=== PATIENT | male | born 1940 | race Caucasian/White ===

== ENCOUNTER 2017-01-30 14:29 | Emergency (ER) | payer BC ==
[~2017-01-30] VITALS: Ht 175.3 cm; Wt 96.0 kg
[~2017-01-30 14:29] MED LIST: ASPI81TA28 PO; BACL10TA PO; CARV6.25 PO; GABA-113 PO; LEVO50TA6 PO; MULT-190 PO; MULT-506 PO; NITR0.4S UT; OMEG10002; PRLSR20 PO; TAMS0.4C38 PO
[2017-01-30 14:46] VITALS: TEMP 37; Ht 175.3 cm; Wt 96.0 kg
[2017-01-30] MEDS ORDERED: SODIUM CHLORIDE 0.9% 500ML 500 ML IV STA (14:56)
[2017-01-30 15:03] VITALS: O2SAT 95
[2017-01-30] MEDS ORDERED: CARV12.52 PO (15:03)
--- NOTE | 2017-01-30 15:07 | EMERGENCY ROOM VISIT NOTE ---
History Report prepared by Mitzi: Teodoro Solano Under the Supervision of: Dr. Remberto Berman M.D. First contact with patient: 14:41 Chief Complaint: SHORTNESS OF BREATH Stated Complaint: SHORTNESS OF BREATH History of Present Illness The patient is a 76 year old male who presents to the Emergency Room with complaints of resolved shortness of breath that occurred prior to arrival. The patient is accompanied by his who states that he had a cup of peaches for lunch and sat on the recliner watching TV. She states that she checked on him and noticed his eyes were rolling to the back of his head. His states that he would not respond until she grabbed him in screamed. She states that he was short of breath. The patient admits to a quadruple bypass done by Dr. Lux at [facility] 9 days ago. He states that there was no work done on his valves. The patient admits to taking Aspirin, but denies any Coumadin. He reports that his heart beat was irregular until they increased his Carvedilol to 12.5 recently. The patient denies any abdominal pain. 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 A total of 10 systems reviewed and were otherwise negative. Past Medical & Surgical Medical Problems: (1) BPH (benign prostatic hyperplasia) (2) CAD (coronary artery disease) (3) Dyslipidemia (4) GERD (gastroesophageal reflux disease) (5) HTN (hypertension) (6) Hypothyroidism (7) Myocardial infarction (8) Osteoarthritis Surgical Problems: (1) H/O cardiac catheterization (2) H/O wisdom tooth extraction (3) History of tonsillectomy and adenoidectomy Family History Patient reports no known family medical history. Social History Smoking Status: Never Smoker Marital Status: Housing Status: lives with significant other Occupation Status: retired Current/Historical Medications Scheduled Aspirin (Aspirin Ec), 81 MG PO DAILY Carvedilol (Coreg), 12.5 MG PO BID Gabapentin (Neurontin), 300 MG PO BID Levothyroxine Sodium (Levothyroxine Sodium), 1 TAB PO DAILY Multivitamin (Multivitamin), 1 TAB PO DAILY Nitroglycerin (Nitrostat), 0.4 MG UT PRN Ocuvite Preservision (Ocuvite Preservision), 1 TAB PO DAILY [place]-3 Fatty Acids (Fish Oil), BID Omeprazole (Prilosec), 20 MG PO BID Tamsulosin Hcl (Flomax), 1 CAP PO DAILY Allergies Coded Allergies: No Known Allergies (Unverified , 01/30/17) Physical Exam Vital Signs Date Time Temp Pulse Resp B/P (MAP) Pulse Ox O2 Delivery O2 Flow Rate FiO2 01/30/17 17:57 64 18 169/100 97 01/30/17 17:50 62 18 169/100 97 Nasal Cannula 2.0 01/30/17 17:17 64 20 165/74 95 Nasal Cannula 2.0 01/30/17 16:20 64 18 168/78 100 Nasal Cannula 2.0 01/30/17 15:03 94 Room Air 01/30/17 15:03 95 Room Air 01/30/17 15:02 114/55 116/62 106/57 01/30/17 14:46 37.0 72 18 140/67 96 Room Air 01/30/17 14:36 Room Air 01/30/17 14:36 70 Physical Exam GENERAL: Patient is a healthy-appearing well-nourished 76 year old male HEAD: Normocephalic atraumatic EYES: Ocular movements intact pupils equal and react to light OROPHARYNX mucous membranes are moist no exudates present no erythema or edema present NECK: Supple no nuchal rigidity CHEST: Good equal expansion LUNGS: Clear and equal to auscultation CARDIAC: Normal S1 and S2, Heart murmur noted. ABDOMEN: Soft nontender no guarding BACK: No CVA tenderness EXTREMITIES: No pain upon palpation normal muscle strength in all groups no clubbing cyanosis. Surgical incision that is healing well. Right leg is grossly swollen than left. NEURO: Patient is following commands and answering questions appropriately. Alert and oriented x3 Cranial Nerves 2-12 grossly intact Medical Decision & Procedures ER Provider Diagnostic Interpretation: Radiology results as stated below per my review and radiologist interpretation: (CHEST FOR PE) ANGIO WITH CT DOSE: 574.15 mGy.cm HISTORY: Chest pain dyspnea TECHNIQUE: Multiaxial CT images of the chest were performed following the intravenous administration of contrast to evaluate the pulmonary arteries. Maximal intensity projection images were also obtained. A dose lowering technique was utilized adhering to the principles of ALARA. COMPARISON STUDY: None. FINDINGS: Mild atherosclerotic change thoracic aorta. No evidence for aneurysm or dissection. Several first and second order filling defects of the right upper lobe pulmonary vasculature. Several second and/or third or filling defects of the left lower lobe pulmonary vasculature. No main or central pulmonary embolus. Moderate cardiomegaly. Recent median sternotomy. No significant pericardial effusion. Mild bibasilar dependent atelectatic change. Small left pleural effusion. Contracted gallbladder containing several gallstones in the region of the gallbladder neck. IMPRESSION: 1. Study is positive for several second or third order pulmonary arterial filling defects/pulmonary emboli bilaterally. 2. No evidence for main or central pulmonary embolus. 3. Small left pleural effusion. 4. Mild bibasilar atelectatic change. 5. Contracted gallbladder containing several gallstones. The above report was generated using voice recognition software. It may contain grammatical, syntax or spelling errors. Electronically signed by: Ruddy Villalpando M.D. 01/30/2017 4:19 PM Dictated Date/Time: 01/30/2017 4:13 PM L VENOUS DOPP LOWER EXT UNILAT CLINICAL HISTORY: Pt c/o LLE swelling pain. Edema. TECHNIQUE: Venous Doppler COMPARISON STUDY: None FINDINGS: Normal study IMPRESSION: Normal study The above report was generated using voice recognition software. It may contain grammatical, syntax or spelling errors. Electronically signed by: Ruddy Villalpando M.D. 01/30/2017 5:16 PM Dictated Date/Time: 01/30/2017 5:16 PM Laboratory Results 01/30/17 15:18 Red Blood Count 3.83, Mean Corpuscular Volume 90.6, Mean Corpuscular Hemoglobin 28.7, Mean Corpuscular Hemoglobin Concent 31.7, Mean Platelet Volume 9.3, Neutrophils (%) (Auto) 54.7, Lymphocytes (%) (Auto) 22.5, Monocytes (%) (Auto) 18.3, Eosinophils (%) (Auto) 4.1, Basophils (%) (Auto) 0.3, Neutrophils # (Auto ) 3.71, Lymphocytes # (Auto) 1.53, Monocytes # (Auto) 1.24, Eosinophils # (Auto ) 0.28, Basophils # (Auto) 0.02 01/30/17 15:18 Test 01/30/17 15:18 01/30/17 15:20 01/30/17 15:24 01/30/17 16:33 White Blood Count 6.79 K/uL (4.8-10.8) Red Blood Count 3.83 M/uL (4.7-6.1) Hemoglobin 11.0 g/dL (14.0-18.0) Hematocrit 34.7 % (42-52) Mean Corpuscular Volume 90.6 fL (80-100) Mean Corpuscular Hemoglobin 28.7 pg (25-34) Mean Corpuscular Hemoglobin Concent 31.7 g/dl (32-36) Platelet Count 338 K/uL (130-400) Mean Platelet Volume 9.3 fL (7.4-10.4) Neutrophils (%) (Auto) 54.7 % Lymphocytes (%) (Auto) 22.5 % Monocytes (%) (Auto) 18.3 % Eosinophils (%) (Auto) 4.1 % Basophils (%) (Auto) 0.3 % Neutrophils # (Auto) 3.71 K/uL (1.4-6.5) Lymphocytes # (Auto) 1.53 K/uL (1.2-3.4) Monocytes # (Auto) 1.24 K/uL (0.11-0.59) Eosinophils # (Auto) 0.28 K/uL (0-0.5) Basophils # (Auto) 0.02 K/uL (0-0.2) RDW Standard Deviation 42.6 fL (36.4-46.3) RDW Coefficient of Variation 12.9 % (11.5-14.5) Immature Granulocyte % (Auto) 0.1 % Immature Granulocyte # (Auto) 0.01 K/uL (0.00-0.02) Prothrombin Time 11.1 SECONDS (9.0-12.0) Prothromb Time International Ratio 1.0 (0.9-1.1) Activated Partial Thromboplast Time 28.2 SECONDS (21.0-31.0) Partial Thromboplastin Ratio 1.1 Est Creatinine Clear Calc Drug Dose 45.6 ml/min Estimated GFR () 48.1 Estimated GFR (Non- 41.5 BUN/Creatinine Ratio 13.5 (10-20) Calcium Level 8.6 mg/dl (8.5-10.1) Total Bilirubin 0.3 mg/dl (0.2-1) Direct Bilirubin 0.1 mg/dl (0-0.2) Aspartate Amino Transf (AST/SGOT) 12 U/L (15-37) Alanine Aminotransferase (ALT/SGPT) 17 U/L (12-78) Alkaline Phosphatase 66 U/L (45-117) Total Creatine Kinase 24 U/L (39-308) Creatine Kinase MB 2.1 ng/ml (0.5-3.6) Creatine Kinase MB Ratio 8.8 (0-3.0) Troponin I 0.068 ng/ml (0-0.045) Total Protein 6.7 gm/dl (6.4-8.2) Albumin 3.1 gm/dl (3.4-5.0) Thyroid Stimulating Hormone (TSH) 5.130 uIu/ml (0.300-4.500) Bedside Hemoglobin 10.9 g/dl (14.0-18.0) Bedside Hematocrit 32 % (42-52) Bedside Sodium 142 mEq/L (135-144) Bedside Potassium 4.4 mEq/L (3.3-5.0) Bedside Chloride 105 mEq/L (101-112) Bedside Total CO2 25 mEq/l (24-31) Anion Gap 17.0 mmol/L (16-25) Bedside Blood Urea Nitrogen 23 mg/dl (7-18) Bedside Creatinine 1.7 mg/dl (0.6-1.3) Bedside Glucose (other) 104 mg/dl (70-99) Bedside Ionized Calcium ([place]) 1.24 mmol/l (1.12-1.32) Bedside Glucose 103 mg/dl (70-99) Urine Color DK YELLOW Urine Appearance CLEAR (CLEAR) Urine pH 5.5 (4.5-7.5) Urine Specific [place] 1.044 (1.000-1.030) Urine Protein TRACE (NEG) Urine Glucose (UA) NEG (NEG) Urine Ketones TRACE (NEG) Urine Occult Blood 1+ (NEG) Urine Nitrite NEG (NEG) Urine Bilirubin NEG (NEG) Urine Urobilinogen NEG (NEG) Urine Leukocyte Esterase NEG (NEG) Urine WBC (Auto) 1-5 /hpf (0-5) Urine RBC (Auto) 10-30 /hpf (0-4) Urine Hyaline Casts (Auto) 5-10 /lpf (0-5) Urine Epithelial Cells (Auto) >30 /lpf (0-5) Urine Bacteria (Auto) NEG (NEG) Urine Renal Epithelial Cells 0-5 /lpf (0-5) Labs reviewed by ED physician. Medications Administered Medications (Trade) Dose Ordered Sig/Radha Route Start Time Stop Time Status Last Admin Dose Admin Sodium Chloride 500 ml @ 999 mls/hr Q31M STAT IV 01/30/17 14:56 01/30/17 15:26 DC 01/30/17 15:30 999 MLS/HR Heparin Sodium/ Dextrose (Heparin 25,000 Unit/500ml D5W) 25,000 unit STK-MED ONCE .ROUTE 01/30/17 17:09 01/30/17 17:10 DC 01/30/17 17:13 25,000 UNIT Heparin Sodium (Porcine) (Heparin Sq 5000 Unit/0.5ml) 10,000 unit STK-MED ONCE .ROUTE 01/30/17 17:10 01/30/17 17:11 DC 01/30/17 17:14 6,000 UNIT ECG Indication: SOB/dyspnea Rate (beats per minute): 70 Rhythm: sinus rhythm Findings: 1st degree AV block, RBBB (incomplete), other (old inferior infarct) ED Course 1445: Past medical records reviewed. The patient was evaluated in room A12B. A complete history and physical examination was performed. 1451: I performed an Ultrasound on the patient. See Diagnostic Interpretation for further details. 1456: Ordered Sodium Chloride 500 ml @ 999 mls/hr IV. 1641: I discussed the patient's case with Dr. Sams, [facility] , and Dr. Ho, [facility]. They understand the patient's condition and suggest to transfer the patient via [facility] to [facility]. 1709: Ordered Heparin Sodium/Dextrose 25935 unit.. 1710: Ordered Heparin sodium 97035 unit. Medical Decision The differential diagnosis includes etiologies such as vasovagal event, infection, hypoglycemia, electrolyte abnormalities, cardiac sources, intracerebral event, toxicologic, neurologic, as well as others were entertained. This is a 76-year-old male who presents emergency department complaining of syncopal episode. The patient recently had a CABG performed. He has an elevation in his troponin. In addition the patient was sent for a CAT scan which was concerning for multiple PEs. I did discuss the case with the cardiovascular surgeon on-call at [facility] who asked that the patient be emergently transferred down. Based on the findings as well as the fact that the patient is requiring oxygen and that he has PEs which could place strain on his right heart. I do believe that the patient needs to be emergently transferred to [facility] for a stat echo as well as evaluation by his team's. They felt it was okay to place the patient on heparin. I did discuss my findings with family were in agreement with the treatment plan. Medication Reconcilliation Current Medication List: was personally reviewed by me Blood Pressure Screening Patient's blood pressure: Elevated blood pressure Blood pressure disposition: Referred to PCP Consults Time Called: 1640 Consulting Physician: Dr. Sams, [facility] and Dr. Ho, [facility] Returned Call: [phone] I discussed the patient's case with Dr. Sams, [facility], and Dr. Ho, [facility]. They understand the patient's condition and suggest to transfer the patient via [facility] to [facility]. Impression Primary Impression: Syncope Additional Impression: PE (pulmonary thromboembolism) Critical Care I have personally spent greater than 30 minutes of critical care time in the direct management of this patient. This includes bedside care, interpretation of diagnostic studies, and testing, discussion with consultants, patient, and family members, and other required patient management activities. This 30 minutes is in excess of all separately billable procedures. Scribe Attestation The scribe's documentation has been prepared under my direction and personally reviewed by me in its entirety. I confirm that the note above accurately reflects all work, treatment, procedures, and medical decision making performed by me. Departure Information Dispostion Transfer Acute Care Facility Referrals Pedro Lara M.D. (PCP) Patient Instructions My [facility] Problem Qualifiers Primary Impression: Syncope Syncope type: unspecified Qualified Codes: R55 - Syncope and collapse
[2017-01-30] MEDS ORDERED: OPTIRAY 320 IV PRN (15:15)
[2017-01-30 15:26] LABS: BASO % 0.3 %; BASO ABS # 0.02 K/uL (0-0.2); COMPLETE YES; EOS % 4.1 %; HEMATOCRIT 34.7 % (42-52); IG% 0.1 %; LYMPH % 22.5 %; LYMPH ABS # 1.53 K/uL (1.2-3.4); MEAN CELL VOLUME 90.6 fL (80-100); MEAN CORPUSCULAR HEMOGLOBIN 28.7 pg (25-34); MEAN CORPUSCULAR HGB CONC 31.7 g/dl (32-36); MEAN PLATELET VOLUME 9.3 fL (7.4-10.4); MONO % 18.3 %; NEUT % 54.7 %; PLATELET COUNT 338 K/uL (130-400); RED BLOOD COUNT 3.83 M/uL (4.7-6.1); WHITE BLOOD COUNT 6.79 K/uL (4.8-10.8)
[2017-01-30 15:37] LABS: ISTAT CREATININE 1.7 mg/dl (0.6-1.3); ISTAT HEMOGLOBIN 10.9 g/dl (14.0-18.0); ISTAT IONIZED CALCIUM 1.24 mmol/l (1.12-1.32)
[2017-01-30 15:50] LABS: BUN/CREATININE RATIO 13.5 (10-20); CALCIUM 8.6 mg/dl (8.5-10.1); CREATININE 1.6 mg/dl (0.60-1.40); POTASSIUM 4.2 mmol/L (3.5-5.1)
[2017-01-30 16:11] LABS: CKMB/CK RATIO 8.8 (0-3.0); THYROID STIMULATING HORMONE 5.13 uIu/ml (0.300-4.500)
--- NOTE | 2017-01-30 16:21 | DIAGNOSTIC IMAGING REPORT ---
(CHEST FOR PE) ANGIO WITH CT DOSE: 574.15 mGy.cm HISTORY: Chest pain dyspnea TECHNIQUE: Multiaxial CT images of the chest were performed following the intravenous administration of contrast to evaluate the pulmonary arteries. Maximal intensity projection images were also obtained. A dose lowering technique was utilized adhering to the principles of ALARA. COMPARISON STUDY: None. FINDINGS: Mild atherosclerotic change thoracic aorta. No evidence for aneurysm or dissection. Several first and second order filling defects of the right upper lobe pulmonary vasculature. Several second and/or third or filling defects of the left lower lobe pulmonary vasculature. No main or central pulmonary embolus. Moderate cardiomegaly. Recent median sternotomy. No significant pericardial effusion. Mild bibasilar dependent atelectatic change. Small left pleural effusion. Contracted gallbladder containing several gallstones in the region of the gallbladder neck. IMPRESSION: 1. Study is positive for several second or third order pulmonary arterial filling defects/pulmonary emboli bilaterally. 2. No evidence for main or central pulmonary embolus. 3. Small left pleural effusion. 4. Mild bibasilar atelectatic change. 5. Contracted gallbladder containing several gallstones. The above report was generated using voice recognition software. It may contain grammatical, syntax or spelling errors. Electronically signed by: Ruddy Villalpando M.D. 01/30/2017 4:19 PM Dictated Date/Time: 01/30/2017 4:13 PM
[2017-01-30 16:46] LABS: URINE APPEARANCE CLEAR (CLEAR); URINE BILIRUBIN NEG (NEG); URINE COLOR DK YELLOW; URINE EPITHELIAL CELL AUTO >30 /lpf (0-5); URINE NITRITE NEG (NEG); URINE PH 5.5 (4.5-7.5); URINE SPECIFIC GRAVITY 1.044 (1.000-1.030); UROBILINOGEN NEG (NEG)
[2017-01-30 16:47] LABS: MANUAL MICROSCOPIC REQUIRED? NO; REVIEW REQ? YES
[2017-01-30] MEDS ORDERED: HEPARIN 25000 UNIT/500 ML D5W ONE (17:09)
[2017-01-30] MEDS ORDERED: HEPARIN SOD 5000 UNIT/0.5 ML CARP ONE (17:10)
[2017-01-30 17:15] LABS: PARTIAL THROMBOPLASTIN RATIO 1.1; PROTHROMBIN TIME (PATIENT) 11.1 SECONDS (9.0-12.0)
--- NOTE | 2017-01-30 17:17 | DIAGNOSTIC IMAGING REPORT ---
L VENOUS DOPP LOWER EXT UNILAT CLINICAL HISTORY: Pt c/o LLE swelling pain. Edema. TECHNIQUE: Venous Doppler COMPARISON STUDY: None FINDINGS: Normal study IMPRESSION: Normal study The above report was generated using voice recognition software. It may contain grammatical, syntax or spelling errors. Electronically signed by: Ruddy Villalpando M.D. 01/30/2017 5:16 PM Dictated Date/Time: 01/30/2017 5:16 PM
[2017-01-30 17:57] VITALS: BP 169/100; PULSE 64; O2SAT 97
[2017-02-16] MEDS ORDERED: PRS5 PO (14:05)
== END 2017-01-30 17:57 | disposition short-term general hospital (02) ==
LOC: EDBD 14:29 → C.EDA 14:30
DX: R55 Syncope and collapse (principal); I26.99 Other pulmonary embolism without acute cor pulmonale; I25.10 Atherosclerotic heart disease of native coronary artery without angina pectoris; I10 Essential (primary) hypertension; M19.90 Unspecified osteoarthritis, unspecified site; E03.9 Hypothyroidism, unspecified; K21.9 Gastro-esophageal reflux disease without esophagitis; N40.0 Benign prostatic hyperplasia without lower urinary tract symptoms; I25.2 Old myocardial infarction; Z95.1 Presence of aortocoronary bypass graft; Z98.818 Other dental procedure status; Z98.890 Other specified postprocedural states; Z90.89 Acquired absence of other organs; Z79.82 Long term (current) use of aspirin; Z79.899 Other long term (current) drug therapy

== ENCOUNTER 2017-02-09 16:44 | Inpatient (IN) | payer BC, OTHER ==
[~2017-02-09] VITALS: Ht 175.3 cm; Wt 95.0 kg
[~2017-02-09 16:44] MED LIST changes: -BACL10TA PO; +CARV12.52 PO; -CARV6.25 PO
[2017-02-09 18:22] VITALS: BP 171/86; PULSE 64; TEMP 37; O2SAT 96; Ht 175.3 cm; Wt 95.0 kg
[2017-02-09] MEDS ORDERED: ONDANSETRON INJ 2 MG/ML 2 ML VIAL IV PRN (19:30)
[2017-02-09] MEDS ORDERED: INFLUENZA ADMINISTRATION CHARGE ONE (19:45)
[2017-02-09] MEDS ORDERED: INFLUENZA VACCINE HIGH DOSE 65+ 0.5 ML SYR IM. ONE (19:45)
[2017-02-09 20:30] LABS: HEMATOCRIT 36.9 % (42-52); MEAN CELL VOLUME 89.3 fL (80-100); MEAN CORPUSCULAR HEMOGLOBIN 28.6 pg (25-34); PLATELET COUNT 269 K/uL (130-400); RED BLOOD COUNT 4.13 M/uL (4.7-6.1); WHITE BLOOD COUNT 5.41 K/uL (4.8-10.8)
[2017-02-09] MEDS ORDERED: NITROGLYCERIN 0.4 MG SL PER TAB CHARGE UT SCH (20:30)
[2017-02-09] MEDS ORDERED: OMEP20CA9 PO (20:31)
[2017-02-09] MEDS ORDERED: NRN300 PO (20:31)
[2017-02-09 20:57] LABS: BUN/CREATININE RATIO 18.8 (10-20); CALCIUM 9.5 mg/dl (8.5-10.1); CREATININE 1.5 mg/dl (0.60-1.40); POTASSIUM 4.6 mmol/L (3.5-5.1); PROTHROMBIN TIME (PATIENT) 51.3 SECONDS (9.0-12.0)
[2017-02-09 21:00] LABS: INR 4.5 (0.9-1.1)
[2017-02-09] MEDS ORDERED: PHYTONADIONE 5 MG TAB PO ONE (21:00)
--- NOTE | 2017-02-09 21:00 | Urology Consultation ---
History General Date of Service: Feb 09, 2017. Chief Complaint: gross hematuria Primary Care Physician: Pedro Lara M.D. Pt seen a urologist before?: No History of Present Illness I am asked by Dr Hendrix to evaluate and treat patient for gross hematuria. It began 4 days ago. It seemed temporally related to coumadin use. He has passed clots. He had a CABG at [facility] then had a PE. He was discharged from [facility] Tuesday and the bleeding started soon after. He was eval at [facility] and then transferred here. He has h/o kidney stones. he has been told he has a large prostate. He is not having dyuria or fevers Imaging Imaging: CT Laboratory Labs were reviewed and are within normal limits unless listed below. Labs are available in the chart and at [facility] Problem List Medical Problems: (1) PE (pulmonary thromboembolism) Status: Acute (2) Syncope Status: Acute Past History arthritis, BPH, congestive heart failure, coronary artery disease, deep vein thrombosis, heart disease, high cholesterol, hypertension, hypothyroidism, kidney stones Past Surgical History: other (CABG) Family History Patient reports no known family medical history. not relevant at his age Social History Hx Tobacco Use In Past Year?: No Smoking: non-smoker Alcohol: daily (1 drink per day) Drug use: none Marital status: Housing status: lives with family Occupation status: retired Allergies Coded Allergies: No Known Allergies (Unverified , 01/30/17) Medications Home Medications: Home Meds and Scripts Medications Dose Route/Sig Max Daily Dose Days Date Category Prilosec (Omeprazole) 20 Mg Cap 40 Mg PO DAILY 02/09/17 Reported Gabapentin 300 Mg Cap 1 Cap PO TID 02/09/17 Reported Coreg (Carvedilol) 12.5 Mg Tab 12.5 Mg PO BID 01/30/17 Reported Flomax (Tamsulosin Hcl) 0.4 Mg Cap 1 Cap PO DAILY 30 02/23/16 Reported Ocuvite Preservision (Multivitamins/Minerals) 1 Tab Tab 1 Tab PO DAILY 12/04/15 Reported Nitrostat (Nitroglycerin) 0.4 Mg Sub 0.4 Mg UT PRN 12/04/15 Reported Multivitamin (Multivitamins) Tab 1 Tab PO DAILY 11/05/15 Reported Fish Oil ([place]-3 Fatty Acids) 1,000 Mg Cap BID 11/05/15 Reported Aspirin Ec (Aspirin) 81 Mg Tab 81 Mg PO DAILY 11/05/15 Reported Levothyroxine Sodium 50 Mcg Tab 1 Tab PO DAILY 30 11/05/15 Reported Inpatient Medications: Current Inpatient Medications Medications (Trade) Dose Ordered Sig/Radha Route Start Time Stop Time Status Last Admin Dose Admin Acetaminophen (Tylenol Tab) 650 mg Q6H PRN PO 02/09/17 19:30 03/11/17 19:29 Ondansetron HCl (Zofran Inj) 4 mg Q6H PRN IV 02/09/17 19:30 03/11/17 19:29 Polyethylene (Miralax Powder Packet) 17 gm DAILY PRN PO 02/09/17 19:30 03/11/17 19:29 Phytonadione (Mephyton Tab) 2.5 mg 2100 ONCE PO 02/09/17 21:00 02/09/17 21:01 Carvedilol (Coreg Tab) 12.5 mg BID PO 02/09/17 21:00 03/11/17 20:59 Gabapentin (Neurontin Cap) 300 mg TID PO 02/09/17 21:00 03/11/17 20:59 Levothyroxine Sodium (Synthroid Tab) 50 mcg DAILYBB PO 02/10/17 06:00 03/12/17 05:59 Nitroglycerin (Nitrostat Tab) 0.4 mg PRN UT 02/09/17 20:30 03/11/17 20:29 Multivitamins/ Minerals (Multivitamin W/ Minerals Tab) 1 tab DAILY PO 02/10/17 09:00 03/12/17 08:59 Tamsulosin HCl (Flomax Cap) 0.4 mg DAILY PO 02/10/17 09:00 03/12/17 08:59 Pantoprazole Sodium (Protonix Tab) 40 mg DAILY PO 02/10/17 09:00 03/12/17 08:59 Review of Systems Review of Systems Constitutional: + weight loss, No fever, No chills, No frequent headaches Neurological: No passing out, No seizures Endocrine: No excessive thirst, No too hot, No too cold, No tired/sluggish Gastrointestinal: + constipation, No abdominal pain, No indigestion, No nausea , No vomiting, No diarrhea Cardiovascular: No chest pain, No palpitations, No swelling ankles/feet Respiratory: + shortness of breath, No chronic cough Male : + frequent urination, + blood in urine, + kidney stones, + nocturia more than once/night, No urinary retention Physical Exam Vital Signs: Vital Signs Past 12 Hours Date Time Temp Pulse Resp B/P (MAP) Pulse Ox O2 Delivery O2 Flow Rate FiO2 02/09/17 20:00 Room Air 02/09/17 18:22 37.0 64 96 171/86 96 Room Air Physical Exam: General Appearance: WD/WN, no apparent distress, + obese Eyes: bilateral eyes normal inspection ENT: hearing grossly normal Neck: no adenopathy, no JVD, trachea midline Respiratory/Chest: no accessory muscle use Cardiovascular: no edema Gastrointestinal: Abdomen: normal abdomen Bladder: normal bladder Renal: normal renal Genitourinary - Male: Prostate: pertinent finding (he declines to have a KRYS, says he had one last month and it was noraml.) Extremities: non-tender, normal inspection, no pedal edema, no calf tenderness Neurologic/Psychiatric: alert, normal mood/affect, oriented x 3 Skin: normal color, warm/dry, no rash Lymphatic: no adenopathy Assessment & Plan Assessment & Plan gross hematuria clots in bladder by CT scan He is passing the clots fairly easily. the urine is less bloody than earlier today I suggest he be observed for now. His INR will be gently lowered but not fully corrected. Aiming for INR in the 2 's If he goes into katherin retention and cant void then we may have to intervene with a trip to OR for clot evacuation. He understands the plan. He will need a cysto in future as outpatient to rule out any dangerous pathology. statistically this is most likely prostate bleeding. I suggest we start finasteride for this.
[2017-02-09] MEDS ORDERED: GEMF600T3 PO (21:11)
[2017-02-09] MEDS: CARVEDILOL 12.5 MG TAB PO SCH (21:19)
[2017-02-09] MEDS: GABAPENTIN 300 MG CAP PO SCH (21:19)
--- NOTE | 2017-02-09 21:37 | History and Physical ---
History & Physical Date & Time of Service: Feb 09, 2017 at 21:16 Chief Complaint: Hematuria Primary Care Physician: Pedro Lara M.D. History of Present Illness Source: patient, spouse, clinic records, hospital records This is a 76yo M with a PMH of CAD (s/p 2 stents, CABG x 4), recent PE (on coumadin), HLD, hypothyroidism and other medical problems listed below who presents with hematuria that started 4 days ago. Patient had a quadruple bypass performed in [place] by Dr. Francisco on Jan 21 complicated by a post- operative PE on Jan 30. Patient initially presented to [facility] ER but was transferred to [place] for further management. Was discharged home on the on 5mg coumadin daily. By Feb 06, patient started to notice blood in his urine intermittently. Over the past few days, patient has had increasing amounts of bright red blood in urine with occasional clots. [facility] and patient's INR was found to be supratherapeutic at 4.7. CT abd pelvis showed presence of an intermediate density material in the bladder described as a soft tissue mass vs. hemorrhage surrounding a bladder stone. Patient was directly admitted to [facility] for further work-up and urology services. Vitals are stable. In addition to hematuria, patient endorses nocturia. Patient denies fever, chills. headache, visual changes, epistaxis, CP, SOB, abdominal pain, nausea, vomiting, dysuria, melena or hematochezia. Past Medical/Surgical History Medical Problems: (1) CAD (coronary artery disease) Permanent Comment: S/p stents 2004, 2006. CABG x 4 Jan 2017 Status: Chronic (2) Dyslipidemia Status: Chronic (3) GERD (gastroesophageal reflux disease) Status: Chronic (4) HTN (hypertension) Status: Chronic (5) Hypothyroidism Status: Chronic (6) Myocardial infarction Status: Chronic (7) Osteoarthritis Status: Chronic (8) Pulmonary embolism Permanent Comment: Jan 2017 Status: Chronic (9) Seizure Status: Chronic Surgical Problems: (1) H/O cardiac catheterization Status: Chronic (2) H/O wisdom tooth extraction Status: Chronic (3) History of tonsillectomy and adenoidectomy Status: Chronic Family History Patient reports no known family medical history. Social History Smoking Status: Never Smoker Alcohol Use: socially (Endorses 1 mixed drink daily with dinner.) Drug Use: none Marital Status: Housing status: lives with family Occupational Status: retired Allergies Coded Allergies: No Known Allergies (Unverified , 01/30/17) Home Medications Scheduled Aspirin (Aspirin Ec), 81 MG PO DAILY Carvedilol (Coreg), 12.5 MG PO BID Gabapentin (Gabapentin), 1 CAP PO TID Gemfibrozil (Lopid), 600 MG PO BID Levothyroxine Sodium (Levothyroxine Sodium), 1 TAB PO DAILY Multivitamin (Multivitamin), 1 TAB PO DAILY Nitroglycerin (Nitrostat), 0.4 MG UT PRN Ocuvite Preservision (Ocuvite Preservision), 1 TAB PO DAILY [place]-3 Fatty Acids (Fish Oil), BID Omeprazole (Prilosec), 40 MG PO DAILY Tamsulosin Hcl (Flomax), 1 CAP PO DAILY Review of Systems Constitutional- no fever; no weight loss Eyes- no acute visual changes ENT- no sinus drainage; no pharyngitis Pulmonary- no cough, no wheezing, see HPI Cardiac- see HPI GI- see HPI - see HPI Musculoskeletal- no arthralgias, no myalgias Derm- no rashes, no new skin lesions, no changing skin lesions Hematologic- no unusual bruising, no unusual bleeding Lymphatics- no adenopathy Endocrine- no polyuria or polydipsia; no heat or cold intolerance Neuro- no headaches, no focal neurologic symptoms Psych- no anxiety, no depression Physical Exam Vital Signs Date Time Temp Pulse Resp B/P (MAP) Pulse Ox O2 Delivery O2 Flow Rate FiO2 02/09/17 20:00 Room Air 02/09/17 18:22 37.0 64 96 171/86 96 Room Air General Appearance: WD/WN, no apparent distress Head: normocephalic, atraumatic Eyes: normal inspection, PERRL, EOMI ENT: hearing grossly normal Neck: supple, no adenopathy, no JVD, trachea midline Respiratory/Chest: chest non-tender (Presence of a vertical scar on precordium) , lungs clear, normal breath sounds, no respiratory distress, no accessory muscle use Cardiovascular: regular rate, rhythm, + systolic murmur Abdomen/GI: normal bowel sounds, non tender, soft, no organomegaly Back: normal inspection, no CVA tenderness Extremities/Musculoskelatal: normal inspection, no calf tenderness, normal capillary refill, no pedal edema Neurologic/Psych: no motor/sensory deficits, alert, normal mood/affect, oriented x 3 Skin: normal color, warm/dry, no rash Diagnostics Laboratory Results Results Past 24 Hours Test 02/09/17 20:17 Range/Units White Blood Count 5.41 4.8-10.8 K/uL Red Blood Count 4.13 4.7-6.1 M/uL Hemoglobin 11.8 14.0-18.0 g/dL Hematocrit 36.9 42-52 % Mean Corpuscular Volume 89.3 80-100 fL Mean Corpuscular Hemoglobin 28.6 25-34 pg Mean Corpuscular Hemoglobin Concent 32.0 32-36 g/dl RDW Standard Deviation 42.4 36.4-46.3 fL RDW Coefficient of Variation 13.0 11.5-14.5 % Platelet Count 269 130-400 K/uL Mean Platelet Volume 9.0 7.4-10.4 fL Prothrombin Time 51.3 9.0-12.0 SECONDS Prothromb Time International Ratio 4.5 0.9-1.1 Activated Partial Thromboplast Time 52.8 21.0-31.0 SECONDS Partial Thromboplastin Ratio 2.0 Sodium Level 141 136-145 mmol/L Potassium Level 4.6 3.5-5.1 mmol/L Chloride Level 108 98-107 mmol/L Carbon Dioxide Level 26 21-32 mmol/L Anion Gap 7.0 3-11 mmol/L Blood Urea Nitrogen 28 7-18 mg/dl Creatinine 1.50 0.60-1.40 mg/dl Est Creatinine Clear Calc Drug Dose 47.3 ml/min Estimated GFR () 52.0 Estimated GFR (Non- 44.9 BUN/Creatinine Ratio 18.8 10-20 Random Glucose 96 70-99 mg/dl Calcium Level 9.5 8.5-10.1 mg/dl Diagnostic Radiology CT abd pelvis (from [facility] records on chart): There is intermediate density material surrounding a calcification in the bladder. It is unclear if this represents an abnormal soft tissue mass surrounding a bladder stone verses potentially hemorrhage surrounding the bladder stone. The abnormality appears to be separate from the enlarged prostate gland. Recommend correlation with cystoscopy. Impression Assessment and Plan This is a 76yo M with a PMH of CAD (s/p 2 stents, CABG x 4), recent PE (on coumadin), HLD, hypothyroidism and other medical problems listed below who presents with hematuria that started 4 days ago. Patient had a quadruple bypass performed in [place] by Dr. Francisco on Jan 21 complicated by a post- operative PE on Jan 30. Hematuria: -Presents with bright red blood in urine (with some clots) x 4 days -Passing clots easily, no urinary obstruction per patient -On coumadin with a supratherapeutic INR of 4.7 at OSH -Reluctant to fully reverse Vit K in the setting of a recent PE -Discussed with Dr. Crocker, who recommended 2.5mg PO Vit K to gently lower INR -Repeat INR tonight of 4.5. Plan to trend in AM. -If INR <2 at any point, plan to initiate IV heparin -Hemoglobin stable at 11.8. Trend H/H -Dr. Madrid on board for mass/clot visualized on CT abd/pelvis -Recommends observation overnight, with gentle INR correction -Aiming for INR in the 2s for clot evacuation -Will need a cysto in the future as an out-patient to r/o any additional pathology -Statistically, this is most likely prostate bleeding. Start finasteride CAD s/p stents, CABG: -Stable, denies any CP, SOB -Aspirin, fish oil held 2/2 hematuria -Continue carvedilol, gemfibrozil -Patient unable to tolerate statin in the past H/o sub-acute PE: -Coumadin held 2/2 hematuria, supratherapeutic INR -Clinically stable, HR and O2 saturation are within normal range -Plan to initiate IV heparin if INR <2 during admission HLD: -Continue gemfibrozil Hypothyroidism: -Continue levothyroxine Acid Reflux: -Continue omeprazole Chronic back pain: -Continue gabapentin DVT Ppx: SCDs. Code status: FULL PCP: Long Dispo: Plan to return home once medically stable ATTENDING ADDENDUM Record reviewed. Patient interviewed and examined. Care coordinated with Catherine Curtis PA-C. Please refer to her documentation for patient's history. I agree with the assessment and plan stated above. The care plan has been coordinated with Dr. Madrid who will just monitor him for now, with the possibility of performing a cystoscopy as inpatient if bleeding does not slow down as INR decreases. Vit K 2.5mg given today and patient will need to receive IV heparin if INR<2. Will watch for am level closely. for now, no Mann is needed. Additionally, it was noted that although patient has had a statin intolerance in the past, he was recently placed back on Lipitor 40mg ( wide needs to confirm dose tomorrow) post-CABG. Will continue that this admission. Med Reconciliation has been updated. BP was slightly elevated but he received his Coreg and Gabapentin to help this. Will monitor BP overnight. Otherwise he is hemodynamically stable with only mild, expected anemia and doing well. DO Simeon Level of Care Telemetry Advanced Directives Existing Living Will: No Existing Power of Implementation Services Analyst: No Resuscitation Status FULL RESUSCITATION VTE Prophylaxis VTE Risk Assessment Done? Y/N: Yes Risk Level: Moderate Given or contraindicated: SCD's, Contraindicated
[2017-02-09 23:25] VITALS: BP 143/77; PULSE 77; TEMP 37; O2SAT 95
[2017-02-09] MEDS ORDERED: LPT/40 PO (23:50)
[2017-02-10 03:19] VITALS: BP 111/67; PULSE 66; TEMP 36.9; O2SAT 96
[2017-02-10 05:30] LABS: HEMATOCRIT 33.2 % (42-52); MEAN CELL VOLUME 88.3 fL (80-100); MEAN CORPUSCULAR HGB CONC 32.8 g/dl (32-36); MEAN PLATELET VOLUME 9.3 fL (7.4-10.4); PLATELET COUNT 245 K/uL (130-400); RED BLOOD COUNT 3.76 M/uL (4.7-6.1); WHITE BLOOD COUNT 5.28 K/uL (4.8-10.8)
[2017-02-10 05:39] LABS: INR 3.3 (0.9-1.1); PROTHROMBIN TIME (PATIENT) 37.2 SECONDS (9.0-12.0)
[2017-02-10 05:57] LABS: BUN/CREATININE RATIO 20.9 (10-20); CALCIUM 8.7 mg/dl (8.5-10.1); CREATININE 1.4 mg/dl (0.60-1.40); POTASSIUM 4.2 mmol/L (3.5-5.1)
[2017-02-10] MEDS: LEVOTHYROXINE 50 MCG TAB PO SCH (06:31)
[2017-02-10] MEDS: PANTOprazole SOD 40 MG TAB PO SCH (07:29)
[2017-02-10] MEDS: CARVEDILOL 12.5 MG TAB PO SCH ×2 (07:29→20:54)
[2017-02-10] MEDS: CEROVITE ADV FORMULA TAB PO SCH (07:29)
[2017-02-10] MEDS: GABAPENTIN 300 MG CAP PO SCH ×3 (07:29→20:54)
[2017-02-10] MEDS: FINASTERIDE 5 MG TAB PO SCH (07:29)
[2017-02-10] MEDS: TAMSULOSIN HCL 0.4 MG CAP PO SCH (07:29)
[2017-02-10] MEDS: GEMFIBROZIL 600 MG TAB PO SCH ×2 (07:29→20:55)
[2017-02-10 07:35] VITALS: BP 125/67; PULSE 73; TEMP 37.2; O2SAT 96
--- NOTE | 2017-02-10 10:50 | Progress Note ---
Medicine Progress Note Date & Time of Visit: Feb 10, 2017 at 10:48. Subjective patient was actually in the bathroom, washing /brushing his teeth examined at the bedside states he feels fine overall still has katherin hematuria, but no dysuria, abdominal pain, nausea, chills denies headache, dizziness, chest pain, dyspnea, palpitations no other symptoms Objective Last 8 Hrs Date Time Temp Pulse Resp B/P (MAP) Pulse Ox O2 Delivery O2 Flow Rate FiO2 02/10/17 08:00 Room Air 02/10/17 07:35 37.2 73 20 125/67 (86) 96 Room Air 02/10/17 04:00 Room Air 02/10/17 03:19 36.9 66 22 111/67 (82) 96 Room Air Physical Exam: General- oriented x 3, not in distress, speaks in sentences with no effort Head- atraumatic Eyes- EOMI, anicteric ENT- oropharynx clear Neck- supple, no JVD, no adenopathy, no thyromegaly Lungs- clear to auscultation b/l Heart- midsternotomy surgical site: healing well, no signs of infection regular rhythm; no murmur, no gallops Abdomen- normal bowel sounds, soft, nontender Extremities- no pretibial edema, no calf tenderness Neuro- alert, oriented x 3; no gross focal deficits Skin- warm & dry Laboratory Results: Last 24 Hours Test 02/09/17 20:17 02/10/17 05:06 White Blood Count 5.41 K/uL 5.28 K/uL Red Blood Count 4.13 M/uL 3.76 M/uL Hemoglobin 11.8 g/dL 10.9 g/dL Hematocrit 36.9 % 33.2 % Mean Corpuscular Volume 89.3 fL 88.3 fL Mean Corpuscular Hemoglobin 28.6 pg 29.0 pg Mean Corpuscular Hemoglobin Concent 32.0 g/dl 32.8 g/dl RDW Standard Deviation 42.4 fL 41.1 fL RDW Coefficient of Variation 13.0 % 12.7 % Platelet Count 269 K/uL 245 K/uL Mean Platelet Volume 9.0 fL 9.3 fL Prothrombin Time 51.3 SECONDS 37.2 SECONDS Prothromb Time International Ratio 4.5 3.3 Activated Partial Thromboplast Time 52.8 SECONDS Partial Thromboplastin Ratio 2.0 Sodium Level 141 mmol/L 141 mmol/L Potassium Level 4.6 mmol/L 4.2 mmol/L Chloride Level 108 mmol/L 108 mmol/L Carbon Dioxide Level 26 mmol/L 25 mmol/L Anion Gap 7.0 mmol/L 8.0 mmol/L Blood Urea Nitrogen 28 mg/dl 29 mg/dl Creatinine 1.50 mg/dl 1.40 mg/dl Est Creatinine Clear Calc Drug Dose 47.3 ml/min 50.6 ml/min Estimated GFR () 52.0 56.6 Estimated GFR (Non- 44.9 48.8 BUN/Creatinine Ratio 18.8 20.9 Random Glucose 96 mg/dl 95 mg/dl Calcium Level 9.5 mg/dl 8.7 mg/dl Thyroid Stimulating Hormone (TSH) 5.690 uIu/ml Assessment & Plan 76yo M with a PMH of CAD (s/p 2 stents, CABG x 4), recent PE (on coumadin), HLD , hypothyroidism and other medical problems listed below who presents with hematuria that started 4 days ago. Patient had a quadruple bypass performed in [place] by Dr. Francisco on Jan 21 complicated by a post-operative PE on Jan 30. Hematuria: -Presents with bright red blood in urine (with some clots) x 4 days -Passing clots easily, no urinary obstruction per patient -On coumadin with a supratherapeutic INR of 4.7 at OSH -Discussed with Dr. Crocker, who recommended 2.5mg PO Vit K to gently lower INR -If INR <2 at any point, plan to initiate IV heparin -- INR today 3.3 Hg decreased from 11.8 to 10.9 still having hematuria, will discuss next step with Dr. Madrid -Dr. Madrid on board for mass/clot visualized on CT abd/pelvis -Aiming for INR in the 2s for clot evacuation -Will need a cysto in the future as an out-patient to r/o any additional pathology -Statistically, this is most likely prostate bleeding. Start finasteride CAD s/p stents, CABG: -Aspirin, fish oil held 2/2 hematuria -Continue carvedilol, gemfibrozil -Patient unable to tolerate statin in the past -- denies cardiac symptoms ASA still on hold H/o sub-acute PE: -Coumadin held 2/2 hematuria, supratherapeutic INR -Plan to initiate IV heparin if INR <2 during admission -- INR 3.3 HLD: -Continue gemfibrozil Hypothyroidism: -Continue levothyroxine Acid Reflux: -Continue omeprazole Chronic back pain: -Continue gabapentin DVT Ppx: SCDs. Code status: FULL PCP: Long Dispo: Plan to return home once medically stable Current Inpatient Medications: Current Inpatient Medications Medications (Trade) Dose Ordered Sig/Radha Route Start Time Stop Time Status Last Admin Dose Admin Acetaminophen (Tylenol Tab) 650 mg Q6H PRN PO 02/09/17 19:30 03/11/17 19:29 Ondansetron HCl (Zofran Inj) 4 mg Q6H PRN IV 02/09/17 19:30 03/11/17 19:29 Polyethylene (Miralax Powder Packet) 17 gm DAILY PRN PO 02/09/17 19:30 03/11/17 19:29 Carvedilol (Coreg Tab) 12.5 mg BID PO 02/09/17 21:00 03/11/17 20:59 02/10/17 07:29 12.5 MG Gabapentin (Neurontin Cap) 300 mg TID PO 02/09/17 21:00 03/11/17 20:59 02/10/17 07:29 300 MG Levothyroxine Sodium (Synthroid Tab) 50 mcg DAILYBB PO 02/10/17 06:00 03/12/17 05:59 02/10/17 06:31 50 MCG Nitroglycerin (Nitrostat Tab) 0.4 mg PRN UT 02/09/17 20:30 03/11/17 20:29 Multivitamins/ Minerals (Multivitamin W/ Minerals Tab) 1 tab DAILY PO 02/10/17 09:00 03/12/17 08:59 02/10/17 07:29 1 TAB Tamsulosin HCl (Flomax Cap) 0.4 mg DAILY PO 02/10/17 09:00 03/12/17 08:59 02/10/17 07:29 0.4 MG Pantoprazole Sodium (Protonix Tab) 40 mg DAILY PO 02/10/17 09:00 03/12/17 08:59 02/10/17 07:29 40 MG Finasteride (Proscar Tab) 5 mg QAM PO 02/10/17 09:00 03/12/17 08:59 02/10/17 07:29 5 MG Atorvastatin Calcium (Lipitor Tab) 40 mg HS PO 02/10/17 21:00 03/12/17 20:59 Gemfibrozil (Lopid Tab) 600 mg BID PO 02/10/17 09:00 03/12/17 08:59 02/10/17 07:29 600 MG
[2017-02-10 12:12] VITALS: BP 115/66; PULSE 62; TEMP 36.9; O2SAT 95
[2017-02-10 12:17] LABS: HEMATOCRIT 33.7 % (42-52)
[2017-02-10 15:33] VITALS: BP 107/68; PULSE 70; TEMP 36.5; O2SAT 98
[2017-02-10] MEDS: POLYETHYLENE (MIRALAX) 17 GM PACK PO PRN (16:38)
--- NOTE | 2017-02-10 16:47 | Progress Note ---
Subjective Date of Service: Feb 10, 2017. 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 No dysuria. No chest pain. FLow is good, far fewer clots. Problem List Medical Problems: (1) PE (pulmonary thromboembolism) Status: Acute (2) Syncope Status: Acute Review of Systems Constitutional: No fever, No fatigue Cardiac: No chest pain, No palpitations Abdomen: No nausea, No vomiting, No diarrhea, No constipation Male : + hematuria, No dysuria, No urinary frequency Objective Vital Signs Date Time Temp Pulse Resp B/P (MAP) Pulse Ox O2 Delivery O2 Flow Rate FiO2 02/10/17 15:33 36.5 70 18 107/68 (81) 98 Room Air 02/10/17 12:12 36.9 62 20 115/66 (82) 95 02/10/17 08:00 Room Air 02/10/17 07:35 37.2 73 20 125/67 (86) 96 Room Air 02/10/17 04:00 Room Air 02/10/17 03:19 36.9 66 22 111/67 (82) 96 Room Air 02/09/17 23:59 Room Air 02/09/17 23:25 37.0 77 20 143/77 (99) 95 Room Air 02/09/17 20:00 Room Air 02/09/17 18:22 37.0 64 96 171/86 96 Room Air Physical Exam General Appearance: WD/WN, no apparent distress, + obese Eyes: normal inspection ENT: hearing grossly normal Respiratory/Chest: no respiratory distress, no accessory muscle use Extremities: non-tender, normal inspection, no pedal edema, no calf tenderness Neurologic/Psychiatric: alert, normal mood/affect, oriented x 3 Laboratory Results Last 24 Hours Test 02/09/17 20:17 02/10/17 05:06 02/10/17 11:59 White Blood Count 5.41 K/uL 5.28 K/uL Red Blood Count 4.13 M/uL 3.76 M/uL Hemoglobin 11.8 g/dL 10.9 g/dL 10.7 g/dL Hematocrit 36.9 % 33.2 % 33.7 % Mean Corpuscular Volume 89.3 fL 88.3 fL Mean Corpuscular Hemoglobin 28.6 pg 29.0 pg Mean Corpuscular Hemoglobin Concent 32.0 g/dl 32.8 g/dl RDW Standard Deviation 42.4 fL 41.1 fL RDW Coefficient of Variation 13.0 % 12.7 % Platelet Count 269 K/uL 245 K/uL Mean Platelet Volume 9.0 fL 9.3 fL Prothrombin Time 51.3 SECONDS 37.2 SECONDS Prothromb Time International Ratio 4.5 3.3 Activated Partial Thromboplast Time 52.8 SECONDS Partial Thromboplastin Ratio 2.0 Sodium Level 141 mmol/L 141 mmol/L Potassium Level 4.6 mmol/L 4.2 mmol/L Chloride Level 108 mmol/L 108 mmol/L Carbon Dioxide Level 26 mmol/L 25 mmol/L Anion Gap 7.0 mmol/L 8.0 mmol/L Blood Urea Nitrogen 28 mg/dl 29 mg/dl Creatinine 1.50 mg/dl 1.40 mg/dl Est Creatinine Clear Calc Drug Dose 47.3 ml/min 50.6 ml/min Estimated GFR () 52.0 56.6 Estimated GFR (Non- 44.9 48.8 BUN/Creatinine Ratio 18.8 20.9 Random Glucose 96 mg/dl 95 mg/dl Calcium Level 9.5 mg/dl 8.7 mg/dl Thyroid Stimulating Hormone (TSH) 5.690 uIu/ml Assessment and Plan gross hematuria improving audit practice intern color and fewer clots. observe. may have general diet also has bladder stone- will need a cysto and stone removal many months in future. He is now on finasteride to help control prostate bleeding and shrink overall size of prostate. Will take months to kick in.
[2017-02-10 18:10] LABS: HEMATOCRIT 33.8 % (42-52)
[2017-02-10 19:27] VITALS: BP 150/87; PULSE 67; TEMP 36.6; O2SAT 96
[2017-02-10] MEDS: ATORVASTATIN 20 MG TAB PO SCH (20:54)
[2017-02-10] MEDS: ACETAMINOPHEN 325 MG TAB PO PRN (22:43)
[2017-02-10 23:51] VITALS: BP 102/56; PULSE 65; TEMP 36.8; O2SAT 95
[2017-02-11] VITALS (7 sets, daily range): BP systolic 102–137; BP diastolic 49–80; PULSE 60–71; TEMP 36.4–37; O2SAT 95–97
[2017-02-11 00:17] LABS: HEMATOCRIT 31.4 % (42-52)
[2017-02-11] MEDS: LEVOTHYROXINE 50 MCG TAB PO SCH (05:56)
[2017-02-11 06:29] LABS: BASO % 0.2 %; BASO ABS # 0.01 K/uL (0-0.2); COMPLETE YES; EOS % 7.5 %; HEMATOCRIT 31.3 % (42-52); LYMPH % 34.6 %; LYMPH ABS # 1.79 K/uL (1.2-3.4); MEAN CELL VOLUME 87.7 fL (80-100); MEAN CORPUSCULAR HEMOGLOBIN 29.4 pg (25-34); MEAN CORPUSCULAR HGB CONC 33.5 g/dl (32-36); MEAN PLATELET VOLUME 9.1 fL (7.4-10.4); MONO % 15.1 %; NEUT % 42.6 %; PLATELET COUNT 223 K/uL (130-400); RED BLOOD COUNT 3.57 M/uL (4.7-6.1); WHITE BLOOD COUNT 5.17 K/uL (4.8-10.8)
[2017-02-11 07:11] LABS: BUN/CREATININE RATIO 19.3 (10-20); CALCIUM 8.9 mg/dl (8.5-10.1); CREATININE 1.7 mg/dl (0.60-1.40); POTASSIUM 4.3 mmol/L (3.5-5.1)
[2017-02-11 07:12] LABS: INR 1.7 (0.9-1.1); PROTHROMBIN TIME (PATIENT) 18.2 SECONDS (9.0-12.0)
[2017-02-11] MEDS: GABAPENTIN 300 MG CAP PO SCH ×3 (08:20→20:51)
[2017-02-11] MEDS: PANTOprazole SOD 40 MG TAB PO SCH (08:20)
[2017-02-11] MEDS: GEMFIBROZIL 600 MG TAB PO SCH ×2 (08:20→20:51)
[2017-02-11] MEDS: CEROVITE ADV FORMULA TAB PO SCH (08:20)
[2017-02-11] MEDS: FINASTERIDE 5 MG TAB PO SCH (08:20)
[2017-02-11] MEDS: CARVEDILOL 12.5 MG TAB PO SCH ×2 (08:20→20:51)
[2017-02-11] MEDS: TAMSULOSIN HCL 0.4 MG CAP PO SCH (08:20)
[2017-02-11] MEDS ORDERED: HEPARIN IV LOW DOSE NO BOLUS SCH (10:30)
--- NOTE | 2017-02-11 10:30 | Progress Note ---
Medicine Progress Note Date & Time of Visit: Feb 11, 2017 at 10:28. Subjective patient seen resting in bed, comfortable states he feels fine overall still passing clots, having hematuria but seems channel lip stiffener insoles denies other urinary symptoms denies chest pain, dyspnea, palpitations, dizziness Objective Last 8 Hrs Date Time Temp Pulse Resp B/P (MAP) Pulse Ox O2 Delivery O2 Flow Rate FiO2 02/11/17 08:00 Room Air 02/11/17 07:24 36.4 71 20 127/73 (91) 96 Room Air 02/11/17 04:00 Room Air 02/11/17 02:51 36.9 65 18 102/49 (66) 95 Room Air Physical Exam: General- oriented x 3, not in distress, speaks in sentences with no effort Eyes- anicteric Neck- supple, no JVD Lungs- clear to auscultation b/l Heart- midsternotomy surgical site: healing well, no signs of infection regular rhythm; no murmur, no gallops Abdomen- normal bowel sounds, soft, nontender Extremities- no pretibial edema, no calf tenderness Neuro- alert, oriented x 3; no gross focal deficits Skin- warm & dry Laboratory Results: Last 24 Hours Test 02/10/17 11:59 02/10/17 18:00 02/11/17 00:08 02/11/17 06:11 Hemoglobin 10.7 g/dL 11.1 g/dL 10.5 g/dL 10.5 g/dL Hematocrit 33.7 % 33.8 % 31.4 % 31.3 % White Blood Count 5.17 K/uL Red Blood Count 3.57 M/uL Mean Corpuscular Volume 87.7 fL Mean Corpuscular Hemoglobin 29.4 pg Mean Corpuscular Hemoglobin Concent 33.5 g/dl Platelet Count 223 K/uL Mean Platelet Volume 9.1 fL Neutrophils (%) (Auto) 42.6 % Lymphocytes (%) (Auto) 34.6 % Monocytes (%) (Auto) 15.1 % Eosinophils (%) (Auto) 7.5 % Basophils (%) (Auto) 0.2 % Neutrophils # (Auto) 2.20 K/uL Lymphocytes # (Auto) 1.79 K/uL Monocytes # (Auto) 0.78 K/uL Eosinophils # (Auto) 0.39 K/uL Basophils # (Auto) 0.01 K/uL RDW Standard Deviation 40.7 fL RDW Coefficient of Variation 12.6 % Immature Granulocyte % (Auto) 0.0 % Immature Granulocyte # (Auto) 0.00 K/uL Prothrombin Time 18.2 SECONDS Prothromb Time International Ratio 1.7 Sodium Level 139 mmol/L Potassium Level 4.3 mmol/L Chloride Level 106 mmol/L Carbon Dioxide Level 24 mmol/L Anion Gap 9.0 mmol/L Blood Urea Nitrogen 33 mg/dl Creatinine 1.70 mg/dl Est Creatinine Clear Calc Drug Dose 42.3 ml/min Estimated GFR () 44.7 Estimated GFR (Non- 38.6 BUN/Creatinine Ratio 19.3 Random Glucose 96 mg/dl Calcium Level 8.9 mg/dl Assessment & Plan 76yo M with a PMH of CAD (s/p 2 stents, CABG x 4), recent PE (on coumadin), HLD , hypothyroidism and other medical problems listed below who presents with hematuria that started 4 days ago. Patient had a quadruple bypass performed in [place] by Dr. Francisco on Jan 21 complicated by a post-operative PE on Jan 30. Hematuria: -Presents with bright red blood in urine (with some clots) x 4 days -Passing clots easily, no urinary obstruction per patient -On coumadin with a supratherapeutic INR of 4.7 at OSH -Discussed with Dr. Crocker, who recommended 2.5mg PO Vit K to gently lower INR -If INR <2 at any point, plan to initiate IV heparin -- INR today 1.7 Hg stable at around 10 still having hematuria, but seems less, Hg stable discussed with Dr. Madrid, no plans for cystoscopy as this appears to be prostate bleeding and cystoscopy may worsen bleeding agree with starting Heparin + coumadin due to recent PEs and starting ASA for recent CABG explained to patient and his re: plan of care extensively, they are both agreeable and comfortable with plan of care CAD s/p stents, CABG: -Aspirin, fish oil held 2/2 hematuria -Continue carvedilol, gemfibrozil -Patient unable to tolerate statin in the past -- denies cardiac symptoms ASA restarted H/o sub-acute PE: -Coumadin held 2/2 hematuria, supratherapeutic INR -Plan to initiate IV heparin if INR <2 during admission -- INR 1.5 , management as per #1 ACUTE RENAL FAILURE - IV fluids started as crea increased to 1.6 HLD: -Continue gemfibrozil Hypothyroidism: -Continue levothyroxine Acid Reflux: -Continue omeprazole Chronic back pain: -Continue gabapentin DVT Ppx: SCDs. , Heparin + Coumadin Code status: FULL PCP: Long Dispo: Plan to return home once medically stable Current Inpatient Medications: Current Inpatient Medications Medications (Trade) Dose Ordered Sig/Radha Route Start Time Stop Time Status Last Admin Dose Admin Acetaminophen (Tylenol Tab) 650 mg Q6H PRN PO 02/09/17 19:30 03/11/17 19:29 02/10/17 22:43 650 MG Ondansetron HCl (Zofran Inj) 4 mg Q6H PRN IV 02/09/17 19:30 03/11/17 19:29 Polyethylene (Miralax Powder Packet) 17 gm DAILY PRN PO 02/09/17 19:30 03/11/17 19:29 02/10/17 16:38 17 GM Carvedilol (Coreg Tab) 12.5 mg BID PO 02/09/17 21:00 03/11/17 20:59 02/11/17 08:20 12.5 MG Gabapentin (Neurontin Cap) 300 mg TID PO 02/09/17 21:00 03/11/17 20:59 02/11/17 08:20 300 MG Levothyroxine Sodium (Synthroid Tab) 50 mcg DAILYBB PO 02/10/17 06:00 03/12/17 05:59 02/11/17 05:56 50 MCG Nitroglycerin (Nitrostat Tab) 0.4 mg PRN UT 02/09/17 20:30 03/11/17 20:29 Multivitamins/ Minerals (Multivitamin W/ Minerals Tab) 1 tab DAILY PO 02/10/17 09:00 03/12/17 08:59 02/11/17 08:20 1 TAB Tamsulosin HCl (Flomax Cap) 0.4 mg DAILY PO 02/10/17 09:00 03/12/17 08:59 02/11/17 08:20 0.4 MG Pantoprazole Sodium (Protonix Tab) 40 mg DAILY PO 02/10/17 09:00 03/12/17 08:59 02/11/17 08:20 40 MG Finasteride (Proscar Tab) 5 mg QAM PO 02/10/17 09:00 03/12/17 08:59 02/11/17 08:20 5 MG Atorvastatin Calcium (Lipitor Tab) 40 mg HS PO 02/10/17 21:00 03/12/17 20:59 02/10/17 20:54 40 MG Gemfibrozil (Lopid Tab) 600 mg BID PO 02/10/17 09:00 03/12/17 08:59 02/11/17 08:20 600 MG Sodium Chloride 1,000 ml @ 75 mls/hr [id number] IV 02/11/17 09:00 03/13/17 08:59 Heparin Sodium/ Dextrose 1 ea Q20M N/A 02/11/17 10:30 03/13/17 10:29
[2017-02-11] MEDS ORDERED: ASPIRIN 81 MG ECTAB PO STA (10:38)
[2017-02-11 11:33] LABS: BASO % 0.2 %; BASO ABS # 0.01 K/uL (0-0.2); COMPLETE YES; EOS % 8.1 %; LYMPH % 37.5 %; LYMPH ABS # 1.76 K/uL (1.2-3.4); MEAN CELL VOLUME 87.9 fL (80-100); MEAN CORPUSCULAR HEMOGLOBIN 28.8 pg (25-34); MEAN CORPUSCULAR HGB CONC 32.8 g/dl (32-36); MEAN PLATELET VOLUME 9.3 fL (7.4-10.4); MONO % 16.6 %; NEUT % 37.6 %; PLATELET COUNT 242 K/uL (130-400); RED BLOOD COUNT 3.64 M/uL (4.7-6.1); WHITE BLOOD COUNT 4.69 K/uL (4.8-10.8)
[2017-02-11 11:37] LABS: PARTIAL THROMBOPLASTIN RATIO 1.4
[2017-02-11] MEDS: SODIUM CHLORIDE 0.9% 1000ML 1,000 ML IV SCH ×2 (11:43→22:24)
[2017-02-11] MEDS: HEPARIN 25,000 UNIT/500ML D5W 500 ML IV PRN (11:51)
[2017-02-11 18:26] LABS: BASO % 0.4 %; BASO ABS # 0.02 K/uL (0-0.2); COMPLETE YES; EOS % 8.8 %; HEMATOCRIT 34.5 % (42-52); LYMPH % 38.7 %; LYMPH ABS # 1.89 K/uL (1.2-3.4); MEAN CELL VOLUME 87.8 fL (80-100); MEAN CORPUSCULAR HEMOGLOBIN 29.5 pg (25-34); MEAN CORPUSCULAR HGB CONC 33.6 g/dl (32-36); MEAN PLATELET VOLUME 9.4 fL (7.4-10.4); MONO % 10.2 %; NEUT % 41.9 %; PLATELET COUNT 242 K/uL (130-400); RED BLOOD COUNT 3.93 M/uL (4.7-6.1); WHITE BLOOD COUNT 4.89 K/uL (4.8-10.8)
[2017-02-11 18:42] LABS: PARTIAL THROMBOPLASTIN RATIO 2.9
[2017-02-11] MEDS: ATORVASTATIN 20 MG TAB PO SCH (20:51)
[2017-02-11] MEDS ORDERED: WARFARIN SOD 3 MG TAB PO ONE (20:51)
[2017-02-12] VITALS (10 sets, daily range): BP systolic 119–146; BP diastolic 58–78; PULSE 64–73; TEMP 36.6–37.1; O2SAT 93–97
[2017-02-12 01:50] LABS: BASO % 0.2 %; BASO ABS # 0.01 K/uL (0-0.2); COMPLETE YES; EOS % 8.8 %; HEMATOCRIT 31.1 % (42-52); IG% 0.2 %; LYMPH % 34.6 %; LYMPH ABS # 1.85 K/uL (1.2-3.4); MEAN CELL VOLUME 87.9 fL (80-100); MEAN CORPUSCULAR HEMOGLOBIN 29.4 pg (25-34); MEAN CORPUSCULAR HGB CONC 33.4 g/dl (32-36); MEAN PLATELET VOLUME 9.1 fL (7.4-10.4); NEUT % 39.2 %; PLATELET COUNT 218 K/uL (130-400); RED BLOOD COUNT 3.54 M/uL (4.7-6.1); WHITE BLOOD COUNT 5.35 K/uL (4.8-10.8)
[2017-02-12 02:15] LABS: PARTIAL THROMBOPLASTIN RATIO 2.9
[2017-02-12] MEDS: LEVOTHYROXINE 50 MCG TAB PO SCH (06:16)
[2017-02-12] MEDS: HEPARIN 25,000 UNIT/500ML D5W 500 ML IV PRN ×3 (06:17→17:20)
[2017-02-12] MEDS: POLYETHYLENE (MIRALAX) 17 GM PACK PO PRN (06:21)
[2017-02-12] MEDS: TAMSULOSIN HCL 0.4 MG CAP PO SCH (08:36)
[2017-02-12] MEDS: GABAPENTIN 300 MG CAP PO SCH ×3 (08:36→20:05)
[2017-02-12] MEDS: ASPIRIN 81 MG ECTAB PO SCH (08:36)
[2017-02-12] MEDS: FINASTERIDE 5 MG TAB PO SCH (08:36)
[2017-02-12] MEDS: CEROVITE ADV FORMULA TAB PO SCH (08:36)
[2017-02-12] MEDS: PANTOprazole SOD 40 MG TAB PO SCH (08:36)
[2017-02-12] MEDS: GEMFIBROZIL 600 MG TAB PO SCH ×2 (08:36→20:05)
[2017-02-12] MEDS: CARVEDILOL 12.5 MG TAB PO SCH ×2 (08:36→20:04)
[2017-02-12 08:48] LABS: BASO % 0.2 %; BASO ABS # 0.01 K/uL (0-0.2); COMPLETE YES; EOS % 8.6 %; HEMATOCRIT 32.4 % (42-52); IG% 0.2 %; LYMPH % 33.4 %; LYMPH ABS # 1.95 K/uL (1.2-3.4); MEAN CELL VOLUME 88.3 fL (80-100); MEAN CORPUSCULAR HEMOGLOBIN 28.9 pg (25-34); MEAN CORPUSCULAR HGB CONC 32.7 g/dl (32-36); MEAN PLATELET VOLUME 9.1 fL (7.4-10.4); MONO % 8.4 %; NEUT % 49.2 %; PLATELET COUNT 220 K/uL (130-400); RED BLOOD COUNT 3.67 M/uL (4.7-6.1); WHITE BLOOD COUNT 5.84 K/uL (4.8-10.8)
[2017-02-12 09:11] LABS: INR 1.5 (0.9-1.1); PARTIAL THROMBOPLASTIN RATIO 2.8; PROTHROMBIN TIME (PATIENT) 16.8 SECONDS (9.0-12.0)
[2017-02-12 09:20] LABS: BUN/CREATININE RATIO 16.9 (10-20); CREATININE 1.6 mg/dl (0.60-1.40); POTASSIUM 3.9 mmol/L (3.5-5.1)
--- NOTE | 2017-02-12 14:17 | Progress Note ---
Medicine Progress Note Date & Time of Visit: Feb 12, 2017 at 14:08. Subjective sitting in bedside chair comfortable, in good spirits states he feels ok overall urine is now pink, no clots noticed denies dysuria no chest pain, dyspnea, dizziness, palpitations no other problems Objective Last 8 Hrs Date Time Temp Pulse Resp B/P (MAP) Pulse Ox O2 Delivery O2 Flow Rate FiO2 02/12/17 12:23 95 Room Air 02/12/17 10:47 37.1 64 18 121/63 (82) 93 Room Air 02/12/17 08:07 95 Room Air 02/12/17 08:06 36.6 73 18 145/74 (97) 97 Room Air Physical Exam: General- oriented x 3, not in distress, speaks in sentences with no effort Eyes- anicteric Neck-no JVD Lungs- clear breath sounds bilaterally, no rales Heart- midsternotomy surgical site: healing well, no signs of infection regular rhythm; no murmur, no gallops Abdomen- normal bowel sounds, soft, nontender Extremities- no pretibial edema, no calf tenderness Neuro- alert, oriented x 3; no gross focal deficits Skin- warm & dry Laboratory Results: Last 24 Hours Test 02/11/17 18:01 02/12/17 01:31 02/12/17 08:36 White Blood Count 4.89 K/uL 5.35 K/uL 5.84 K/uL Red Blood Count 3.93 M/uL 3.54 M/uL 3.67 M/uL Hemoglobin 11.6 g/dL 10.4 g/dL 10.6 g/dL Hematocrit 34.5 % 31.1 % 32.4 % Mean Corpuscular Volume 87.8 fL 87.9 fL 88.3 fL Mean Corpuscular Hemoglobin 29.5 pg 29.4 pg 28.9 pg Mean Corpuscular Hemoglobin Concent 33.6 g/dl 33.4 g/dl 32.7 g/dl Platelet Count 242 K/uL 218 K/uL 220 K/uL Mean Platelet Volume 9.4 fL 9.1 fL 9.1 fL Neutrophils (%) (Auto) 41.9 % 39.2 % 49.2 % Lymphocytes (%) (Auto) 38.7 % 34.6 % 33.4 % Monocytes (%) (Auto) 10.2 % 17.0 % 8.4 % Eosinophils (%) (Auto) 8.8 % 8.8 % 8.6 % Basophils (%) (Auto) 0.4 % 0.2 % 0.2 % Neutrophils # (Auto) 2.05 K/uL 2.10 K/uL 2.88 K/uL Lymphocytes # (Auto) 1.89 K/uL 1.85 K/uL 1.95 K/uL Monocytes # (Auto) 0.50 K/uL 0.91 K/uL 0.49 K/uL Eosinophils # (Auto) 0.43 K/uL 0.47 K/uL 0.50 K/uL Basophils # (Auto) 0.02 K/uL 0.01 K/uL 0.01 K/uL RDW Standard Deviation 40.9 fL 40.6 fL 41.3 fL RDW Coefficient of Variation 12.6 % 12.6 % 12.7 % Immature Granulocyte % (Auto) 0.0 % 0.2 % 0.2 % Immature Granulocyte # (Auto) 0.00 K/uL 0.01 K/uL 0.01 K/uL Activated Partial Thromboplast Time 76.5 SECONDS 76.2 SECONDS 72.4 SECONDS Partial Thromboplastin Ratio 2.9 2.9 2.8 Prothrombin Time 16.8 SECONDS Prothromb Time International Ratio 1.5 Sodium Level 141 mmol/L Potassium Level 3.9 mmol/L Chloride Level 108 mmol/L Carbon Dioxide Level 26 mmol/L Anion Gap 7.0 mmol/L Blood Urea Nitrogen 27 mg/dl Creatinine 1.60 mg/dl Est Creatinine Clear Calc Drug Dose 44.8 ml/min Estimated GFR () 48.1 Estimated GFR (Non- 41.5 BUN/Creatinine Ratio 16.9 Random Glucose 136 mg/dl Calcium Level 9.0 mg/dl Assessment & Plan 76yo M with a PMH of CAD (s/p 2 stents, CABG x 4), recent PE (on coumadin), HLD , hypothyroidism and other medical problems listed below who presents with hematuria that started 4 days ago. Patient had a quadruple bypass performed in [place] by Dr. Francisco on Jan 21 complicated by a post-operative PE on Jan 30. 76yo M with a PMH of CAD (s/p 2 stents, CABG x 4), recent PE (on coumadin), HLD , hypothyroidism and other medical problems listed below who presents with hematuria that started 4 days ago. Patient had a quadruple bypass performed in [place] by Dr. Francisco on Jan 21 complicated by a post-operative PE on Jan 30. Hematuria, likely from Prostate -Presents with bright red blood in urine (with some clots) x 4 days -Passing clots easily, no urinary obstruction per patient -On coumadin with a supratherapeutic INR of 4.7 at OSH -Discussed with Dr. Crocker, who recommended 2.5mg PO Vit K to gently lower INR -If INR <2 at any point, plan to initiate IV heparin -- INR today 1.5 hematuria continues to improve, Hg remains stable at 10 continue Heparin + coumadin due to recent PEs and starting ASA for recent CABG explained to patient and his re: plan of care extensively, they are both agreeable and comfortable with plan of care CAD s/p stents, CABG: -Aspirin, fish oil held 2/2 hematuria -Continue carvedilol, gemfibrozil -Patient unable to tolerate statin in the past -- denies cardiac symptoms ASA restarted H/o sub-acute PE: -Coumadin held 2/2 hematuria, supratherapeutic INR -Plan to initiate IV heparin if INR <2 during admission -- INR 1.5 , management as per #1 ACUTE RENAL FAILURE - IV fluids started as crea increased to 1.6--> 1,5 HLD: -Continue gemfibrozil Hypothyroidism: -Continue levothyroxine Acid Reflux: -Continue omeprazole Chronic back pain: -Continue gabapentin DVT Ppx: SCDs. , Heparin + Coumadin Code status: FULL PCP: Long Dispo: Plan to return home once medically stable needs to stay inpatient until INR 2-3 with heparin bridge due to recent PE Current Inpatient Medications: Current Inpatient Medications Medications (Trade) Dose Ordered Sig/Radha Route Start Time Stop Time Status Last Admin Dose Admin Acetaminophen (Tylenol Tab) 650 mg Q6H PRN PO 02/09/17 19:30 03/11/17 19:29 02/10/17 22:43 650 MG Ondansetron HCl (Zofran Inj) 4 mg Q6H PRN IV 02/09/17 19:30 03/11/17 19:29 Polyethylene (Miralax Powder Packet) 17 gm DAILY PRN PO 02/09/17 19:30 03/11/17 19:29 02/12/17 06:21 17 GM Carvedilol (Coreg Tab) 12.5 mg BID PO 02/09/17 21:00 03/11/17 20:59 02/12/17 08:36 12.5 MG Gabapentin (Neurontin Cap) 300 mg TID PO 02/09/17 21:00 03/11/17 20:59 02/12/17 08:36 300 MG Levothyroxine Sodium (Synthroid Tab) 50 mcg DAILYBB PO 02/10/17 06:00 03/12/17 05:59 02/12/17 06:16 50 MCG Nitroglycerin (Nitrostat Tab) 0.4 mg PRN UT 02/09/17 20:30 03/11/17 20:29 Multivitamins/ Minerals (Multivitamin W/ Minerals Tab) 1 tab DAILY PO 02/10/17 09:00 03/12/17 08:59 02/12/17 08:36 1 TAB Tamsulosin HCl (Flomax Cap) 0.4 mg DAILY PO 02/10/17 09:00 03/12/17 08:59 02/12/17 08:36 0.4 MG Pantoprazole Sodium (Protonix Tab) 40 mg DAILY PO 02/10/17 09:00 03/12/17 08:59 02/12/17 08:36 40 MG Finasteride (Proscar Tab) 5 mg QAM PO 02/10/17 09:00 03/12/17 08:59 02/12/17 08:36 5 MG Atorvastatin Calcium (Lipitor Tab) 40 mg HS PO 02/10/17 21:00 03/12/17 20:59 02/11/17 20:51 40 MG Gemfibrozil (Lopid Tab) 600 mg BID PO 02/10/17 09:00 03/12/17 08:59 02/12/17 08:36 600 MG Sodium Chloride 1,000 ml @ 75 mls/hr [id number] IV 02/11/17 09:00 03/13/17 08:59 02/11/17 22:24 75 MLS/HR Aspirin (Ecotrin Tab) 81 mg QAM PO 02/12/17 09:00 03/14/17 08:59 02/12/17 08:36 81 MG Heparin Sodium/ Dextrose 500 ml @ 21 mls/hr [id number] PRN IV 02/11/17 11:30 03/13/17 11:29 02/12/17 09:25 21 MLS/HR Warfarin Sodium (Coumadin Tab) 3 mg DAILY@16 PO 02/12/17 16:00 03/14/17 15:59
[2017-02-12] MEDS: SODIUM CHLORIDE 0.9% 1000ML 1,000 ML IV SCH (14:45)
[2017-02-12] MEDS: WARFARIN SOD 3 MG TAB PO SCH (16:21)
[2017-02-12 16:24] LABS: PARTIAL THROMBOPLASTIN RATIO 2.9
[2017-02-12] MEDS: ATORVASTATIN 20 MG TAB PO SCH (20:05)
--- NOTE | 2017-02-12 22:18 | Progress Note ---
Subjective Date of Service: Feb 12, 2017. Subjective Urine now pink. No clots. No dysuria. No fevers. No chills. No new complaints regarding the urine. Problem List Medical Problems: (1) PE (pulmonary thromboembolism) Status: Acute (2) Syncope Status: Acute Review of Systems Constitutional: No fever, No chills Respiratory: No cough Cardiac: No chest pain Male : + hematuria All Other Systems: Reviewed and Negative Objective Vital Signs Date Time Temp Pulse Resp B/P (MAP) Pulse Ox O2 Delivery O2 Flow Rate FiO2 02/12/17 20:00 Room Air 02/12/17 19:20 36.9 64 22 135/73 (93) 95 Room Air 02/12/17 16:00 Room Air 02/12/17 15:32 36.8 68 22 119/58 (78) 94 Room Air 02/12/17 14:34 Room Air 02/12/17 12:23 95 Room Air 02/12/17 10:47 37.1 64 18 121/63 (82) 93 Room Air 02/12/17 08:07 95 Room Air 02/12/17 08:06 36.6 73 18 145/74 (97) 97 Room Air 02/12/17 04:08 95 Room Air 02/12/17 03:33 36.9 67 20 119/63 (81) 94 Room Air 02/12/17 00:36 95 Room Air 02/11/17 23:15 37.0 68 22 137/80 (99) 95 Room Air Physical Exam General Appearance: no apparent distress Respiratory/Chest: lungs clear Cardiovascular: regular rate, rhythm Abdomen: soft Laboratory Results Last 24 Hours Test 02/12/17 01:31 02/12/17 08:36 02/12/17 15:41 White Blood Count 5.35 K/uL 5.84 K/uL Red Blood Count 3.54 M/uL 3.67 M/uL Hemoglobin 10.4 g/dL 10.6 g/dL Hematocrit 31.1 % 32.4 % Mean Corpuscular Volume 87.9 fL 88.3 fL Mean Corpuscular Hemoglobin 29.4 pg 28.9 pg Mean Corpuscular Hemoglobin Concent 33.4 g/dl 32.7 g/dl Platelet Count 218 K/uL 220 K/uL Mean Platelet Volume 9.1 fL 9.1 fL Neutrophils (%) (Auto) 39.2 % 49.2 % Lymphocytes (%) (Auto) 34.6 % 33.4 % Monocytes (%) (Auto) 17.0 % 8.4 % Eosinophils (%) (Auto) 8.8 % 8.6 % Basophils (%) (Auto) 0.2 % 0.2 % Neutrophils # (Auto) 2.10 K/uL 2.88 K/uL Lymphocytes # (Auto) 1.85 K/uL 1.95 K/uL Monocytes # (Auto) 0.91 K/uL 0.49 K/uL Eosinophils # (Auto) 0.47 K/uL 0.50 K/uL Basophils # (Auto) 0.01 K/uL 0.01 K/uL RDW Standard Deviation 40.6 fL 41.3 fL RDW Coefficient of Variation 12.6 % 12.7 % Immature Granulocyte % (Auto) 0.2 % 0.2 % Immature Granulocyte # (Auto) 0.01 K/uL 0.01 K/uL Activated Partial Thromboplast Time 76.2 SECONDS 72.4 SECONDS 75.3 SECONDS Partial Thromboplastin Ratio 2.9 2.8 2.9 Prothrombin Time 16.8 SECONDS Prothromb Time International Ratio 1.5 Sodium Level 141 mmol/L Potassium Level 3.9 mmol/L Chloride Level 108 mmol/L Carbon Dioxide Level 26 mmol/L Anion Gap 7.0 mmol/L Blood Urea Nitrogen 27 mg/dl Creatinine 1.60 mg/dl Est Creatinine Clear Calc Drug Dose 44.8 ml/min Estimated GFR () 48.1 Estimated GFR (Non- 41.5 BUN/Creatinine Ratio 16.9 Random Glucose 136 mg/dl Calcium Level 9.0 mg/dl Assessment and Plan (1) Hematuria (2) Pulmonary embolism Hematuria improving. No more clots. Urine pink. Continue to observe. No indication for surgical intervention at this time.
[2017-02-12 23:43] LABS: PARTIAL THROMBOPLASTIN RATIO 2.4
[2017-02-13] VITALS (9 sets, daily range): BP systolic 131–164; BP diastolic 63–77; PULSE 61–75; TEMP 36.6–37.1; O2SAT 94–97
[2017-02-13] MEDS: SODIUM CHLORIDE 0.9% 1000ML 1,000 ML IV SCH ×2 (03:06→13:27)
[2017-02-13] MEDS: LEVOTHYROXINE 50 MCG TAB PO SCH (05:18)
[2017-02-13] MEDS: HEPARIN 25,000 UNIT/500ML D5W 500 ML IV PRN (05:19)
[2017-02-13 06:50] LABS: INR 1.9 (0.9-1.1); PARTIAL THROMBOPLASTIN RATIO 2.6; PROTHROMBIN TIME (PATIENT) 20.8 SECONDS (9.0-12.0)
[2017-02-13 07:04] LABS: BUN/CREATININE RATIO 16.7 (10-20); CALCIUM 8.4 mg/dl (8.5-10.1); CREATININE 1.5 mg/dl (0.60-1.40)
[2017-02-13] MEDS: GEMFIBROZIL 600 MG TAB PO SCH ×2 (07:46→20:29)
[2017-02-13] MEDS: FINASTERIDE 5 MG TAB PO SCH (07:47)
[2017-02-13] MEDS: CARVEDILOL 12.5 MG TAB PO SCH ×2 (07:47→20:29)
[2017-02-13] MEDS: GABAPENTIN 300 MG CAP PO SCH ×3 (07:47→20:29)
[2017-02-13] MEDS: CEROVITE ADV FORMULA TAB PO SCH (07:47)
[2017-02-13] MEDS: PANTOprazole SOD 40 MG TAB PO SCH (07:47)
[2017-02-13] MEDS: ASPIRIN 81 MG ECTAB PO SCH (07:47)
[2017-02-13] MEDS: TAMSULOSIN HCL 0.4 MG CAP PO SCH (07:48)
[2017-02-13 10:24] LABS: BASO % 0.2 %; BASO ABS # 0.01 K/uL (0-0.2); COMPLETE YES; EOS % 9.8 %; HEMATOCRIT 29.1 % (42-52); LYMPH % 38.5 %; MEAN CELL VOLUME 88.4 fL (80-100); MEAN CORPUSCULAR HEMOGLOBIN 28.9 pg (25-34); MEAN CORPUSCULAR HGB CONC 32.6 g/dl (32-36); MEAN PLATELET VOLUME 9.6 fL (7.4-10.4); MONO % 19.7 %; NEUT % 31.8 %; PLATELET COUNT 216 K/uL (130-400); RED BLOOD COUNT 3.29 M/uL (4.7-6.1); WHITE BLOOD COUNT 4.68 K/uL (4.8-10.8)
[2017-02-13 12:57] LABS: HEMATOCRIT 30.3 % (42-52)
[2017-02-13] MEDS: WARFARIN SOD 3 MG TAB PO SCH (15:24)
[2017-02-13 19:11] LABS: HEMATOCRIT 28.4 % (42-52)
[2017-02-13] MEDS: ATORVASTATIN 20 MG TAB PO SCH (20:29)
--- NOTE | 2017-02-13 21:23 | Progress Note ---
Medicine Progress Note Date & Time of Visit: Feb 13, 2017 at 21:19. Subjective resting, comfortable reports episodes of hematuria and clots again this morning denies chest pain, dyspnea, palpitations, dizziness no other symptoms Objective Last 8 Hrs Date Time Temp Pulse Resp B/P (MAP) Pulse Ox O2 Delivery O2 Flow Rate FiO2 02/13/17 19:26 36.9 67 22 164/77 (106) 96 Room Air 02/13/17 16:05 97 Room Air 02/13/17 15:46 36.8 61 22 151/71 (97) 96 Room Air Physical Exam: General- oriented x 3, not in distress, speaks in sentences with no effort Eyes- anicteric Neck-no JVD Lungs- clear breath sounds BL Heart- midsternotomy surgical site: healing well, no signs of infection regular rhythm; no murmur, no gallops Abdomen- normal bowel sounds, soft, nontender Extremities- no pretibial edema, no calf tenderness Neuro- alert, oriented x 3; no gross focal deficits Skin- warm & dry Laboratory Results: Last 24 Hours Test 02/12/17 23:16 02/13/17 06:02 02/13/17 12:42 02/13/17 18:52 Activated Partial Thromboplast Time 61.5 SECONDS 66.8 SECONDS Partial Thromboplastin Ratio 2.4 2.6 White Blood Count 4.68 K/uL Red Blood Count 3.29 M/uL Hemoglobin 9.5 g/dL 9.7 g/dL 9.2 g/dL Hematocrit 29.1 % 30.3 % 28.4 % Mean Corpuscular Volume 88.4 fL Mean Corpuscular Hemoglobin 28.9 pg Mean Corpuscular Hemoglobin Concent 32.6 g/dl Platelet Count 216 K/uL Mean Platelet Volume 9.6 fL Neutrophils (%) (Auto) 31.8 % Lymphocytes (%) (Auto) 38.5 % Monocytes (%) (Auto) 19.7 % Eosinophils (%) (Auto) 9.8 % Basophils (%) (Auto) 0.2 % Neutrophils # (Auto) 1.49 K/uL Lymphocytes # (Auto) 1.80 K/uL Monocytes # (Auto) 0.92 K/uL Eosinophils # (Auto) 0.46 K/uL Basophils # (Auto) 0.01 K/uL RDW Standard Deviation 41.5 fL RDW Coefficient of Variation 12.8 % Immature Granulocyte % (Auto) 0.0 % Immature Granulocyte # (Auto) 0.00 K/uL Prothrombin Time 20.8 SECONDS Prothromb Time International Ratio 1.9 Sodium Level 144 mmol/L Potassium Level 4.0 mmol/L Chloride Level 113 mmol/L Carbon Dioxide Level 25 mmol/L Anion Gap 6.0 mmol/L Blood Urea Nitrogen 25 mg/dl Creatinine 1.50 mg/dl Est Creatinine Clear Calc Drug Dose 48.4 ml/min Estimated GFR () 52.0 Estimated GFR (Non- 44.9 BUN/Creatinine Ratio 16.7 Random Glucose 90 mg/dl Calcium Level 8.4 mg/dl Assessment & Plan 76yo M with a PMH of CAD (s/p 2 stents, CABG x 4), recent PE (on coumadin), HLD , hypothyroidism and other medical problems listed below who presents with hematuria that started 4 days ago. Patient had a quadruple bypass performed in [place] by Dr. Francisco on Jan 21 complicated by a post-operative PE on Jan 30. 76yo M with a PMH of CAD (s/p 2 stents, CABG x 4), recent PE (on coumadin), HLD , hypothyroidism and other medical problems listed below who presents with hematuria that started 4 days ago. Patient had a quadruple bypass performed in [place] by Dr. Francisco on Jan 21 complicated by a post-operative PE on Jan 30. Hematuria, likely from Prostate -Presents with bright red blood in urine (with some clots) x 4 days -Passing clots easily, no urinary obstruction per patient -On coumadin with a supratherapeutic INR of 4.7 at OSH -Discussed with Dr. Crocker, who recommended 2.5mg PO Vit K to gently lower INR -If INR <2 at any point, plan to initiate IV heparin -- INR today 1.9 hematuria is recurring, Hg down to 9.[address] Martinez, continue present management, if Hg < 8 and continues hematuria, may need cystoscopy continue Heparin + coumadin due to recent PEs and starting ASA for recent CABG explained to patient and his re: plan of care extensively, they are both agreeable and comfortable with plan of care CAD s/p stents, CABG: -Aspirin, fish oil held 2/2 hematuria -Continue carvedilol, gemfibrozil -Patient unable to tolerate statin in the past -- denies cardiac symptoms ASA restarted H/o sub-acute PE: -Coumadin held 2/2 hematuria, supratherapeutic INR -Plan to initiate IV heparin if INR <2 during admission -- INR 1.9 , management as per #1 ACUTE RENAL FAILURE - IV fluids started as crea increased to 1.6--> 1,5 HLD: -Continue gemfibrozil Hypothyroidism: -Continue levothyroxine Acid Reflux: -Continue omeprazole Chronic back pain: -Continue gabapentin DVT Ppx: SCDs. , Heparin + Coumadin Code status: FULL PCP: Long Dispo: Plan to return home once medically stable needs to stay inpatient until INR 2-3 with heparin bridge due to recent PE Current Inpatient Medications: Current Inpatient Medications Medications (Trade) Dose Ordered Sig/Radha Route Start Time Stop Time Status Last Admin Dose Admin Acetaminophen (Tylenol Tab) 650 mg Q6H PRN PO 02/09/17 19:30 03/11/17 19:29 02/10/17 22:43 650 MG Ondansetron HCl (Zofran Inj) 4 mg Q6H PRN IV 02/09/17 19:30 03/11/17 19:29 Polyethylene (Miralax Powder Packet) 17 gm DAILY PRN PO 02/09/17 19:30 03/11/17 19:29 02/12/17 06:21 17 GM Carvedilol (Coreg Tab) 12.5 mg BID PO 02/09/17 21:00 03/11/17 20:59 02/13/17 20:29 12.5 MG Gabapentin (Neurontin Cap) 300 mg TID PO 02/09/17 21:00 03/11/17 20:59 02/13/17 20:29 300 MG Levothyroxine Sodium (Synthroid Tab) 50 mcg DAILYBB PO 02/10/17 06:00 03/12/17 05:59 02/13/17 05:18 50 MCG Nitroglycerin (Nitrostat Tab) 0.4 mg PRN UT 02/09/17 20:30 03/11/17 20:29 Multivitamins/ Minerals (Multivitamin W/ Minerals Tab) 1 tab DAILY PO 02/10/17 09:00 03/12/17 08:59 02/13/17 07:47 1 TAB Tamsulosin HCl (Flomax Cap) 0.4 mg DAILY PO 02/10/17 09:00 03/12/17 08:59 02/13/17 07:48 0.4 MG Pantoprazole Sodium (Protonix Tab) 40 mg DAILY PO 02/10/17 09:00 03/12/17 08:59 02/13/17 07:47 40 MG Finasteride (Proscar Tab) 5 mg QAM PO 02/10/17 09:00 03/12/17 08:59 02/13/17 07:47 5 MG Atorvastatin Calcium (Lipitor Tab) 40 mg HS PO 02/10/17 21:00 03/12/17 20:59 02/13/17 20:29 40 MG Gemfibrozil (Lopid Tab) 600 mg BID PO 02/10/17 09:00 03/12/17 08:59 02/13/17 20:29 600 MG Sodium Chloride 1,000 ml @ 75 mls/hr [id number] IV 02/11/17 09:00 03/13/17 08:59 02/13/17 13:27 75 MLS/HR Aspirin (Ecotrin Tab) 81 mg QAM PO 02/12/17 09:00 03/14/17 08:59 02/13/17 07:47 81 MG Heparin Sodium/ Dextrose 500 ml @ 19 mls/hr Q24H PRN IV 02/11/17 11:30 03/13/17 11:29 02/13/17 05:19 19 MLS/HR Warfarin Sodium (Coumadin Tab) 3 mg DAILY@16 PO 02/12/17 16:00 03/14/17 15:59 02/13/17 15:24 3 MG
[2017-02-14] VITALS (7 sets, daily range): BP systolic 128–160; BP diastolic 67–75; PULSE 58–68; TEMP 36.5–37.3; O2SAT 95–97
[2017-02-14 00:49] LABS: HEMATOCRIT 29.4 % (42-52)
[2017-02-14] MEDS: SODIUM CHLORIDE 0.9% 1000ML 1,000 ML IV SCH (02:52)
[2017-02-14] MEDS: ACETAMINOPHEN 325 MG TAB PO PRN (03:50)
[2017-02-14] MEDS: LEVOTHYROXINE 50 MCG TAB PO SCH (05:43)
[2017-02-14 05:53] LABS: BASO % 0.2 %; BASO ABS # 0.01 K/uL (0-0.2); COMPLETE YES; EOS % 9.9 %; HEMATOCRIT 28.5 % (42-52); IG% 0.2 %; LYMPH % 36.3 %; LYMPH ABS # 1.87 K/uL (1.2-3.4); MEAN CELL VOLUME 88.5 fL (80-100); MEAN CORPUSCULAR HEMOGLOBIN 29.2 pg (25-34); MEAN PLATELET VOLUME 9.3 fL (7.4-10.4); NEUT % 38.4 %; PLATELET COUNT 189 K/uL (130-400); RED BLOOD COUNT 3.22 M/uL (4.7-6.1); WHITE BLOOD COUNT 5.15 K/uL (4.8-10.8)
[2017-02-14 06:15] LABS: PARTIAL THROMBOPLASTIN RATIO 2.7
[2017-02-14 06:34] LABS: BUN/CREATININE RATIO 14.8 (10-20); CALCIUM 8.4 mg/dl (8.5-10.1); CREATININE 1.5 mg/dl (0.60-1.40); POTASSIUM 4.2 mmol/L (3.5-5.1)
[2017-02-14] MEDS: HEPARIN 25,000 UNIT/500ML D5W 500 ML IV PRN ×2 (06:35→14:52)
[2017-02-14 08:19] LABS: INR 2.1 (0.9-1.1); PROTHROMBIN TIME (PATIENT) 23.1 SECONDS (9.0-12.0)
[2017-02-14] MEDS ORDERED: INFLUENZA VACCINE HIGH DOSE 65+ 0.5 ML SYR IM. ONE (08:45)
[2017-02-14] MEDS ORDERED: INFLUENZA ADMINISTRATION CHARGE ONE (08:45)
[2017-02-14] MEDS: ASPIRIN 81 MG ECTAB PO SCH (09:00)
[2017-02-14] MEDS: GABAPENTIN 300 MG CAP PO SCH ×3 (09:00→20:36)
[2017-02-14] MEDS: GEMFIBROZIL 600 MG TAB PO SCH ×2 (09:00→20:36)
[2017-02-14] MEDS: CEROVITE ADV FORMULA TAB PO SCH (09:00)
[2017-02-14] MEDS: PANTOprazole SOD 40 MG TAB PO SCH (09:00)
[2017-02-14] MEDS: CARVEDILOL 12.5 MG TAB PO SCH ×2 (09:00→20:36)
[2017-02-14] MEDS: FINASTERIDE 5 MG TAB PO SCH (09:01)
[2017-02-14] MEDS: TAMSULOSIN HCL 0.4 MG CAP PO SCH (09:01)
--- NOTE | 2017-02-14 12:12 | Progress Note ---
Medicine Progress Note Date & Time of Visit: Feb 14, 2017 at 12:12. Subjective seen resting in chair comfortable had 2 episodes of hematuria with small clots no other urinary symptoms denies chest pain, dyspnea, palpitations, dizziness no other symptoms Objective Last 8 Hrs Date Time Temp Pulse Resp B/P (MAP) Pulse Ox O2 Delivery O2 Flow Rate FiO2 02/14/17 12:00 Room Air 02/14/17 11:05 36.7 58 14 152/72 (98) 95 Room Air 02/14/17 08:03 96 Room Air 02/14/17 08:00 Room Air 02/14/17 07:41 36.6 63 14 153/72 (99) 97 Room Air Physical Exam: General- oriented x 3, not in distress, speaks in sentences with no effort Eyes- anicteric Neck-no JVD Lungs- clear breath sounds bilaterallyt Heart- midsternotomy surgical site: healing well, no signs of infection regular rhythm; no murmur, no gallops Abdomen- normal bowel sounds, soft, nontender Extremities- no pretibial edema, no calf tenderness Neuro- alert, oriented x 3; no gross focal deficits Skin- warm & dry Laboratory Results: Last 24 Hours Test 02/13/17 12:42 02/13/17 18:52 02/14/17 00:22 02/14/17 05:29 Hemoglobin 9.7 g/dL 9.2 g/dL 9.5 g/dL 9.4 g/dL Hematocrit 30.3 % 28.4 % 29.4 % 28.5 % White Blood Count 5.15 K/uL Red Blood Count 3.22 M/uL Mean Corpuscular Volume 88.5 fL Mean Corpuscular Hemoglobin 29.2 pg Mean Corpuscular Hemoglobin Concent 33.0 g/dl Platelet Count 189 K/uL Mean Platelet Volume 9.3 fL Neutrophils (%) (Auto) 38.4 % Lymphocytes (%) (Auto) 36.3 % Monocytes (%) (Auto) 15.0 % Eosinophils (%) (Auto) 9.9 % Basophils (%) (Auto) 0.2 % Neutrophils # (Auto) 1.98 K/uL Lymphocytes # (Auto) 1.87 K/uL Monocytes # (Auto) 0.77 K/uL Eosinophils # (Auto) 0.51 K/uL Basophils # (Auto) 0.01 K/uL RDW Standard Deviation 41.7 fL RDW Coefficient of Variation 12.9 % Immature Granulocyte % (Auto) 0.2 % Immature Granulocyte # (Auto) 0.01 K/uL Prothrombin Time 23.1 SECONDS Prothromb Time International Ratio 2.1 Activated Partial Thromboplast Time 70.2 SECONDS Partial Thromboplastin Ratio 2.7 Sodium Level 144 mmol/L Potassium Level 4.2 mmol/L Chloride Level 113 mmol/L Carbon Dioxide Level 23 mmol/L Anion Gap 8.0 mmol/L Blood Urea Nitrogen 22 mg/dl Creatinine 1.50 mg/dl Est Creatinine Clear Calc Drug Dose 48.9 ml/min Estimated GFR () 52.0 Estimated GFR (Non- 44.9 BUN/Creatinine Ratio 14.8 Random Glucose 93 mg/dl Calcium Level 8.4 mg/dl Assessment & Plan 76yo M with a PMH of CAD (s/p 2 stents, CABG x 4), recent PE (on coumadin), HLD , hypothyroidism and other medical problems listed below who presents with hematuria that started 4 days ago. Patient had a quadruple bypass performed in [place] by Dr. Francisco on Jan 21 complicated by a post-operative PE on Jan 30. 76yo M with a PMH of CAD (s/p 2 stents, CABG x 4), recent PE (on coumadin), HLD , hypothyroidism and other medical problems listed below who presents with hematuria that started 4 days ago. Patient had a quadruple bypass performed in [place] by Dr. Francisco on Jan 21 complicated by a post-operative PE on Jan 30. Hematuria, likely from Prostate -Presents with bright red blood in urine (with some clots) x 4 days -Passing clots easily, no urinary obstruction per patient -On coumadin with a supratherapeutic INR of 4.7 at OSH -Discussed with Dr. Crocker, who recommended 2.5mg PO Vit K to gently lower INR -If INR <2 at any point, plan to initiate IV heparin -- INR today 2.1 only 2 episode of hematuria since yesterday, Hg stable at 9.[address] [place], continue present management, if Hg < 8 and continues hematuria, may need cystoscopy continue Heparin + coumadin due to recent PEs and starting ASA for recent CABG explained to patient and his re: plan of care extensively, they are both agreeable and comfortable with plan of care CAD s/p stents, CABG: -Aspirin, fish oil held 2/2 hematuria -Continue carvedilol, gemfibrozil -Patient unable to tolerate statin in the past -- denies cardiac symptoms ASA restarted H/o sub-acute PE: -Coumadin held 2/2 hematuria, supratherapeutic INR -- INR 2.1 , management as per #1 ACUTE RENAL FAILURE - IV fluids started as crea increased to 1.6--> 1.5 - d/c fluids, encouraged oral fluid intake HLD: -Continue gemfibrozil Hypothyroidism: -Continue levothyroxine Acid Reflux: -Continue omeprazole Chronic back pain: -Continue gabapentin DVT Ppx: SCDs. , Heparin + Coumadin Code status: FULL PCP: Long Dispo: Plan to return home once medically stable d/c home tomorrow when INR is in the mid 2's Current Inpatient Medications: Current Inpatient Medications Medications (Trade) Dose Ordered Sig/Radha Route Start Time Stop Time Status Last Admin Dose Admin Acetaminophen (Tylenol Tab) 650 mg Q6H PRN PO 02/09/17 19:30 03/11/17 19:29 02/14/17 03:50 650 MG Ondansetron HCl (Zofran Inj) 4 mg Q6H PRN IV 02/09/17 19:30 03/11/17 19:29 Polyethylene (Miralax Powder Packet) 17 gm DAILY PRN PO 02/09/17 19:30 03/11/17 19:29 02/12/17 06:21 17 GM Carvedilol (Coreg Tab) 12.5 mg BID PO 02/09/17 21:00 03/11/17 20:59 02/14/17 09:00 12.5 MG Gabapentin (Neurontin Cap) 300 mg TID PO 02/09/17 21:00 03/11/17 20:59 02/14/17 09:00 300 MG Levothyroxine Sodium (Synthroid Tab) 50 mcg DAILYBB PO 02/10/17 06:00 03/12/17 05:59 02/14/17 05:43 50 MCG Nitroglycerin (Nitrostat Tab) 0.4 mg PRN UT 02/09/17 20:30 03/11/17 20:29 Multivitamins/ Minerals (Multivitamin W/ Minerals Tab) 1 tab DAILY PO 02/10/17 09:00 03/12/17 08:59 02/14/17 09:00 1 TAB Tamsulosin HCl (Flomax Cap) 0.4 mg DAILY PO 02/10/17 09:00 03/12/17 08:59 02/14/17 09:01 0.4 MG Pantoprazole Sodium (Protonix Tab) 40 mg DAILY PO 02/10/17 09:00 03/12/17 08:59 02/14/17 09:00 40 MG Finasteride (Proscar Tab) 5 mg QAM PO 02/10/17 09:00 03/12/17 08:59 02/14/17 09:01 5 MG Atorvastatin Calcium (Lipitor Tab) 40 mg HS PO 02/10/17 21:00 03/12/17 20:59 02/13/17 20:29 40 MG Gemfibrozil (Lopid Tab) 600 mg BID PO 02/10/17 09:00 03/12/17 08:59 02/14/17 09:00 600 MG Aspirin (Ecotrin Tab) 81 mg QAM PO 02/12/17 09:00 03/14/17 08:59 02/14/17 09:00 81 MG Heparin Sodium/ Dextrose 500 ml @ 17 mls/hr Q24H PRN IV 02/11/17 11:30 03/13/17 11:29 02/14/17 06:35 17 MLS/HR Warfarin Sodium (Coumadin Tab) 3 mg DAILY@16 PO 02/12/17 16:00 03/14/17 15:59 02/13/17 15:24 3 MG
[2017-02-14 13:10] LABS: PARTIAL THROMBOPLASTIN RATIO 2.4
[2017-02-14] MEDS: WARFARIN SOD 3 MG TAB PO SCH (17:03)
--- NOTE | 2017-02-14 19:07 | Progress Note ---
Subjective Date of Service: Feb 14, 2017. Subjective Pt evaluation today including: conversation w/ patient, lab review, conversation w/ senior energy consultant Voiding: no voiding problems tonights urine is yellow with a single small clot in it. He feels well. He is therapeutic on coumadin once again. Still on heparin drip for overlap til tomorrow. Problem List Medical Problems: (1) PE (pulmonary thromboembolism) Status: Acute (2) Syncope Status: Acute Review of Systems Constitutional: No fever, No chills Respiratory: No cough, No shortness of breath Cardiac: No chest pain, No palpitations Male : + nocturia more than once/night, + hematuria, No urinary frequency Objective Vital Signs Date Time Temp Pulse Resp B/P (MAP) Pulse Ox O2 Delivery O2 Flow Rate FiO2 02/14/17 16:01 36.5 63 18 128/67 (87) 97 Room Air 02/14/17 16:00 Room Air 02/14/17 12:00 Room Air 02/14/17 11:05 36.7 58 14 152/72 (98) 95 Room Air 02/14/17 08:03 96 Room Air 02/14/17 08:00 Room Air 02/14/17 07:41 36.6 63 14 153/72 (99) 97 Room Air 02/14/17 04:00 Room Air 02/14/17 03:38 37.0 67 19 148/71 (96) 95 Room Air 02/13/17 23:59 Room Air 02/13/17 22:53 37.1 61 19 150/77 (101) 97 Room Air 02/13/17 20:00 Room Air 02/13/17 19:26 36.9 67 22 164/77 (106) 96 Room Air Physical Exam General Appearance: WD/WN, no apparent distress, + obese ENT: hearing grossly normal Neurologic/Psychiatric: alert, normal mood/affect, oriented x 3 Laboratory Results Last 24 Hours Test 02/14/17 00:22 02/14/17 05:29 02/14/17 12:34 Hemoglobin 9.5 g/dL 9.4 g/dL Hematocrit 29.4 % 28.5 % White Blood Count 5.15 K/uL Red Blood Count 3.22 M/uL Mean Corpuscular Volume 88.5 fL Mean Corpuscular Hemoglobin 29.2 pg Mean Corpuscular Hemoglobin Concent 33.0 g/dl Platelet Count 189 K/uL Mean Platelet Volume 9.3 fL Neutrophils (%) (Auto) 38.4 % Lymphocytes (%) (Auto) 36.3 % Monocytes (%) (Auto) 15.0 % Eosinophils (%) (Auto) 9.9 % Basophils (%) (Auto) 0.2 % Neutrophils # (Auto) 1.98 K/uL Lymphocytes # (Auto) 1.87 K/uL Monocytes # (Auto) 0.77 K/uL Eosinophils # (Auto) 0.51 K/uL Basophils # (Auto) 0.01 K/uL RDW Standard Deviation 41.7 fL RDW Coefficient of Variation 12.9 % Immature Granulocyte % (Auto) 0.2 % Immature Granulocyte # (Auto) 0.01 K/uL Prothrombin Time 23.1 SECONDS Prothromb Time International Ratio 2.1 Activated Partial Thromboplast Time 70.2 SECONDS 62.5 SECONDS Partial Thromboplastin Ratio 2.7 2.4 Sodium Level 144 mmol/L Potassium Level 4.2 mmol/L Chloride Level 113 mmol/L Carbon Dioxide Level 23 mmol/L Anion Gap 8.0 mmol/L Blood Urea Nitrogen 22 mg/dl Creatinine 1.50 mg/dl Est Creatinine Clear Calc Drug Dose 48.9 ml/min Estimated GFR () 52.0 Estimated GFR (Non- 44.9 BUN/Creatinine Ratio 14.8 Random Glucose 93 mg/dl Calcium Level 8.4 mg/dl Assessment and Plan gross hematuria improved observe. may have general diet also has bladder stone- will need a cysto and stone removal many months in future. He is now on finasteride to help control prostate bleeding and shrink overall size of prostate. Will take months to kick in. Keep activities light, no mowing lawn, no heavy lifting keep bowels soft so he does not strain hard. Will bleed on and off., come back for clot retention see him in one month
[2017-02-14] MEDS: ATORVASTATIN 20 MG TAB PO SCH (20:36)
[2017-02-15] VITALS (8 sets, daily range): BP systolic 113–182; BP diastolic 54–85; PULSE 59–69; TEMP 36.5–37.1; O2SAT 95–97
[2017-02-15] MEDS: ACETAMINOPHEN 325 MG TAB PO PRN (00:13)
[2017-02-15 06:19] LABS: BASO % 0.4 %; BASO ABS # 0.02 K/uL (0-0.2); COMPLETE YES; HEMATOCRIT 29.3 % (42-52); LYMPH % 39.3 %; LYMPH ABS # 1.92 K/uL (1.2-3.4); MEAN CORPUSCULAR HEMOGLOBIN 28.8 pg (25-34); MEAN CORPUSCULAR HGB CONC 32.8 g/dl (32-36); MEAN PLATELET VOLUME 9.5 fL (7.4-10.4); MONO % 14.7 %; NEUT % 34.6 %; PLATELET COUNT 207 K/uL (130-400); RED BLOOD COUNT 3.33 M/uL (4.7-6.1); WHITE BLOOD COUNT 4.89 K/uL (4.8-10.8)
[2017-02-15] MEDS: LEVOTHYROXINE 50 MCG TAB PO SCH (06:22)
[2017-02-15 06:58] LABS: BUN/CREATININE RATIO 15.7 (10-20); CALCIUM 8.6 mg/dl (8.5-10.1); CREATININE 1.3 mg/dl (0.60-1.40); PARTIAL THROMBOPLASTIN RATIO 2.5; POTASSIUM 4.1 mmol/L (3.5-5.1)
[2017-02-15] MEDS: FINASTERIDE 5 MG TAB PO SCH (09:01)
[2017-02-15] MEDS: ASPIRIN 81 MG ECTAB PO SCH (09:02)
[2017-02-15] MEDS: GEMFIBROZIL 600 MG TAB PO SCH ×2 (09:02→20:07)
[2017-02-15] MEDS: CEROVITE ADV FORMULA TAB PO SCH (09:02)
[2017-02-15] MEDS: GABAPENTIN 300 MG CAP PO SCH ×3 (09:02→20:06)
[2017-02-15] MEDS: TAMSULOSIN HCL 0.4 MG CAP PO SCH (09:02)
[2017-02-15] MEDS: PANTOprazole SOD 40 MG TAB PO SCH (09:02)
[2017-02-15] MEDS: CARVEDILOL 12.5 MG TAB PO SCH ×2 (09:02→20:08)
[2017-02-15 09:25] LABS: INR 2.1 (0.9-1.1); PROTHROMBIN TIME (PATIENT) 23.2 SECONDS (9.0-12.0)
[2017-02-15] MEDS: HEPARIN 25,000 UNIT/500ML D5W 500 ML IV PRN (11:35)
--- NOTE | 2017-02-15 12:01 | Progress Note ---
Medicine Progress Note Date & Time of Visit: Feb 15, 2017 at 11:50. Subjective patient seen resting in bed, comfortable no hematuria since yesterday morning, no problems urinating denies chest pain, dyspnea, palpitations, dizziness no other symptoms Objective Last 8 Hrs Date Time Temp Pulse Resp B/P (MAP) Pulse Ox O2 Delivery O2 Flow Rate FiO2 02/15/17 11:44 36.9 66 18 149/68 (95) 97 02/15/17 08:00 Room Air 02/15/17 07:18 36.5 59 22 182/77 (112) 97 Room Air 02/15/17 04:00 Room Air Physical Exam: General- oriented x 3, not in distress, speaks in sentences with no effort Eyes- anicteric Neck-no JVD Lungs- clear breath sounds bilaterally, no rales/wheezes Heart- midsternotomy surgical site: healing well, no signs of infection regular rhythm; no murmur, no gallops Abdomen- normal bowel sounds, soft, nontender Extremities- no pretibial edema, no calf tenderness Neuro- alert, oriented x 3; no gross focal deficits Skin- warm & dry Laboratory Results: Last 24 Hours Test 02/14/17 12:34 02/15/17 05:55 Activated Partial Thromboplast Time 62.5 SECONDS 63.9 SECONDS Partial Thromboplastin Ratio 2.4 2.5 White Blood Count 4.89 K/uL Red Blood Count 3.33 M/uL Hemoglobin 9.6 g/dL Hematocrit 29.3 % Mean Corpuscular Volume 88.0 fL Mean Corpuscular Hemoglobin 28.8 pg Mean Corpuscular Hemoglobin Concent 32.8 g/dl Platelet Count 207 K/uL Mean Platelet Volume 9.5 fL Neutrophils (%) (Auto) 34.6 % Lymphocytes (%) (Auto) 39.3 % Monocytes (%) (Auto) 14.7 % Eosinophils (%) (Auto) 11.0 % Basophils (%) (Auto) 0.4 % Neutrophils # (Auto) 1.69 K/uL Lymphocytes # (Auto) 1.92 K/uL Monocytes # (Auto) 0.72 K/uL Eosinophils # (Auto) 0.54 K/uL Basophils # (Auto) 0.02 K/uL RDW Standard Deviation 41.5 fL RDW Coefficient of Variation 12.8 % Immature Granulocyte % (Auto) 0.0 % Immature Granulocyte # (Auto) 0.00 K/uL Prothrombin Time 23.2 SECONDS Prothromb Time International Ratio 2.1 Sodium Level 143 mmol/L Potassium Level 4.1 mmol/L Chloride Level 111 mmol/L Carbon Dioxide Level 25 mmol/L Anion Gap 7.0 mmol/L Blood Urea Nitrogen 20 mg/dl Creatinine 1.30 mg/dl Est Creatinine Clear Calc Drug Dose 55.6 ml/min Estimated GFR () 61.9 Estimated GFR (Non- 53.4 BUN/Creatinine Ratio 15.7 Random Glucose 88 mg/dl Calcium Level 8.6 mg/dl Assessment & Plan 76yo M with a PMH of CAD (s/p 2 stents, CABG x 4), recent PE (on coumadin), HLD , hypothyroidism and other medical problems listed below who presents with hematuria that started 4 days ago. Patient had a quadruple bypass performed in [place] by Dr. Francisco on Jan 21 complicated by a post-operative PE on Jan 30. 76yo M with a PMH of CAD (s/p 2 stents, CABG x 4), recent PE (on coumadin), HLD , hypothyroidism and other medical problems listed below who presents with hematuria that started 4 days ago. Patient had a quadruple bypass performed in [place] by Dr. Francisco on Jan 21 complicated by a post-operative PE on Jan 30. Hematuria, likely from Prostate -Presents with bright red blood in urine (with some clots) x 4 days -Passing clots easily, no urinary obstruction per patient - recently started with coumadin for PE that happened after CABG, last 2016, admitted with a supratherapeutic INR of 4.7 -Discussed with Dr. Crocker- [employer], who recommended 2.5mg PO Vit K to gently lower INR - INR trended down with 1 dose of Vit K 2.5mg when INR reached 1.7, Heparin + Coumadin 3mg re-started INR has increased gradually since after 4 days of coumadin 3mg, INR now at 2.1 will increase coumadin to 5mg po daily and continue heparin for now until INR in the mid 2's then patient can be discharged home with coumadin, will likely need Coumadin 3mg and 5mg alternating patient follows with PCP Dr. Lara for coumadin management, will need frequent INR checks until INR is stable -- discussed with Urologist Dr. Madrid, Cystoscopy deferred for now as most likely source is prostate bleeding and this may worsen with Cystoscopy, recommended to continue anticoagulation and ASA due to recent PE and CABG, if Hg < 8 and continues hematuria, may need cystoscopy fortunately, patient's hematuria has slowly resolved, last hematuria was yesterday Finasteride started for possible BPH will need outpatient ff up with Urology, as he will need Cystoscopy in a few months -- anticipate d/c tomorrow if hematuria is infrequent or has resolved, Hg stable and INR in the mid 2's coumadin 3mg and 5 mg alternating, close ff up with PCP for INRs, repeat Hg Finasteride daily -- explained to patient and his re: plan of care extensively, they are both agreeable and comfortable with plan of care CAD s/p stents, CABG: -Aspirin restarted, tolerating so far - Continued carvedilol, gemfibrozil -- denies cardiac symptoms H/o sub-acute PE: - apparently diagnosed January 30, 2017 -- INR 2.1 , management as per #1 ACUTE RENAL FAILURE - IV fluids started as crea increased to 1.6--> 1.5 - d/c fluids, encouraged oral fluid intake HLD: -Continue gemfibrozil Hypothyroidism: -Continue levothyroxine Acid Reflux: -Continue omeprazole Chronic back pain: -Continue gabapentin DVT Ppx: SCDs. , Heparin + Coumadin Code status: FULL PCP:Dr. Lara Dispo: anticipate d/c home when INR in the mid 2's ff up with Dr. Lara (PCP) for INR check and coumadin dosing ff up with Dr. Madrid ff up with [employer] Current Inpatient Medications: Current Inpatient Medications Medications (Trade) Dose Ordered Sig/Radha Route Start Time Stop Time Status Last Admin Dose Admin Acetaminophen (Tylenol Tab) 650 mg Q6H PRN PO 02/09/17 19:30 03/11/17 19:29 02/15/17 00:13 650 MG Ondansetron HCl (Zofran Inj) 4 mg Q6H PRN IV 02/09/17 19:30 03/11/17 19:29 Polyethylene (Miralax Powder Packet) 17 gm DAILY PRN PO 02/09/17 19:30 03/11/17 19:29 02/12/17 06:21 17 GM Carvedilol (Coreg Tab) 12.5 mg BID PO 02/09/17 21:00 03/11/17 20:59 02/15/17 09:02 12.5 MG Gabapentin (Neurontin Cap) 300 mg TID PO 02/09/17 21:00 03/11/17 20:59 02/15/17 09:02 300 MG Levothyroxine Sodium (Synthroid Tab) 50 mcg DAILYBB PO 02/10/17 06:00 03/12/17 05:59 02/15/17 06:22 50 MCG Nitroglycerin (Nitrostat Tab) 0.4 mg PRN UT 02/09/17 20:30 03/11/17 20:29 Multivitamins/ Minerals (Multivitamin W/ Minerals Tab) 1 tab DAILY PO 02/10/17 09:00 03/12/17 08:59 02/15/17 09:02 1 TAB Tamsulosin HCl (Flomax Cap) 0.4 mg DAILY PO 02/10/17 09:00 03/12/17 08:59 02/15/17 09:02 0.4 MG Pantoprazole Sodium (Protonix Tab) 40 mg DAILY PO 02/10/17 09:00 03/12/17 08:59 02/15/17 09:02 40 MG Finasteride (Proscar Tab) 5 mg QAM PO 02/10/17 09:00 03/12/17 08:59 02/15/17 09:01 5 MG Atorvastatin Calcium (Lipitor Tab) 40 mg HS PO 02/10/17 21:00 03/12/17 20:59 02/14/17 20:36 40 MG Gemfibrozil (Lopid Tab) 600 mg BID PO 02/10/17 09:00 03/12/17 08:59 02/15/17 09:02 600 MG Aspirin (Ecotrin Tab) 81 mg QAM PO 02/12/17 09:00 03/14/17 08:59 02/15/17 09:02 81 MG Heparin Sodium/ Dextrose 500 ml @ 17 mls/hr Q24H PRN IV 02/11/17 11:30 03/13/17 11:29 02/15/17 11:35 17 MLS/HR Warfarin Sodium (Coumadin Tab) 3 mg DAILY@16 PO 02/12/17 16:00 03/14/17 15:59 02/14/17 17:03 3 MG
[2017-02-15] MEDS ORDERED: WARFARIN SOD 5 MG TAB PO SCH (16:00)
[2017-02-15] MEDS: ATORVASTATIN 20 MG TAB PO SCH (20:08)
[2017-02-16 02:46] VITALS: BP 147/74; PULSE 66; TEMP 36.8; O2SAT 94
[2017-02-16] MEDS: LEVOTHYROXINE 50 MCG TAB PO SCH (05:59)
[2017-02-16 06:48] LABS: BASO % 0.2 %; BASO ABS # 0.01 K/uL (0-0.2); COMPLETE YES; EOS % 10.8 %; HEMATOCRIT 31.6 % (42-52); LYMPH % 28.5 %; LYMPH ABS # 1.68 K/uL (1.2-3.4); MEAN CELL VOLUME 88.5 fL (80-100); MEAN CORPUSCULAR HEMOGLOBIN 28.6 pg (25-34); MEAN CORPUSCULAR HGB CONC 32.3 g/dl (32-36); MEAN PLATELET VOLUME 9.4 fL (7.4-10.4); MONO % 13.9 %; NEUT % 46.6 %; PLATELET COUNT 211 K/uL (130-400); RED BLOOD COUNT 3.57 M/uL (4.7-6.1)
[2017-02-16 07:05] LABS: PARTIAL THROMBOPLASTIN RATIO 2.4
[2017-02-16 07:20] LABS: BUN/CREATININE RATIO 14.1 (10-20); CREATININE 1.4 mg/dl (0.60-1.40); POTASSIUM 4.2 mmol/L (3.5-5.1)
[2017-02-16 07:21] LABS: INR 2.2 (0.9-1.1); PROTHROMBIN TIME (PATIENT) 24.1 SECONDS (9.0-12.0)
[2017-02-16 07:36] VITALS: BP 137/73; PULSE 65; TEMP 36.8; O2SAT 95
[2017-02-16] MEDS: PANTOprazole SOD 40 MG TAB PO SCH (07:37)
[2017-02-16] MEDS: CEROVITE ADV FORMULA TAB PO SCH (07:37)
[2017-02-16] MEDS: GEMFIBROZIL 600 MG TAB PO SCH (07:37)
[2017-02-16] MEDS: FINASTERIDE 5 MG TAB PO SCH (07:38)
[2017-02-16] MEDS: ASPIRIN 81 MG ECTAB PO SCH (07:38)
[2017-02-16] MEDS: GABAPENTIN 300 MG CAP PO SCH ×2 (07:39→13:18)
[2017-02-16] MEDS: TAMSULOSIN HCL 0.4 MG CAP PO SCH (07:39)
[2017-02-16] MEDS: CARVEDILOL 12.5 MG TAB PO SCH (07:40)
[2017-02-16 11:46] VITALS: BP 148/77; PULSE 68; TEMP 37.7; O2SAT 97
--- NOTE | 2017-02-16 12:11 | Clinical Documentation Query ---
CLINICAL DOCUMENTATION QUERY Urology consult on admission has stated "gross hematuria. . . . It seemed temporally related to coumadin use. " This documentation has fallen off the record and unless documented on DC summary its' clinical significance may be lost. In your clinical opinion is this patient being managed for: ( ) Warfarin therapy related prostatic bleeding treated with reversal of INR and Urology consult ( ) Not Agree Please clarify and document your clinical opinion in the progress notes and discharge summary. Terms such as "probable", "suspected", "likely", "questionable", "possible", or "still to be ruled out" are acceptable. IF IN AGREEMENT, YOU MUST DOCUMENT ABOVE DIAGNOSTIC STATEMENT IN DAILY PROGRESS NOTES AND DISCHARGE SUMMARY. This document is not part of the patient's record. Thank You, Herminio Lauren, RN [phone]
[2017-02-16 13:46] VITALS: BP 148/77; PULSE 68; TEMP 37.7; O2SAT 97
[2017-02-16] MEDS ORDERED: PRS5 PO (14:05)
--- NOTE | 2017-02-16 14:10 | Discharge Instructions ---
Discharge Instructions Date of Service Feb 16, 2017. Admission Reason for Admission: Hematuria Discharge Discharge Diagnosis / Problem: Hematuria, bladder stone Discharge Goals Goal(s): Therapeutic intervention Activity Recommendations Activity Limitations: per Instructions/Follow-up section Per Urology [employer]: -Continue on finasteride to help control prostate bleeding and shrink overall size of prostate -Keep activities light (no mowing lawn, no heavy lifting, no strenuous activity) -Keep bowels soft so he does not strain hard -will bleed on and off -Follow up in one month Instructions / Follow-Up Instructions / Follow-Up Please have a follow up appointment with Dr. Lara in the next 5-7 days Please have labs drawn on TuesdayFebruary 18 to check PT, INR, and CBC Current Hospital Diet Patient's current hospital diet: AHA Diet (Heart Healthy) Discharge Diet Recommended Diet: AHA Diet (Heart Healthy) Pending Studies Studies pending at discharge: no Laboratory Results 02/16/17 06:24 Red Blood Count 3.57, Mean Corpuscular Volume 88.5, Mean Corpuscular Hemoglobin 28.6, Mean Corpuscular Hemoglobin Concent 32.3, Mean Platelet Volume 9.4, Neutrophils (%) (Auto) 46.6, Lymphocytes (%) (Auto) 28.5, Monocytes (%) (Auto) 13.9, Eosinophils (%) (Auto) 10.8, Basophils (%) (Auto) 0.2, Neutrophils # (Auto ) 2.75, Lymphocytes # (Auto) 1.68, Monocytes # (Auto) 0.82, Eosinophils # (Auto ) 0.64, Basophils # (Auto) 0.01 02/16/17 06:24 Test 02/16/17 06:24 02/16/17 06:42 White Blood Count 5.90 K/uL (4.8-10.8) Red Blood Count 3.57 M/uL (4.7-6.1) Hemoglobin 10.2 g/dL (14.0-18.0) Hematocrit 31.6 % (42-52) Mean Corpuscular Volume 88.5 fL (80-100) Mean Corpuscular Hemoglobin 28.6 pg (25-34) Mean Corpuscular Hemoglobin Concent 32.3 g/dl (32-36) Platelet Count 211 K/uL (130-400) Mean Platelet Volume 9.4 fL (7.4-10.4) Neutrophils (%) (Auto) 46.6 % Lymphocytes (%) (Auto) 28.5 % Monocytes (%) (Auto) 13.9 % Eosinophils (%) (Auto) 10.8 % Basophils (%) (Auto) 0.2 % Neutrophils # (Auto) 2.75 K/uL (1.4-6.5) Lymphocytes # (Auto) 1.68 K/uL (1.2-3.4) Monocytes # (Auto) 0.82 K/uL (0.11-0.59) Eosinophils # (Auto) 0.64 K/uL (0-0.5) Basophils # (Auto) 0.01 K/uL (0-0.2) RDW Standard Deviation 42.1 fL (36.4-46.3) RDW Coefficient of Variation 13.0 % (11.5-14.5) Immature Granulocyte % (Auto) 0.0 % Immature Granulocyte # (Auto) 0.00 K/uL (0.00-0.02) Activated Partial Thromboplast Time 61.9 SECONDS (21.0-31.0) Partial Thromboplastin Ratio 2.4 Anion Gap 7.0 mmol/L (3-11) Est Creatinine Clear Calc Drug Dose 51.9 ml/min Estimated GFR () 56.6 Estimated GFR (Non- 48.8 BUN/Creatinine Ratio 14.1 (10-20) Calcium Level 9.0 mg/dl (8.5-10.1) Prothrombin Time 24.1 SECONDS (9.0-12.0) Prothromb Time International Ratio 2.2 (0.9-1.1) Medical Emergencies . Who to Call and When: Medical Emergencies: If at any time you feel your situation is an emergency, please call 911 immediately. . Non-Emergent Contact Non-Emergency issues call your: Primary Care Provider . . "Provider Documentation" section prepared by Rabia Langford. . VTE Core Measure Inpt VTE Proph given/why not?: Warfarin (Coumadin), Other Anticoagulation, SCD' s, Contraindicated
== END 2017-02-16 14:46 | disposition home or self-care (01) | DRG 729 ==
LOC: C.2T 18:16
PROVIDERS: ADMIT Hospitalist; ATTEND Internal Medicine
DX: N42.1 Congestion and hemorrhage of prostate (principal); N17.9 Acute kidney failure, unspecified; N20.0 Calculus of kidney; I25.10 Atherosclerotic heart disease of native coronary artery without angina pectoris; E78.5 Hyperlipidemia, unspecified; E03.9 Hypothyroidism, unspecified; K21.9 Gastro-esophageal reflux disease without esophagitis; M54.9 Dorsalgia, unspecified; G89.29 Other chronic pain; Z79.01 Long term (current) use of anticoagulants; Z79.82 Long term (current) use of aspirin; Z79.899 Other long term (current) drug therapy; Z95.1 Presence of aortocoronary bypass graft; Z95.5 Presence of coronary angioplasty implant and graft; Z86.711 Personal history of pulmonary embolism

== ENCOUNTER 2020-09-02 00:50 | Inpatient (IN) ==
[2020-09-02] MEDS ORDERED: SODIUM CHLORIDE 0.9% 500 ML IV STA (01:36)
[2020-09-02 01:58] LABS: Basophils # (auto) 0.01 K/uL (0-0.2); Basophils % (auto) 0.1 %; Eosinophils # (auto) 0.17 K/uL (0-0.5); Eosinophils % (auto) 2.4 %; Hematocrit (blood only) 26.9 % (42-52); Hemoglobin 8.9 g/dL (14.0-18.0); Immature Granulocytes # (auto) 0.01 K/uL (0.00-0.02); Immature Granulocytes % (auto) 0.1 %; Lymphocytes # (auto) 2.02 K/uL (1.2-3.4); Lymphocytes % (auto) 28.7 %; Mean Corpuscular Hemoglobin 29.5 pg (25-34); Mean Corpuscular Hgb Conc 33.1 g/dL (32-36); Mean Corpuscular Volume 89.1 fL (80-100); Mean Platelet Volume 9.3 fL (7.4-10.4); Monocytes # (auto) 0.82 K/uL (0.11-0.59); Monocytes % (auto) 11.6 %; Neutrophils # (auto) 4.02 K/uL (1.4-6.5); Neutrophils % (auto) 57.1 %; Platelet Count 196 K/uL (130-400); RDW Coefficient of Variation 22.6 % (11.5-14.5); Red Blood Count 3.02 M/uL (4.7-6.1); White Blood Count 7.05 K/uL (4.8-10.8)
[2020-09-02 02:14] LABS: Albumin Level 3.2 gm/dl (3.4-5.0); Calcium 8.8 mg/dl (8.5-10.1); Creatinine Clr Calc Pharmacy 47.5 ml/min; Est GFR (African American) 62.5; Est GFR (Non-African American) 53.9; Potassium 4.7 mmol/L (3.5-5.1)
[2020-09-02 02:17] LABS: Albumin Globulin Ratio 0.9 (0.9-2); Bilirubin,Total 0.4 mg/dl (0.2-1); Globulin 3.7 gm/dl (2.5-4.0); Total Protein 6.9 gm/dl (6.4-8.2)
[2020-09-02 02:22] LABS: Anisocytosis Present; Ovalocytes 1+
[2020-09-02] MEDS ORDERED: OPTIRAY 300 100mL IV ONE (02:40)
[2020-09-02 03:43] LABS: Appearance Urine Clear (Clear); Bacteria Urine Automated Negative (Negative); Bilirubin Urine Negative (Negative); Blood Urine Negative (Negative); Cast Urine Automated 0 /lpf (0-5); Color Urine Yellow; Glucose Urine UA Negative (Negative); Ketones Urine Negative (Negative); Leukocyte Esterase Urine 2+ (Negative); Nitrite Urine Negative (Negative); Protein Urine Negative (Negative); RBC Urine Automated 0-4 /hpf (0-4); Urobilinogen Urine Negative (Negative)
--- NOTE | 2020-09-02 04:17 | Emergency Department Note ---
Impression & Plan GI bleed ED Provider Note NAME: LILA WALDRON AGE: 80 SEX: M ARRIVES VIA: Walk-In INFORMANT: Patient and the patient's ED PROVIDER(S): Aileen Kay DO CHIEF COMPLAINT: Diffuse abdominal pain PLAN: Disposition: Admitted to the [facility] Condition: Good MEDICAL DECISION MAKING: This is a 80-year-old male patient with a history of colon surgery in April who presents to the emergency department with abdominal pain and constipation. Patient was noted to have a 1 g drop in his hemoglobin in the past 13 days with stools that are black in color. CT scan shows multiple nonspecific findings according to stat rad. Upon returning from radiology, the patient had a bowel movement and felt much better. He was pain-free. General surgery was consulted and evaluated the patient here in the emergency department. [facility] the patient for GI bleeding. Triage Nursing notes reviewed and agree them. Additional history obtained from the patient's Prior medical records reviewed Vital Signs: reviewed and remarkable for bradycardia Differential diagnosis: Constipation, peptic ulcer disease, duodenal ulcer disease, anastomotic b leeding, recurrent tumor, metastatic disease ER treatment provided: IV normal saline Diagnostics interpreted by me: ECG: Sinus bradycardia at 47 with PVCs. There is no ST segment elevation or signs of ischemia. There is no ectopy. Cardiac Monitoring: Sinus bradycardia at a rate of 46. Laboratory studies: See below Imaging studies: As per stat rad CT abdomen and pelvis with contrast Compared to 02/09/2017. Report not available. Irregular low-attenuation and air in the region of the descending duodenum and pancreatic head. There is nonspecific stranding at the upper abdomen. Differential considerations include mass, ulceration or fluid collection with contained perforation not excluded. Adjacent small low-density structure is also noted potentially enlarged lymph nodes or small fluid collections. Fluid in the small and large bowel, can be seen with enteritis or diarrheal disease. Prior bowel surgery noted. An 8 mm stone in the dependent bladder near the right UVJ. No significant hydronephrosis. Nonspecific perinephric stranding. Mild basilar atelectasis/scarring or pneumonitis. Additional incidental findings. Consultation: [facility]-John Ochoa PA-C HPI: 80/M arrives for evaluation of abdominal pain and constipation. Patient had not moved his bowels from last until 10 PM yesterday. He did have a small bowel movement at that time. He then awoke this morning and had 2 small bowel movements again but then did not move his bowels throughout the day today. The patient took some Tylenol, Motrin and oxycodone and the pain seemed to ease up somewhat tonight but was still fairly uncomfortable after eating a normal meal at suppertime. The patient has been taking chemotherapy since May after having a partial co lectomy and cholecystectomy in April 2020. ROS: See above HPI for pertinent positives & negatives. A total of 10 systems reviewed and were otherwise negative. PAST MEDICAL HISTORY:See Below PAST SURGICAL HISTORY:See Below FAMILY HISTORY:See Below SOCIAL HISTORY:Lives with his HOME MEDICATIONS:See list ALLERGIES:None VITALS:See Below PHYSICAL EXAMINATION: HEENT: Head - normocephalic and atraumatic Pupils are equal, round, and reactive to light. Extraocular eye muscles are intact, and sclera are anicteric. Nose - moist nasal mucosa without discharge. Mouth - moist buccal mucosa. Oropharynx is nonerythematous and there is no tonsillar exudate or edema noted. Neck: Supple; no JVD, nuchal rigidity, cervical lymphadenopathy, or auscultated bruits. Heart: Regular rate and rhythm. There is a normal S1 and S2 with no murmurs, clicks, or gallops appreciated. Lungs: Clear to auscultation bilaterally with no wheezes, rales, or rhonchi. Abdomen: Soft, completely nontender, nondistended, with good bowel sounds. There are no palpable pulsatile masses or hepatosplenomegaly. There is no guarding, rigidity, or rebound noted. Extremities: No evidence of cyanosis, clubbing, or edema. There are easily palpable peripheral pulses. Skin: warm and dry with good turgor and no rashes. ED COURSE: Times/Reassessments: 0120: The patient was evaluated in room C2. A complete history and physical was performed. Laboratory studies were drawn as above. An order was placed for continuous cardiac monitoring. The patient was in a sinus bradycardia at a rate of 46. The patient will go for CT scan of the abdomen/pelvis. 0330: I reevaluated the patient at this time. He explains that he had a successful bowel movement after the CAT scan. I did perform a rectal exam on the patient and the stool was black on my glove and was Hemoccult positive. 0440: I reviewed the results of the CAT scan with the patient and his . I discussed the case with Dr. Rodriguez who requested that I have the patient evaluated by surgery. I explained to the patient that they would be evaluated by surgery first before being admitted to the hospital. They made it clear that they would not be willing for transfer back to [facility] as they did not have a good experience there in April during his original surgery. If he required tertiary care for any reason, they would prefer transfer to [place]. The patient was evaluated by John Ochoa PA-C. He felt the patient could be admitted to this hospital for GI bleeding surgery consulted. Aileen Kay, Past Med/Surg History Medical History BPH (benign prostatic hyperplasia) CAD (coronary artery disease) "S/p stents 2004, 2006. CABG x 3 Jan 2017" CKD (chronic kidney disease) stage 3, GFR 30-59 ml/min Dyslipidemia GERD (gastroesophageal reflux disease) HTN (hypertension) Hx of pulmonary embolus Hypothyroidism Myocardial infarction Osteoarthritis PAF (paroxysmal atrial fibrillation) During hospitalization for Influenza, no recurrence PAF (paroxysmal atrial fibrillation) Pulmonary embolism hx of PE s/p CABG 2016 Surgical History H/O cardiac catheterization H/O wisdom tooth extraction History of esophagogastroduodenoscopy (EGD) 04/25/2018. propofol/lido no issues. History of tonsillectomy and adenoidectomy S/P CABG (coronary artery bypass graft) Family History Father , secondary to chief embalmer accident, rolled on top of him Prostate cancer Accident caused by powered chief embalmer Mother , in mid 90s T2DM (type 2 diabetes mellitus) Social History Smoking Status: Never smoker Hx Alcohol Use: Yes ("Charley") Alcohol type: beer and hard liquor Alcohol Intake Frequency Comment: 5 drinks weekly Hx Substance Use: No Preferred Language: Mongolian Communication Ability: Effective Beliefs That Will Affect Care: None marital status: Current Living Situation: Spouse Feels Safe at Home: Yes Assistive Devices: None Allergies Allergies Allergy/AdvReac Type Severity Reaction Status Date / Time No Known Allergies Allergy Verified 09/02/20 01:48 Home Meds Home Medications Medication Instructions Recorded Confirmed aspirin 81 mg PO QAM 03/17/18 09/02/20 finasteride 5 mg PO QAM 03/17/18 09/02/20 nitroglycerin [Nitrostat] 0.4 mg SUBLINGUAL DIRECTED PRN 03/17/18 09/02/20 omega 9-ukg-dhh-fish oil [Fish Oil] 1 cap PO BID 03/17/18 09/02/20 rosuvastatin 20 mg PO QAM 03/17/18 09/02/20 tamsulosin 0.4 mg PO QAM 03/17/18 09/02/20 carvedilol 12.5 mg PO BID 04/17/20 09/02/20 losartan 25 mg PO QAM 04/17/20 09/02/20 omeprazole 20 mg PO BID 04/17/20 09/02/20 capecitabine 1,500 mg PO BID 08/20/20 09/02/20 cholestyramine-aspartame 1 ea PO DIRECTED 08/20/20 09/02/20 [Cholestyramine Light] clobetasol 1 applic TOPICAL DIRECTED PRN 08/20/20 09/02/20 gabapentin 300 mg PO TID 08/20/20 09/02/20 levothyroxine 125 mcg PO QAM 08/20/20 09/02/20 multivitamin 1 tab PO QAM 08/20/20 09/02/20 ondansetron HCl [Zofran] 8 mg PO Q8H PRN 08/20/20 09/02/20 prochlorperazine maleate 10 mg PO Q8 PRN 08/20/20 09/02/20 vitamins A,C,G-rlnj-hlpyal 1 tab PO BID 08/20/20 09/02/20 [PreserVision AREDS] famotidine 20 mg PO BID PRN 09/02/20 09/02/20 olopatadine [Pataday] 1 drp OPB DAILY 09/02/20 09/02/20 Results & Data (ED) Vital Signs Vital Signs - 24 hr 09/02/20 00:55 09/02/20 01:23 09/02/20 01:26 Temperature 36.6 C Temperature Source Temporal Artery Scan Pulse Rate 92 H 48 L 48 L Pulse Rate from SpO2 Sensor 45 L 48 L Respiratory Rate 16 13 18 Respiratory Depth Normal Blood Pressure 120/54 L 139/59 L Blood Pressure Mean 76 85 Pulse Oximetry 96 98 98 Oxygen Delivery Method Room Air Sepsis Recent Fever Within 48 Hours No Sepsis New/Unexplained Change in Mental Status No Sepsis Action Taken by Nursing No Action Required 09/02/20 01:40 09/02/20 01:57 09/02/20 02:00 Temperature Temperature Source Pulse Rate 47 L 50 L Pulse Rate from SpO2 Sensor 47 L Respiratory Rate 16 13 Respiratory Depth Blood Pressure Blood Pressure Mean Pulse Oximetry 98 98 Oxygen Delivery Method Room Air Sepsis Recent Fever Within 48 Hours Sepsis New/Unexplained Change in Mental Status Sepsis Action Taken by Nursing 09/02/20 02:20 09/02/20 02:40 09/02/20 03:00 Temperature Temperature Source Pulse Rate 46 L 41 L 46 L Pulse Rate from SpO2 Sensor 45 L 48 L 46 L Respiratory Rate 13 14 13 Respiratory Depth Blood Pressure 143/57 H 138/55 L Blood Pressure Mean 85 82 Pulse Oximetry 94 98 100 Oxygen Delivery Method Sepsis Recent Fever Within 48 Hours Sepsis New/Unexplained Change in Mental Status Sepsis Action Taken by Nursing 09/02/20 03:20 09/02/20 03:55 09/02/20 04:00 Temperature Temperature Source Pulse Rate 46 L Pulse Rate from SpO2 Sensor 50 L 48 L 46 L Respiratory Rate 21 17 9 L Respiratory Depth Blood Pressure 167/76 H Blood Pressure Mean 106 Pulse Oximetry 99 98 100 Oxygen Delivery Method Sepsis Recent Fever Within 48 Hours Sepsis New/Unexplained Change in Mental Status Sepsis Action Taken by Nursing 09/02/20 04:20 09/02/20 04:30 09/02/20 04:40 Temperature Temperature Source Pulse Rate 47 L 49 L 49 L Pulse Rate from SpO2 Sensor 46 L 48 L 47 L Respiratory Rate 12 9 L 13 Respiratory Depth Blood Pressure 158/68 H Blood Pressure Mean 98 Pulse Oximetry 94 93 98 Oxygen Delivery Method Sepsis Recent Fever Within 48 Hours Sepsis New/Unexplained Change in Mental Status Sepsis Action Taken by Nursing 09/02/20 05:00 09/02/20 05:20 Temperature Temperature Source Pulse Rate 46 L 46 L Pulse Rate from SpO2 Sensor 45 L 46 L Respiratory Rate 13 16 Respiratory Depth Blood Pressure 166/68 H Blood Pressure Mean 100 Pulse Oximetry 98 98 Oxygen Delivery Method Sepsis Recent Fever Within 48 Hours Sepsis New/Unexplained Change in Mental Status Sepsis Action Taken by Nursing Laboratory Data Result diagrams: 09/02/20 01:48 09/02/20 01:48 Lab Results 09/02/20 09/02/20 09/02/20 Range/Units 01:48 01:48 01:48 WBC 7.05 (4.8-10.8) K/uL RBC 3.02 L (4.7-6.1) M/uL Hgb 8.9 L (14.0-18.0) g/dL Hct 26.9 L (42-52) % MCV 89.1 (80-100) fL MCH 29.5 (25-34) pg MCHC 33.1 (32-36) g/dL RDW Std Deviation 74.0 H (36.4-46.3) fL RDW Coeff of Gabriela 22.6 H (11.5-14.5) % Plt Count 196 (130-400) K/uL MPV 9.3 (7.4-10.4) fL Immature Gran % (Auto) 0.1 % Neut % (Auto) 57.1 % Lymph % (Auto) 28.7 % [place] % (Auto) 11.6 % Eos % (Auto) 2.4 % Baso % (Auto) 0.1 % Neut # (Auto) 4.02 (1.4-6.5) K/uL Lymph # (Auto) 2.02 (1.2-3.4) K/uL [place] # (Auto) 0.82 H (0.11-0.59) K/uL Eos # (Auto) 0.17 (0-0.5) K/uL Baso # (Auto) 0.01 (0-0.2) K/uL Immature Gran # (Auto) 0.01 (0.00-0.02) K/uL Anisocytosis Present Ovalocytes 1+ PT 10.3 (9.0-12.0) Seconds INR 1.0 (0.9-1.1) Sodium 139 (136-145) mmol/L Potassium 4.7 (3.5-5.1) mmol/L Chloride 110 H (98-107) mmol/L Carbon Dioxide 24 (21-32) mmol/L Anion Gap 5.0 (3-11) BUN 20 H (7-18) mg/dl Creatinine 1.26 (0.6-1.4) mg/dl Est Cr Clr Drug Dosing 47.5 ml/min Est GFR ( Amer) 62.5 Est GFR (Non-Af Amer) 53.9 BUN/Creatinine Ratio 16.0 (10-20) Glucose 112 H (70-99) mg/dl Calcium 8.8 (8.5-10.1) mg/dl Magnesium 2.7 H (1.8-2.4) mg/dl Total Bilirubin 0.4 (0.2-1) mg/dl AST 14 L (15-37) U/L ALT 15 (12-78) U/L Alkaline Phosphatase 65 (45-117) U/L Total Protein 6.9 (6.4-8.2) gm/dl Albumin 3.2 L (3.4-5.0) gm/dl Globulin 3.7 (2.5-4.0) gm/dl Albumin/Globulin Ratio 0.9 (0.9-2) Lipase 184 (73-393) U/L TSH 8.620 H (0.300-4.500) uIu/ml Urine Color Urine Appearance (Clear) Urine pH (4.5-7.5) Ur Specific [place] (1.000-1.030) Urine Protein (Negative) Urine Glucose (UA) (Negative) Urine Ketones (Negative) Urine Blood (Negative) Urine Nitrite (Negative) Urine Bilirubin (Negative) Urine Urobilinogen (Negative) Ur Leukocyte Esterase (Negative) Urine WBC (Auto) (0-5) /hpf Urine RBC (Auto) (0-4) /hpf U Hyaline Cast (Auto) (0-5) /lpf U Epithel Cells (Auto) (0-5) /lpf Urine Bacteria (Auto) (Negative) COVID-19 Eval Order SARS-CoV-2 (PCR) (Negative) Influenza Type A (PCR) (Neg) Influenza Type B (PCR) (Neg) RSV (RT-PCR) (Neg) 09/02/20 09/02/20 09/02/20 Range/Units 02:34 04:45 04:45 WBC (4.8-10.8) K/uL RBC (4.7-6.1) M/uL Hgb (14.0-18.0) g/dL Hct (42-52) % MCV (80-100) fL MCH (25-34) pg MCHC (32-36) g/dL RDW Std Deviation (36.4-46.3) fL RDW Coeff of Gabriela (11.5-14.5) % Plt Count (130-400) K/uL MPV (7.4-10.4) fL Immature Gran % (Auto) % Neut % (Auto) % Lymph % (Auto) % [place] % (Auto) % Eos % (Auto) % Baso % (Auto) % Neut # (Auto) (1.4-6.5) K/uL Lymph # (Auto) (1.2-3.4) K/uL [place] # (Auto) (0.11-0.59) K/uL Eos # (Auto) (0-0.5) K/uL Baso # (Auto) (0-0.2) K/uL Immature Gran # (Auto) (0.00-0.02) K/uL Anisocytosis Ovalocytes PT (9.0-12.0) Seconds INR (0.9-1.1) Sodium (136-145) mmol/L Potassium (3.5-5.1) mmol/L Chloride (98-107) mmol/L Carbon Dioxide (21-32) mmol/L Anion Gap (3-11) BUN (7-18) mg/dl Creatinine (0.6-1.4) mg/dl Est Cr Clr Drug Dosing ml/min Est GFR ( Amer) Est GFR (Non-Af Amer) BUN/Creatinine Ratio (10-20) Glucose (70-99) mg/dl Calcium (8.5-10.1) mg/dl Magnesium (1.8-2.4) mg/dl Total Bilirubin (0.2-1) mg/dl AST (15-37) U/L ALT (12-78) U/L Alkaline Phosphatase (45-117) U/L Total Protein (6.4-8.2) gm/dl Albumin (3.4-5.0) gm/dl Globulin (2.5-4.0) gm/dl Albumin/Globulin Ratio (0.9-2) Lipase (73-393) U/L TSH (0.300-4.500) uIu/ml Urine Color Yellow Urine Appearance Clear (Clear) Urine pH 5.0 (4.5-7.5) Ur Specific [place] 1.020 (1.000-1.030) Urine Protein Negative (Negative) Urine Glucose (UA) Negative (Negative) Urine Ketones Negative (Negative) Urine Blood Negative (Negative) Urine Nitrite Negative (Negative) Urine Bilirubin Negative (Negative) Urine Urobilinogen Negative (Negative) Ur Leukocyte Esterase 2+ H (Negative) Urine WBC (Auto) 10-30 H (0-5) /hpf Urine RBC (Auto) 0-4 (0-4) /hpf U Hyaline Cast (Auto) 0 (0-5) /lpf U Epithel Cells (Auto) 10-20 H (0-5) /lpf Urine Bacteria (Auto) Negative (Negative) COVID-19 Eval Order CovFluRsv at [facility] SARS-CoV-2 (PCR) NEGATIVE (Negative) Influenza Type A (PCR) Negative (Neg) Influenza Type B (PCR) Negative (Neg) RSV (RT-PCR) Negative (Neg) Administered Medications Discontinued Medications Sodium Chloride (Nss) 500 mls @ 999 mls/hr IV .Q31M STA Stop: 09/02/20 02:06 Last Infusion: 09/02/20 03:00 Dose: 0 mls/hr Documented by: [id number] Admin: 09/02/20 02:03 Dose: 999 mls/hr Documented by: [id number] Pantoprazole Sodium 80 mg/ (Dextrose) 120 mls @ 400 mls/hr IV NOW ONE Stop: 09/02/20 04:56 Last Infusion: 09/02/20 05:20 Dose: 0 mls/hr Documented by: [id number] Admin: 09/02/20 05:02 Dose: 400 mls/hr Documented by: [id number] Ioversol (Optiray 300 100ml) 100 ml IV ONCE ONE Stop: 09/02/20 02:41 Last Admin: 09/02/20 02:41 Dose: 86 ml Documented by: [id number] Losartan Potassium (Losartan Potassium 25 Mg Tab) 25 mg PO NOW STA Stop: 09/02/20 05:51 Last Admin: 09/02/20 06:13 Dose: 25 mg Documented by: [id number] Discharge Plan Visit Data Chief Complaint: Abdominal Pain Stated Complaint: PAIN IN STOMACH - NOT GETTING BETTER ED Provider: Aileen Kay Discharge Problem: GI bleed Forms Stand Alone Forms: My [facility] Prescriptions Prescriptions: No Action aspirin 81 mg Tablet,Delayed Release (Dr/Ec) 81 mg PO QAM RF: 0 tamsulosin 0.4 mg capsule 0.4 mg PO QAM RF: 0 nitroglycerin [Nitrostat] 0.4 mg Tablet, Sublingual 0.4 mg Sublingual DIRECTED PRN (Reason: Chest Pain) RF: 0 finasteride 5 mg tablet 5 mg PO QAM RF: 0 rosuvastatin 20 mg tablet 20 mg PO QAM RF: 0 omega 6-dhi-lcd-fish oil [Fish Oil] 1,000 mg (120 mg-180 mg) Capsule 1 cap PO BID RF: 0 carvedilol 12.5 mg tablet 12.5 mg PO BID RF: 0 losartan 25 mg tablet 25 mg PO QAM RF: 0 omeprazole 20 mg capsule,delayed release(DR/EC) 20 mg PO BID RF: 0 famotidine 20 mg tablet 20 mg PO BID PRN (Reason: Heartburn) RF: 0 olopatadine [Pataday] 0.2 % Drops 1 drp OPB DAILY RF: 0 multivitamin Tablet 1 tab PO QAM RF: 0 ondansetron HCl [Zofran] 8 mg Tablet 8 mg PO Q8H PRN (Reason: Nausea) RF: 0 clobetasol 0.05 % Cream 1 applic TOPICAL DIRECTED PRN (Reason: Skin Irritation) RF: 0 prochlorperazine maleate 10 mg tablet 10 mg PO Q8 PRN (Reason: Nausea) RF: 0 capecitabine 500 mg Tablet 1,500 mg PO BID RF: 0 levothyroxine 125 mcg Tablet 125 mcg PO QAM RF: 0 gabapentin 300 mg Capsule 300 mg PO TID RF: 0 Cholestyramine Light 4 gram powder 1 ea PO DIRECTED RF: 0 PreserVision AREDS 7,160 unit- 113 mg-100 unit Tablet 1 tab PO BID RF: 0 Discharge Problem: GI bleed Qualifiers: GI bleed type/associated pathology: unspecified gastrointestinal hemorrhage type Qualified Code(s): K92.2 - Gastrointestinal hemorrhage, unspecified
[2020-09-02] MEDS ORDERED: PANTOprazole 80 MG in DEXTROSE 5% 100 ML IV ONE (04:39)
--- NOTE | 2020-09-02 04:48 | Communication Note ---
Date of Service: September 02, 2020
[2020-09-02 05:13] LABS: Magnesium 2.7 mg/dl (1.8-2.4); Thyroid Stimulating Hormone 8.62 uIu/ml (0.300-4.500)
--- NOTE | 2020-09-02 05:32 | Surgery Consultation ---
Date of Consultation September 02, 2020 Assessment & Plan (1) Abdominal pain: The etiology of patient's abdominal pain is unclear. Recommend proceeding in the following manner: We will provide analgesics Provide antiemetics Would keep the patient n.p.o. for the present time May be beneficial to have a gastroenterology evaluation secondary to the patient's heme positive stool, decrease in hemoglobin, and pain after eating which could represent peptic ulcer disease At the present time the patient does not have an acute abdomen that require surgical intervention. We will continue to follow along with the patient is hospitalized with further recommendations based on his clinical course as unfolds Attending physician Dr. Pinto will evaluate the patient later this morning with further recommendations. Supervising Physician Co-Signing Physician Notes I personally saw and evaluated the patient with Rodriguez Ochoa PA-C and agree with the assessment and plan. 80 yo male with history of right colectomy at [facility] for invasive adenocarcinoma, here with duodenitis versus duodenal mass/ulceration -Patient has no signs of perforation with no abdominal pain, fevers or leukocytosis -CT results and images reviewed and there is some abnormality of duodenum, but etiology is unclear -Agree with GI evaluation for possible EGD to further workup this irregularity of the duodenum -Will follow History of Present Illness Reason for Consultation: Abdominal pain History of Present Illness This is a 80-year-old male who presented to the [facility] emergency department secondary abdominal pain. Patient notes that this pain has been present on and off for approximately 1 month. He says that the pain seems to be worse after he eats. He does not note any palliative factors and says the pain does not radiate. He also notes that the pain is generalized and is not in any pinpoint area of his abdomen. Patient does admit that he has not had a bowel movement just under 1 week. While in the emergency department he did have a bowel movement which did improve his pain. Patient says that he has not had any nausea, vomiting, fevers, shakes, or chills. He denies any hematemesis or bright blood per rectum. He also denies any melanotic stools. Patient does add that he had a recent surgery and [place] at [facility] where he had part of his colon and small bowel taken. This was taken out for a cancerous process and the patient is currently taking an oral chemotherapeutic regimen directed by Dr. Valdes. In the emergency department the chante patient did have labs and imaging which I dependently reviewed. CBC reveals white blood cell count was 7.5. Globe was noted to be 8.9 which is approximately 1 g drop from values approximately 2 weeks ago. His platelet count was noted to be within normal range. Chemistry profile revealed his sodium, potassium, and creatinine were all within the normal range. CT scan of the abdomen was performed utilizing IV contrast. Radiologist felt that there was a area of low-attenuation of air in the region near the duodenum and pancreatic head and nonspecific stranding in the upper abdomen. There was concern that this could represent either a mass, ulceration or even a fluid collection with a contained perforation. A Covid test has been performed and is pending. At the time of my interview the patient was pain-free. He was hemodynamically stable, not hypotensive or tachycardic. Allergies Allergy/AdvReac Type Severity Reaction Status Date / Time No Known Allergies Allergy Verified 09/02/20 01:48 Home Medications Medication Instructions Recorded Confirmed Type aspirin 81 mg PO QAM 03/17/18 09/02/20 History finasteride 5 mg PO QAM 03/17/18 09/02/20 History nitroglycerin [Nitrostat] 0.4 mg SUBLINGUAL DIRECTED PRN 03/17/18 09/02/20 History omega 2-zhl-fnq-fish oil [Fish Oil] 1 cap PO BID 03/17/18 09/02/20 History rosuvastatin 20 mg PO QAM 03/17/18 09/02/20 History tamsulosin 0.4 mg PO QAM 03/17/18 09/02/20 History carvedilol 12.5 mg PO BID 04/17/20 09/02/20 History losartan 25 mg PO QAM 04/17/20 09/02/20 History omeprazole 20 mg PO BID 04/17/20 09/02/20 History capecitabine 1,500 mg PO BID 08/20/20 09/02/20 History cholestyramine-aspartame 1 ea PO DIRECTED 08/20/20 09/02/20 History [Cholestyramine Light] clobetasol 1 applic TOPICAL DIRECTED PRN 08/20/20 09/02/20 History gabapentin 300 mg PO TID 08/20/20 09/02/20 History levothyroxine 125 mcg PO QAM 08/20/20 09/02/20 History multivitamin 1 tab PO QAM 08/20/20 09/02/20 History ondansetron HCl [Zofran] 8 mg PO Q8H PRN 08/20/20 09/02/20 History prochlorperazine maleate 10 mg PO Q8 PRN 08/20/20 09/02/20 History vitamins A,C,Y-bsvy-iazzor 1 tab PO BID 08/20/20 09/02/20 History [PreserVision AREDS] famotidine 20 mg PO BID PRN 09/02/20 09/02/20 History olopatadine [Pataday] 1 drp OPB DAILY 09/02/20 09/02/20 History Patient History Medical History BPH (benign prostatic hyperplasia) CAD (coronary artery disease) "S/p stents 2004, 2006. CABG x 3 Jan 2017" CKD (chronic kidney disease) stage 3, GFR 30-59 ml/min Dyslipidemia GERD (gastroesophageal reflux disease) HTN (hypertension) Hx of pulmonary embolus Hypothyroidism Myocardial infarction Osteoarthritis PAF (paroxysmal atrial fibrillation) During hospitalization for Influenza, no recurrence PAF (paroxysmal atrial fibrillation) Pulmonary embolism hx of PE s/p CABG 2016 Surgical History H/O cardiac catheterization H/O wisdom tooth extraction History of esophagogastroduodenoscopy (EGD) 04/25/2018. propofol/lido no issues. 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 Beliefs That Will Affect Care: None marital status: Current Living Situation: Spouse Other Information That Helps Us Care for You: No Feels Safe at Home: Yes Safety Concerns: Feels Safe At This Time Assistive Devices: None Review of Systems Constitutional: no fever and no chills Eyes: no diplopia Ear, Nose, Mouth, Throat: no ear pain Respiratory: no cough and no dyspnea Cardiovascular: no chest pain Gastrointestinal: + abdominal pain and + constipation; no nausea, no vomiting, no coffee ground emesis and no diarrhea/loose stools Genitourinary: no dysuria Musculoskeletal: no back pain Integumentary: no rash Neurologic: no localized weakness Physical Exam Constitutional: well developed and well nourished; no acute distress Eyes: no conjunctival abnormality ENMT: Ears: no hearing impairment Neck: trachea midline Respiratory: normal respiratory effort; no respiratory distress and no labored breathing Cardiovascular: Rate/Rhythm: regular rate and regular rhythm Gastrointestinal (Abdomen): Patient's abdomen is rotund. Bowel sounds are present. He had a well-healed midline incision. I cannot palpate any hernias. His abdomen is not distended. There is no rebound tenderness or guarding. At the time of my exam palpation did not cause pain. Musculoskeletal: No calf tenderness Skin: no rashes, warm and dry Neurologic: moves all extremities Psychiatric: A+Ox3, euthymic affect Results & Data ([facility]) Vital Signs (Past 12 Hours) Vital Signs Temp Pulse Resp BP Pulse Ox 09/02/20 04:40 49 L 13 98 09/02/20 04:30 49 L 9 L 158/68 H 93 09/02/20 04:20 47 L 12 94 09/02/20 04:00 46 L 9 L 167/76 H 100 09/02/20 03:55 17 98 09/02/20 03:20 21 99 09/02/20 03:00 46 L 13 138/55 L 100 09/02/20 02:40 41 L 14 143/57 H 98 09/02/20 02:20 46 L 13 94 09/02/20 02:00 50 L 13 09/02/20 01:57 98 09/02/20 01:40 47 L 16 98 09/02/20 01:26 48 L 18 98 09/02/20 01:23 48 L 13 139/59 L 98 09/02/20 00:55 36.6 C 92 H 16 120/54 L 96 PG Care Time/CCT Total # of Minutes Spent Total Time Spent with Patient: Total time spent is greater than 50% in coordination of care (as documented) at patient's floor/unit and/or counseling patient: Coding Level of Care Code 07386 Inpt Consult Level 5 Diagnoses Abdominal pain R10.84 Abdominal location: generalized (1) Abdominal pain Abdominal location: generalized Qualified Code(s): R10.84 - Generalized abdominal pain
[2020-09-02 05:47] LABS: Influenza A virus by PCR Negative (Neg); Influenza B virus by PCR Negative (Neg); RSV by PCR Negative (Neg); SARS CoV2 RNA(COVID-19) InHosp NEGATIVE (Negative)
[2020-09-02] MEDS ORDERED: LOSARTAN POTASSIUM 25 MG TAB PO STA (05:50)
[2020-09-02 05:53] LABS: Prothrombin Time 10.3 Seconds (9.0-12.0)
--- NOTE | 2020-09-02 06:31 | History & Physical Report ---
Date of Service September 02, 2020 Assessment & Plan (1) UGIB (upper gastrointestinal bleed): Secondary to duodenitis, hx GERD Likely recurrent/residual tumor hx ascending colon cancer status post surgery ongoing Xeloda Rx NSAID use contributory Hemoglobin slightly lower than baseline anemic level BP currently stable. Worsening bradycardia (intermittent 2 AVB, Mobitz type I and II as per ED monitoring coordinator) (Bradycardic since 2018 on review of vital signs) Possible SSS, hx PAF as per records, not on anticoagulation secondary to GI bleed Current Coreg dose contributory, Capecitabine with bradycardia as adverse reaction in less than 5% as per UTDOL Patient asymptomatic. hx CAD status post CABG history of postop pulmonary embolism as per records hypertension, elevated hyperlipidemia on statin Rx DM2 diet-controlled, well-controlled as of recent hemoglobin A1c of 6.09 June 2020 OBS PCU given bradycardia Hold Coreg, Capecitabine for now Atropine as needed symptomatically cardia Pacer pads on, paced for symptomatic bradycardia Cardiology consult Re: Worsening bradycardia IV PPI Hold home aspirin Serial H&H, transfuse PRBC if hemoglobin less than 8 and or for symptomatic anemia GI consult Re: UGI B Keep patient n.p.o. until patient seen by Cardiology and GI. Titrate home losartan while Coreg on hold. ISS BG goal [id number] DVT prophylaxis. SCDs Re: GI bleed Full code Patient requesting updates for providers. Ms. Jane Rangel, contact #[phone]. Text document was generated using [employer] voice recognition software. It may contain grammatical or spelling errors. Kindly contact undersigned for clarification of any documentation item in question. History of Present Illness Chief Complaint: Abdominal pain Primary Care Provider: Jeremie Diallo MD History obtained from patient, family, and records. Medical history significant for CAD status post CABG, PAF not on anticoagulation secondary to bleed, chronic bradycardia, history of postop pulmonary embolism as per records, hypertension, hyperlipidemia, colon cancer status post surgery ongoing Xeloda Rx, GERD, short gut syndrome as per records, BPH, DM2 diet- controlled, chronic anemia (baseline hemoglobin of 9). Last confinement [facility] April 2020 for ascending colon cancer status post right colectomy, duodenal resection with Lisandro-en-Y reconstruction, cholecystectomy, pancreatectomy. Duodenal implant, perforation noted with 20 lymph nodes negative. Postop course unremarkable although family unhappy with care as per so much that they would not want patient to return to [facility] for any surgical intervention if needed. Patient seen by [facility] Oncology on consultation 3 weeks ago. Updated stage was [id number]. BRAF positive, preop CEA level was 1.9. Xeloda chemotherapy initiated. Consideration for adjuvant radiation Because of perforation and duodenal involvement. 2 weeks ago, patient noted achy abdominal pain going up and worsening bloating. Some constipation symptoms. Outpatient CT abdomen pelvis showed circumferential wall thickening second portion of duodenum with associated surrounding fat stranding and mesenteric fat stranding of right mid abdomen. Findings may represent duodenitis. Acute pancreatitis is in the differential. New mesenteric lymphadenopathy metastatic disease versus reactive lymph nodes measuring 2.4 x 1.8 cm. Patient directed to ER for abnormal CAT scan findings but subsequently discharged home. Oncologist recommended outpatient PET scan to be done tomorrow and serum CEA level blood work. Patient had worsening abdominal discomfort constipation symptoms at home with nausea, no emesis, no fever, no chills. Patient took 2 tablets of ibuprofen as per . Patient denies chest pain, S OB, dizziness, unusual weakness symptoms. Patient brought to ER by . At the ER, dark stools noted to be heme positive. Occasional dropped beats on the quality assurance monitor noted as well as per ER provider. 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 Allergies Allergy/AdvReac Type Severity Reaction Status Date / Time No Known Allergies Allergy Verified 09/02/20 01:48 Home Medications Medication Instructions Recorded Confirmed Type aspirin 81 mg PO QAM 03/17/18 09/02/20 History finasteride 5 mg PO QAM 03/17/18 09/02/20 History nitroglycerin [Nitrostat] 0.4 mg SUBLINGUAL DIRECTED PRN 03/17/18 09/02/20 History omega 2-olf-uew-fish oil [Fish Oil] 1 cap PO BID 03/17/18 09/02/20 History rosuvastatin 20 mg PO QAM 03/17/18 09/02/20 History tamsulosin 0.4 mg PO QAM 03/17/18 09/02/20 History carvedilol 12.5 mg PO BID 04/17/20 09/02/20 History losartan 25 mg PO QAM 04/17/20 09/02/20 History omeprazole 20 mg PO BID 04/17/20 09/02/20 History capecitabine 1,500 mg PO BID 08/20/20 09/02/20 History cholestyramine-aspartame 1 ea PO DIRECTED 08/20/20 09/02/20 History [Cholestyramine Light] clobetasol 1 applic TOPICAL DIRECTED PRN 08/20/20 09/02/20 History gabapentin 300 mg PO TID 08/20/20 09/02/20 History levothyroxine 125 mcg PO QAM 08/20/20 09/02/20 History multivitamin 1 tab PO QAM 08/20/20 09/02/20 History ondansetron HCl [Zofran] 8 mg PO Q8H PRN 08/20/20 09/02/20 History prochlorperazine maleate 10 mg PO Q8 PRN 08/20/20 09/02/20 History vitamins A,C,L-eiln-woxdph 1 tab PO BID 08/20/20 09/02/20 History [PreserVision AREDS] famotidine 20 mg PO BID PRN 09/02/20 09/02/20 History olopatadine [Pataday] 1 drp OPB DAILY 09/02/20 09/02/20 History Past Med/Surg History Medical History BPH (benign prostatic hyperplasia) CAD (coronary artery disease) "S/p stents 2004, 2006. CABG x 3 Jan 2017" CKD (chronic kidney disease) stage 3, GFR 30-59 ml/min Dyslipidemia GERD (gastroesophageal reflux disease) HTN (hypertension) Hx of pulmonary embolus Hypothyroidism Myocardial infarction Osteoarthritis PAF (paroxysmal atrial fibrillation) During hospitalization for Influenza, no recurrence PAF (paroxysmal atrial fibrillation) Pulmonary embolism hx of PE s/p CABG 2017 Surgical History H/O cardiac catheterization H/O wisdom tooth extraction History of esophagogastroduodenoscopy (EGD) 04/25/2018. propofol/lido no issues. History of tonsillectomy and adenoidectomy S/P CABG (coronary artery bypass graft) Family History Father , secondary to dock supervisor accident, rolled on top of him Prostate cancer Accident caused by powered dock supervisor Mother , in mid 90s T2DM (type 2 diabetes mellitus) Social History Smoking Status: Never smoker Hx Alcohol Use: Yes ("Charley") Alcohol type: beer and hard liquor Alcohol Intake Frequency Comment: 5 drinks weekly Hx Substance Use: No Preferred Language: Ukrainian Communication Ability: Effective Beliefs That Will Affect Care: None marital status: Current Living Situation: Spouse Feels Safe at Home: Yes Assistive Devices: None Review of Systems Review of Systems: As per HPI, all 10 systems reviewed, all other ROS negative Physical Exam Physical Exam: GENERAL: Comfortable, pleasant, slightly hard of hearing, no respiratory distress SKIN: Pallor , warm HEENT: Pale palpebral conjunctivae, no ptosis, dry buccal mucosa NECK : Supple, no tenderness CHEST : Decreased breath sounds, no tenderness HEART : Bradycardic, no obvious murmurs ABDOMEN: Some distention, minimal central abdominal tenderness EXTREMITIES : No LE swelling/tenderness, no other conspicuous deformities noted NEUROLOGIC : Coherent, no facial asymmetry, mild hearing impairment, no other gross focality Results & Data Results & Data ([facility]) Vital Signs (Past 12 Hours) Vital Signs Temp Pulse Resp BP Pulse Ox 09/02/20 05:20 46 L 16 98 09/02/20 05:00 46 L 13 166/68 H 98 09/02/20 04:40 49 L 13 98 09/02/20 04:30 49 L 9 L 158/68 H 93 09/02/20 04:20 47 L 12 94 09/02/20 04:00 46 L 9 L 167/76 H 100 09/02/20 03:55 17 98 09/02/20 03:20 21 99 09/02/20 03:00 46 L 13 138/55 L 100 09/02/20 02:40 41 L 14 143/57 H 98 09/02/20 02:20 46 L 13 94 09/02/20 02:00 50 L 13 09/02/20 01:57 98 09/02/20 01:40 47 L 16 98 09/02/20 01:26 48 L 18 98 09/02/20 01:23 48 L 13 139/59 L 98 09/02/20 00:55 36.6 C 92 H 16 120/54 L 96 Laboratory Results Laboratory Results WBC 7.05 K/uL (4.8-10.8) 09/02/20 01:48 RBC 3.02 M/uL (4.7-6.1) L 09/02/20 01:48 Hgb 8.9 g/dL (14.0-18.0) L 09/02/20 01:48 Hct 26.9 % (42-52) L 09/02/20 01:48 MCV 89.1 fL (80-100) 09/02/20 01:48 MCH 29.5 pg (25-34) 09/02/20 01:48 MCHC 33.1 g/dL (32-36) 09/02/20 01:48 RDW Std Deviation 74.0 fL (36.4-46.3) H 09/02/20 01:48 RDW Coeff of Gabriela 22.6 % (11.5-14.5) H 09/02/20 01:48 Plt Count 196 K/uL (130-400) 09/02/20 01:48 MPV 9.3 fL (7.4-10.4) 09/02/20 01:48 Immature Gran % (Auto) 0.1 % 09/02/20 01:48 Neut % (Auto) 57.1 % 09/02/20 01:48 Lymph % (Auto) 28.7 % 09/02/20 01:48 Blair % (Auto) 11.6 % 09/02/20 01:48 Eos % (Auto) 2.4 % 09/02/20 01:48 Baso % (Auto) 0.1 % 09/02/20 01:48 Neut # (Auto) 4.02 K/uL (1.4-6.5) 09/02/20 01:48 Lymph # (Auto) 2.02 K/uL (1.2-3.4) 09/02/20 01:48 Blair # (Auto) 0.82 K/uL (0.11-0.59) H 09/02/20 01:48 Eos # (Auto) 0.17 K/uL (0-0.5) 09/02/20 01:48 Baso # (Auto) 0.01 K/uL (0-0.2) 09/02/20 01:48 Immature Gran # (Auto) 0.01 K/uL (0.00-0.02) 09/02/20 01:48 Anisocytosis Present 09/02/20 01:48 Ovalocytes 1+ 09/02/20 01:48 PT 10.3 Seconds (9.0-12.0) 09/02/20 01:48 INR 1.0 (0.9-1.1) 09/02/20 01:48 Sodium 139 mmol/L (136-145) 09/02/20 01:48 Potassium 4.7 mmol/L (3.5-5.1) 09/02/20 01:48 Chloride 110 mmol/L (98-107) H 09/02/20 01:48 Carbon Dioxide 24 mmol/L (21-32) 09/02/20 01:48 Anion Gap 5.0 (3-11) 09/02/20 01:48 BUN 20 mg/dl (7-18) H 09/02/20 01:48 Creatinine 1.26 mg/dl (0.6-1.4) 09/02/20 01:48 Est Cr Clr Drug Dosing 47.5 ml/min 09/02/20 01:48 Est GFR ( Amer) 62.5 09/02/20 01:48 Est GFR (Non-Af Amer) 53.9 09/02/20 01:48 BUN/Creatinine Ratio 16.0 (10-20) 09/02/20 01:48 Glucose 112 mg/dl (70-99) H 09/02/20 01:48 Calcium 8.8 mg/dl (8.5-10.1) 09/02/20 01:48 Magnesium 2.7 mg/dl (1.8-2.4) H 09/02/20 01:48 Total Bilirubin 0.4 mg/dl (0.2-1) 09/02/20 01:48 AST 14 U/L (15-37) L 09/02/20 01:48 ALT 15 U/L (12-78) 09/02/20 01:48 Alkaline Phosphatase 65 U/L (45-117) 09/02/20 01:48 Total Protein 6.9 gm/dl (6.4-8.2) 09/02/20 01:48 Albumin 3.2 gm/dl (3.4-5.0) L 09/02/20 01:48 Globulin 3.7 gm/dl (2.5-4.0) 09/02/20 01:48 Albumin/Globulin Ratio 0.9 (0.9-2) 09/02/20 01:48 Lipase 184 U/L (73-393) 09/02/20 01:48 TSH 8.620 uIu/ml (0.300-4.500) H 09/02/20 01:48 Free T4 1.03 ng/dl (0.8-1.6) 09/02/20 01:48 Urine Color Yellow 09/02/20 02:34 Urine Appearance Clear (Clear) 09/02/20 02:34 Urine pH 5.0 (4.5-7.5) 09/02/20 02:34 Ur Specific Jolon 1.020 (1.000-1.030) 09/02/20 02:34 Urine Protein Negative (Negative) 09/02/20 02:34 Urine Glucose (UA) Negative (Negative) 09/02/20 02:34 Urine Ketones Negative (Negative) 09/02/20 02:34 Urine Blood Negative (Negative) 09/02/20 02:34 Urine Nitrite Negative (Negative) 09/02/20 02:34 Urine Bilirubin Negative (Negative) 09/02/20 02:34 Urine Urobilinogen Negative (Negative) 09/02/20 02:34 Ur Leukocyte Esterase 2+ (Negative) H 09/02/20 02:34 Urine WBC (Auto) 10-30 /hpf (0-5) H 09/02/20 02:34 Urine RBC (Auto) 0-4 /hpf (0-4) 09/02/20 02:34 U Hyaline Cast (Auto) 0 /lpf (0-5) 09/02/20 02:34 U Epithel Cells (Auto) 10-20 /lpf (0-5) H 09/02/20 02:34 Urine Bacteria (Auto) Negative (Negative) 09/02/20 02:34 COVID-19 Eval Order [facility]Rsv at [facility] 09/02/20 04:45 SARS-CoV-2 (PCR) NEGATIVE (Negative) 09/02/20 04:45 Influenza Type A (PCR) Negative (Neg) 09/02/20 04:45 Influenza Type B (PCR) Negative (Neg) 09/02/20 04:45 RSV (RT-PCR) Negative (Neg) 09/02/20 04:[address] abdomen pelvis initial read: Irregular low-attenuation and air in the region of the descending duodenum and pancreatic head. There is nonspecific stranding at the upper abdomen. Differential considerations include mass, ulceration, or fluid collection with contained perforation not excluded. Adjacent small low-density structures also noted, potentially enlarged lymph nodes or small fluid collections. Fluid in the small and large bowel, can be seen with enteritis or diarrheal disease. Prior bowel surgery noted. An 8 mm stone in the dependent bladder near the right UVJ. No significant hydronephrosis. Nonspecific perinephric stranding. Mild basilar atelectasis/scarring or pneumonitis. Additional incidental findings. Chest x-ray as per my interpretation cardiomegaly, atelectasis EKG as per my interpretation : Rate 45, sinus bradycardia, normal axis, incomplete RBBB, 1 AVB, T wave abnormalities inferior leads
[2020-09-02] MEDS ORDERED: PROMETHAZINE HCL 12.5 MG in SODIUM CHLORIDE 0.9% 50 ML IV PRN (06:40)
[2020-09-02] MEDS ORDERED: traMADol HCL 50 MG TABLET PO PRN (06:40)
[2020-09-02] MEDS ORDERED: ATROPINE SULFATE 0.1 MG/ML 5ML SYR IV PRN (06:40)
[2020-09-02] MEDS ORDERED: POLYETHYLENE (MIRALAX) 17 GM PACK PO PRN (06:40)
--- NOTE | 2020-09-02 07:03 | XRay Report ---
XR chest 1V portable CLINICAL HISTORY: bradycardia COMPARISON STUDY: 04/17/2020 FINDINGS: The heart is mildly enlarged. There are postsurgical changes of midline sternotomy. There i s no failure. There is no lobar consolidation. There are no pleural effusions. There is minor basilar atelectasis.[ IMPRESSION: No active disease in the chest. ACT 112: Negative or not required by law. Electronically signed by: Mk Marquez M.D. 09/02/2020 7:01 AM
[2020-09-02 07:34] LABS: Hematocrit (blood only) 27.4 % (42-52)
--- NOTE | 2020-09-02 07:41 | CT Scan Report ---
CT abd pelvis IV con only CLINICAL HISTORY: Abdominal pain. Possible small bowel obstruction COMPARISON STUDY: February 2017 TECHNIQUE: The patient was scanned in a dynamic helical fashion during intravenous administration of 86 cc of Optiray 320 A dose lowering technique was utilized adhering to the principles of ALARA. CT DOSE: 793.45 mGy.cm FINDINGS: Lower chest: There are mild basilar atelectatic changes. Liver: The contrast-enhanced liver is normal in size, contour, and attenuation. There is no intrahepa tic biliary ductal dilatation. The hepatic veins and portal veins are patent. Gallbladder: Surgically absent Spleen: Normal in size and attenuation. Pancreas: There is mild edema in the region of the pancreatic head and descending duodenum. Adrenal glands: Unremarkable. Kidneys: There is symmetric renal cortical enhancement. The kidneys are normal in size without hydron ephrosis. Bowel: There are postsurgical changes of a prior right hemicolectomy with ileocolonic anastomosis. Th ere are no transition zones indicate bowel obstruction. There is fluid-filled colon with air-fluid le vels. There is bowel wall thickening involving the descending duodenum. Peritoneum: There is no intraperitoneal free air or abdominal ascites. There is mild infiltration of the right upper quadrant peritoneal fat. Vasculature: The abdominal aorta is normal in course and caliber. Adenopathy: There are chronic lymph nodes within the upper abdomen there is a 3 cm necrotic lymph nod e within the central mesentery. There is a 2 cm necrotic lymph node adjacent to the descending duoden um. Additional necrotic periduodenal lymph nodes are visualized. There are multiple necrotic precaval lymph nodes. Pelvic viscera: The prostate is enlarged. There is a 1 cm bladder calculus near the right UVJ. There is no secondary hydroureteronephrosis. Skeletal structures: No destructive osseous lesions are seen. IMPRESSION: 1. Abnormal appearing duodenum with mild periduodenal stranding. There is adjacent necrotic lymphaden opathy. 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 There is mild periduodenal stranding, and an ulcerated tumor or duodenal ulcer must be considered. GI consultation is recommended. 2. Postsurgical changes involving the small bowel and colon. 3. Fluid-filled colonic loops 4. 1 cm bladder calculus near the right UVJ. No evidence of right-sided hydronephrosis ACT 112: Negative or not required by law. Electronically signed by: Mk Marquez M.D. 09/02/2020 7:39 AM
[2020-09-02] MEDS: PANTOprazole 40 MG in DEXTROSE 5% 100 ML IV SCH ×4 (07:42→23:05)
[2020-09-02] MEDS: DOCUSATE SODIUM/SENNA 50/8.6MG TAB PO SCH ×2 (07:45→20:15)
[2020-09-02] MEDS ORDERED: CARBOHYDRATES FOR HYPOGLYCEMIA PO PRN (08:44)
[2020-09-02] MEDS ORDERED: GLUCOSE 40% GEL 15 GM TUBE PO PRN (08:44)
[2020-09-02] MEDS ORDERED: GLUCOSE 10 TABS/TUBE PO PRN (08:44)
[2020-09-02] MEDS ORDERED: DEXTROSE 50% 50 ML SYRINGE IV PRN (08:44)
[2020-09-02] MEDS ORDERED: GLUCAGON FOR INJ 1 MG VIAL SQ PRN (08:44)
--- NOTE | 2020-09-02 09:06 | Cardiology Consultation ---
Date of Consultation September 02, 2020 Assessment & Plan (1) Bradycardia: (2) UGIB (upper gastrointestinal bleed): (3) Abdominal pain: (4) Duodenitis: (5) PAF (paroxysmal atrial fibrillation): (6) CKD (chronic kidney disease) stage 3, GFR 30-59 ml/min: (7) CAD (coronary artery disease): (8) HTN (hypertension): From a cardiac standpoint Mr. Rangel is experiencing asymptomatic sinus bradycardia in the setting of severe/worsening abdominal pain. He has been seen by our GI colleagues and an upper endoscopy is planned for tomorrow. His beta-german has been held and a trial of glucagon for beta-german reversal was given without significant improvement. Patient's heart rates are now significantly lower hanging on the 30s. In order to facilitate his upper endoscopy tomorrow I believe the most prudent course of action will be to start low-dose dopamine at this time and have a temporary pacemaker placed. My hope is that the bradycardia is vagal due to his abdominal pain and will be followed closely after his procedure. Patient may require permanent pacemaker placement prior to discharge. We will continue to follow closely. History of Present Illness Reason for Consultation: bradycardia Requesting Physician: Dr. Rodriguez Attending Physician: Esther Akers MD History of Present Illness It was my pleasure to see Mr. Rangel in cardiac consultation today 09/02/2020. He is a very pleasant 80-year-old gentleman who routinely follows with myself as an outpatient for his history of coronary artery disease. He presented to [facility] emergency department with complaints of worsening and severe abdominal pain. He states his been going on for a few days now and significantly exacerbated with eating. He has been following closely with oncology for ongoing treatment of his upon arrival emergency department he was found to be bradycardic but without cardiac complaints. Experiencing any chest pain, shortness of breath, palpitations, lightheadedness, dizziness or syncope. He has been take his medications as directed without issue. PAST MEDICAL HISTORY: 1.Coronary artery disease status post multiple PCIs and CABG at an outside facility, exact grafts and sites unknown. 2.Paroxysmal atrial fibrillation, asymptomatic in the setting of acute influenza. 3.Likely GI bleed while on Coumadin. 4.GERD. 5.Hypertension. 6.Postoperative pulmonary embolism. 7. Lightheadedness and vision changes with Imdur 8. GI malignancy Allergies Allergy/AdvReac Type Severity Reaction Status Date / Time No Known Allergies Allergy Verified 09/02/20 01:48 Home Medications Medication Instructions Recorded Confirmed Type aspirin 81 mg PO QAM 03/17/18 09/02/20 History finasteride 5 mg PO QAM 03/17/18 09/02/20 History nitroglycerin [Nitrostat] 0.4 mg SUBLINGUAL DIRECTED PRN 03/17/18 09/02/20 History omega 9-jia-bwk-fish oil [Fish Oil] 1 cap PO BID 03/17/18 09/02/20 History rosuvastatin 20 mg PO QAM 03/17/18 09/02/20 History tamsulosin 0.4 mg PO QAM 03/17/18 09/02/20 History carvedilol 12.5 mg PO BID 04/17/20 09/02/20 History losartan 25 mg PO QAM 04/17/20 09/02/20 History omeprazole 20 mg PO BID 04/17/20 09/02/20 History capecitabine 1,500 mg PO BID 08/20/20 09/02/20 History cholestyramine-aspartame 1 ea PO DIRECTED 08/20/20 09/02/20 History [Cholestyramine Light] clobetasol 1 applic TOPICAL DIRECTED PRN 08/20/20 09/02/20 History gabapentin 300 mg PO TID 08/20/20 09/02/20 History levothyroxine 125 mcg PO QAM 08/20/20 09/02/20 History multivitamin 1 tab PO QAM 08/20/20 09/02/20 History ondansetron HCl [Zofran] 8 mg PO Q8H PRN 08/20/20 09/02/20 History prochlorperazine maleate 10 mg PO Q8 PRN 08/20/20 09/02/20 History vitamins A,C,Y-sbgx-gdbtie 1 tab PO BID 08/20/20 09/02/20 History [PreserVision AREDS] famotidine 20 mg PO BID PRN 09/02/20 09/02/20 History olopatadine [Pataday] 1 drp OPB DAILY 09/02/20 09/02/20 History Patient History Medical History BPH (benign prostatic hyperplasia) CAD (coronary artery disease) "S/p stents 2004, 2006. CABG x 3 Jan 2017" CKD (chronic kidney disease) stage 3, GFR 30-59 ml/min Dyslipidemia GERD (gastroesophageal reflux disease) HTN (hypertension) Hx of pulmonary embolus Hypothyroidism Myocardial infarction Osteoarthritis PAF (paroxysmal atrial fibrillation) During hospitalization for Influenza, no recurrence PAF (paroxysmal atrial fibrillation) Pulmonary embolism hx of PE s/p CABG 2016 Surgical History H/O cardiac catheterization H/O wisdom tooth extraction History of esophagogastroduodenoscopy (EGD) 04/25/2018. propofol/lido no issues. History of tonsillectomy and adenoidectomy S/P CABG (coronary artery bypass graft) Family History Father , secondary to railroad conductor accident, rolled on top of him Prostate cancer Accident caused by powered railroad conductor Mother , in mid 90s T2DM (type 2 diabetes mellitus) Social History Smoking Status: Never smoker Hx Alcohol Use: Yes ("Charley") Alcohol type: beer and hard liquor Alcohol Intake Frequency Comment: 5 drinks weekly Hx Substance Use: No Preferred Language: Iraqi Communication Ability: Effective Taker Off Required: No Beliefs That Will Affect Care: None marital status: Current Living Situation: Spouse Other Information That Helps Us Care for You: No Feels Safe at Home: Yes Safety Concerns: Feels Safe At This Time Assistive Devices: None Review of Systems Review of Systems: All systems reviewed & are unremarkable except as noted in HPI & below Physical Exam Physical Exam: General: Awake, alert and oriented x 3. No acute distress. HEENT: Normocephalic, atraumatic. Pupils equal, round and reactive to light and accommodation. Extraocular muscles are intact. Anicteric sclera. Moist mucous membranes. Neck: No JVD. No bruit. Cardiovascular: Regular but slow. Positive S-4. Normal S-1 and S-2. No S-3. No murmurs or rubs. Pulmonary: Clear to auscultation B/L. No rales, rhonchi or wheezing Abdomen: Bowel sounds x 4, soft. No rebound, guarding or tenderness. No organomegaly. Extremities: No clubbing, cyanosis or edema. +2 pedal pulses bilaterally. Skin: Warm and dry. Results & Data ([facility]) Vital Signs (Past 12 Hours) Vital Signs Temp Pulse Resp BP Pulse Ox 09/02/20 08:24 45 L 14 177/65 H 97 09/02/20 07:30 48 L 14 164/64 H 96 09/02/20 07:01 48 L 14 167/64 H 97 09/02/20 06:31 48 L 14 171/64 H 98 09/02/20 05:20 46 L 16 98 09/02/20 05:00 46 L 13 166/68 H 98 09/02/20 04:40 49 L 13 98 09/02/20 04:30 49 L 9 L 158/68 H 93 09/02/20 04:20 47 L 12 94 09/02/20 04:00 46 L 9 L 167/76 H 100 09/02/20 03:55 17 98 09/02/20 03:20 21 99 09/02/20 03:00 46 L 13 138/55 L 100 09/02/20 02:40 41 L 14 143/57 H 98 09/02/20 02:20 46 L 13 94 09/02/20 02:00 50 L 13 09/02/20 01:57 98 09/02/20 01:40 47 L 16 98 09/02/20 01:26 48 L 18 98 09/02/20 01:23 48 L 13 139/59 L 98 09/02/20 00:55 36.6 C 92 H 16 120/54 L 96 (1) Abdominal pain Abdominal location: generalized Qualified Code(s): R10.84 - Generalized abdominal pain
--- NOTE | 2020-09-02 09:19 | Gastrointestinal Consultation ---
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 He is anemic w current blood ct at baseline. His CT abd/pelvis showed signs of periduodenal stranding DDx: duodenal neoplasm vs ulcerated tumor or duodenal ulcer. - PPI bolus and gtt - Monitor blood ct and transfuse prn - CL diet ok today. Keep NPO for EGD eval tomorrow. Will discuss w Dr. Johnie Ruffin Supervising Physician Co-Signing Physician Notes I have personally seen and examined the patient with YASIR Cassidy. Her note reflects my exam and findings. I agree with her impression and plan. Given abnormal imaging and risk factors for ulcer disease, we will arrange an upper endoscopy. Johnie Ruffin M.D. History of Present Illness Reason for Consultation: UGI bleeding Requesting Physician: Dr. Esther Akers Attending Physician: Dr. 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 He presented to ED today w c/o generalized abd pain x 2 weeks, fatigue, nausea w/o vomiting. In ED had black stools which were heme positive. Noted H/H 02/02 (baseline Hgb 9). INR 1, BUN/Cr 20/1.2. He currently on ASA 81mg daily, no anticoagulation though has hx of Afib. He denies NSAIDs but been taking Tylenol for abd pain symptoms. CXR unremarkable. CT abd/pelvis w IV contrast w signs of periduodenal stranding w adjacent necrotic lymphadenopathy, duodenal neoplasm suspected but also concerns for ulcerated tumor or duodenal ulcer. Allergies Allergy/AdvReac Type Severity Reaction Status Date / Time No Known Allergies Allergy Verified 09/02/20 01:48 Home Medications Medication Instructions Recorded Confirmed Type aspirin 81 mg PO QAM 03/17/18 09/02/20 History finasteride 5 mg PO QAM 03/17/18 09/02/20 History nitroglycerin [Nitrostat] 0.4 mg SUBLINGUAL DIRECTED PRN 03/17/18 09/02/20 History omega 3-pdp-npz-fish oil [Fish Oil] 1 cap PO BID 03/17/18 09/02/20 History rosuvastatin 20 mg PO QAM 03/17/18 09/02/20 History tamsulosin 0.4 mg PO QAM 03/17/18 09/02/20 History carvedilol 12.5 mg PO BID 04/17/20 09/02/20 History losartan 25 mg PO QAM 04/17/20 09/02/20 History omeprazole 20 mg PO BID 04/17/20 09/02/20 History capecitabine 1,500 mg PO BID 08/20/20 09/02/20 History cholestyramine-aspartame 1 ea PO DIRECTED 08/20/20 09/02/20 History [Cholestyramine Light] clobetasol 1 applic TOPICAL DIRECTED PRN 08/20/20 09/02/20 History gabapentin 300 mg PO TID 08/20/20 09/02/20 History levothyroxine 125 mcg PO QAM 08/20/20 09/02/20 History multivitamin 1 tab PO QAM 08/20/20 09/02/20 History ondansetron HCl [Zofran] 8 mg PO Q8H PRN 08/20/20 09/02/20 History prochlorperazine maleate 10 mg PO Q8 PRN 08/20/20 09/02/20 History vitamins A,C,W-zpzx-absrqb 1 tab PO BID 08/20/20 09/02/20 History [PreserVision AREDS] famotidine 20 mg PO BID PRN 09/02/20 09/02/20 History olopatadine [Pataday] 1 drp OPB DAILY 09/02/20 09/02/20 History Patient History Medical History BPH (benign prostatic hyperplasia) CAD (coronary artery disease) "S/p stents 2004, 2006. CABG x 3 Jan 2017" CKD (chronic kidney disease) stage 3, GFR 30-59 ml/min Dyslipidemia GERD (gastroesophageal reflux disease) HTN (hypertension) Hx of pulmonary embolus Hypothyroidism Myocardial infarction Osteoarthritis PAF (paroxysmal atrial fibrillation) During hospitalization for Influenza, no recurrence PAF (paroxysmal atrial fibrillation) Pulmonary embolism hx of PE s/p CABG 2016 Surgical History H/O cardiac catheterization H/O wisdom tooth extraction History of esophagogastroduodenoscopy (EGD) 04/25/2018. propofol/lido no issues. History of tonsillectomy and adenoidectomy S/P CABG (coronary artery bypass graft) Family History Father , secondary to clearance rep accident, rolled on top of him Prostate cancer Accident caused by powered clearance rep Mother , in mid 90s T2DM (type 2 diabetes mellitus) Social History Smoking Status: Never smoker Hx Alcohol Use: Yes ("Charley") Alcohol type: beer and hard liquor Alcohol Intake Frequency Comment: 5 drinks weekly Hx Substance Use: No Preferred Language: [place] Communication Ability: Effective Awning Installer Required: No Beliefs That Will Affect Care: None marital status: Current Living Situation: Spouse Other Information That Helps Us Care for You: No Feels Safe at Home: Yes Safety Concerns: Feels Safe At This Time Assistive Devices: None Review of Systems Review of Systems: All systems reviewed & are unremarkable except as noted in HPI & below Physical Exam Constitutional: WD/WN, vitals as above well groomed, cooperative and comfortable Eyes: PERRL, conjunctivae normal, anicteric sclerae ENMT: external ear and nose normal, oropharynx normal Respiratory: normal respiratory effort, lungs clear to auscultation Cardiovascular: RRR, no murmur, no edema Gastrointestinal (Abdomen): Inspection/Auscultation: + hypoactive bowel sounds Percussion/Palpation: + abdomen tender (mid abd area ) and abdomen soft Skin: no rashes, warm and dry no jaundice Psychiatric: A+Ox3, euthymic affect Lymphatic: no lymphedema Results & Data ([facility]) Vital Signs (Past 12 Hours) Vital Signs Temp Pulse Resp BP Pulse Ox 09/02/20 08:24 45 L 14 177/65 H 97 09/02/20 07:30 48 L 14 164/64 H 96 09/02/20 07:01 48 L 14 167/64 H 97 09/02/20 06:31 48 L 14 171/64 H 98 09/02/20 05:20 46 L 16 98 09/02/20 05:00 46 L 13 166/68 H 98 09/02/20 04:40 49 L 13 98 09/02/20 04:30 49 L 9 L 158/68 H 93 09/02/20 04:20 47 L 12 94 09/02/20 04:00 46 L 9 L 167/76 H 100 09/02/20 03:55 17 98 09/02/20 03:20 21 99 09/02/20 03:00 46 L 13 138/55 L 100 09/02/20 02:40 41 L 14 143/57 H 98 09/02/20 02:20 46 L 13 94 09/02/20 02:00 50 L 13 09/02/20 01:57 98 09/02/20 01:40 47 L 16 98 09/02/20 01:26 48 L 18 98 09/02/20 01:23 48 L 13 139/59 L 98 09/02/20 00:55 36.6 C 92 H 16 120/54 L 96 (1) GI bleed GI bleed type/associated pathology: unspecified gastrointestinal hemorrhage type Qualified Code(s): K92.2 - Gastrointestinal hemorrhage, unspecified (2) Abdominal pain Abdominal location: generalized Qualified Code(s): R10.84 - Generalized abdominal pain
[2020-09-02] MEDS: SODIUM CHLORIDE 0.9% 1000ML 1,000 ML IV SCH (09:37)
[2020-09-02] MEDS: INSULIN ASPART 100 UNITS/ML 3 ML PEN SC SCH ×4 (09:46→20:16)
[2020-09-02] MEDS: ROSUVASTATIN CALCIUM 20 MG TAB PO SCH (09:54)
[2020-09-02] MEDS: TAMSULOSIN HCL 0.4 MG CAP PO SCH (09:54)
[2020-09-02] MEDS: MULTIVITAMIN TAB PO SCH (09:54)
[2020-09-02] MEDS: GABAPENTIN 300 MG CAP PO SCH ×3 (09:54→20:17)
[2020-09-02] MEDS: FINASTERIDE 5 MG TAB PO SCH (09:55)
[2020-09-02 11:58] LABS: Hematocrit (blood only) 28.2 % (42-52); Hemoglobin 9.4 g/dL (14.0-18.0)
[2020-09-02] MEDS ORDERED: GLUCAGON 5 MG in SYRINGE 0 ML IV ONE (12:00)
[2020-09-02] MEDS: oxyCODONE HCL IR 5 MG TAB (IMMEDIATE RELEASE) PO PRN (12:20)
--- NOTE | 2020-09-02 12:53 | Electrocardiogram Report ---
Test Reason : Blood Pressure : / mmHG Vent. Rate : 047 BPM Atrial Rate : 047 BPM P-R Int : 278 ms QRS Dur : 106 ms QT Int : 472 ms P-R-T Axes : 027 003 007 degrees QTc Int : 417 ms Sinus bradycardia with 1st degree A-V block with occasional Premature ventricular complexes Incomplete right bundle branch block Borderline ECG When compared with ECG of 17-APR-2020 12:23, Premature ventricular complexes are now Present Confirmed by Petey Hoyt ([id number]) on 09/02/2020 12:53:29 PM Referred By: REFERRED SELF Confirmed By:Petey Hoyt
[2020-09-02] MEDS: MoRPHine SULFATE 2 MG/ML CARP IV PRN (13:23)
[2020-09-02] MEDS ORDERED: HYDROmorphone INJ 0.5 MG/0.5 ML SYR IV STA (14:23)
[2020-09-02] MEDS ORDERED: STAT IV Infusion **Titration per Protocol STA (15:52)
[2020-09-02] MEDS ORDERED: DOPamine / D5W 400 MG/250 ML BAG IV SCH (16:00)
--- NOTE | 2020-09-02 17:10 | Cardiac Catheterization ---
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 Cardiac Status Clinical evaluation leading to the procedure CAD Presenation: No Sxs, No angina Anginal Classification: No Symptoms Heart Failure: No Cardiogenic Shock within 24 Hours: No Cardiac Arrest within 24 Hours: No Imaging Studies Past 6 Months: Yes Stress Studies Past 6 Months: No Diagnostic Physicians Name: Derrick Gonzales MD Status: Elective Closure Device Percutaneous Entry Location: RT internal jugular Recommendations: Medical Therapy and/or Counseling Intraprocedure Events Significant Disection: No Perforation: No Cardiac Cath Procedure Full Procedure Date September 02, 2020 Pre-Procedure Diagnosis Pre-Procedure Diagnosis: Arrhythmia (Symptomatic bradycardia) and Cardiothoracic Symptom AUC Score AUC Score: 7 Post-Procedure Diagnosis Post-Procedure Diagnosis: Cardiothoracic Finding (Symptomatic bradycardia) Procedure(s) Performed Procedure(s) Performed: Temporary Pacemaker and Ultrasound Guided Vascular Access Anchorer Derrick Gonzales MD Security Intern(s) [place] Estimated Blood Loss Estimated Blood Loss: 5 Medication(s) Medication(s): Lidocaine 1% Summary of Findings Temporary transvenous pacemaker placement Indication: Symptomatic bradycardia Procedure: Patient prepped and draped in standard sterile fashion. Local anesthesia with 1% lidocaine Right internal jugular vein accessed under ultrasound guidance 6 Fr sheath placed to right IJ Under fluoroscopic guidance temporary pacing wire navigated into RV Suitable pacemaker placement confirmed with continued pacing down to less than 0.5 mA output. Final pacer settings: VVI 60 bpm, 5 mA Summary: 1. Successful transvenous temporary pacemaker placement Recommendations: Decision regarding need for long-term pacemaker per Dr. Rai Hemodynamics Rest Ao:: -- Final Ao: -- LV: -- Recommendations Recommendations: Medical Therapy and/or Counseling Specimens Specimens: None Radiation Exposure (mGy) 0.8 Contrast (mls) -- Fluids (cc crystalloids) Fluids (cc crystalloids): 30 Drains Drains: none Anesthesia local Procedural Complication(s) None Disposition PCU I attest to the content of the Intraoperative Record and any orders documented therein. Any exceptions are noted below. [facility] Card Cath Procedure Codes Therapeutic Services & Ancillary Proc Procedure 1: Cardiovascular Tx and Anc Procedures: 88649 Temp Pacer Insert Procedure 2: Cardiovascular Tx and Anc Procedures: 28777 IV Ultrasound (Coronary or Graft) PG Care Time/CCT Total # of Minutes Spent Total Time Spent with Patient: Total time spent is greater than 50% in coordination of care (as documented) at patient's floor/unit and/or counseling patient:
--- NOTE | 2020-09-02 17:28 | Communication Note ---
Date of Service: September 02, 2020 Pt was seen and examined for follow up of diarrhea and bradycardia. He said that he continues to have intermittent abdominal pain He said that he had 3 episodes of dark stool this morning His heart rate has been running btw the 30's and 40's He said that he has low HR at baseline, but never drops that low Denies any chest pain, palpitation, dizziness and sob General- No acute distress Head- atraumatic Eyes- PERRL, EOMI, ENT- oropharynx clear Neck- supple, no JVD Heart- Bradycardia Abdomen- +tenderness A/P (1) Abdominal pain: (2) Duodenitis: (3) GI bleed: Pt said that he continues to have dark stools CT abd/pelvis showed abnormal appearing duodenum with mild periduodenal stranding. There is adjacent necrotic lymphadenopathy. 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
--- NOTE | 2020-09-02 17:34 | Critical Care Consultation ---
Date of Consultation September 02, 2020 Assessment & Plan (1) Bradycardia: 80-year-old male with a past medical history of colon cancer, bradycardia, coronary artery disease, paroxysmal atrial fibrillation, pulmonary embolism and CKD stage III presenting due to abdominal pain and findings of duodenitis. Transvenous pacemaker was placed by cardiology due to severe bradycardia in anticipation for EGD and possible colonoscopy to evaluate for possible upper GI bleed. Consider obtaining Lyme serologies, CK, troponin and echo. Will defer to cardiology for further evaluation and management of bradycardia. Dopamine available if needed. Continue to follow hemoglobin. Continue with Protonix drip. Continue clears for during the day and n.p.o. after midnight. Holding all anticoagulants at this time. Maintain hemoglobin above 7. Continue to hold beta-blockers. We will closely monitor in the ICU. Maintain mean arterial pressure above 65. Mann catheter placed to minimize movement in the bed. Discussed with the hospitalist and the bedside nurse. (2) Hx of right hemicolectomy: (3) UGIB (upper gastrointestinal bleed): (4) Duodenitis: History of Present Illness Attending Physician: Esther Akers MD History of Present Illness 80-year-old male with a past medical history of CAD, coronary artery bypass grafting, paroxysmal atrial fibrillation, chronic bradycardia, hypertension, hyperlipidemia and history of colon cancer who presented to the hospital today due to abdominal pain and worsening bloating. Outpatient CT abdomen pelvis demonstrated findings concerning for possible duodenitis. Gastroenterology was consulted and plan was for EGD and possible colonoscopy. Notably, the patient has a history of colon cancer and is currently on chemotherapy. Due to concerns of GI bleed, he was started on a Protonix drip. Patient had ongoing bradycardia and ultimately a temporary transvenous pacemaker was placed today due to concerns of severe bradycardia being provoked during an EGD. Patient is currently asymptomatic at this time from a cardiac perspective. Pacemaker is placed via a right internal jugular approach. He denies any chest pain, dizziness, night sweats, fevers or chills. He did note abdominal tenderness and nausea earlier today which is improved. He also noted dark bloody appearing stools. His Hemoccult was positive. Hemoglobin has been stable. His last hemoglobin check was up 11:42 AM. Hemoglobin is 9.4. Allergies Allergy/AdvReac Type Severity Reaction Status Date / Time No Known Allergies Allergy Verified 09/02/20 01:48 Home Medications Medication Instructions Recorded Confirmed Type aspirin 81 mg PO QAM 03/17/18 09/02/20 History finasteride 5 mg PO QAM 03/17/18 09/02/20 History nitroglycerin [Nitrostat] 0.4 mg SUBLINGUAL DIRECTED PRN 03/17/18 09/02/20 History omega 5-mbk-jwt-fish oil [Fish Oil] 1 cap PO BID 03/17/18 09/02/20 History rosuvastatin 20 mg PO QAM 03/17/18 09/02/20 History tamsulosin 0.4 mg PO QAM 03/17/18 09/02/20 History carvedilol 12.5 mg PO BID 04/17/20 09/02/20 History losartan 25 mg PO QAM 04/17/20 09/02/20 History omeprazole 20 mg PO BID 04/17/20 09/02/20 History capecitabine 1,500 mg PO BID 08/20/20 09/02/20 History cholestyramine-aspartame 1 ea PO DIRECTED 08/20/20 09/02/20 History [Cholestyramine Light] clobetasol 1 applic TOPICAL DIRECTED PRN 08/20/20 09/02/20 History gabapentin 300 mg PO TID 08/20/20 09/02/20 History levothyroxine 125 mcg PO QAM 08/20/20 09/02/20 History multivitamin 1 tab PO QAM 08/20/20 09/02/20 History ondansetron HCl [Zofran] 8 mg PO Q8H PRN 08/20/20 09/02/20 History prochlorperazine maleate 10 mg PO Q8 PRN 08/20/20 09/02/20 History vitamins A,C,B-npzb-uogjhq 1 tab PO BID 08/20/20 09/02/20 History [PreserVision AREDS] famotidine 20 mg PO BID PRN 09/02/20 09/02/20 History olopatadine [Pataday] 1 drp OPB DAILY 09/02/20 09/02/20 History Patient History Medical History BPH (benign prostatic hyperplasia) CAD (coronary artery disease) "S/p stents 2004, 2006. CABG x 3 Jan 2017" CKD (chronic kidney disease) stage 3, GFR 30-59 ml/min Dyslipidemia GERD (gastroesophageal reflux disease) HTN (hypertension) Hx of pulmonary embolus Hypothyroidism Myocardial infarction Osteoarthritis PAF (paroxysmal atrial fibrillation) During hospitalization for Influenza, no recurrence PAF (paroxysmal atrial fibrillation) Pulmonary embolism hx of PE s/p CABG 2017 Surgical History H/O cardiac catheterization H/O wisdom tooth extraction History of esophagogastroduodenoscopy (EGD) 04/25/2018. propofol/lido no issues. History of tonsillectomy and adenoidectomy S/P CABG (coronary artery bypass graft) Family History Father , secondary to manager regulatory accident, rolled on top of him Prostate cancer Accident caused by powered manager regulatory Mother , in mid 90s T2DM (type 2 diabetes mellitus) Social History Smoking Status: Never smoker Hx Alcohol Use: Yes ("Charley") Alcohol type: beer and hard liquor Alcohol Intake Frequency Comment: 5 drinks weekly Hx Substance Use: No Preferred Language: Lao Communication Ability: Effective Stock Fitter Required: No Beliefs That Will Affect Care: None marital status: Current Living Situation: Spouse Other Information That Helps Us Care for You: No Feels Safe at Home: Yes Safety Concerns: Feels Safe At This Time Assistive Devices: None Review of Systems Review of Systems: All systems reviewed & are unremarkable except as noted in HPI & below Physical Exam Constitutional: WD/WN, vitals as above Respiratory: normal respiratory effort, lungs clear to auscultation Cardiovascular: RRR, no murmur, no edema Gastrointestinal (Abdomen): Inspection/Auscultation: abdomen normal to inspection; no abdominal edema Percussion/Palpation: + abdomen tender; + abdomen not soft Musculoskeletal: no cyanosis or clubbing, extremities motor strength 5/5 Skin: no rashes, warm and dry Neurologic: PERRL, EOMI, accommodation nl, no face palsy, no dysarthria Psychiatric: A+Ox3, euthymic affect Results & Data Results & Data ([place]) Vital Signs (Past 12 Hours) Vital Signs Temp Pulse Pulse Resp BP BP Pulse Ox 09/02/20 16:34 49 L 16 136/61 96 09/02/20 15:54 98.1 F 39 L 18 117/58 L 92 09/02/20 14:20 36 L 09/02/20 14:11 35 L 22 118/64 97 09/02/20 13:51 41 L 22 141/58 H 09/02/20 12:05 98.4 F 50 L 18 113/79 99 09/02/20 09:31 98.2 F 52 L 18 155/82 H 99 09/02/20 09:15 97.7 F 45 L 19 165/99 H 99 09/02/20 08:46 50 L 09/02/20 08:45 62 09/02/20 08:44 96 09/02/20 08:24 45 L 14 177/65 H 97 09/02/20 07:30 48 L 14 164/64 H 96 09/02/20 07:01 48 L 14 167/64 H 97 09/02/20 06:31 48 L 14 171/64 H 98 vital signs labs and imaging are reviewed Coding Level of Care Code 82243 Inpt Consult Level 4 Diagnoses Bradycardia R00.1 Hx of right hemicolectomy Z90.49 UGIB (upper gastrointestinal bleed) K92.2 Duodenitis K29.80
[2020-09-02 18:59] LABS: Hematocrit (blood only) 29.1 % (42-52); Hemoglobin 9.7 g/dL (14.0-18.0)
[2020-09-02] MEDS: ACETAMINOPHEN 325 MG TAB PO PRN (21:36)
[2020-09-03 00:08] LABS: Hematocrit (blood only) 26.8 % (42-52); Hemoglobin 8.8 g/dL (14.0-18.0)
[2020-09-03] MEDS: PANTOprazole 40 MG in DEXTROSE 5% 100 ML IV SCH ×4 (03:31→19:27)
[2020-09-03] MEDS: SODIUM CHLORIDE 0.9% 1000ML 1,000 ML IV SCH (03:31)
[2020-09-03] MEDS: LEVOTHYROXINE SODIUM 125 MCG TABLET PO SCH (04:43)
[2020-09-03] MEDS: MoRPHine SULFATE 2 MG/ML CARP IV PRN ×2 (04:44→16:59)
[2020-09-03 05:26] LABS: Basophils # (auto) 0.01 K/uL (0-0.2); Basophils % (auto) 0.2 %; Eosinophils # (auto) 0.15 K/uL (0-0.5); Eosinophils % (auto) 2.5 %; Hematocrit (blood only) 28.7 % (42-52); Hemoglobin 9.5 g/dL (14.0-18.0); Immature Granulocytes # (auto) 0.01 K/uL (0.00-0.02); Immature Granulocytes % (auto) 0.2 %; Lymphocytes # (auto) 1.86 K/uL (1.2-3.4); Lymphocytes % (auto) 31.2 %; Mean Corpuscular Hemoglobin 29.6 pg (25-34); Mean Corpuscular Hgb Conc 33.1 g/dL (32-36); Mean Corpuscular Volume 89.4 fL (80-100); Mean Platelet Volume 9.3 fL (7.4-10.4); Monocytes # (auto) 0.73 K/uL (0.11-0.59); Monocytes % (auto) 12.2 %; Neutrophils % (auto) 53.7 %; Platelet Count 203 K/uL (130-400); RDW Coefficient of Variation 22.7 % (11.5-14.5); Red Blood Count 3.21 M/uL (4.7-6.1); White Blood Count 5.96 K/uL (4.8-10.8)
[2020-09-03 05:38] LABS: Partial Thromboplastin Ratio 0.9; Partial Thromboplastin Time 24.2 Seconds (21.0-31.0); Prothrombin Time 10.5 Seconds (9.0-12.0)
[2020-09-03 05:44] LABS: Anisocytosis Present; Ovalocytes 1+
[2020-09-03 05:51] LABS: BUN Creatinine Ratio 15.3 (10-20); Calcium 8.6 mg/dl (8.5-10.1); Creatinine Clr Calc Pharmacy 55.5 ml/min; Est GFR (African American) 75.3; Est GFR (Non-African American) 64.9; Potassium 4.4 mmol/L (3.5-5.1)
[2020-09-03] MEDS: oxyCODONE HCL IR 5 MG TAB (IMMEDIATE RELEASE) PO PRN ×2 (05:56→14:03)
[2020-09-03] MEDS: INSULIN ASPART 100 UNITS/ML 3 ML PEN SC SCH ×4 (07:55→20:16)
[2020-09-03] MEDS: DOCUSATE SODIUM/SENNA 50/8.6MG TAB PO SCH ×2 (08:04→20:15)
[2020-09-03] MEDS: MULTIVITAMIN TAB PO SCH (08:05)
[2020-09-03] MEDS: GABAPENTIN 300 MG CAP PO SCH ×3 (08:05→20:16)
[2020-09-03] MEDS: LOSARTAN POTASSIUM 25 MG TAB PO SCH (08:05)
[2020-09-03] MEDS: ACETAMINOPHEN 325 MG TAB PO PRN ×2 (08:06→20:14)
[2020-09-03] MEDS: ROSUVASTATIN CALCIUM 20 MG TAB PO SCH (08:07)
[2020-09-03] MEDS: TAMSULOSIN HCL 0.4 MG CAP PO SCH (08:07)
[2020-09-03] MEDS: FINASTERIDE 5 MG TAB PO SCH (08:07)
--- NOTE | 2020-09-03 09:02 | Gastroenterology Progress Note ---
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 He is anemic w current blood ct at baseline. His CT abd/pelvis showed signs of periduodenal stranding DDx: duodenal neoplasm vs ulcerated tumor or duodenal ulcer. No BMs overnight. H/H stable. He did have temporary transvenous pacemaker placement yesterday for sinus bradycardia currently in ICU. Hemodynamically stable. - Continue PPI gtt - Monitor blood ct and transfuse prn - NPO for anticipated EGD eval. Will discuss w Dr. Ruffin and endo anesthesiologist regarding location of EGD (endo unit vs OR) Admission and Anticipated Discharge Date Admission Date: September 02, 2020 Supervising Physician Co-Signing Physician Notes I have personally seen and examined the patient with YASIR Cassidy. Her note reflects my exam and findings. I agree with her impression and plan. H/H stable. Given pacemaker, anesthesia prefers OR setting. Will arrange. Johnie Ruffin M.D. Subjective Pt had temporary transvenous pacemaker placement yesterday. Currently in ICU. No acute events overnight. He is c/o mid abd discomfort. Denies abd pain, n/v, no BMs Review of Systems Review of Systems: All systems reviewed & are unremarkable except as noted in HPI & below Physical Exam Constitutional: WD/WN, vitals as above well groomed, cooperative and comfortable Eyes: PERRL, conjunctivae normal, anicteric sclerae ENMT: external ear and nose normal, oropharynx normal Respiratory: normal respiratory effort, lungs clear to auscultation Cardiovascular: RRR, no murmur, no edema Gastrointestinal (Abdomen): Inspection/Auscultation: + hypoactive bowel sounds Percussion/Palpation: + abdomen tender (mid abd area ) and abdomen soft Skin: no rashes, warm and dry no jaundice Psychiatric: A+Ox3, euthymic affect Lymphatic: no lymphedema Results & Data ([facility]) Vital Signs (Past 12 Hours) Vital Signs Temp Pulse Resp BP Pulse Ox 09/03/20 07:30 61 14 99/76 L 92 09/03/20 07:00 61 13 97 09/03/20 06:33 64 16 102/54 L 99 09/03/20 06:32 59 L 25 H 68/58 L 93 09/03/20 06:30 64 14 62/44 L 93 09/03/20 06:00 70 18 95 09/03/20 05:30 70 14 113/46 L 93 09/03/20 05:00 37.0 C 71 23 98 09/03/20 04:30 61 13 95/45 L 94 09/03/20 04:00 62 17 94 09/03/20 03:30 62 25 H 92/42 L 94 09/03/20 03:00 61 23 95 09/03/20 02:30 60 16 117/58 L 96 09/03/20 02:00 62 13 93 09/03/20 01:30 64 19 82/43 L 93 09/03/20 01:00 62 17 96 09/03/20 00:30 60 19 120/56 L 95 09/03/20 00:05 60 09/02/20 23:21 36.5 C 60 15 127/48 L 94 09/02/20 23:20 60 15 94 09/02/20 23:06 60 14 110/55 L 93 09/02/20 23:00 60 22 95 09/02/20 22:51 60 14 109/47 L 94 09/02/20 22:40 60 15 95 09/02/20 22:36 60 18 114/58 L 94 09/02/20 22:06 62 20 127/58 L 97 09/02/20 22:00 60 15 95 09/02/20 21:51 60 18 122/55 L 95 09/02/20 21:36 60 18 121/64 94 09/02/20 21:21 56 L 17 155/75 H 95 09/02/20 21:06 61 17 145/61 H 97 09/02/20 21:00 63 15 95 (1) GI bleed GI bleed type/associated pathology: unspecified gastrointestinal hemorrhage type Qualified Code(s): K92.2 - Gastrointestinal hemorrhage, unspecified (2) Abdominal pain Abdominal location: generalized Qualified Code(s): R10.84 - Generalized abdominal pain
--- NOTE | 2020-09-03 09:36 | Surgery Progress Note ---
Date of Service September 03, 2020 Assessment & Plan (1) Abdominal pain: Patient denies any abdominal discomfort, nausea/vomiting this AM Hbg 9.5 Underwent temporary pacemaker placement yesterday with cardiology for bradycardia Plan for EGD today with GI, will follow up on results Admission and Anticipated Discharge Date Admission Date: September 02, 2020 Supervising Physician Co-Signing Physician Notes I personally saw and evaluated the patient with Heather Hinkle PA-C and agree with the assessment and plan. 80 yo male with history of right colectomy at [facility] for invasive adenocarcinoma, here with duodenitis versus duodenal mass/ulceration -Patient has no signs of perforation with no abdominal pain, fevers or leukocytosis -Will follow up EGD results, but will remain the background for now -Please call with any questions or concerns Subjective Patient in ICU s/p temporary pacemaker placement by cardiology yesterday for bradycardia. He currently denies any abdominal complaints, no nausea/vomiting. No further BM's. Physical Exam Physical Exam: awake/alert Constitutional: no acute distress Gastrointestinal (Abdomen): Percussion/Palpation: abdomen soft; abdomen nontender Results & Data ([facility]) Vital Signs (Past 12 Hours) Vital Signs Temp Pulse Resp BP Pulse Ox 09/03/20 09:00 60 14 94 09/03/20 08:40 60 12 97 09/03/20 08:30 60 18 86/57 L 94 09/03/20 08:20 60 18 98 09/03/20 08:00 61 15 98 09/03/20 07:40 59 L 18 94 09/03/20 07:30 61 14 99/76 L 92 09/03/20 07:00 61 13 97 09/03/20 06:33 64 16 102/54 L 99 09/03/20 06:32 59 L 25 H 68/58 L 93 09/03/20 06:30 64 14 62/44 L 93 09/03/20 06:00 70 18 95 09/03/20 05:30 70 14 113/46 L 93 09/03/20 05:00 37.0 C 71 23 98 09/03/20 04:30 61 13 95/45 L 94 09/03/20 04:00 62 17 94 09/03/20 03:30 62 25 H 92/42 L 94 09/03/20 03:00 61 23 95 09/03/20 02:30 60 16 117/58 L 96 09/03/20 02:00 62 13 93 09/03/20 01:30 64 19 82/43 L 93 09/03/20 01:00 62 17 96 09/03/20 00:30 60 19 120/56 L 95 09/03/20 00:05 60 09/02/20 23:21 36.5 C 60 15 127/48 L 94 09/02/20 23:20 60 15 94 09/02/20 23:06 60 14 110/55 L 93 09/02/20 23:00 60 22 95 09/02/20 22:51 60 14 109/47 L 94 09/02/20 22:40 60 15 95 09/02/20 22:36 60 18 114/58 L 94 09/02/20 22:06 62 20 127/58 L 97 09/02/20 22:00 60 15 95 09/02/20 21:51 60 18 122/55 L 95 09/02/20 21:36 60 18 121/64 94 PG Care Time/CCT Total # of Minutes Spent Total Time Spent with Patient: Total time spent is greater than 50% in coordination of care (as documented) at patient's floor/unit and/or counseling patient: Coding Level of Care Code 50577 Subseq Hosp Care Lvl 1 Diagnoses Abdominal pain R10.84 Abdominal location: generalized (1) Abdominal pain Abdominal location: generalized Qualified Code(s): R10.84 - Generalized abdominal pain
--- NOTE | 2020-09-03 10:47 | Critical Care Progress Note ---
Date of Service September 03, 2020 Assessment & Plan (1) Bradycardia: 80-year-old male with a past medical history of colon cancer, bradycardia, coronary artery disease, paroxysmal atrial fibrillation, pulmonary embolism and CKD stage III presenting due to abdominal pain and findings of duodenitis. Transvenous pacemaker was placed by cardiology due to severe bradycardia in anticipation for EGD to evaluate duodenitis. Plan to perform EGD in the OR tomorrow with cardiology available. Consider obtaining Lyme serologies, CK, troponin and echo. Will defer to cardiology for further evaluation and management of bradycardia. Dopamine available if needed. Hemoglobin stable. Continue with Protonix drip. Continue clears for during the day and n.p.o. after midnight. Holding all anticoagulants at this time. Maintain hemoglobin above 7. Continue to hold beta-blockers. We will closely monitor in the ICU. Maintain mean arterial pressure above 65. Mann catheter placed to minimize movement in the bed. Remain in the intensive care unit while transvenous temporary pacemaker is in place. (2) Hx of right hemicolectomy: (3) UGIB (upper gastrointestinal bleed): (4) Duodenitis: Admission and Anticipated Discharge Date Admission Date: September 02, 2020 Subjective No significant events overnight. Patient tolerating clear liquid diet. Denies chest pain. Patient is currently pacing via transvenous pacemaker. Review of Systems Review of Systems: All systems reviewed & are unremarkable except as noted in HPI & below Physical Exam Constitutional: WD/WN, vitals as above Respiratory: normal respiratory effort, lungs clear to auscultation Cardiovascular: RRR, no murmur, no edema Right-sided internal jugular sheath in place with transvenous pacer. Gastrointestinal (Abdomen): Inspection/Auscultation: abdomen normal to inspection; no abdominal edema Percussion/Palpation: + abdomen tender and abdomen soft Musculoskeletal: no cyanosis or clubbing, extremities motor strength 5/5 Skin: no rashes, warm and dry Neurologic: PERRL, EOMI, accommodation nl, no face palsy, no dysarthria Psychiatric: A+Ox3, euthymic affect Results & Data Results & Data ([facility]) Vital Signs (Past 12 Hours) Vital Signs Temp Pulse Resp BP Pulse Ox 09/03/20 09:30 60 20 92/53 L 93 09/03/20 09:00 60 14 94 09/03/20 08:40 60 12 97 09/03/20 08:30 60 18 86/57 L 94 09/03/20 08:20 60 18 98 09/03/20 08:00 61 15 98 09/03/20 07:40 59 L 18 94 09/03/20 07:30 61 14 99/76 L 92 09/03/20 07:00 61 13 97 09/03/20 06:33 64 16 102/54 L 99 09/03/20 06:32 59 L 25 H 68/58 L 93 09/03/20 06:30 64 14 62/44 L 93 09/03/20 06:00 70 18 95 09/03/20 05:30 70 14 113/46 L 93 09/03/20 05:00 98.6 F 71 23 98 09/03/20 04:30 61 13 95/45 L 94 09/03/20 04:00 62 17 94 09/03/20 03:30 62 25 H 92/42 L 94 09/03/20 03:00 61 23 95 09/03/20 02:30 60 16 117/58 L 96 09/03/20 02:00 62 13 93 09/03/20 01:30 64 19 82/43 L 93 09/03/20 01:00 62 17 96 09/03/20 00:30 60 19 120/56 L 95 09/03/20 00:05 60 09/02/20 23:21 97.7 F 60 15 127/48 L 94 09/02/20 23:20 60 15 94 09/02/20 23:06 60 14 110/55 L 93 09/02/20 23:00 60 22 95 09/02/20 22:51 60 14 109/47 L 94 vital signs labs and imaging reviewed Coding Level of Care Code 48223 Subseq Hosp Care Lvl 2 Diagnoses Bradycardia R00.1 Hx of right hemicolectomy Z90.49 UGIB (upper gastrointestinal bleed) K92.2 Duodenitis K29.80
--- NOTE | 2020-09-03 13:21 | Cardiology Progress Note ---
Date of Service September 03, 2020 Assessment & Plan (1) Bradycardia: (2) UGIB (upper gastrointestinal bleed): (3) Abdominal pain: (4) Duodenitis: (5) PAF (paroxysmal atrial fibrillation): (6) CKD (chronic kidney disease) stage 3, GFR 30-59 ml/min: (7) CAD (coronary artery disease): (8) HTN (hypertension): Temporary Pacemaker placed on 09/02/2020 to facilitate EGD to be performed on the . However, despite this his EGD has been postponed by anesthesia. At this point, I believe he is declared himself to be significantly bradycardic and will ultimately require permanent pacemaker placement. Given the timing I will take this opportunity today to place a dual-chamber permanent pacemaker placement. Temporary will be removed in the EP lab. NPO. I spoke with his , Jane, by phone and she is in agreement with this plan. Admission and Anticipated Discharge Date Admission Date: September 02, 2020 Subjective Patient seen and examined, chart reviewed. Status post successful temporary permanent pacemaker placement last p.m. Clinically states he feels about the same. Still with significant abdominal discomfort. Unfortunately, his planned EGD for today has been postponed by anesthesia. Telemetry reviewed: Ventricularly paced Review of Systems Review of Systems: All systems reviewed & are unremarkable except as noted in HPI & below Physical Exam Physical Exam: General: Awake, alert and oriented x 3. No acute distress. HEENT: Normocephalic, atraumatic. Pupils equal, round and reactive to light and accommodation. Extraocular muscles are intact. Anicteric sclera. Moist mucous membranes. Neck: No JVD. No bruit. Cardiovascular: Regular. Positive S-4. Normal S-1 and S-2. No S-3. No murmurs or rubs. Pulmonary: Clear to auscultation B/L. No rales, rhonchi or wheezing Abdomen: Bowel sounds x 4, soft. No rebound, guarding or tenderness. No organomegaly. Extremities: No clubbing, cyanosis or edema. +2 pedal pulses bilaterally. Skin: Warm and dry. Results & Data ([facility]) Vital Signs (Past 12 Hours) Vital Signs Temp Pulse Resp BP Pulse Ox 09/03/20 11:20 36.7 C 60 17 94 09/03/20 11:00 36.8 C 62 18 95 09/03/20 10:30 63 21 95/51 L 96 09/03/20 10:00 80 17 94 09/03/20 09:30 60 20 92/53 L 93 09/03/20 09:00 60 14 94 09/03/20 08:40 60 12 97 09/03/20 08:30 60 18 86/57 L 94 09/03/20 08:20 60 18 98 09/03/20 08:00 61 15 98 09/03/20 07:40 59 L 18 94 09/03/20 07:30 61 14 99/76 L 92 09/03/20 07:00 61 13 97 09/03/20 06:33 64 16 102/54 L 99 09/03/20 06:32 59 L 25 H 68/58 L 93 09/03/20 06:30 64 14 62/44 L 93 09/03/20 06:00 70 18 95 09/03/20 05:30 70 14 113/46 L 93 09/03/20 05:00 37.0 C 71 23 98 09/03/20 04:30 61 13 95/45 L 94 09/03/20 04:00 62 17 94 09/03/20 03:30 62 25 H 92/42 L 94 09/03/20 03:00 61 23 95 09/03/20 02:30 60 16 117/58 L 96 09/03/20 02:00 62 13 93 09/03/20 01:30 64 19 82/43 L 93 (1) Abdominal pain Abdominal location: generalized Qualified Code(s): R10.84 - Generalized abdominal pain
--- NOTE | 2020-09-03 15:57 | Electrocardiogram Report ---
Test Reason : Blood Pressure : / mmHG Vent. Rate : 035 BPM Atrial Rate : 061 BPM P-R Int : 000 ms QRS Dur : 112 ms QT Int : 504 ms P-R-T Axes : 047 013 019 degrees QTc Int : 384 ms Sinus rhythm with intermittent complete heart block Incomplete right bundle branch block Borderline ECG When compared with ECG of 02-SEP-2020 01:54, Significant changes have occurred Confirmed by Petey Hoyt ([id number]) on 09/03/2020 3:57:04 PM Referred By: REFERRED SELF Confirmed By:Petey Hoyt
--- NOTE | 2020-09-03 17:14 | History & Physical Bridge Note ---
Date of Service September 03, 2020 History & Physical Bridge Note I have examined the patient, reviewed the History & Physical and in the interval since the performance of the History & Physical I have noted the following changes of clinical significance: pt with intermittent CHB and marked sinus bradycardia recommend pacemaker prior to the EGD as he is now dependent on the TVP. Discussed the procedure and potential risks; consents signed.
--- NOTE | 2020-09-03 17:14 | Pre Anesthesia Assessment ---
Date of Service September 03, 2020 Pre Sedation Assessment Vital Signs Temp Pulse Pulse Resp BP BP Pulse Ox 09/03/20 16:49 64 20 158/76 H 97 09/03/20 16:00 65 14 95 09/03/20 15:31 60 16 141/67 H 97 09/03/20 15:29 36.7 C 09/03/20 15:00 64 13 94 09/03/20 14:31 60 17 137/69 91 09/03/20 14:00 61 16 94 09/03/20 13:40 61 15 95 09/03/20 13:30 60 141/87 H 93 09/03/20 13:20 63 19 94 09/03/20 13:00 60 15 93 09/03/20 12:31 60 20 110/60 95 09/03/20 12:00 60 12 94 09/03/20 11:31 60 16 105/69 96 09/03/20 11:20 36.7 C 60 17 94 09/03/20 11:00 36.8 C 62 18 95 09/03/20 10:30 63 21 95/51 L 96 09/03/20 10:00 80 17 94 09/03/20 09:30 60 20 92/53 L 93 09/03/20 09:00 60 14 94 09/03/20 08:40 60 12 97 09/03/20 08:30 60 18 86/57 L 94 09/03/20 08:20 60 18 98 09/03/20 08:00 61 15 98 09/03/20 07:40 59 L 18 94 09/03/20 07:30 61 14 99/76 L 92 09/03/20 07:00 61 13 97 09/03/20 06:33 64 16 102/54 L 99 09/03/20 06:32 59 L 25 H 68/58 L 93 09/03/20 06:30 64 14 62/44 L 93 09/03/20 06:00 70 18 95 09/03/20 05:30 70 14 113/46 L 93 09/03/20 05:00 37.0 C 71 23 98 09/03/20 04:30 61 13 95/45 L 94 09/03/20 04:00 62 17 94 09/03/20 03:30 62 25 H 92/42 L 94 09/03/20 03:00 61 23 95 09/03/20 02:30 60 16 117/58 L 96 09/03/20 02:00 62 13 93 09/03/20 01:30 64 19 82/43 L 93 09/03/20 01:00 62 17 96 09/03/20 00:30 60 19 120/56 L 95 09/03/20 00:05 60 09/02/20 23:21 36.5 C 60 15 127/48 L 94 09/02/20 23:20 60 15 94 09/02/20 23:06 60 14 110/55 L 93 09/02/20 23:00 60 22 95 09/02/20 22:51 60 14 109/47 L 94 09/02/20 22:40 60 15 95 09/02/20 22:36 60 18 114/58 L 94 09/02/20 22:06 62 20 127/58 L 97 09/02/20 22:00 60 15 95 09/02/20 21:51 60 18 122/55 L 95 09/02/20 21:36 60 18 121/64 94 09/02/20 21:21 56 L 17 155/75 H 95 09/02/20 21:06 61 17 145/61 H 97 09/02/20 21:00 63 15 95 09/02/20 20:52 65 19 131/79 09/02/20 20:36 60 16 134/68 95 09/02/20 20:30 60 15 94 09/02/20 20:21 60 14 143/74 H 98 09/02/20 20:06 61 17 120/75 97 09/02/20 20:00 60 14 95 09/02/20 19:51 62 15 150/60 H 94 09/02/20 19:35 63 14 134/64 94 09/02/20 19:30 60 9 L 95 09/02/20 19:20 60 12 122/59 L 95 09/02/20 19:06 60 15 106/69 93 09/02/20 19:00 36.5 C 59 L 14 91 09/02/20 18:51 60 15 136/73 93 09/02/20 18:36 60 14 122/77 94 09/02/20 18:30 60 12 95 09/02/20 18:20 60 16 117/69 96 09/02/20 18:06 61 15 116/64 97 09/02/20 18:00 60 17 96 09/02/20 17:51 60 14 139/66 95 09/02/20 17:36 60 17 134/67 98 09/02/20 17:30 65 18 97 09/02/20 17:21 61 10 L 132/66 95 09/02/20 17:20 65 17 166/67 H 09/02/20 17:17 60 10 L 154/74 H 90 Cardiovascular + regular rhythm Respiratory normal respiratory effort, lungs clear to auscultation Pre-Sedation Airway Assessment Smoking Status: Never smoker Hx Sleep Apnea: No Short, Thick Neck: No Thyromental Distance: > or= 3.5 Finger Breadths Oral Cavity: + Dentures Mallampati Class: II ASA: ASA3 NPO Status Date of Last Intake of Fluids: 09/03/20 Time of Last Intake of Fluids: 07:00 Date of Last Intake of Solid Food: 09/03/20 Time of Last Intake of Solid Foods: 07:00 Procedure Planning Contraindications for Sedation: none Current Medications Reviewed: Yes Notes The planned sedation has been discussed with the patient. Informed Consent was obtained. I have identified the patient, determined the appropriateness of sedation and have assessed the patient immediately prior to the procedure. All medicine(s) and interventions are by my order.
[2020-09-03] MEDS ORDERED: MIDAZOLAM HCL 5 MG/ML 1 ML VIAL ONE (17:26)
[2020-09-03] MEDS ORDERED: fentaNYL citrate 100 MCG/2 ML VIAL ONE (17:26)
[2020-09-03] MEDS ORDERED: BUPIVACAINE 0.25% 30 ML VIAL ONE (17:26)
[2020-09-03] MEDS ORDERED: LIDOCAINE HCL 1% 20 ML VIAL ONE (17:26)
[2020-09-03] MEDS ORDERED: BACITRACIN INJ 50,000 UNIT VIAL ONE (17:27)
--- NOTE | 2020-09-03 18:34 | Operative Report ---
Post Operative Report Pre & Post Diagnosis Intermittent CHB Operation Date: 09/02/20 16:30 <No data on this case meets the specified criteria> Operation Date: 09/03/20 16:30 <No data on this case meets the specified criteria> Operation Date: 09/04/20 09:00 <No data on this case meets the specified criteria> Operation Date: 09/04/20 16:30 <No data on this case meets the specified criteria> I identified the patient and participated in the time-out.: Yes Procedure Operation Date: 09/02/20 16:30 Actual Procedures p Ins/RemTemporary Transvenous Pacer - MD jennifer Gatica Ultrasound Vascular Access - David Gonzales MD Operation Date: 09/03/20 16:30 Actual Procedures p Pacer with A/V Leads (Dual) - DO jennifer Quinteros Cineradiography w/Routine Exam - Ghazal Perez DO Operation Date: 09/04/20 09:00 <No data on this case meets the specified criteria> Operation Date: 09/04/20 16:30 <No data on this case meets the specified criteria> Surgeon Ghazal Perez DO Shipper And Receiving none Estimated Blood Loss 20 Findings Consistent with Post-Op Diagnosis Specimens none Description of Procedure see official report I attest to the content of the Intraoperative Record and any orders documented therein. Any exceptions are noted below.
--- NOTE | 2020-09-03 18:34 | Post Anesthesia Assessment ---
Date of Service September 03, 2020 Post Sedation Assessment Vital Signs Temp Pulse Pulse Resp BP BP Pulse Ox 09/03/20 16:49 64 20 158/76 H 97 09/03/20 16:31 64 11 L 153/70 H 95 09/03/20 16:00 65 14 95 09/03/20 15:31 60 16 141/67 H 97 09/03/20 15:29 36.7 C 09/03/20 15:00 64 13 94 09/03/20 14:31 60 17 137/69 91 09/03/20 14:00 61 16 94 09/03/20 13:40 61 15 95 09/03/20 13:30 60 141/87 H 93 09/03/20 13:20 63 19 94 09/03/20 13:00 60 15 93 09/03/20 12:31 60 20 110/60 95 09/03/20 12:00 60 12 94 09/03/20 11:31 60 16 105/69 96 09/03/20 11:20 36.7 C 60 17 94 09/03/20 11:00 36.8 C 62 18 95 09/03/20 10:30 63 21 95/51 L 96 09/03/20 10:00 80 17 94 09/03/20 09:30 60 20 92/53 L 93 09/03/20 09:00 60 14 94 09/03/20 08:40 60 12 97 09/03/20 08:30 60 18 86/57 L 94 09/03/20 08:20 60 18 98 09/03/20 08:00 61 15 98 09/03/20 07:40 59 L 18 94 09/03/20 07:30 61 14 99/76 L 92 09/03/20 07:00 61 13 97 09/03/20 06:33 64 16 102/54 L 99 09/03/20 06:32 59 L 25 H 68/58 L 93 09/03/20 06:30 64 14 62/44 L 93 09/03/20 06:00 70 18 95 09/03/20 05:30 70 14 113/46 L 93 09/03/20 05:00 37.0 C 71 23 98 09/03/20 04:30 61 13 95/45 L 94 09/03/20 04:00 62 17 94 09/03/20 03:30 62 25 H 92/42 L 94 09/03/20 03:00 61 23 95 09/03/20 02:30 60 16 117/58 L 96 09/03/20 02:00 62 13 93 09/03/20 01:30 64 19 82/43 L 93 09/03/20 01:00 62 17 96 09/03/20 00:30 60 19 120/56 L 95 09/03/20 00:05 60 09/02/20 23:21 36.5 C 60 15 127/48 L 94 09/02/20 23:20 60 15 94 09/02/20 23:06 60 14 110/55 L 93 09/02/20 23:00 60 22 95 09/02/20 22:51 60 14 109/47 L 94 09/02/20 22:40 60 15 95 09/02/20 22:36 60 18 114/58 L 94 09/02/20 22:06 62 20 127/58 L 97 09/02/20 22:00 60 15 95 09/02/20 21:51 60 18 122/55 L 95 09/02/20 21:36 60 18 121/64 94 09/02/20 21:21 56 L 17 155/75 H 95 09/02/20 21:06 61 17 145/61 H 97 09/02/20 21:00 63 15 95 09/02/20 20:52 65 19 131/79 09/02/20 20:36 60 16 134/68 95 09/02/20 20:30 60 15 94 09/02/20 20:21 60 14 143/74 H 98 09/02/20 20:06 61 17 120/75 97 09/02/20 20:00 60 14 95 09/02/20 19:51 62 15 150/60 H 94 09/02/20 19:35 63 14 134/64 94 09/02/20 19:30 60 9 L 95 09/02/20 19:20 60 12 122/59 L 95 09/02/20 19:06 60 15 106/69 93 09/02/20 19:00 36.5 C 59 L 14 91 09/02/20 18:51 60 15 136/73 93 09/02/20 18:36 60 14 122/77 94 Recovery Score Activity: Moves 4 extremities Respiration: Deep Breath/Cough Circulation: +/-20% PreAnes Value Consciousness: Fully Awake Oxygen Saturation: > 92% On Room Air Discharge Sedation Level of Care: Fast Track Phase II Post Sedation Plan On clinical assessment, the patient appears to have tolerated the sedation without complications. Patient is recovering as anticipated. Patient will continue to be monitored by nursing and may be discharged when sedation discharge criteria are met per below protocol. Upon Completions of procedure up to 15 minutes continue every 5 minute vital signs and the P.A.R. score; then discharge to a Phase I or Fast Track to Phase II per the following guidelines: * Discharge Patient to appropriate Phase II area if PAR is 8 or greater or return to pre- procedure baseline. The post - procedure orders will be as directed. * If PAR score is less than 8 or not return to pre-procedure baseline then patient will follow Phase I monitoring till PAR is reached for Phase II. The Phase I may be done in procedure room or may call to secure a Phase I area. * If naloxone or flumazenil are used for reversal, hold in Phase I for continued monitoring from when last reversal dose was given for a minimum of 60 minutes or longer pending the nurse and/or physician discretion of patient condition before discharge to Phase II. Please call the Sedation Physician to re-evaluate and complete post-note for discharge to Phase II area. Do NOT discharge from procedure sedation or Phase 1 until post- sedation evaluation note is complete by procedure /sedation MD Sedation Discharge Instructions to be given to the patient at discharge to home.
--- NOTE | 2020-09-03 18:49 | Hospitalist Progress Note ---
Date of Service September 03, 2020 Assessment & Plan (1) UGIB (upper gastrointestinal bleed): Secondary to ?duodenitis, hx GERD Likely recurrent/residual tumor hx ascending colon cancer status post surgery ongoing Xeloda Rx NSAID use contributory Hemoglobin slightly lower than baseline anemic level BP currently stable. IV PPI Hold home aspirin Serial H&H, transfuse PRBC if hemoglobin less than 8 and or for symptomatic anemia GI consult Re: UGI B Plan for EGD tmrw (09/04) Worsening bradycardia (intermittent 2 AVB, Mobitz type I and II as per ED environmental monitoring technician) (Bradycardic since 2018 on review of vital signs) Possible SSS, hx PAF as per records, not on anticoagulation secondary to GI bleed Current Coreg dose contributory, Capecitabine with bradycardia as adverse reaction in less than 5% as per UTDOL Hold Coreg, Capecitabine for now Titrate home losartan while Coreg on hold. Patient asymptomatic. Cardiology consulted S/p temporary pacemaker placement Plan to place permanent pacemaker today 09/03 hx CAD status post CABG history of postop pulmonary embolism as per records hypertension, elevated hyperlipidemia on statin Rx DM2 diet-controlled, well-controlled as of recent hemoglobin A1c of 6.09 June 2020 ISS BG goal [id number] DVT prophylaxis. SCDs Re: GI bleed Full code Patient's , Ms. Jane Rangel, can be contacted at #[phone]. Admission and Anticipated Discharge Date Admission Date: September 02, 2020 Subjective Patient seen in follow-up of abdominal pain, anemia, bradycardia Patient is currently laying in bed, no acute distress yesterday temporary pacemaker was placed Plan for permanent pacemaker later today Plan for EGD evaluation tomorrow Abdominal discomfort currently well controlled, patient says that he feels better since he came here No recent bowel movement, but had several on admission Review of Systems Review of Systems: All systems reviewed & are unremarkable except as noted in HPI & below Constitutional: no fever and no chills Respiratory: no cough and no dyspnea Cardiovascular: no chest pain Gastrointestinal: + abdominal pain (improved); no nausea and no vomiting Physical Exam Physical Exam: GENERAL: elderly male laying in bed, in NAD HEENT: NC/AT, EOMI, PERRL, Pale palpebral conjunctivae, no ptosis NECK : Supple, no tenderness CHEST : Decreased breath sounds, no tenderness HEART : RRR, no obvious murmurs ABDOMEN: Some distention, soft, minimal central abdominal tenderness EXTREMITIES : No LE swelling/tenderness, moves extremities NEUROLOGIC : alert and oriented x3, no facial asymmetry, speech fluent, moves extremities SKIN: Pale , warm Results & Data Results & Data ([facility]) Vital Signs (Past 12 Hours) Vital Signs Temp Pulse Pulse Resp BP BP Pulse Ox 09/03/20 16:49 64 20 158/76 H 97 09/03/20 16:31 64 11 L 153/70 H 95 09/03/20 16:00 65 14 95 09/03/20 15:31 60 16 141/67 H 97 09/03/20 15:29 36.7 C 09/03/20 15:00 64 13 94 09/03/20 14:31 60 17 137/69 91 09/03/20 14:00 61 16 94 09/03/20 13:40 61 15 95 09/03/20 13:30 60 141/87 H 93 09/03/20 13:20 63 19 94 09/03/20 13:00 60 15 93 09/03/20 12:31 60 20 110/60 95 09/03/20 12:00 60 12 94 09/03/20 11:31 60 16 105/69 96 09/03/20 11:20 36.7 C 60 17 94 09/03/20 11:00 36.8 C 62 18 95 09/03/20 10:30 63 21 95/51 L 96 09/03/20 10:00 80 17 94 09/03/20 09:30 60 20 92/53 L 93 09/03/20 09:00 60 14 94 09/03/20 08:40 60 12 97 09/03/20 08:30 60 18 86/57 L 94 09/03/20 08:20 60 18 98 09/03/20 08:00 61 15 98 09/03/20 07:40 59 L 18 94 09/03/20 07:30 61 14 99/76 L 92 09/03/20 07:00 61 13 97 Laboratory Results 09/03/20 09/03/20 09/03/20 Range/Units 15:22 11:02 07:44 WBC (4.8-10.8) K/uL RBC (4.7-6.1) M/uL Hgb (14.0-18.0) g/dL Hct (42-52) % MCV (80-100) fL MCH (25-34) pg MCHC (32-36) g/dL RDW Std Deviation (36.4-46.3) fL RDW Coeff of Gabriela (11.5-14.5) % Plt Count (130-400) K/uL MPV (7.4-10.4) fL Immature Gran % (Auto) % Neut % (Auto) % Lymph % (Auto) % [place] % (Auto) % Eos % (Auto) % Baso % (Auto) % Neut # (Auto) (1.4-6.5) K/uL Lymph # (Auto) (1.2-3.4) K/uL [place] # (Auto) (0.11-0.59) K/uL Eos # (Auto) (0-0.5) K/uL Baso # (Auto) (0-0.2) K/uL Immature Gran # (Auto) (0.00-0.02) K/uL Anisocytosis Ovalocytes PT (9.0-12.0) Seconds INR (0.9-1.1) APTT (21.0-31.0) Seconds PTT Ratio Sodium (136-145) mmol/L Potassium (3.5-5.1) mmol/L Chloride (98-107) mmol/L Carbon Dioxide (21-32) mmol/L Anion Gap (3-11) BUN (7-18) mg/dl Creatinine (0.6-1.4) mg/dl Est Cr Clr Drug Dosing ml/min Est GFR ( Amer) Est GFR (Non-Af Amer) BUN/Creatinine Ratio (10-20) Glucose (70-99) mg/dl POC Glucose 106 H 145 H 94 (70-99) mg/dl Calcium (8.5-10.1) mg/dl Total T3 (76-181) ng/dL Nasal Screen MRSA (PCR) (Negative) 09/03/20 09/03/20 09/03/20 Range/Units 05:07 05:07 05:07 WBC 5.96 (4.8-10.8) K/uL RBC 3.21 L (4.7-6.1) M/uL Hgb 9.5 L (14.0-18.0) g/dL Hct 28.7 L (42-52) % MCV 89.4 (80-100) fL MCH 29.6 (25-34) pg MCHC 33.1 (32-36) g/dL RDW Std Deviation 74.0 H (36.4-46.3) fL RDW Coeff of Gabriela 22.7 H (11.5-14.5) % Plt Count 203 (130-400) K/uL MPV 9.3 (7.4-10.4) fL Immature Gran % (Auto) 0.2 % Neut % (Auto) 53.7 % Lymph % (Auto) 31.2 % [place] % (Auto) 12.2 % Eos % (Auto) 2.5 % Baso % (Auto) 0.2 % Neut # (Auto) 3.20 (1.4-6.5) K/uL Lymph # (Auto) 1.86 (1.2-3.4) K/uL [place] # (Auto) 0.73 H (0.11-0.59) K/uL Eos # (Auto) 0.15 (0-0.5) K/uL Baso # (Auto) 0.01 (0-0.2) K/uL Immature Gran # (Auto) 0.01 (0.00-0.02) K/uL Anisocytosis Present Ovalocytes 1+ PT 10.5 (9.0-12.0) Seconds INR 1.0 (0.9-1.1) APTT 24.2 (21.0-31.0) Seconds PTT Ratio 0.9 Sodium 142 (136-145) mmol/L Potassium 4.4 (3.5-5.1) mmol/L Chloride 112 H (98-107) mmol/L Carbon Dioxide 25 (21-32) mmol/L Anion Gap 5.0 (3-11) BUN 17 (7-18) mg/dl Creatinine 1.08 (0.6-1.4) mg/dl Est Cr Clr Drug Dosing 55.5 ml/min Est GFR ( Amer) 75.3 Est GFR (Non-Af Amer) 64.9 BUN/Creatinine Ratio 15.3 (10-20) Glucose 90 (70-99) mg/dl POC Glucose (70-99) mg/dl Calcium 8.6 (8.5-10.1) mg/dl Total T3 (76-181) ng/dL Nasal Screen MRSA (PCR) (Negative) 09/02/20 09/02/20 09/02/20 Range/Units 23:59 20:11 18:12 WBC (4.8-10.8) K/uL RBC (4.7-6.1) M/uL Hgb 8.8 L 9.7 L (14.0-18.0) g/dL Hct 26.8 L 29.1 L (42-52) % MCV (80-100) fL MCH (25-34) pg MCHC (32-36) g/dL RDW Std Deviation (36.4-46.3) fL RDW Coeff of Gabriela (11.5-14.5) % Plt Count (130-400) K/uL MPV (7.4-10.4) fL Immature Gran % (Auto) % Neut % (Auto) % Lymph % (Auto) % [place] % (Auto) % Eos % (Auto) % Baso % (Auto) % Neut # (Auto) (1.4-6.5) K/uL Lymph # (Auto) (1.2-3.4) K/uL [place] # (Auto) (0.11-0.59) K/uL Eos # (Auto) (0-0.5) K/uL Baso # (Auto) (0-0.2) K/uL Immature Gran # (Auto) (0.00-0.02) K/uL Anisocytosis Ovalocytes PT (9.0-12.0) Seconds INR (0.9-1.1) APTT (21.0-31.0) Seconds PTT Ratio Sodium (136-145) mmol/L Potassium (3.5-5.1) mmol/L Chloride (98-107) mmol/L Carbon Dioxide (21-32) mmol/L Anion Gap (3-11) BUN (7-18) mg/dl Creatinine (0.6-1.4) mg/dl Est Cr Clr Drug Dosing ml/min Est GFR ( Amer) Est GFR (Non-Af Amer) BUN/Creatinine Ratio (10-20) Glucose (70-99) mg/dl POC Glucose 84 (70-99) mg/dl Calcium (8.5-10.1) mg/dl Total T3 (76-181) ng/dL Nasal Screen MRSA (PCR) (Negative) 09/02/20 09/02/20 Range/Units 17:48 07:17 WBC (4.8-10.8) K/uL RBC (4.7-6.1) M/uL Hgb (14.0-18.0) g/dL Hct (42-52) % MCV (80-100) fL MCH (25-34) pg MCHC (32-36) g/dL RDW Std Deviation (36.4-46.3) fL RDW Coeff of Gabriela (11.5-14.5) % Plt Count (130-400) K/uL MPV (7.4-10.4) fL Immature Gran % (Auto) % Neut % (Auto) % Lymph % (Auto) % [place] % (Auto) % Eos % (Auto) % Baso % (Auto) % Neut # (Auto) (1.4-6.5) K/uL Lymph # (Auto) (1.2-3.4) K/uL [place] # (Auto) (0.11-0.59) K/uL Eos # (Auto) (0-0.5) K/uL Baso # (Auto) (0-0.2) K/uL Immature Gran # (Auto) (0.00-0.02) K/uL Anisocytosis Ovalocytes PT (9.0-12.0) Seconds INR (0.9-1.1) APTT (21.0-31.0) Seconds PTT Ratio Sodium (136-145) mmol/L Potassium (3.5-5.1) mmol/L Chloride (98-107) mmol/L Carbon Dioxide (21-32) mmol/L Anion Gap (3-11) BUN (7-18) mg/dl Creatinine (0.6-1.4) mg/dl Est Cr Clr Drug Dosing ml/min Est GFR ( Amer) Est GFR (Non-Af Amer) BUN/Creatinine Ratio (10-20) Glucose (70-99) mg/dl POC Glucose (70-99) mg/dl Calcium (8.5-10.1) mg/dl Total T3 100 (76-181) ng/dL Nasal Screen MRSA (PCR) Negative (Negative) Medications Administered Current Inpatient Medications Acetaminophen (Acetaminophen 325 Mg Tab) 650 mg PO Q4H PRN PRN Reason: Pain or Fever Stop: 10/02/20 06:39 Last Admin: 09/03/20 08:06 Dose: 650 mg Documented by: Atropine Sulfate (Atropine Sulfate 0.1 Mg/Ml 5ml Syr) 0.5 mg IV Q3M PRN PRN Reason: symptomatic bradycardia Stop: 10/02/20 06:39 Dextrose (Dextrose 50% 50 Ml Syringe) 25 - 50 ml IV UD PRN; Protocol PRN Reason: Hypoglycemia Protocol Stop: 10/02/20 08:43 Finasteride (Finasteride 5 Mg Tab) 5 mg PO QAM [facility] Stop: 10/02/20 08:59 Last Admin: 09/03/20 08:07 Dose: 5 mg Documented by: Gabapentin (Gabapentin 300 Mg Cap) 300 mg PO TID [facility] Stop: 10/02/20 08:59 Last Admin: 09/03/20 14:03 Dose: 300 mg Documented by: Glucagon (Glucagon For Inj 1 Mg Vial) 1 mg SQ UD PRN; Protocol PRN Reason: Hypoglycemia Protocol Stop: 10/02/20 08:43 Glucose (Glucose 10 Tabs/Tube) 4 - 8 tabs PO UD PRN; Protocol PRN Reason: Hypoglycemia Protocol Stop: 10/02/20 08:43 Glucose (Glucose 40% Gel 15 Gm Tube) 15 - 30 gm PO UD PRN; Protocol PRN Reason: Hypoglycemia Protocol Stop: 10/02/20 08:43 Pantoprazole Sodium 40 mg/ (Dextrose) 100 mls @ 20 mls/hr IV Q5H [facility] Stop: 10/02/20 07:29 Last Admin: 09/03/20 13:58 Dose: 20 mls/hr Documented by: Promethazine HCl 12.5 mg/ (Sodium Chloride) 50.5 mls @ 202 mls/hr IV Q6H PRN PRN Reason: Nausea And Vomiting Stop: 10/02/20 06:39 Insulin Aspart (Insulin Aspart 100 Units/Ml 3 Ml Pen) 0 units SC ACHS [facility] Stop: 10/02/20 08:43 Last Admin: 09/03/20 15:26 Dose: Not Given Documented by: Levothyroxine Sodium (Levothyroxine Sodium 125 Mcg Tablet) 125 mcg PO DAILYBB [facility] Stop: 10/03/20 06:29 Last Admin: 09/03/20 04:43 Dose: 125 mcg Documented by: Losartan Potassium (Losartan Potassium 25 Mg Tab) [facility] [place] Stop: 10/03/20 08:59 Last Admin: 09/03/20 08:05 Dose: Not Given Documented by: Miscellaneous (Carbohydrates For Hypoglycemia ) 15 - 30 gm PO UD PRN PRN Reason: Hypoglycemia Protocol Stop: 10/02/20 08:43 Miscellaneous (Olopatadine 0.2 % Drops ~ Order Awaiting Action) 1 ea NA QS [facility] Stop: 10/02/20 15:59 Last Admin: 09/03/20 15:20 Dose: Not Given Documented by: Morphine Sulfate (Morphine Sulfate 2 Mg/Ml Carp) 2 mg IV Q4H PRN PRN Reason: Pain Stop: 09/16/20 06:39 Last Admin: 09/03/20 16:59 Dose: 2 mg Documented by: Multivitamins (Multivitamin Tab) [facility] [place] Stop: 10/02/20 08:59 Last Admin: 09/03/20 08:05 Dose: Not Given Documented by: Oxycodone HCl (Oxycodone Hcl Ir 5 Mg Tab (Immediate Release)) 5 mg PO Q4H PRN PRN Reason: Pain Stop: 09/16/20 07:23 Last Admin: 09/03/20 14:03 Dose: 5 mg Documented by: Polyethylene Glycol (Polyethylene (Miralax) 17 Gm Pack) 17 gm PO DAILY PRN PRN Reason: Constipation Stop: 10/02/20 06:39 Rosuvastatin Calcium (Rosuvastatin Calcium 20 Mg Tab) 20 mg PO [facility] Stop: 10/02/20 08:59 Last Admin: 09/03/20 08:07 Dose: 20 mg Documented by: Senna/Docusate Sodium (Docusate Sodium/Senna 50/8.6mg Tab) 1 tab PO BID [facility] Stop: 10/02/20 06:39 Last Admin: 09/03/20 08:04 Dose: Not Given Documented by: Tamsulosin HCl (Tamsulosin Hcl 0.4 Mg Cap) [facility] [place] Stop: 10/02/20 08:59 Last Admin: 09/03/20 08:07 Dose: 0.4 mg Documented by:
[2020-09-03 21:21] LABS: Hematocrit (blood only) 27.9 % (42-52); Hemoglobin 9.2 g/dL (14.0-18.0)
[2020-09-04] MEDS: PANTOprazole 40 MG in DEXTROSE 5% 100 ML IV SCH ×3 (00:13→11:29)
[2020-09-04] MEDS: MoRPHine SULFATE 2 MG/ML CARP IV PRN ×2 (02:51→15:35)
[2020-09-04 05:30] LABS: Hematocrit (blood only) 28.4 % (42-52); Hemoglobin 9.3 g/dL (14.0-18.0); Mean Corpuscular Hemoglobin 29.2 pg (25-34); Mean Corpuscular Hgb Conc 32.7 g/dL (32-36); Mean Corpuscular Volume 89.3 fL (80-100); Mean Platelet Volume 9.4 fL (7.4-10.4); Platelet Count 191 K/uL (130-400); RDW Coefficient of Variation 22.5 % (11.5-14.5); RDW Standard Deviation 73.3 fL (36.4-46.3); Red Blood Count 3.18 M/uL (4.7-6.1); White Blood Count 6.13 K/uL (4.8-10.8)
[2020-09-04] MEDS: oxyCODONE HCL IR 5 MG TAB (IMMEDIATE RELEASE) PO PRN (05:57)
[2020-09-04] MEDS: LEVOTHYROXINE SODIUM 125 MCG TABLET PO SCH (05:57)
[2020-09-04 06:00] LABS: BUN Creatinine Ratio 13.6 (10-20); Calcium 8.5 mg/dl (8.5-10.1); Est GFR (African American) 74.4; Est GFR (Non-African American) 64.2; Magnesium 2.2 mg/dl (1.8-2.4); Potassium 4.2 mmol/L (3.5-5.1)
[2020-09-04] MEDS: ACETAMINOPHEN 325 MG TAB PO PRN ×3 (07:17→23:24)
[2020-09-04] MEDS: INSULIN ASPART 100 UNITS/ML 3 ML PEN SC SCH ×4 (07:22→21:32)
[2020-09-04] MEDS: DOCUSATE SODIUM/SENNA 50/8.6MG TAB PO SCH ×2 (08:12→20:05)
[2020-09-04] MEDS: MULTIVITAMIN TAB PO SCH (08:14)
[2020-09-04] MEDS: GABAPENTIN 300 MG CAP PO SCH ×3 (08:15→20:13)
[2020-09-04] MEDS: TAMSULOSIN HCL 0.4 MG CAP PO SCH (08:15)
[2020-09-04] MEDS: ROSUVASTATIN CALCIUM 20 MG TAB PO SCH (08:15)
[2020-09-04] MEDS: FINASTERIDE 5 MG TAB PO SCH (08:15)
[2020-09-04] MEDS: LOSARTAN POTASSIUM 25 MG TAB PO SCH (08:15)
--- NOTE | 2020-09-04 08:23 | XRay Report ---
XR chest 1V portable HISTORY: 80 years-old Male s/p ppm status post placement of a left subclavian pacer COMPARISON: Chest radiograph 09/02/2020 TECHNIQUE: AP view of the chest FINDINGS: Cardiac silhouette is enlarged. Prior median sternotomy. Status post placement of a dual lead left lilly bclavian pacer. The visualized leads appear intact. No postprocedural pneumothorax. Mild chronic inte rstitial coarsening of the lung bases. No large pleural effusion, lobar airspace consolidation or ove rt pulmonary edema. Degenerative changes of the shoulders and spine. IMPRESSION: Status post placement of a dual lead left subclavian pacer. No postprocedural pneumothora x. [place] 112: Negative or not required by law. The above report was generated using voice recognition software. It may contain grammatical, syntax o r spelling errors. Electronically signed by: Bj Caban M.D. 09/04/2020 8:21 AM
--- NOTE | 2020-09-04 08:38 | Anesthesiology Consultation ---
Date of Service September 04, 2020 Assessment & Plan Chart Review Chart Review: Acceptable Risk for Surgery and Patient NOT seen in Pre Admission Testing Consults Requested none ASA ASA4 Proposed Anesthesia Anesthesia Type: General Additional Comments: covid test negative History Surgery Operation Date: 09/02/20 16:30 Proposed Procedures p Ins/RemTemporary Transvenous Pacer - David Gonzales MD Operation Date: 09/03/20 16:30 Proposed Procedures p Pacer with A/V Leads (Dual) - Ghazal Perez DO Operation Date: 09/04/20 09:00 Proposed Procedures p Esophagogastroduodenoscopy - Johnie Ruffin MD Operation Date: 09/04/20 16:30 Proposed Procedures p Esophagogastroduodenoscopy Dr Ruffin - Johnie Ruffin MD Height/Weight Height: 5 ft 9 in Weight: 78 kg Allergies Allergy/AdvReac Type Severity Reaction Status Date / Time No Known Allergies Allergy Verified 09/02/20 01:48 Medications Home Medications Medication Instructions Recorded Confirmed Last Taken aspirin 81 mg PO QAM 03/17/18 09/02/20 09/01/20 finasteride 5 mg PO QAM 03/17/18 09/02/20 09/01/20 nitroglycerin [Nitrostat] 0.4 mg SUBLINGUAL DIRECTED PRN 03/17/18 09/02/20 Unknown omega 0-spz-xdy-fish oil [Fish Oil] 1 cap PO BID 03/17/18 09/02/20 09/01/20 rosuvastatin 20 mg PO QAM 03/17/18 09/02/20 09/01/20 tamsulosin 0.4 mg PO QAM 03/17/18 09/02/20 09/01/20 carvedilol 12.5 mg PO BID 04/17/20 09/02/20 09/01/20 losartan 25 mg PO QAM 04/17/20 09/02/20 09/01/20 omeprazole 20 mg PO BID 04/17/20 09/02/20 09/01/20 capecitabine 1,500 mg PO BID 08/20/20 09/02/20 09/01/20 cholestyramine-aspartame 1 ea PO DIRECTED 08/20/20 09/02/20 09/01/20 [Cholestyramine Light] clobetasol 1 applic TOPICAL DIRECTED PRN 08/20/20 09/02/20 Unknown gabapentin 300 mg PO TID 08/20/20 09/02/20 09/01/20 levothyroxine 125 mcg PO QAM 08/20/20 09/02/20 09/01/20 multivitamin 1 tab PO QAM 08/20/20 09/02/20 09/01/20 ondansetron HCl [Zofran] 8 mg PO Q8H PRN 08/20/20 09/02/20 Unknown prochlorperazine maleate 10 mg PO Q8 PRN 08/20/20 09/02/20 Unknown vitamins A,C,M-ctne-naxypo 1 tab PO BID 08/20/20 09/02/20 09/01/20 [PreserVision AREDS] famotidine 20 mg PO BID PRN 09/02/20 09/02/20 Unknown olopatadine [Pataday] 1 drp OPB DAILY 09/02/20 09/02/20 09/01/20 Active Medications Generic Name Dose Route Start Last Admin Trade Name Freq PRN Reason Stop Dose Admin Acetaminophen 650 mg 09/02/20 06:40 09/04/20 07:17 Acetaminophen 325 Mg Tab PO 10/02/20 06:39 650 mg Q4H PRN Administration Pain or Fever Finasteride 5 mg 09/02/20 09:00 09/04/20 08:15 Finasteride 5 Mg Tab PO 10/02/20 08:59 5 mg QAM TALA Administration Gabapentin 300 mg 09/02/20 09:00 09/04/20 08:15 Gabapentin 300 Mg Cap PO 10/02/20 08:59 300 mg TID TALA Administration Pantoprazole Sodium 40 mg/ 100 mls @ 20 mls/hr 09/02/20 07:30 09/04/20 05:23 Dextrose IV 10/02/20 07:29 20 mls/hr Q5H TALA Administration Insulin Aspart 0 units 09/02/20 08:44 09/04/20 07:22 Insulin Aspart 100 Units/Ml 3 Ml Pen SC 10/02/20 08:43 Not Given ACHS TALA Levothyroxine Sodium 125 mcg 09/03/20 06:30 09/04/20 05:57 Levothyroxine Sodium 125 Mcg Tablet PO 10/03/20 06:29 125 mcg DAILYBB TALA Administration Losartan Potassium 25 mg 09/03/20 09:00 09/04/20 08:15 Losartan Potassium 25 Mg Tab PO 10/03/20 08:59 25 mg QAM TALA Administration Miscellaneous 1 ea 09/02/20 16:00 09/04/20 08:12 Olopatadine 0.2 % Drops ~ Order Awaiting Action NA 10/02/20 15:59 Not Given QS TALA Morphine Sulfate 2 mg 09/02/20 06:40 09/04/20 02:51 Morphine Sulfate 2 Mg/Ml Carp IV 09/16/20 06:39 2 mg Q4H PRN Administration Pain Multivitamins 1 tab 09/02/20 09:00 09/04/20 08:14 Multivitamin Tab PO 10/02/20 08:59 Not Given QAM TALA Oxycodone HCl 5 mg 09/02/20 07:24 09/04/20 05:57 Oxycodone Hcl Ir 5 Mg Tab (Immediate Release) PO 09/16/20 07:23 5 mg Q4H PRN Administration Pain Rosuvastatin Calcium 20 mg 09/02/20 09:00 09/04/20 08:15 Rosuvastatin Calcium 20 Mg Tab PO 10/02/20 08:59 20 mg QAM TALA Administration Senna/Docusate Sodium 1 tab 09/02/20 06:40 09/04/20 08:12 Docusate Sodium/Senna 50/8.6mg Tab PO 10/02/20 06:39 Not Given BID TALA Tamsulosin HCl 0.4 mg 09/02/20 09:00 09/04/20 08:15 Tamsulosin Hcl 0.4 Mg Cap PO 10/02/20 08:59 0.4 mg QAM TALA Administration NPO Last Intake of Fluids Comment: clear liquids for lunch Past Medical History Medical History BPH (benign prostatic hyperplasia) CAD (coronary artery disease) "S/p stents 2004, 2006. CABG x 3 Jan 2017" CKD (chronic kidney disease) stage 3, GFR 30-59 ml/min Duodenitis Dyslipidemia GERD (gastroesophageal reflux disease) HTN (hypertension) Hx of pulmonary embolus Hypothyroidism Myocardial infarction Osteoarthritis PAF (paroxysmal atrial fibrillation) During hospitalization for Influenza, no recurrence PAF (paroxysmal atrial fibrillation) Pulmonary embolism hx of PE s/p CABG 2016 Exercise / Class Metabolic Activity III < 4 Walking/Shop/Light housework Past Family History Family History Father , secondary to commercial real estate underwriter accident, rolled on top of him Prostate cancer Accident caused by powered commercial real estate underwriter Mother , in mid 90s T2DM (type 2 diabetes mellitus) Past Surgical History Surgical History H/O cardiac catheterization H/O wisdom tooth extraction History of esophagogastroduodenoscopy (EGD) 04/25/2018. propofol/lido no issues. History of tonsillectomy and adenoidectomy S/P CABG (coronary artery bypass graft) Past Anesthesia History No Hx of Anesthesia Complications and No Family Hx of Anesthesia Complications History of PONV No Hx of PONV and No Hx of Motion Sickness Social History Smoking Status: Never smoker Hx Alcohol Use: Yes ("Charley") Alcohol type: beer and hard liquor alcohol intake frequency: holidays/special occasions only Hx Substance Use: No substance use type: does not use Physical Exam Vital Signs Last Vital Signs Temp 36.8 C 09/04/20 04:53 Pulse 68 09/04/20 07:00 Resp 17 09/04/20 07:00 BP 170/63 H 09/04/20 06:53 Pulse Ox 94 09/04/20 07:00 Testing Laboratory Results 09/04/20 05:09 09/04/20 05:09 PT 10.5 Seconds (9.0-12.0) 09/03/20 05:07 INR 1.0 (0.9-1.1) 09/03/20 05:07 APTT 24.2 Seconds (21.0-31.0) 09/03/20 05:07 Urine Color Yellow 09/02/20 02:34 Urine Appearance Clear (Clear) 09/02/20 02:34 Urine pH 5.0 (4.5-7.5) 09/02/20 02:34 Ur Specific [place] 1.020 (1.000-1.030) 09/02/20 02:34 Urine Protein Negative (Negative) 09/02/20 02:34 Urine Glucose (UA) Negative (Negative) 09/02/20 02:34 Urine Ketones Negative (Negative) 09/02/20 02:34 Urine Nitrite Negative (Negative) 09/02/20 02:34 Ur Leukocyte Esterase 2+ (Negative) H 09/02/20 02:34 Urine WBC (Auto) 10-30 /hpf (0-5) H 09/02/20 02:34 Urine RBC (Auto) 0-4 /hpf (0-4) 09/02/20 02:34 U Hyaline Cast (Auto) 0 /lpf (0-5) 09/02/20 02:34 U Epithel Cells (Auto) 10-20 /lpf (0-5) H 09/02/20 02:34 Urine Bacteria (Auto) Negative (Negative) 09/02/20 02:34 09/02/20 02:34 Urine Culture - Preliminary Urine,Clean Catch No growth - Less than 1,000 colonies/mL, Final report to follow. 09/04/20 07:20 POC Glucose 97 Electrocardiogram Date: 09/03/20 Findings: + pertinent finding (atrial sensed ,V-paced rhythm at 75 w/ prolonged AV conduction) Chest X-Ray Date: 09/04/20 Findings: + NAD and + other (left subclavian dual lead perm. pacemaker)
--- NOTE | 2020-09-04 08:39 | Gastroenterology Progress Note ---
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 He is anemic w current blood ct at baseline. His CT abd/pelvis showed signs of periduodenal stranding DDx: duodenal neoplasm vs ulcerated tumor or duodenal ulcer. Pt w bradycardia, s/p permanent pacemaker placement last evening. Hemodynamically stable. H/H stable. - Continue PPI gtt - Monitor blood ct and transfuse prn - NPO for anticipated EGD eval Admission and Anticipated Discharge Date Admission Date: September 02, 2020 Supervising Physician Co-Signing Physician Notes I have personally seen and examined the patient with YASIR Cassidy. Her note reflects my exam and findings. I agree with her impression and plan. Still having epigastric pain and nausea. Planning EGD. Johnie Ruffin M.D. Subjective Pt had permanent pacemaker placement last evening. No acute events overnight. He is c/o pain around pacer site and difficulty closing L fist. No abd pain, n/v. Review of Systems Review of Systems: All systems reviewed & are unremarkable except as noted in HPI & below Physical Exam Constitutional: WD/WN, vitals as above well groomed, cooperative and comfortable Eyes: PERRL, conjunctivae normal, anicteric sclerae ENMT: external ear and nose normal, oropharynx normal Respiratory: normal respiratory effort, lungs clear to auscultation Cardiovascular: RRR, no murmur, no edema Gastrointestinal (Abdomen): Inspection/Auscultation: + hypoactive bowel sounds Percussion/Palpation: abdomen soft; abdomen nontender Skin: no rashes, warm and dry no jaundice Psychiatric: A+Ox3, euthymic affect Lymphatic: no lymphedema Results & Data ([facility]) Vital Signs (Past 12 Hours) Vital Signs Temp Pulse Resp BP Pulse Ox 09/04/20 07:00 68 17 94 09/04/20 06:53 62 16 170/63 H 92 09/04/20 06:30 62 15 94 09/04/20 06:00 64 20 97 09/04/20 05:53 62 15 143/65 H 95 09/04/20 05:30 65 15 93 09/04/20 05:00 63 15 95 09/04/20 04:53 36.8 C 72 16 157/82 H 94 09/04/20 04:00 72 12 93 09/04/20 03:53 68 14 156/68 H 95 09/04/20 03:00 71 14 92 09/04/20 02:54 36.8 C 70 12 123/69 96 09/04/20 01:54 36.8 C 73 13 134/90 94 09/04/20 00:53 75 16 117/68 95 09/04/20 00:43 63 09/04/20 00:00 62 13 94 09/03/20 23:53 60 13 146/67 H 94 09/03/20 23:30 62 11 L 94 09/03/20 23:00 60 13 93 09/03/20 22:53 60 13 133/65 93 09/03/20 22:30 60 16 94 09/03/20 22:00 61 17 93 09/03/20 21:53 62 19 134/53 L 94 09/03/20 21:30 60 19 93 09/03/20 21:00 67 16 96 09/03/20 20:53 63 18 131/58 L 95 09/03/20 20:45 68 14 95 (1) GI bleed GI bleed type/associated pathology: unspecified gastrointestinal hemorrhage type Qualified Code(s): K92.2 - Gastrointestinal hemorrhage, unspecified (2) Abdominal pain Abdominal location: generalized Qualified Code(s): R10.84 - Generalized abdominal pain
--- NOTE | 2020-09-04 09:03 | Anesthesiology Consultation ---
Date of Service September 04, 2020 Assessment & Plan (1) Encounter for pre-operative examination: History Surgery Operation Date: 09/02/20 16:30 Proposed Procedures p Ins/RemTemporary Transvenous Pacer - David Gonzales MD Operation Date: 09/03/20 16:30 Proposed Procedures p Pacer with A/V Leads (Dual) - Ghazal Perez DO Operation Date: 09/04/20 16:30 Proposed Procedures p Esophagogastroduodenoscopy Dr Augustin Ruffin MD Operation Date: 09/04/20 16:45 Proposed Procedures p Esophagogastroduodenoscopy Dr Augustin Ruffin MD Height/Weight Height: 5 ft 9 in Weight: 78 kg Allergies Allergy/AdvReac Type Severity Reaction Status Date / Time No Known Allergies Allergy Verified 09/02/20 01:48 Medications Home Medications Medication Instructions Recorded Confirmed Last Taken aspirin 81 mg PO QAM 03/17/18 09/02/20 09/01/20 finasteride 5 mg PO QAM 03/17/18 09/02/20 09/01/20 nitroglycerin [Nitrostat] 0.4 mg SUBLINGUAL DIRECTED PRN 03/17/18 09/02/20 Unknown omega 0-rgp-pry-fish oil [Fish Oil] 1 cap PO BID 03/17/18 09/02/20 09/01/20 rosuvastatin 20 mg PO QAM 03/17/18 09/02/20 09/01/20 tamsulosin 0.4 mg PO QAM 03/17/18 09/02/20 09/01/20 carvedilol 12.5 mg PO BID 04/17/20 09/02/20 09/01/20 losartan 25 mg PO QAM 04/17/20 09/02/20 09/01/20 omeprazole 20 mg PO BID 04/17/20 09/02/20 09/01/20 capecitabine 1,500 mg PO BID 08/20/20 09/02/20 09/01/20 cholestyramine-aspartame 1 ea PO DIRECTED 08/20/20 09/02/20 09/01/20 [Cholestyramine Light] clobetasol 1 applic TOPICAL DIRECTED PRN 08/20/20 09/02/20 Unknown gabapentin 300 mg PO TID 08/20/20 09/02/20 09/01/20 levothyroxine 125 mcg PO QAM 08/20/20 09/02/20 09/01/20 multivitamin 1 tab PO QAM 08/20/20 09/02/20 09/01/20 ondansetron HCl [Zofran] 8 mg PO Q8H PRN 08/20/20 09/02/20 Unknown prochlorperazine maleate 10 mg PO Q8 PRN 08/20/20 09/02/20 Unknown vitamins A,C,Z-szss-ztxdtn 1 tab PO BID 08/20/20 09/02/20 09/01/20 [PreserVision AREDS] famotidine 20 mg PO BID PRN 09/02/20 09/02/20 Unknown olopatadine [Pataday] 1 drp OPB DAILY 09/02/20 09/02/20 09/01/20 Active Medications Generic Name Dose Route Start Last Admin Trade Name Freq PRN Reason Stop Dose Admin Acetaminophen 650 mg 09/02/20 06:40 09/04/20 07:17 Acetaminophen 325 Mg Tab PO 10/02/20 06:39 650 mg Q4H PRN Administration Pain or Fever Finasteride 5 mg 09/02/20 09:00 09/04/20 08:15 Finasteride 5 Mg Tab PO 10/02/20 08:59 5 mg QAM TALA Administration Gabapentin 300 mg 09/02/20 09:00 09/04/20 08:15 Gabapentin 300 Mg Cap PO 10/02/20 08:59 300 mg TID TALA Administration Pantoprazole Sodium 40 mg/ 100 mls @ 20 mls/hr 09/02/20 07:30 09/04/20 05:23 Dextrose IV 10/02/20 07:29 20 mls/hr Q5H TALA Administration Insulin Aspart 0 units 09/02/20 08:44 09/04/20 07:22 Insulin Aspart 100 Units/Ml 3 Ml Pen SC 10/02/20 08:43 Not Given ACHS TALA Levothyroxine Sodium 125 mcg 09/03/20 06:30 09/04/20 05:57 Levothyroxine Sodium 125 Mcg Tablet PO 10/03/20 06:29 125 mcg DAILYBB TALA Administration Losartan Potassium 25 mg 09/03/20 09:00 09/04/20 08:15 Losartan Potassium 25 Mg Tab PO 10/03/20 08:59 25 mg QAM TALA Administration Miscellaneous 1 ea 09/02/20 16:00 09/04/20 08:12 Olopatadine 0.2 % Drops ~ Order Awaiting Action NA 10/02/20 15:59 Not Given QS TALA Morphine Sulfate 2 mg 09/02/20 06:40 09/04/20 02:51 Morphine Sulfate 2 Mg/Ml Carp IV 09/16/20 06:39 2 mg Q4H PRN Administration Pain Multivitamins 1 tab 09/02/20 09:00 09/04/20 08:14 Multivitamin Tab PO 10/02/20 08:59 Not Given QAM TALA Oxycodone HCl 5 mg 09/02/20 07:24 09/04/20 05:57 Oxycodone Hcl Ir 5 Mg Tab (Immediate Release) PO 09/16/20 07:23 5 mg Q4H PRN Administration Pain Rosuvastatin Calcium 20 mg 09/02/20 09:00 09/04/20 08:15 Rosuvastatin Calcium 20 Mg Tab PO 10/02/20 08:59 20 mg QAM TALA Administration Senna/Docusate Sodium 1 tab 09/02/20 06:40 09/04/20 08:12 Docusate Sodium/Senna 50/8.6mg Tab PO 10/02/20 06:39 Not Given BID TALA Tamsulosin HCl 0.4 mg 09/02/20 09:00 09/04/20 08:15 Tamsulosin Hcl 0.4 Mg Cap PO 10/02/20 08:59 0.4 mg QAM TALA Administration NPO Date Last Intake of Fluids: 09/02/20 Time Last Intake of Fluids: 12:00 Last Intake of Fluids Comment: clear liquids for lunch Date Last Intake of Solids: 09/01/20 Last Intake of Solids Comment: prior to coming to ER Past Medical History Medical History (Updated 09/04/20 @ 09:03 by Michelle Beltrán MD) BPH (benign prostatic hyperplasia) CAD (coronary artery disease) "S/p stents 2004, 2006. CABG x 3 Jan 2017" CKD (chronic kidney disease) stage 3, GFR 30-59 ml/min Duodenitis Dyslipidemia GERD (gastroesophageal reflux disease) HTN (hypertension) Hx of pulmonary embolus Hypothyroidism Myocardial infarction Osteoarthritis Pacemaker PAF (paroxysmal atrial fibrillation) During hospitalization for Influenza, no recurrence PAF (paroxysmal atrial fibrillation) Pulmonary embolism hx of PE s/p CABG 2016 Past Family History Family History Father , secondary to foreign language instructor accident, rolled on top of him Prostate cancer Accident caused by powered foreign language instructor Mother , in mid 90s T2DM (type 2 diabetes mellitus) Past Surgical History Surgical History H/O cardiac catheterization H/O wisdom tooth extraction History of esophagogastroduodenoscopy (EGD) 04/25/2018. propofol/lido no issues. History of tonsillectomy and adenoidectomy S/P CABG (coronary artery bypass graft) Social History Smoking Status: Never smoker Hx Alcohol Use: Yes ("Charley") Alcohol type: beer and hard liquor alcohol intake frequency: holidays/special occasions only Hx Substance Use: No substance use type: does not use Physical Exam Vital Signs Last Vital Signs Temp 37 C 09/04/20 08:45 Pulse 64 09/04/20 08:17 Resp 13 09/04/20 08:17 BP 122/59 L 09/04/20 08:17 Pulse Ox 95 09/04/20 08:17 Testing Laboratory Results 09/04/20 05:09 09/04/20 05:09 PT 10.5 Seconds (9.0-12.0) 09/03/20 05:07 INR 1.0 (0.9-1.1) 09/03/20 05:07 APTT 24.2 Seconds (21.0-31.0) 09/03/20 05:07 Urine Color Yellow 09/02/20 02:34 Urine Appearance Clear (Clear) 09/02/20 02:34 Urine pH 5.0 (4.5-7.5) 09/02/20 02:34 Ur Specific [place] 1.020 (1.000-1.030) 09/02/20 02:34 Urine Protein Negative (Negative) 09/02/20 02:34 Urine Glucose (UA) Negative (Negative) 09/02/20 02:34 Urine Ketones Negative (Negative) 09/02/20 02:34 Urine Nitrite Negative (Negative) 09/02/20 02:34 Ur Leukocyte Esterase 2+ (Negative) H 09/02/20 02:34 Urine WBC (Auto) 10-30 /hpf (0-5) H 09/02/20 02:34 Urine RBC (Auto) 0-4 /hpf (0-4) 09/02/20 02:34 U Hyaline Cast (Auto) 0 /lpf (0-5) 09/02/20 02:34 U Epithel Cells (Auto) 10-20 /lpf (0-5) H 09/02/20 02:34 Urine Bacteria (Auto) Negative (Negative) 09/02/20 02:34 09/02/20 02:34 Urine Culture - Preliminary Urine,Clean Catch No growth - Less than 1,000 colonies/mL, Final report to follow. 09/04/20 07:20 POC Glucose 97 Electrocardiogram Date: 09/03/20 Findings: + pertinent finding (atrial sensed ,V-paced rhythm at 75 w/ prolonged AV conduction) Chest X-Ray Date: 09/04/20 Findings: + NAD and + other (left subclavian dual lead perm. pacemaker)
[2020-09-04] MEDS ORDERED: LIDOCAINE HCL 2% 2 ML VIAL/AMP(20MG/ML) INFIL ONE (09:50)
[2020-09-04] MEDS ORDERED: PROPOFOL IV EMULSION 10 MG/ML 20 ML VIAL IV ONE (09:50)
--- NOTE | 2020-09-04 10:03 | Hospitalist Progress Note ---
Date of Service September 04, 2020 Assessment & Plan (1) UGIB (upper gastrointestinal bleed): Secondary to ?duodenitis, hx GERD Likely recurrent/residual tumor hx ascending colon cancer status post surgery ongoing Xeloda Rx NSAID use contributory Hemoglobin slightly lower than baseline anemic level BP currently stable. IV PPI Hold home aspirin Serial H&H, transfuse PRBC if hemoglobin less than 8 and or for symptomatic anemia GI consult Re: UGI B Now s/p EGD (09/04) w/ Dr. Ruffin - Impression: Normal esophagus, normal stomach, patent previous surgical anastomosis was found in the duodenum. Mucosal abnormality versus lesion in the duodenum, biopsied. No obvious obstruction seen. Recommendation: Await pathology results. Worsening bradycardia (intermittent 2 AVB, Mobitz type I and II as per ED security monitor) (Bradycardic since 2018 on review of vital signs) Possible SSS, hx PAF as per records, not on anticoagulation secondary to GI bleed Current Coreg dose contributory, Capecitabine with bradycardia as adverse reaction in less than 5% as per UTDOL Hold Coreg, Capecitabine for now Titrate home losartan while Coreg on hold. Patient asymptomatic. Cardiology consulted S/p temporary pacemaker placement Now s/p permanent pacemaker 09/03 hx CAD status post CABG history of postop pulmonary embolism as per records hypertension, elevated hyperlipidemia on statin Rx DM2 diet-controlled, well-controlled as of recent hemoglobin A1c of 6.09 June 2020 ISS BG goal [id number] DVT prophylaxis. SCDs Re: GI bleed Full code Patient's , Ms. Jane Rangel, can be contacted at #[phone]. Admission and Anticipated Discharge Date Admission Date: September 02, 2020 Subjective Patient seen in follow-up of abdominal pain, anemia, bradycardia Patient is currently laying in bed, no acute distress permanent pacemaker placed yesterday Now s/p EGD evaluation Abdominal discomfort is persistent No recent bowel movement, but had several on admission Review of Systems Review of Systems: All systems reviewed & are unremarkable except as noted in HPI & below Constitutional: no fever and no chills Respiratory: no cough and no dyspnea Cardiovascular: no chest pain Gastrointestinal: + abdominal pain (improved); no nausea and no vomiting Physical Exam Physical Exam: GENERAL: elderly male laying in bed, in NAD HEENT: NC/AT, EOMI, PERRL, Pale palpebral conjunctivae, no ptosis NECK : Supple, no tenderness CHEST : Decreased breath sounds, no tenderness HEART : RRR, no obvious murmurs ABDOMEN: Some distention, soft, + mild central abdominal tenderness to palpation EXTREMITIES : No LE swelling/tenderness, moves extremities NEUROLOGIC : alert and oriented x3, no facial asymmetry, speech fluent, moves extremities SKIN: Pale , warm Results & Data Results & Data ([facility]) Vital Signs (Past 12 Hours) Vital Signs Temp Pulse Pulse Resp BP BP Pulse Ox 09/04/20 09:54 36.8 C 67 18 118/54 L 93 09/04/20 08:45 37 C 09/04/20 08:17 64 13 122/59 L 95 09/04/20 08:00 62 15 93 09/04/20 07:54 62 15 114/68 92 09/04/20 07:00 68 17 94 09/04/20 06:53 62 16 170/63 H 92 09/04/20 06:30 62 15 94 09/04/20 06:00 64 20 97 09/04/20 05:53 62 15 143/65 H 95 09/04/20 05:30 65 15 93 09/04/20 05:00 63 15 95 09/04/20 04:53 36.8 C 72 16 157/82 H 94 09/04/20 04:00 72 12 93 09/04/20 03:53 68 14 156/68 H 95 09/04/20 03:00 71 14 92 09/04/20 02:54 36.8 C 70 12 123/69 96 09/04/20 01:54 36.8 C 73 13 134/90 94 09/04/20 00:53 75 16 117/68 95 09/04/20 00:43 63 09/04/20 00:00 62 13 94 09/03/20 23:53 60 13 146/67 H 94 09/03/20 23:30 62 11 L 94 09/03/20 23:00 60 13 93 09/03/20 22:53 60 13 133/65 93 09/03/20 22:30 60 16 94 Laboratory Results 09/04/20 09/04/20 09/04/20 Range/Units 07:20 05:09 05:09 WBC 6.13 (4.8-10.8) K/uL RBC 3.18 L (4.7-6.1) M/uL Hgb 9.3 L (14.0-18.0) g/dL Hct 28.4 L (42-52) % MCV 89.3 (80-100) fL MCH 29.2 (25-34) pg MCHC 32.7 (32-36) g/dL RDW Std Deviation 73.3 H (36.4-46.3) fL RDW Coeff of Gabriela 22.5 H (11.5-14.5) % Plt Count 191 (130-400) K/uL MPV 9.4 (7.4-10.4) fL Sodium 140 (136-145) mmol/L Potassium 4.2 (3.5-5.1) mmol/L Chloride 110 H (98-107) mmol/L Carbon Dioxide 27 (21-32) mmol/L Anion Gap 3.0 (3-11) BUN 15 (7-18) mg/dl Creatinine 1.09 (0.6-1.4) mg/dl Est Cr Clr Drug Dosing 55.0 ml/min Est GFR ( Amer) 74.4 Est GFR (Non-Af Amer) 64.2 BUN/Creatinine Ratio 13.6 (10-20) Glucose 99 (70-99) mg/dl POC Glucose 97 (70-99) mg/dl Calcium 8.5 (8.5-10.1) mg/dl Magnesium 2.2 (1.8-2.4) mg/dl 09/03/20 09/03/20 09/03/20 Range/Units 21:15 20:11 15:22 WBC (4.8-10.8) K/uL RBC (4.7-6.1) M/uL Hgb 9.2 L (14.0-18.0) g/dL Hct 27.9 L (42-52) % MCV (80-100) fL MCH (25-34) pg MCHC (32-36) g/dL RDW Std Deviation (36.4-46.3) fL RDW Coeff of Gabriela (11.5-14.5) % Plt Count (130-400) K/uL MPV (7.4-10.4) fL Sodium (136-145) mmol/L Potassium (3.5-5.1) mmol/L Chloride (98-107) mmol/L Carbon Dioxide (21-32) mmol/L Anion Gap (3-11) BUN (7-18) mg/dl Creatinine (0.6-1.4) mg/dl Est Cr Clr Drug Dosing ml/min Est GFR ( Amer) Est GFR (Non-Af Amer) BUN/Creatinine Ratio (10-20) Glucose (70-99) mg/dl POC Glucose 97 106 H (70-99) mg/dl Calcium (8.5-10.1) mg/dl Magnesium (1.8-2.4) mg/dl 09/03/20 Range/Units 11:02 WBC (4.8-10.8) K/uL RBC (4.7-6.1) M/uL Hgb (14.0-18.0) g/dL Hct (42-52) % MCV (80-100) fL MCH (25-34) pg MCHC (32-36) g/dL RDW Std Deviation (36.4-46.3) fL RDW Coeff of Gabriela (11.5-14.5) % Plt Count (130-400) K/uL MPV (7.4-10.4) fL Sodium (136-145) mmol/L Potassium (3.5-5.1) mmol/L Chloride (98-107) mmol/L Carbon Dioxide (21-32) mmol/L Anion Gap (3-11) BUN (7-18) mg/dl Creatinine (0.6-1.4) mg/dl Est Cr Clr Drug Dosing ml/min Est GFR ( Amer) Est GFR (Non-Af Amer) BUN/Creatinine Ratio (10-20) Glucose (70-99) mg/dl POC Glucose 145 H (70-99) mg/dl Calcium (8.5-10.1) mg/dl Magnesium (1.8-2.4) mg/dl Medications Administered Current Inpatient Medications Acetaminophen (Acetaminophen 325 Mg Tab) 650 mg PO Q4H PRN PRN Reason: Pain or Fever Stop: 10/02/20 06:39 Last Admin: 09/04/20 07:17 Dose: 650 mg Documented by: Atropine Sulfate (Atropine Sulfate 0.1 Mg/Ml 5ml Syr) 0.5 mg IV Q3M PRN PRN Reason: symptomatic bradycardia Stop: 10/02/20 06:39 Dextrose (Dextrose 50% 50 Ml Syringe) 25 - 50 ml IV UD PRN; Protocol PRN Reason: Hypoglycemia Protocol Stop: 10/02/20 08:43 Finasteride (Finasteride 5 Mg Tab) 5 mg PO QAM [facility] Stop: 10/02/20 08:59 Last Admin: 09/04/20 08:15 Dose: 5 mg Documented by: Gabapentin (Gabapentin 300 Mg Cap) 300 mg PO TID [facility] Stop: 10/02/20 08:59 Last Admin: 09/04/20 08:15 Dose: 300 mg Documented by: Glucagon (Glucagon For Inj 1 Mg Vial) 1 mg SQ UD PRN; Protocol PRN Reason: Hypoglycemia Protocol Stop: 10/02/20 08:43 Glucose (Glucose 10 Tabs/Tube) 4 - 8 tabs PO UD PRN; Protocol PRN Reason: Hypoglycemia Protocol Stop: 10/02/20 08:43 Glucose (Glucose 40% Gel 15 Gm Tube) 15 - 30 gm PO UD PRN; Protocol PRN Reason: Hypoglycemia Protocol Stop: 10/02/20 08:43 Pantoprazole Sodium 40 mg/ (Dextrose) 100 mls @ 20 mls/hr IV Q5H [facility] Stop: 10/02/20 07:29 Last Admin: 09/04/20 05:23 Dose: 20 mls/hr Documented by: Promethazine HCl 12.5 mg/ (Sodium Chloride) 50.5 mls @ 202 mls/hr IV Q6H PRN PRN Reason: Nausea And Vomiting Stop: 10/02/20 06:39 Insulin Aspart (Insulin Aspart 100 Units/Ml 3 Ml Pen) 0 units SC ACHS [facility] Stop: 10/02/20 08:43 Last Admin: 09/04/20 07:22 Dose: Not Given Documented by: Levothyroxine Sodium (Levothyroxine Sodium 125 Mcg Tablet) 125 mcg PO DAILYBB [facility] Stop: 10/03/20 06:29 Last Admin: 09/04/20 05:57 Dose: 125 mcg Documented by: Losartan Potassium (Losartan Potassium 25 Mg Tab) 25 mg PO QAM [facility] Stop: 10/03/20 08:59 Last Admin: 09/04/20 08:15 Dose: 25 mg Documented by: Miscellaneous (Carbohydrates For Hypoglycemia ) 15 - 30 gm PO UD PRN PRN Reason: Hypoglycemia Protocol Stop: 10/02/20 08:43 Miscellaneous (Olopatadine 0.2 % Drops ~ Order Awaiting Action) 1 ea NA QS [facility] Stop: 10/02/20 15:59 Last Admin: 09/04/20 08:12 Dose: Not Given Documented by: Morphine Sulfate (Morphine Sulfate 2 Mg/Ml Carp) 2 mg IV Q4H PRN PRN Reason: Pain Stop: 09/16/20 06:39 Last Admin: 09/04/20 02:51 Dose: 2 mg Documented by: Multivitamins (Multivitamin Tab) 1 tab PO QAM [facility] Stop: 10/02/20 08:59 Last Admin: 09/04/20 08:14 Dose: Not Given Documented by: Oxycodone HCl (Oxycodone Hcl Ir 5 Mg Tab (Immediate Release)) 5 mg PO Q4H PRN PRN Reason: Pain Stop: 09/16/20 07:23 Last Admin: 09/04/20 05:57 Dose: 5 mg Documented by: Polyethylene Glycol (Polyethylene (Miralax) 17 Gm Pack) 17 gm PO DAILY PRN PRN Reason: Constipation Stop: 10/02/20 06:39 Rosuvastatin Calcium (Rosuvastatin Calcium 20 Mg Tab) 20 mg PO QAM [facility] Stop: 10/02/20 08:59 Last Admin: 09/04/20 08:15 Dose: 20 mg Documented by: Senna/Docusate Sodium (Docusate Sodium/Senna 50/8.6mg Tab) 1 tab PO BID [facility] Stop: 10/02/20 06:39 Last Admin: 09/04/20 08:12 Dose: Not Given Documented by: Tamsulosin HCl (Tamsulosin Hcl 0.4 Mg Cap) 0.4 mg PO QAM [facility] Stop: 10/02/20 08:59 Last Admin: 09/04/20 08:15 Dose: 0.4 mg Documented by:
--- NOTE | 2020-09-04 10:43 | GI REPORT ---
Patient Name: Jason Rangel Procedure Date: 09/04/2020 10:04 AM Date of : 1940 Admit Type: Inpatient Age: 80 Gender: Male Attending MD: Johnie Ruffin MD Procedure: Upper GI endoscopy Providers: Johnie Ruffin MD Referring MD: Mikel Vinson Md Indications: Epigastric abdominal pain, Abnormal CT of the GI tract, Nausea Medicines: See the Anesthesia note for documentation of the administered medications Complications: No immediate complications. Estimated Blood Loss: Estimated blood loss was minimal. Procedure: Pre-Anesthesia Assessment: - Prior to the procedure, a History and Physical was performed, and patient medications, allergies and sensitivities were reviewed. The patient's tolerance of previous anesthesia was reviewed. - The risks and benefits of the procedure and the sedation options and risks were discussed with the patient. All questions were answered and informed consent was obtained. - Patient identification and proposed procedure were verified prior to the procedure by the physician and the nurse. The procedure was verified in the pre-procedure area. - Pre-procedure physical examination revealed no contraindications to sedation. - After reviewing the risks and benefits, the patient was deemed in satisfactory condition to undergo the procedure. After obtaining informed consent, the endoscope was passed under direct vision. Throughout the procedure, the patient's blood pressure, pulse, and oxygen saturations were monitored continuously. The Endoscope was introduced through the mouth, and advanced to the third part of duodenum. The upper GI endoscopy was accomplished without difficulty. The patient tolerated the procedure well. Findings: The esophagus was normal. The stomach was normal. There was evidence of a patent previous surgical anastomosis in the second portion of the duodenum. Mucosal changes characterized by nodularity and scant bleeding were found in the second portion of the duodenum near anastomosis. Biopsies were taken with a cold forceps for histology. Verification of patient identification for the specimen was done by the physician and nurse using the patient's name and medical record number. Estimated blood loss was minimal. The cardia and gastric fundus were normal on retroflexion. Impression: - Normal esophagus. - Normal stomach. - Patent previous surgical anastomosis was found in the duodenum. - Mucosal abnormality vs lesion in the duodenum. Biopsied. - No obvious obstruction seen. Recommendation: - Await pathology results. - Return patient to [facility] for ongoing care. Johnie Ruffin M.D. Johnie Ruffin MD 09/04/2020 10:42:54 AM This report has been signed electronically. Note Initiated On: 09/04/2020 10:04 AM Number of Addenda: 0 I attest to the content of the Intraoperative Record and orders documented therein, exceptions below {[id number]}
--- NOTE | 2020-09-04 11:53 | Operative Report (OR) ---
DATE OF OPERATION: 09/03/2020 PREOPERATIVE DIAGNOSIS: Intermittent complete heart block. POSTOPERATIVE DIAGNOSIS: Intermittent complete heart block. PROCEDURE: Dual chamber rate responsive permanent pacemaker under fluoroscopic guidance along with a transvenous pacemaker removal. SURGEON: Ghazal Perez DO. ASSISTANTS: None. ANESTHESIA: Monitored conscious sedation administered under my supervision by Xena Hughes. Start time 1739, end time 1832. Total of 3 mg of Versed and 75 mcg of fentanyl. INTRAVENOUS FLUIDS: 50 mL. ANTIBIOTICS: Two grams of Ancef. BLOOD LOSS: 20 mL. URINE OUTPUT: Not applicable. SPECIMENS: None. FINDINGS: See below. CONTRAST: 20 mL. INDICATIONS: This is a 80-year-old gentleman with a past medical history of paroxysmal atrial fibrillation and possible lone episode during an acute influenza-like illness, chronic kidney disease stage III, coronary artery disease with a history of a CABG as well as PCIs in the past, hypertension, duodenitis, he post-CABG had a PE and was on Coumadin for a long, in 2017, no longer on Coumadin due to history of GI bleed, gastroesophageal reflux disease, BPH and OA. He was admitted to [facility] secondary to significant abdominal pain, nausea and vomiting. He was found also be anemic, suspected to have a GI bleed, but at the same time he was also found to be having intermittent complete heart block, so a transvenous pacer was placed and he was recommended a pacemaker prior to discharge. CONSENT: Consent was obtained prior to the patient going into electrophysiology lab. The patient was informed of the risks, benefits and alternative procedure. Risks include but not limited to sudden cardiac , cardiac arrhythmias, cerebrovascular accident, myocardial infarction, injury to the blood vessels, chamber of the heart, lung, bleeding, and infection. The patient understood these risks and agreed with procedure as planned. Informed consent was obtained. DESCRIPTION OF THE PROCEDURE: The patient was brought into the electrophysiology lab in a fasting state. He was connected to continuous surveillance monitor. Timeout was performed to ensure patient identity and procedure correctly. He was prepped and draped over the left infraclavicular space in normal surgical standard fashion. Monitored conscious sedation was given throughout the procedure for patient's comfort level. [place] precautions maintained throughout the procedure. 10 mL of 1% lidocaine, bupivacaine mixture were given in the left deltopectoral groove. Incision was made in left deltopectoral groove. Blunt dissection was performed down to identify cephalic vein. Cephalic vein was identified and isolated using 0 silk ties. The vein was nicked with 11 blade and a guidewire was inserted without any resistance. An 8-Botswanan sheath was then inserted through the guidewire without any resistance. Dilator was removed and a second guidewire was inserted through the sheath to allow for retained venous access. Sheath was removed, flushed over the dilator and then reinserted over one of the guidewires. Guidewire and dilator removed. The right ventricular lead was advanced into right ventricle and positioned in intraventricular apex under fluoroscopic guidance. I did have to reposition it one time. There was adequate pacing and sensing thresholds and no diaphragmatic stimulation with high output pacing. An 8-B[place]wanan sheath was peeled away and lead was fixated to pectoralis muscle using 0 silk suture. A second 8-[place] sheath was advanced through the retained guidewire without any resistance. Guidewire and dilator removed. The right atrial lead was then advanced into right atrium and positioned interatrial appendage under fluoroscopic guidance. There was adequate pacing and sensing thresholds and no diaphragmatic stimulation with high output pacing. An 8-[place]wan[place] sheath was peeled away and lead was fixated to pectoralis muscle using 0 silk suture. A pacemaker pocket was created using blunt dissection over the pectoralis muscle within the pectoralis fascia. The pocket was flushed with copious amounts of bacitracin saline wash and inspected for hemostasis. Pulse generator was then attached to leads making sure the pins were in appropriate position, passed set screws, and set screws were all tightened. Pulse generator was then placed in an antibiotic pouch followed then by being placed in the pocket, making sure the leads were lying flat beneath the device. Incision was closed in a 3-layer fashion using 2-0 Vicryl interrupted suture followed by 3-0 Vicryl suture, followed by 4-0 Monocryl running stitch and Dermabond was applied. The transvenous pacing lead was removed from the body under fluoroscopic guidance. EQUIPMENT: 1. Pulse generator is a Medtronic Shereen XT DR MYRIAM Tillman [id number], serial number [id number]. 2. Tyrx pouch reference [id number], lot number [id number]. 3. Right atrial lead Medtronic 5076-52 cm, serial number [id number]. 4. Right ventricular lead, Medtronic 5076-58 cm, serial number [id number]. INTRAOPERATIVE TESTIN. Right atrial lead: P waves 1.6 millivolts, impedance 380 ohms, threshold 1.6 volts at 0.4 milliseconds. 2. Right ventricular lead: R waves 9.1 millivolts, impedance 1026 ohms, threshold 1.1 volt at 0.4 milliseconds. FINAL PARAMETERS THROUGH THE DEVICE: 1. Right atrial lead: P waves 1.4 millivolts, impedance 361 ohms, threshold 0.7 volts at 0.4 milliseconds. 2. Right ventricular lead: R waves 8.4 millivolts, impedance 1064 ohms, threshold 0.5 volts at 0.4 milliseconds. FINAL PARAMETERS: MVP-R 60/130, right atrial amplitude 3.5 volts, pulse width 0.4 milliseconds, sensitivity 0.3 millivolts. Right ventricular amplitude 3.5 volts, pulse width 0.4 milliseconds, sensitivity 1.2 millivolts. IMPRESSION: Successful implantation of a dual chamber rate responsive permanent pacemaker under fluoroscopic guidance along with transvenous pacemaker removal secondary to intermittent complete heart block. PLAN: Monitor patient overnight. Chest x-ray in the morning. EKG now. He is not allowed to lift left elbow or left shoulder for 1 month. He cannot lift more than 10 pounds with the left arm for 2 weeks. He is to keep the dressing on and dry until his wound check next week. I attest to the content of the Intraoperative Record and any orders documented therein. Any exception s are noted below.
--- NOTE | 2020-09-04 12:17 | Anesthesiology Progress Note ---
Date of Service September 04, 2020 Anesthesia Post Procedure Vital Signs Vital Signs: Temp Pulse Pulse Resp BP BP Pulse Ox 09/04/20 11:34 63 20 107/50 L 91 09/04/20 11:20 67 20 97 09/04/20 11:08 24 91 09/04/20 10:51 55 L 18 108/58 L 95 09/04/20 10:38 60 18 119/59 L 97 09/04/20 10:23 63 18 113/53 L 96 09/04/20 09:54 36.8 C 67 18 118/54 L 93 09/04/20 09:00 60 17 93 09/04/20 08:53 60 19 118/62 95 09/04/20 08:45 37 C 09/04/20 08:17 64 13 122/59 L 95 09/04/20 08:00 62 15 93 09/04/20 07:54 62 15 114/68 92 09/04/20 07:00 68 17 94 09/04/20 06:53 62 16 170/63 H 92 09/04/20 06:30 62 15 94 09/04/20 06:00 64 20 97 09/04/20 05:53 62 15 143/65 H 95 09/04/20 05:30 65 15 93 09/04/20 05:00 63 15 95 09/04/20 04:53 36.8 C 72 16 157/82 H 94 09/04/20 04:00 72 12 93 09/04/20 03:53 68 14 156/68 H 95 09/04/20 03:00 71 14 92 09/04/20 02:54 36.8 C 70 12 123/69 96 09/04/20 01:54 36.8 C 73 13 134/90 94 09/04/20 00:53 75 16 117/68 95 09/04/20 00:43 63 09/04/20 00:00 62 13 94 09/03/20 23:53 60 13 146/67 H 94 09/03/20 23:30 62 11 L 94 09/03/20 23:00 60 13 93 09/03/20 22:53 60 13 133/65 93 09/03/20 22:30 60 16 94 09/03/20 22:00 61 17 93 09/03/20 21:53 62 19 134/53 L 94 09/03/20 21:30 60 19 93 09/03/20 21:00 67 16 96 09/03/20 20:53 63 18 131/58 L 95 09/03/20 20:45 68 14 95 09/03/20 20:30 72 15 96 09/03/20 20:23 76 14 147/63 H 95 09/03/20 20:15 68 16 96 09/03/20 20:00 74 17 96 09/03/20 19:53 71 14 133/69 96 09/03/20 19:45 70 16 97 09/03/20 19:30 71 18 97 09/03/20 19:23 72 15 132/84 94 09/03/20 19:15 73 16 93 09/03/20 19:00 73 15 92 09/03/20 18:53 36.8 C 75 17 117/67 95 09/03/20 18:51 68 13 09/03/20 16:49 64 20 158/76 H 97 09/03/20 16:31 64 11 L 153/70 H 95 09/03/20 16:00 65 14 95 09/03/20 15:31 60 16 141/67 H 97 09/03/20 15:29 36.7 C 09/03/20 15:00 64 13 94 09/03/20 14:31 60 17 137/69 91 09/03/20 14:00 61 16 94 09/03/20 13:40 61 15 95 09/03/20 13:30 60 141/87 H 93 09/03/20 13:20 63 19 94 09/03/20 13:00 60 15 93 09/03/20 12:31 60 20 110/60 95 Pain Intensity Abdomen: Pain Intensity: 4 Transfer of Care Handoff Completed per policy Notes Mental Status: alert / awake / arousable and participated in evaluation Patient Amnestic to Procedure: Yes Nausea / Vomiting: adequately controlled Pain: adequately controlled Airway Patency, RR, SpO2: stable & adequate BP & HR: stable & adequate Hydration State: stable & adequate Anesthetic Complications: no major complications apparent and Pt Satisfied with anesthetic care
--- NOTE | 2020-09-04 13:04 | Cardiology Progress Note ---
Date of Service September 04, 2020 Assessment & Plan (1) Bradycardia: (2) UGIB (upper gastrointestinal bleed): (3) Abdominal pain: (4) Duodenitis: (5) PAF (paroxysmal atrial fibrillation): (6) CKD (chronic kidney disease) stage 3, GFR 30-59 ml/min: (7) CAD (coronary artery disease): (8) HTN (hypertension): Status post successful dual-chamber permanent pacemaker placement. We will continue to hold beta-german at this time due to relative hypotension and bradycardia. No further cardiac testing intervention is necessary from a cardiac standpoint. Okay to DC telemetry from a cardiac standpoint. My office will arrange outpatient follow-up upon discharge. Admission and Anticipated Discharge Date Admission Date: September 02, 2020 Subjective Patient seen and examined, chart reviewed. Underwent successful dual-chamber permanent pacemaker last evening. Some discomfort at the pocket site but otherwise feeling well. No abdominal pain but has not eaten yet today. Continues to deny cardiac complaints of chest pain, shortness of breath, palpitations, lightheadedness, dizziness or syncope. Telemetry reviewed: Atrially paced rhythm. Review of Systems Review of Systems: All systems reviewed & are unremarkable except as noted in HPI & below Physical Exam Physical Exam: General: Awake, alert and oriented x 3. No acute distress. HEENT: Normocephalic, atraumatic. Pupils equal, round and reactive to light and accommodation. Extraocular muscles are intact. Anicteric sclera. Moist mucous membranes. Neck: No JVD. No bruit. Cardiovascular: Regular. Positive S-4. Normal S-1 and S-2. No S-3. No murmurs or rubs. Pulmonary: Clear to auscultation B/L. No rales, rhonchi or wheezing Abdomen: Bowel sounds x 4, soft. No rebound, guarding or tenderness. No organomegaly. Extremities: No clubbing, cyanosis or edema. +2 pedal pulses bilaterally. Skin: Warm and dry. Results & Data ([facility] [place]) Vital Signs (Past 12 Hours) Vital Signs Temp Pulse Pulse Resp BP BP Pulse Ox 09/04/20 11:34 63 20 107/50 L 91 09/04/20 11:20 67 20 97 09/04/20 11:08 24 91 09/04/20 10:51 55 L 18 108/58 L 95 09/04/20 10:38 60 18 119/59 L 97 09/04/20 10:23 63 18 113/53 L 96 09/04/20 09:54 36.8 C 67 18 118/54 L 93 09/04/20 09:00 60 17 93 09/04/20 08:53 60 19 118/62 95 09/04/20 08:45 37 C 09/04/20 08:17 64 13 122/59 L 95 09/04/20 08:00 62 15 93 09/04/20 07:54 62 15 114/68 92 09/04/20 07:00 68 17 94 09/04/20 06:53 62 16 170/63 H 92 09/04/20 06:30 62 15 94 09/04/20 06:00 64 20 97 09/04/20 05:53 62 15 143/65 H 95 09/04/20 05:30 65 15 93 09/04/20 05:00 63 15 95 09/04/20 04:53 36.8 C 72 16 157/82 H 94 09/04/20 04:00 72 12 93 09/04/20 03:53 68 14 156/68 H 95 09/04/20 03:00 71 14 92 09/04/20 02:54 36.8 C 70 12 123/69 96 09/04/20 01:54 36.8 C 73 13 134/90 94 (1) Abdominal pain Abdominal location: generalized Qualified Code(s): R10.84 - Generalized abdominal pain
[2020-09-04] MEDS ORDERED: DICYCLOMINE HCL 10 MG CAP PO PRN (14:26)
--- NOTE | 2020-09-04 14:55 | Critical Care Progress Note ---
Date of Service September 04, 2020 Assessment & Plan (1) Bradycardia: 80-year-old male with a past medical history of colon cancer, bradycardia, coronary artery disease, paroxysmal atrial fibrillation, pulmonary embolism and CKD stage III presenting due to abdominal pain and findings of duodenitis. Patient is status post EGD and pacemaker placement. Mucosal changes were noted on the EGD near the anastomosis site. Biopsies were obtained. GI will follow up with the patient. Appreciate cardiology follow-up. Okay to transfer to floor. Holding beta-german due to hypotension as per cardiology. (2) Hx of right hemicolectomy: (3) UGIB (upper gastrointestinal bleed): (4) Duodenitis: Admission and Anticipated Discharge Date Admission Date: September 02, 2020 Subjective Patient seen and examined this afternoon. Resting comfortably after undergoing EGD. No significant issues overnight. Review of Systems Review of Systems: All systems reviewed & are unremarkable except as noted in HPI & below Physical Exam Constitutional: WD/WN, vitals as above Respiratory: normal respiratory effort, lungs clear to auscultation Cardiovascular: RRR, no murmur, no edema Gastrointestinal (Abdomen): Inspection/Auscultation: abdomen normal to inspection; no abdominal edema Percussion/Palpation: + abdomen tender and abdomen soft Musculoskeletal: no cyanosis or clubbing, extremities motor strength 5/5 Skin: no rashes, warm and dry Neurologic: PERRL, EOMI, accommodation nl, no face palsy, no dysarthria Psychiatric: A+Ox3, euthymic affect Results & Data Results & Data ([facility]) Vital Signs (Past 12 Hours) Vital Signs Temp Pulse Pulse Resp BP BP Pulse Ox 09/04/20 11:34 63 20 107/50 L 91 09/04/20 11:20 67 20 97 09/04/20 11:08 24 91 09/04/20 10:51 55 L 18 108/58 L 95 09/04/20 10:38 60 18 119/59 L 97 09/04/20 10:23 63 18 113/53 L 96 09/04/20 09:54 98.2 F 67 18 118/54 L 93 09/04/20 09:00 60 17 93 09/04/20 08:53 60 19 118/62 95 09/04/20 08:45 98.6 F 09/04/20 08:17 64 13 122/59 L 95 09/04/20 08:00 62 15 93 09/04/20 07:54 62 15 114/68 92 09/04/20 07:00 68 17 94 09/04/20 06:53 62 16 170/63 H 92 09/04/20 06:30 62 15 94 09/04/20 06:00 64 20 97 09/04/20 05:53 62 15 143/65 H 95 09/04/20 05:30 65 15 93 09/04/20 05:00 63 15 95 09/04/20 04:53 98.2 F 72 16 157/82 H 94 09/04/20 04:00 72 12 93 09/04/20 03:53 68 14 156/68 H 95 09/04/20 03:00 71 14 92 09/04/20 02:54 98.2 F 70 12 123/69 96 Vital signs, labs and imaging reviewed Coding Level of Care Code 31416 Subseq Hosp Care Lvl 2 Diagnoses Bradycardia R00.1 Hx of right hemicolectomy Z90.49 UGIB (upper gastrointestinal bleed) K92.2 Duodenitis K29.80
--- NOTE | 2020-09-04 20:11 | Electrocardiogram Report ---
Test Reason : Blood Pressure : / mmHG Vent. Rate : 075 BPM Atrial Rate : 075 BPM P-R Int : 228 ms QRS Dur : 186 ms QT Int : 472 ms P-R-T Axes : 044 -65 086 degrees QTc Int : 527 ms Atrial-sensed ventricular-paced rhythm with prolonged AV conduction Abnormal ECG When compared with ECG of 02-SEP-2020 13:18, Ventricular pacing is now present Vent. rate has increased BY 40 BPM Confirmed by Blade Allen ([id number]) on 09/04/2020 8:11:08 PM Referred By: REFERRED SELF Confirmed By:Blade Allen
[2020-09-04] MEDS: PANTOprazole 40 MG in SYRINGE 0 ML IV SCH (20:13)
[2020-09-05] MEDS: oxyCODONE HCL IR 5 MG TAB (IMMEDIATE RELEASE) PO PRN ×3 (03:36→22:47)
[2020-09-05] MEDS: ACETAMINOPHEN 325 MG TAB PO PRN ×3 (05:52→23:31)
[2020-09-05] MEDS: LEVOTHYROXINE SODIUM 125 MCG TABLET PO SCH (05:52)
[2020-09-05 06:27] LABS: Hematocrit (blood only) 28.5 % (42-52); Hemoglobin 9.2 g/dL (14.0-18.0); Mean Corpuscular Hemoglobin 29.2 pg (25-34); Mean Corpuscular Hgb Conc 32.3 g/dL (32-36); Mean Corpuscular Volume 90.5 fL (80-100); Mean Platelet Volume 9.5 fL (7.4-10.4); Platelet Count 169 K/uL (130-400); RDW Coefficient of Variation 22.5 % (11.5-14.5); RDW Standard Deviation 73.7 fL (36.4-46.3); Red Blood Count 3.15 M/uL (4.7-6.1); White Blood Count 5.01 K/uL (4.8-10.8)
[2020-09-05 07:03] LABS: BUN Creatinine Ratio 14.5 (10-20); Calcium 8.8 mg/dl (8.5-10.1); Creatinine Clr Calc Pharmacy 55.5 ml/min; Est GFR (African American) 75.3; Est GFR (Non-African American) 64.9
[2020-09-05] MEDS: ROSUVASTATIN CALCIUM 20 MG TAB PO SCH (08:24)
[2020-09-05] MEDS: MULTIVITAMIN TAB PO SCH (08:24)
[2020-09-05] MEDS: LOSARTAN POTASSIUM 25 MG TAB PO SCH (08:24)
[2020-09-05] MEDS: TAMSULOSIN HCL 0.4 MG CAP PO SCH (08:24)
[2020-09-05] MEDS: FINASTERIDE 5 MG TAB PO SCH (08:25)
[2020-09-05] MEDS: DOCUSATE SODIUM/SENNA 50/8.6MG TAB PO SCH ×2 (08:25→21:14)
[2020-09-05] MEDS: INSULIN ASPART 100 UNITS/ML 3 ML PEN SC SCH ×4 (08:26→21:22)
[2020-09-05] MEDS: GABAPENTIN 300 MG CAP PO SCH ×3 (08:26→21:14)
[2020-09-05] MEDS: PANTOprazole 40 MG in SYRINGE 0 ML IV SCH (08:26)
--- NOTE | 2020-09-05 08:38 | Hospitalist Progress Note ---
Date of Service September 05, 2020 Assessment & Plan (1) UGIB (upper gastrointestinal bleed): Secondary to ?duodenitis, hx GERD Likely recurrent/residual tumor hx ascending colon cancer status post surgery ongoing Xeloda Rx NSAID use contributory Hemoglobin slightly lower than baseline anemic level BP currently stable. IV PPI initially Hold home aspirin Serial H&H, transfuse PRBC if hemoglobin less than 8 and or for symptomatic anemia GI consult Re: UGI B Hgb stable, now Hgb 9.2 Now s/p EGD (09/04) w/ Dr. Ruffin - Impression: Normal esophagus, normal stomach, patent previous surgical anastomosis was found in the duodenum. Mucosal abnormality versus lesion in the duodenum, biopsied. No obvious obstruction seen. Recommendation: Await pathology results. Started on dicyclomine by GI Also recommend to continue Protonix p.o. twice daily Worsening bradycardia (intermittent 2 AVB, Mobitz type I and II as per ED court monitor) (Bradycardic since 2018 on review of vital signs) Possible SSS, hx PAF as per records, not on anticoagulation secondary to GI bleed Current Coreg dose contributory, Capecitabine with bradycardia as adverse reaction in less than 5% as per UTDOL Hold Coreg, Capecitabine for now Titrate home losartan while Coreg on hold. Patient asymptomatic. Cardiology consulted S/p temporary pacemaker placement Now s/p permanent pacemaker 09/03 BP not elevated, restarted Coreg by cardiology Patient will need cardiology follow-up after discharge from hospital hx CAD status post CABG history of postop pulmonary embolism as per records hypertension, elevated , restarted Coreg hyperlipidemia on statin Rx DM2 diet-controlled, well-controlled as of recent hemoglobin A1c of 6.09 June 2020 ISS BG goal [id number] DVT prophylaxis. SCDs Re: GI bleed Full code Patient's , Ms. Jane Rangel, can be contacted at #[phone]. Admission and Anticipated Discharge Date Admission Date: September 02, 2020 Subjective Patient seen in follow-up of abdominal pain, anemia, bradycardia Patient is currently sitting up in bed, in no acute distress permanent pacemaker placed also now s/p EGD evaluation Abdominal discomfort much improved today. Pt's diet was advanced, seen by GI GI updated pt's over the phone Review of Systems Review of Systems: All systems reviewed & are unremarkable except as noted in HPI & below Constitutional: no fever and no chills Respiratory: no cough and no dyspnea Cardiovascular: no chest pain and no palpitations Gastrointestinal: + abdominal pain (improved); no nausea and no vomiting Physical Exam Physical Exam: GENERAL: elderly male sitting up in bed, in NAD HEENT: NC/AT, EOMI, PERRL NECK : Supple, no tenderness CHEST : CTAB no wheezing, rhonchi, crackles , pacemaker site clean dry, intact (pt is wearing a sling) HEART : RRR, no obvious murmurs ABDOMEN: Some distention, soft, + minimal central abdominal tenderness to pal pation EXTREMITIES : No LE swelling/tenderness, moves extremities NEUROLOGIC : alert and oriented x3, no facial asymmetry, speech fluent, moves extremities SKIN: Pale , warm Results & Data Results & Data ([facility]) Vital Signs (Past 12 Hours) Vital Signs Temp Pulse Resp BP BP Pulse Ox 09/05/20 03:08 36.6 C 55 L 18 125/61 95 09/04/20 23:21 36.7 C 66 20 169/89 H 96 Laboratory Results 09/05/20 09/05/20 09/05/20 Range/Units 07:20 05:59 05:59 WBC 5.01 (4.8-10.8) K/uL RBC 3.15 L (4.7-6.1) M/uL Hgb 9.2 L (14.0-18.0) g/dL Hct 28.5 L (42-52) % MCV 90.5 (80-100) fL MCH 29.2 (25-34) pg MCHC 32.3 (32-36) g/dL RDW Std Deviation 73.7 H (36.4-46.3) fL RDW Coeff of Gabriela 22.5 H (11.5-14.5) % Plt Count 169 (130-400) K/uL MPV 9.5 (7.4-10.4) fL Sodium 139 (136-145) mmol/L Potassium 4.0 (3.5-5.1) mmol/L Chloride 108 H (98-107) mmol/L Carbon Dioxide 25 (21-32) mmol/L Anion Gap 6.0 (3-11) BUN 16 (7-18) mg/dl Creatinine 1.08 (0.6-1.4) mg/dl Est Cr Clr Drug Dosing 55.5 ml/min Est GFR ( Amer) 75.3 Est GFR (Non-Af Amer) 64.9 BUN/Creatinine Ratio 14.5 (10-20) Glucose 80 (70-99) mg/dl POC Glucose 101 H (70-99) mg/dl Calcium 8.8 (8.5-10.1) mg/dl 09/04/20 09/04/20 09/04/20 Range/Units 21:30 15:41 11:16 WBC (4.8-10.8) K/uL RBC (4.7-6.1) M/uL Hgb (14.0-18.0) g/dL Hct (42-52) % MCV (80-100) fL MCH (25-34) pg MCHC (32-36) g/dL RDW Std Deviation (36.4-46.3) fL RDW Coeff of Gabriela (11.5-14.5) % Plt Count (130-400) K/uL MPV (7.4-10.4) fL Sodium (136-145) mmol/L Potassium (3.5-5.1) mmol/L Chloride (98-107) mmol/L Carbon Dioxide (21-32) mmol/L Anion Gap (3-11) BUN (7-18) mg/dl Creatinine (0.6-1.4) mg/dl Est Cr Clr Drug Dosing ml/min Est GFR ( Amer) Est GFR (Non-Af Amer) BUN/Creatinine Ratio (10-20) Glucose (70-99) mg/dl POC Glucose 93 100 H 106 H (70-99) mg/dl Calcium (8.5-10.1) mg/dl Medications Administered Current Inpatient Medications Acetaminophen (Acetaminophen 325 Mg Tab) 650 mg PO Q4H PRN PRN Reason: Pain or Fever Stop: 10/02/20 06:39 Last Admin: 09/05/20 05:52 Dose: 650 mg Documented by: Dextrose (Dextrose 50% 50 Ml Syringe) 25 - 50 ml IV UD PRN; Protocol PRN Reason: Hypoglycemia Protocol Stop: 10/02/20 08:43 Dicyclomine HCl (Dicyclomine Hcl 10 Mg Cap) 10 mg PO BID PRN PRN Reason: abdominal pain Last Admin: 09/04/20 17:14 Dose: 10 mg Documented by: Finasteride (Finasteride 5 Mg Tab) 5 mg PO QAM [facility] Stop: 10/02/20 08:59 Last Admin: 09/05/20 08:25 Dose: 5 mg Documented by: Gabapentin (Gabapentin 300 Mg Cap) 300 mg PO TID TALA Stop: 10/02/20 08:59 Last Admin: 09/05/20 08:26 Dose: 300 mg Documented by: Glucagon (Glucagon For Inj 1 Mg Vial) 1 mg SQ UD PRN; Protocol PRN Reason: Hypoglycemia Protocol Stop: 10/02/20 08:43 Glucose (Glucose 10 Tabs/Tube) 4 - 8 tabs PO UD PRN; Protocol PRN Reason: Hypoglycemia Protocol Stop: 10/02/20 08:43 Glucose (Glucose 40% Gel 15 Gm Tube) 15 - 30 gm PO UD PRN; Protocol PRN Reason: Hypoglycemia Protocol Stop: 10/02/20 08:43 Promethazine HCl 12.5 mg/ (Sodium Chloride) 50.5 mls @ 202 mls/hr IV Q6H PRN PRN Reason: Nausea And Vomiting Stop: 10/02/20 06:39 Pantoprazole Sodium 40 mg/ (Syringe) 10 mls @ 5 mls/min IV BID [facility] Stop: 10/04/20 20:59 Last Admin: 09/05/20 08:26 Dose: 5 mls/min Documented by: Insulin Aspart (Insulin Aspart 100 Units/Ml 3 Ml Pen) 0 units SC ACHS [facility] Stop: 10/02/20 08:43 Last Admin: 09/05/20 08:26 Dose: Not Given Documented by: Levothyroxine Sodium (Levothyroxine Sodium 125 Mcg Tablet) 125 mcg PO DAILYBB [facility] Stop: 10/03/20 06:29 Last Admin: 09/05/20 05:52 Dose: 125 mcg Documented by: Losartan Potassium (Losartan Potassium 25 Mg Tab) 25 mg PO QAM [facility] Stop: 10/03/20 08:59 Last Admin: 09/05/20 08:24 Dose: 25 mg Documented by: Miscellaneous (Carbohydrates For Hypoglycemia ) 15 - 30 gm PO UD PRN PRN Reason: Hypoglycemia Protocol Stop: 10/02/20 08:43 Miscellaneous (Olopatadine 0.2 % Drops ~ Order Awaiting Action) 1 ea NA QS [facility] Stop: 10/02/20 15:59 Last Admin: 09/04/20 23:05 Dose: Not Given Documented by: Morphine Sulfate (Morphine Sulfate 2 Mg/Ml Carp) 2 mg IV Q4H PRN PRN Reason: Pain Stop: 09/16/20 06:39 Last Admin: 09/04/20 15:35 Dose: 2 mg Documented by: Multivitamins ([facility]ivitamin Tab) [facility] [place] Stop: 10/02/20 08:59 Last Admin: 09/05/20 08:24 Dose: 1 tab Documented by: Oxycodone HCl (Oxycodone Hcl Ir 5 Mg Tab (Immediate Release)) 5 mg PO Q4H PRN PRN Reason: Pain Stop: 09/16/20 07:23 Last Admin: 09/05/20 08:23 Dose: 5 mg Documented by: Polyethylene Glycol (Polyethylene (Miralax) 17 Gm Pack) 17 gm PO DAILY PRN PRN Reason: Constipation Stop: 10/02/20 06:39 Rosuvastatin Calcium (Rosuvastatin Calcium 20 Mg Tab) 20 mg PO [facility] Stop: 10/02/20 08:59 Last Admin: 09/05/20 08:24 Dose: 20 mg Documented by: Senna/Docusate Sodium (Docusate Sodium/Senna 50/8.6mg Tab) 1 tab PO BID [facility] Stop: 10/02/20 06:39 Last Admin: 09/05/20 08:25 Dose: 1 tab Documented by: Tamsulosin HCl (Tamsulosin Hcl 0.4 Mg Cap) 0.4 mg PO [facility] Stop: 10/02/20 08:59 Last Admin: 09/05/20 08:24 Dose: 0.4 mg Documented by:
--- NOTE | 2020-09-05 09:38 | Gastroenterology Progress Note ---
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 He is anemic w current blood ct at baseline. His CT abd/pelvis showed signs of periduodenal stranding DDx: duodenal neoplasm vs ulcerated tumor or duodenal ulcer. Pt w bradycardia, s/p permanent pacemaker placement 09/03 EGD 09/04 showed no signs of obstruction. He has abnormal appearing mucosa vs mass on duodenum, bx pending. No further s/s of GI bleeding, blood ct stable - Advance diet as tolerated - Keep Protonix 40mg PO BID - Monitor blood ct and transfuse prn - Awaiting EGD path result; if noted to have malignancy recurrence he needs f/u w Surgical Oncology - GI sign off; pls recall prn Admission and Anticipated Discharge Date Admission Date: September 02, 2020 Supervising Physician Co-Signing Physician Notes I saw and evaluated the patient. He notes that he is tolerating soft diet. Would recommend advancing to a mechanical soft diet please call with any questions or concerns. Subjective Pt reports feeling weak but having improvement on L arm pain. Also denies much abd pain, no n/v. Ate whole tray of CL diet. No BMs yesterday, blood ct stable. Review of Systems Review of Systems: All systems reviewed & are unremarkable except as noted in HPI & below Physical Exam Constitutional: WD/WN, vitals as above well groomed, cooperative and comfortable Eyes: PERRL, conjunctivae normal, anicteric sclerae ENMT: external ear and nose normal, oropharynx normal Respiratory: normal respiratory effort, lungs clear to auscultation Cardiovascular: RRR, no murmur, no edema Gastrointestinal (Abdomen): normal bowel sounds, soft, nontender, no hepatosplenomegaly Skin: no rashes, warm and dry no jaundice Psychiatric: A+Ox3, euthymic affect Lymphatic: no lymphedema Results & Data ([facility]) Vital Signs (Past 12 Hours) Vital Signs Temp Pulse Resp BP BP Pulse Ox 09/05/20 08:37 36.7 C 54 L 16 117/74 93 09/05/20 03:08 36.6 C 55 L 18 125/61 95 09/04/20 23:21 36.7 C 66 20 169/89 H 96 (1) GI bleed GI bleed type/associated pathology: unspecified gastrointestinal hemorrhage type Qualified Code(s): K92.2 - Gastrointestinal hemorrhage, unspecified
--- NOTE | 2020-09-05 14:14 | Cardiology Progress Note ---
Date of Service September 05, 2020 Assessment & Plan (1) Bradycardia: (2) UGIB (upper gastrointestinal bleed): (3) Abdominal pain: (4) Duodenitis: (5) PAF (paroxysmal atrial fibrillation): (6) CKD (chronic kidney disease) stage 3, GFR 30-59 ml/min: (7) CAD (coronary artery disease): (8) HTN (hypertension): Status post successful dual-chamber permanent pacemaker placement. We will restart carvedilol now that BP has increased. No further cardiac testing intervention is necessary from a cardiac standpoint. Okay to DC telemetry from a cardiac standpoint. My office will arrange outpatient follow-up upon discharge. Admission and Anticipated Discharge Date Admission Date: September 02, 2020 Subjective Patient seen and examined, chart reviewed. States he is feeling better today. Currently tolerating liquid diet without further abdominal discomfort. Continues to deny cardiac complaints of chest pain, shortness of breath, palpitations, lightheadedness, dizziness or syncope. Telemetry reviewed: Atrially paced rhythm. Review of Systems Review of Systems: All systems reviewed & are unremarkable except as noted in HPI & below Physical Exam Physical Exam: General: Awake, alert and oriented x 3. No acute distress. HEENT: Normocephalic, atraumatic. Pupils equal, round and reactive to light and accommodation. Extraocular muscles are intact. Anicteric sclera. Moist mucous membranes. Neck: No JVD. No bruit. Cardiovascular: Regular. Positive S-4. Normal S-1 and S-2. No S-3. No murmurs or rubs. Pulmonary: Clear to auscultation B/L. No rales, rhonchi or wheezing Abdomen: Bowel sounds x 4, soft. No rebound, guarding or tenderness. No organomegaly. Extremities: No clubbing, cyanosis or edema. +2 pedal pulses bilaterally. Skin: Warm and dry. Results & Data ([facility]) Vital Signs (Past 12 Hours) Vital Signs Temp Pulse Resp BP Pulse Ox 09/05/20 11:53 36.6 C 61 16 155/71 H 96 09/05/20 08:37 36.7 C 54 L 16 117/74 93 09/05/20 03:08 36.6 C 55 L 18 125/61 95 (1) Abdominal pain Abdominal location: generalized Qualified Code(s): R10.84 - Generalized abdominal pain
[2020-09-05] MEDS ORDERED: carvediloL 12.5 MG TAB PO ONE (14:15)
[2020-09-05] MEDS: carvediloL 12.5 MG TAB PO SCH (21:14)
[2020-09-05] MEDS: PANTOprazole 40 MG TAB PO SCH (21:15)
[2020-09-06] MEDS: MoRPHine SULFATE 2 MG/ML CARP IV PRN (00:09)
[2020-09-06] MEDS ORDERED: MoRPHine SULFATE 2 MG/ML CARP IV STA (01:18)
[2020-09-06] MEDS ORDERED: HYDROmorphone INJ 0.5 MG/0.5 ML SYR IV STA (02:28)
[2020-09-06] MEDS ORDERED: HYDROmorphone INJ 0.5 MG/0.5 ML SYR ONE (02:39)
[2020-09-06] MEDS: LEVOTHYROXINE SODIUM 125 MCG TABLET PO SCH (06:02)
[2020-09-06 07:56] LABS: Hematocrit (blood only) 28.2 % (42-52); Hemoglobin 9.2 g/dL (14.0-18.0); Mean Corpuscular Hemoglobin 29.5 pg (25-34); Mean Corpuscular Hgb Conc 32.6 g/dL (32-36); Mean Corpuscular Volume 90.4 fL (80-100); Mean Platelet Volume 9.2 fL (7.4-10.4); Platelet Count 177 K/uL (130-400); RDW Coefficient of Variation 22.4 % (11.5-14.5); RDW Standard Deviation 73.1 fL (36.4-46.3); Red Blood Count 3.12 M/uL (4.7-6.1); White Blood Count 6.66 K/uL (4.8-10.8)
[2020-09-06 08:09] LABS: BUN Creatinine Ratio 16.1 (10-20); Calcium 8.9 mg/dl (8.5-10.1); Creatinine Clr Calc Pharmacy 57.5 ml/min; Est GFR (African American) 70.5; Est GFR (Non-African American) 60.8; Potassium 4.1 mmol/L (3.5-5.1)
[2020-09-06] MEDS: GABAPENTIN 300 MG CAP PO SCH ×2 (08:33→15:07)
[2020-09-06] MEDS: LOSARTAN POTASSIUM 25 MG TAB PO SCH (08:34)
[2020-09-06] MEDS: TAMSULOSIN HCL 0.4 MG CAP PO SCH (08:34)
[2020-09-06] MEDS: carvediloL 12.5 MG TAB PO SCH (08:34)
[2020-09-06] MEDS: FINASTERIDE 5 MG TAB PO SCH (08:34)
[2020-09-06] MEDS: PANTOprazole 40 MG TAB PO SCH (08:34)
[2020-09-06] MEDS: ROSUVASTATIN CALCIUM 20 MG TAB PO SCH (08:34)
[2020-09-06] MEDS: MULTIVITAMIN TAB PO SCH (08:34)
[2020-09-06] MEDS: INSULIN ASPART 100 UNITS/ML 3 ML PEN SC SCH ×2 (08:36→12:23)
[2020-09-06] MEDS: DOCUSATE SODIUM/SENNA 50/8.6MG TAB PO SCH (09:59)
--- NOTE | 2020-09-06 13:29 | Hospitalist Progress Note ---
Date of Service September 06, 2020 Assessment & Plan (1) UGIB (upper gastrointestinal bleed): Initially thought Secondary to duodenitis, hx GERD Likely recurrent/residual tumor hx ascending colon cancer status post surgery ongoing Xeloda Rx NSAID use contributory Hemoglobin slightly lower than baseline anemic level BP currently stable. IV PPI initially Hold home aspirin Serial H&H, transfuse PRBC if hemoglobin less than 8 and or for symptomatic anemia GI consult Re: UGI B Hgb stable, now Hgb 9.2 Now s/p EGD (09/04) w/ Dr. Ruffin - Impression: Normal esophagus, normal stomach, patent previous surgical anastomosis was found in the duodenum. Mucosal abnormality versus lesion in the duodenum, biopsied. No obvious obstruction seen. Pathology results: Moderate to poorly differentiated adenocarcinoma Overnight patient had more pain unfortunately, seems to be associated with eating. As yesterday his pain was better controlled when he was on clear liquid diet. He also had more pain after breakfast this morning. Discussed this with GI, Dr. Marin. Feels that perhaps patient would benefit from axial stent in duodenum or some other intervention/work-up by colorectal surgery/oncology. Patient had extensive surgery done at [facility], Dr. Lara, and therefore should be discussed with them. Called [facility], and talk to Dr. Don, who accepted the patient for further evaluation, work-up and treatment. Worsening bradycardia (intermittent 2 AVB, Mobitz type I and II as per ED staff cytotechnologist) (Bradycardic since 2018 on review of vital signs) Possible SSS, hx PAF as per records, not on anticoagulation secondary to GI bleed Current Coreg dose contributory, Capecitabine with bradycardia as adverse reaction in less than 5% as per UTDOL Hold Coreg, Capecitabine for now Titrate home losartan while Coreg on hold. Patient asymptomatic. Cardiology consulted S/p temporary pacemaker placement Now s/p permanent pacemaker 09/03 BP not elevated, restarted Coreg by cardiology Patient will need cardiology follow-up after discharge from hospital hx CAD status post CABG history of postop pulmonary embolism as per records hypertension, elevated , restarted Coreg hyperlipidemia on statin Rx DM2 diet-controlled, well-controlled as of recent hemoglobin A1c of 6.09 June 2020 ISS BG goal [id number] DVT prophylaxis. SCDs Re: GI bleed Full code Patient's , Ms. Jane Rangel, can be contacted at #[phone]. Admission and Anticipated Discharge Date Admission Date: September 02, 2020 Subjective Patient seen in follow-up of abdominal pain, anemia, bradycardia Patient is currently sitting up in bed, in no acute distress, reports his abdominal pain is now tolerable However overnight patient had a lot of pain, after his diet was advanced Pain again after breakfast, patient required multiple pain medications Discussed with GI, recommend possible axial stent/other possible interventions however this needs to be evaluated at the tertiary care center/discussed with colorectal surgery/oncology. As patient was previously seen by them and had surgery at [place]. Review of Systems Review of Systems: All systems reviewed & are unremarkable except as noted in HPI & below Constitutional: no fever and no chills Respiratory: no cough and no dyspnea Cardiovascular: no chest pain and no palpitations Gastrointestinal: no abdominal pain, no nausea and no vomiting Physical Exam Physical Exam: GENERAL: elderly male sitting up in bed, in NAD HEENT: NC/AT, EOMI, PERRL NECK : Supple, no tenderness CHEST : CTAB no wheezing, rhonchi, crackles , pacemaker site clean dry, intact (pt is wearing a sling) HEART : RRR, no obvious murmurs ABDOMEN: Some distention, soft, + mild central abdominal tenderness to palpation EXTREMITIES : No LE swelling/tenderness, moves extremities NEUROLOGIC : alert and oriented x3, no facial asymmetry, speech fluent, moves extremities SKIN: Pale , warm Results & Data Results & Data ([facility]) Vital Signs (Past 12 Hours) Vital Signs Temp Pulse Pulse Resp BP Pulse Ox 09/06/20 12:00 37.0 C 60 18 96/57 L 95 09/06/20 08:05 36.9 C 78 16 127/78 98 09/06/20 08:00 60 09/06/20 03:51 37.4 C 78 16 100/60 96 09/06/20 03:47 36.1 C L 61 19 183/77 H 95 Laboratory Results 09/06/20 09/06/20 09/06/20 Range/Units 11:17 07:30 07:30 WBC 6.66 (4.8-10.8) K/uL RBC 3.12 L (4.7-6.1) M/uL Hgb 9.2 L (14.0-18.0) g/dL Hct 28.2 L (42-52) % MCV 90.4 (80-100) fL MCH 29.5 (25-34) pg MCHC 32.6 (32-36) g/dL RDW Std Deviation 73.1 H (36.4-46.3) fL RDW Coeff of Gabriela 22.4 H (11.5-14.5) % Plt Count 177 (130-400) K/uL MPV 9.2 (7.4-10.4) fL Sodium 139 (136-145) mmol/L Potassium 4.1 (3.5-5.1) mmol/L Chloride 106 (98-107) mmol/L Carbon Dioxide 28 (21-32) mmol/L Anion Gap 5.0 (3-11) BUN 18 (7-18) mg/dl Creatinine 1.14 (0.6-1.4) mg/dl Est Cr Clr Drug Dosing 57.5 ml/min Est GFR ( Amer) 70.5 Est GFR (Non-Af Amer) 60.8 BUN/Creatinine Ratio 16.1 (10-20) Glucose 102 H (70-99) mg/dl POC Glucose 120 H (70-99) mg/dl Calcium 8.9 (8.5-10.1) mg/dl 09/06/20 09/05/20 09/05/20 Range/Units 07:21 20:34 16:04 WBC (4.8-10.8) K/uL RBC (4.7-6.1) M/uL Hgb (14.0-18.0) g/dL Hct (42-52) % MCV (80-100) fL MCH (25-34) pg MCHC (32-36) g/dL RDW Std Deviation (36.4-46.3) fL RDW Coeff of Gabriela (11.5-14.5) % Plt Count (130-400) K/uL MPV (7.4-10.4) fL Sodium (136-145) mmol/L Potassium (3.5-5.1) mmol/L Chloride (98-107) mmol/L Carbon Dioxide (21-32) mmol/L Anion Gap (3-11) BUN (7-18) mg/dl Creatinine (0.6-1.4) mg/dl Est Cr Clr Drug Dosing ml/min Est GFR ( Amer) Est GFR (Non-Af Amer) BUN/Creatinine Ratio (10-20) Glucose (70-99) mg/dl POC Glucose 131 H 127 H 139 H (70-99) mg/dl Calcium (8.5-10.1) mg/dl Medications Administered Current Inpatient Medications Acetaminophen (Acetaminophen 325 Mg Tab) 650 mg PO Q4H PRN PRN Reason: Pain or Fever Stop: 10/02/20 06:39 Last Admin: 09/05/20 23:31 Dose: 650 mg Documented by: Carvedilol (Carvedilol 12.5 Mg Tab) 12.5 mg PO BID [facility] Stop: 10/05/20 20:59 Last Admin: 09/06/20 08:34 Dose: 12.5 mg Documented by: Dextrose (Dextrose 50% 50 Ml Syringe) 25 - 50 ml IV UD PRN; Protocol PRN Reason: Hypoglycemia Protocol Stop: 10/02/20 08:43 Dicyclomine HCl (Dicyclomine Hcl 10 Mg Cap) 10 mg PO BID PRN PRN Reason: abdominal pain Last Admin: 09/04/20 17:14 Dose: 10 mg Documented by: Finasteride (Finasteride 5 Mg Tab) 5 mg PO QAM [facility] Stop: 10/02/20 08:59 Last Admin: 09/06/20 08:34 Dose: 5 mg Documented by: Gabapentin (Gabapentin 300 Mg Cap) 300 mg PO TID [facility] Stop: 10/02/20 08:59 Last Admin: 09/06/20 08:33 Dose: 300 mg Documented by: Glucagon (Glucagon For Inj 1 Mg Vial) 1 mg SQ UD PRN; Protocol PRN Reason: Hypoglycemia Protocol Stop: 10/02/20 08:43 Glucose (Glucose 10 Tabs/Tube) 4 - 8 tabs PO UD PRN; Protocol PRN Reason: Hypoglycemia Protocol Stop: 10/02/20 08:43 Glucose (Glucose 40% Gel 15 Gm Tube) 15 - 30 gm PO UD PRN; Protocol PRN Reason: Hypoglycemia Protocol Stop: 10/02/20 08:43 Promethazine HCl 12.5 mg/ (Sodium Chloride) 50.5 mls @ 202 mls/hr IV Q6H PRN PRN Reason: Nausea And Vomiting Stop: 10/02/20 06:39 Insulin Aspart (Insulin Aspart 100 Units/Ml 3 Ml Pen) 0 units SC ACHS [facility] Stop: 10/02/20 08:43 Last Admin: 09/06/20 12:23 Dose: Not Given Documented by: Levothyroxine Sodium (Levothyroxine Sodium 125 Mcg Tablet) 125 mcg PO DAILYBB [facility] Stop: 10/03/20 06:29 Last Admin: 09/06/20 06:02 Dose: 125 mcg Documented by: Losartan Potassium (Losartan Potassium 25 Mg Tab) 25 mg PO QAM [facility] Stop: 10/03/20 08:59 Last Admin: 09/06/20 08:34 Dose: 25 mg Documented by: Miscellaneous (Carbohydrates For Hypoglycemia ) 15 - 30 gm PO UD PRN PRN Reason: Hypoglycemia Protocol Stop: 10/02/20 08:43 Miscellaneous (Olopatadine 0.2 % Drops ~ Order Awaiting Action) 1 ea NA QS [facility] Stop: 10/02/20 15:59 Last Admin: 09/06/20 08:33 Dose: Not Given Documented by: Morphine Sulfate (Morphine Sulfate 2 Mg/Ml Carp) 2 mg IV Q4H PRN PRN Reason: Pain Stop: 09/16/20 06:39 Last Admin: 09/06/20 00:09 Dose: 2 mg Documented by: Multivitamins (Multivitamin Tab) 1 tab PO [facility] Stop: 10/02/20 08:59 Last Admin: 09/06/20 08:34 Dose: 1 tab Documented by: Oxycodone HCl (Oxycodone Hcl Ir 5 Mg Tab (Immediate Release)) 5 mg PO Q4H PRN PRN Reason: Pain Stop: 09/16/20 07:23 Last Admin: 09/05/20 22:47 Dose: 5 mg Documented by: Pantoprazole Sodium (Pantoprazole 40 Mg Tab) 40 mg PO BID [facility] Stop: 10/05/20 20:59 Last Admin: 09/06/20 08:34 Dose: 40 mg Documented by: Polyethylene Glycol (Polyethylene (Miralax) 17 Gm Pack) 17 gm PO DAILY PRN PRN Reason: Constipation Stop: 10/02/20 06:39 Last Admin: 09/06/20 12:33 Dose: 17 gm Documented by: Rosuvastatin Calcium (Rosuvastatin Calcium 20 Mg Tab) 20 mg PO QAM [facility] Stop: 10/02/20 08:59 Last Admin: 09/06/20 08:34 Dose: 20 mg Documented by: Senna/Docusate Sodium (Docusate Sodium/Senna 50/8.6mg Tab) 1 tab PO BID [facility] Stop: 10/02/20 06:39 Last Admin: 09/06/20 09:59 Dose: 1 tab Documented by: Tamsulosin HCl (Tamsulosin Hcl 0.4 Mg Cap) 0.4 mg PO QAM [facility] Stop: 10/02/20 08:59 Last Admin: 09/06/20 08:34 Dose: 0.4 mg Documented by:
--- NOTE | 2020-09-06 21:08 | Discharge Summary ---
Date of Service September 06, 2020 Admission HPI Per Admitting Provider History obtained from patient, family, and records. Medical history significant for CAD status post CABG, PAF not on anticoagulation secondary to bleed, chronic bradycardia, history of postop pulmonary embolism as per records, hypertension, hyperlipidemia, colon cancer status post surgery ongoing Xeloda Rx, GERD, short gut syndrome as per records, BPH, DM2 diet- controlled, chronic anemia (baseline hemoglobin of 9). Last confinement [facility] April 2020 for ascending colon cancer status post right colectomy, duodenal resection with Lisandro-en-Y reconstruction, cholecystectomy, pancreatectomy. Duodenal implant, perforation noted with 20 lymph nodes negative. Postop course unremarkable although family unhappy with care as per so much that they would not want patient to return to [facility] for any surgical intervention if needed. Patient seen by [facility] Oncology on consultation 3 weeks ago. Updated stage was [id number]. BRAF positive, preop CEA level was 1.9. Xeloda chemotherapy initiated. Consideration for adjuvant radiation Because of perforation and duodenal involvement. 2 weeks ago, patient noted achy abdominal pain going up and worsening bloating. Some constipation symptoms. Outpatient CT abdomen pelvis showed circumferential wall thickening second portion of duodenum with associated surrounding fat stranding and mesenteric fat stranding of right mid abdomen. Findings may represent duodenitis. Acute pancreatitis is in the differential. New mesenteric lymphadenopathy metastatic disease versus reactive lymph nodes measuring 2.4 x 1.8 cm. Patient directed to ER for abnormal CAT scan findings but subsequently discharged home. Oncologist recommended outpatient PET scan to be done tomorrow and serum CEA level blood work. Patient had worsening abdominal discomfort constipation symptoms at home with nausea, no emesis, no fever, no chills. Patient took 2 tablets of ibuprofen as per . Patient denies chest pain, S OB, dizziness, unusual weakness symptoms. Patient brought to ER by . At the ER, dark stools noted to be heme positive. Occasional dropped beats on the campus monitor noted as well as per ER provider. 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 Admission Exam Per Admitting Provider GENERAL: Comfortable, pleasant, slightly hard of hearing, no respiratory distress SKIN: Pallor , warm HEENT: Pale palpebral conjunctivae, no ptosis, dry buccal mucosa NECK : Supple, no tenderness CHEST : Decreased breath sounds, no tenderness HEART : Bradycardic, no obvious murmurs ABDOMEN: Some distention, minimal central abdominal tenderness EXTREMITIES : No LE swelling/tenderness, no other conspicuous deformities noted NEUROLOGIC : Coherent, no facial asymmetry, mild hearing impairment, no other gross focality Principal Diagnosis GI bleed Bradycardia, status post pacemaker placement Anemia, abdominal pain, history of colon cancer recurrent cancer Discharge Exam GENERAL: elderly male sitting up in bed, in NAD HEENT: NC/AT, EOMI, PERRL NECK : Supple, no tenderness CHEST : CTAB no wheezing, rhonchi, crackles , pacemaker site clean dry, intact (pt is wearing a sling) HEART : RRR, no obvious murmurs ABDOMEN: Some distention, soft, + mild central abdominal tenderness to palpation EXTREMITIES : No LE swelling/tenderness, moves extremities NEUROLOGIC : alert and oriented x3, no facial asymmetry, speech fluent, moves extremities SKIN: Pale , warm Discharge Data Allergies Allergy/AdvReac Type Severity Reaction Status Date / Time No Known Allergies Allergy Verified 09/02/20 01:48 Consultations 09/02/20 05:37 Consult General Surgery Stat 09/02/20 05:38 ED Decision to Admit Stat 09/02/20 06:40 Consult Cardiology Routine Consult Gastroenterology Routine 09/02/20 16:09 Consult Cardiac Catheterization Routine 09/02/20 16:59 Consult Leather Piece Inspector Routine 09/06/20 14:07 Burn CD for patient Stat Procedures Performed Operation Date: 09/02/20 16:30 Actual Procedures p Ins/RemTemporary Transvenous Pacer - David Gonzales MD s Ultrasound Vascular Access - David Gonzales MD Operation Date: 09/03/20 16:30 Actual Procedures p Pacer with A/V Leads (Dual) - Ghazal Perez DO s Cineradiography w/Routine Exam - Ghazal Perez DO Operation Date: 09/04/20 16:30 <No data on this case meets the specified criteria> Operation Date: 09/04/20 16:45 Actual Procedures p EGD Biopsy Cytology - Johnie Ruffin MD Ordered Studies 09/02/20 01:36 CT abd pelvis IV con only Urgent IMPRESSION: 1. Abnormal appearing duodenum with mild periduodenal stranding. There is adjacent necrotic lymphadenopathy. 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 There is mild periduodenal stranding, and an ulcerated tumor or duodenal ulcer must be considered. GI consultation is recommended. 2. Postsurgical changes involving the small bowel and colon. 3. Fluid-filled colonic loops 4. 1 cm bladder calculus near the right UVJ. No evidence of right-sided hydronephrosis 09/02/20 16:16 CL Cath Imgs for PACS use only Routine 09/03/20 11:00 EP Lab Images for PACS ONCE Hospital Course (1) UGIB (upper gastrointestinal bleed): Initially thought Secondary to duodenitis, hx GERD Likely recurrent/residual tumor hx ascending colon cancer status post surgery ongoing Xeloda Rx NSAID use contributory Hemoglobin slightly lower than baseline anemic level BP currently stable. IV PPI initially Hold home aspirin Serial H&H, transfuse PRBC if hemoglobin less than 8 and or for symptomatic anemia GI consult Re: UGI B Hgb stable, now Hgb 9.2 Now s/p EGD (09/04) w/ Dr. Ruffin - Impression: Normal esophagus, normal stomach, patent previous surgical anastomosis was found in the duodenum. Mucosal abnormality versus lesion in the duodenum, biopsied. No obvious obstruction seen. Pathology results: Moderate to poorly differentiated adenocarcinoma Overnight patient had more pain unfortunately, seems to be associated with eating. As yesterday his pain was better controlled when he was on clear liquid diet. He also had more pain after breakfast this morning. Discussed this with GI, Dr. Marin. Feels that perhaps patient would benefit from axial stent in duodenum or some other intervention/work-up by colorectal surgery/oncology. Patient had extensive surgery done at [facility], Dr. Lara, and therefore should be discussed with them. Called [facility], and talk to Dr. Don, who accepted the patient for further evaluation, work-up and treatment. Worsening bradycardia (intermittent 2 AVB, Mobitz type I and II as per ED lunchroom monitor) (Bradycardic since 2018 on review of vital signs) Possible SSS, hx PAF as per records, not on anticoagulation secondary to GI bleed Current Coreg dose contributory, Capecitabine with bradycardia as adverse reaction in less than 5% as per UTDOL Hold Coreg, Capecitabine for now Titrate home losartan while Coreg on hold. Patient asymptomatic. Cardiology consulted S/p temporary pacemaker placement w/ Dr. Gonzales Now s/p permanent pacemaker 09/03 w/ Dr. Perez BP now elevated, restarted Coreg by cardiology Patient will need cardiology follow-up after discharge from hospital hx CAD status post CABG history of postop pulmonary embolism as per records hypertension, elevated , restarted Coreg hyperlipidemia on statin Rx DM2 diet-controlled, well-controlled as of recent hemoglobin A1c of 6.09 June 2020 ISS BG goal [id number] DVT prophylaxis. SCDs Re: GI bleed Full code Patient's , Ms. Jane Rangel, can be contacted at #[phone]. Dispo: Pt to be transferred to [facility] for further evaluation and treatment. Total Time Total Time Spent Total Time Spent (In Minutes): 40 Total Time Includes: Examination of the Patient, Discharge Planning, Medication Reconciliation and Communication With Other Providers Discharge Plan Discharge Items Patient Disposition: Transfer Acute Care Hospital Reason For Visit: BRADYCARDIA,UGIB Discharge Diagnosis: GI bleed Bradycardia, status post pacemaker placement Anemia, abdominal pain, history of colon cancer recurrent cancer Activity: As commented below Activity Comment: do not raise your left elbow over your left shoulder for 1 month Lifting: No more than 10 pounds Lifting Comment: do not lift more than 10 pounds with your left arm for 2 weeks Bathing: Keep incision dry Bathing Comment: keep dressing on and dry until wound check next week Non-emergency contact: Surgeon, Specialist and Oncologist Call non-emergency contact if: you have any medication questions and your symptoms worsen Follow-up/Referrals: Jeremie Diallo MD [Primary Care Provider] - Diet: Carb Consistent or DM2 and Clear liquid Addtl Attending Provider Instructions: Per EP cardiology , Dr. Perez - device and wound check next week at [facility]. Addtl Mechanic Recovery Provider Instructions: Patient continues to have abdominal pain w/ eating, per EGD/biopsy, recurrent cancer. Discussed with GI, recommend possible axial stent, further evaluation by colorectal surgery/oncology. Discussed with colorectal surgery at [facility], patient accepted by Dr. Don for further evaluation, work-up and treatment. Pending Studies at Discharge: No Stand-Alone Forms: My [facility] Skilled Items Patient informed of condition?: Yes DNR: No Discharge Level of Care: Other Communicable Disease: No Discharge Prognosis: Other Lines: Peripheral IV Urinary Catheter: No Medications and DC Order Prescriptions: Continued tamsulosin 0.4 mg capsule 0.4 mg PO QAM RF: 0 nitroglycerin [Nitrostat] 0.4 mg Tablet, Sublingual 0.4 mg Sublingual DIRECTED PRN (Reason: Chest Pain) RF: 0 finasteride 5 mg tablet 5 mg PO QAM RF: 0 rosuvastatin 20 mg tablet 20 mg PO QAM RF: 0 omega 3-wkg-zey-fish oil [Fish Oil] 1,000 mg (120 mg-180 mg) Capsule 1 cap PO BID RF: 0 carvedilol 12.5 mg tablet 12.5 mg PO BID RF: 0 losartan 25 mg tablet 25 mg PO QAM RF: 0 omeprazole 20 mg capsule,delayed release(DR/EC) 20 mg PO BID RF: 0 famotidine 20 mg tablet 20 mg PO BID PRN (Reason: Heartburn) RF: 0 olopatadine 0.2 % Drops 1 drp OPB DAILY RF: 0 multivitamin Tablet 1 tab PO QAM RF: 0 ondansetron HCl 8 mg Tablet 8 mg PO Q8H PRN (Reason: Nausea) RF: 0 clobetasol 0.05 % Cream 1 applic TOPICAL DIRECTED PRN (Reason: Skin Irritation) RF: 0 prochlorperazine maleate 10 mg tablet 10 mg PO Q8 PRN (Reason: Nausea) RF: 0 levothyroxine 125 mcg Tablet 125 mcg PO QAM RF: 0 gabapentin 300 mg Capsule 300 mg PO TID RF: 0 Cholestyramine Light 4 gram powder 1 ea PO DIRECTED RF: 0 PreserVision AREDS 7,160 unit- 113 mg-100 unit Tablet 1 tab PO BID RF: 0 Discontinued aspirin 81 mg Tablet,Delayed Release (Dr/Ec) 81 mg PO QAM RF: 0 capecitabine 500 mg Tablet 1,500 mg PO BID RF: 0 Discharge Orders: Discharge Order (Routine); Ordered 09/06/20 Ordered By: Mikel Vinson Admission Data Admit Date/Time: 09/02/20 16:59 Attending Provider: Mikel Vinson Admit Provider: Eugene Ramirez Primary Care Provider: Jeremie Diallo Other Providers: Esther Akers ; Ward Pinto ; Eugene Ramirez ; Geoffrey Rai ; Keon Quintero ; Ridge Keen ; Sergei Cruz ; Melvin Null ; Ruddy Mark ; Lena Car ; Ghazal Perez ; Swathi El ; Kee Sarmiento ; Darryl Mai ; Maggie Moore ; Roseline Roblero ; June Johnson ; Nir Murphy ; Jose Marin ; Trae Khan ; Petey Alvarado ; Johnie Ruffin ; La Richardson ; Zo Brandon ; Cuac Baxter ; Edwige Pond ; Tien Roger ; David Gonzales ; Fredi Rivas Other Interventions: Discharge Summary Assessment (RN) Last Done: 09/06/20 15:21
== END 2020-09-06 15:56 | disposition home or self-care (01) | DRG 228 ==
LOC: 2S 00:50 → ED 00:50 → 2S 08:24 → SUATTDRO 16:59 → 1E 17:00 → 2S 09-04 17:42

== ENCOUNTER 2021-01-08 13:02 | Inpatient (IN) ==
[2021-01-08] MEDS ORDERED: SODIUM CHLORIDE 0.9% 1000ML 1,000 ML IV STA (13:31)
[2021-01-08] MEDS ORDERED: SODIUM CHLORIDE 0.9% 500 ML IV STA (13:31)
--- NOTE | 2021-01-08 13:50 | XRay Report ---
XR chest 1V portable HISTORY: Fever COMPARISON: Chest 09/04/2020. FINDINGS: There is a new 2.9 cm round focal airspace opacity within the right midlung zone. No pneumo thorax. No pleural effusions. A few bibasilar linear densities consistent with subsegmental atelectas is. No evidence for pulmonary edema. The heart remains mildly enlarged. There are poststernotomy pollock ges and left-sided dual-chamber pacemaker. IMPRESSION: There is a new 2.9 cm focal airspace opacity within the right midlung zone. This likely represents a pneumonia. 1-2 month chest x-ray follow-up recommended to ensure resolution. ACT 112: Positive. There are findings on this exam that require communication between the performing entity and the patient following Patient Test Result Information Act ([place] Act 112) guidelines. Electronically signed by: Oumar Nicolas M.D. 01/08/2021 1:49 PM
[2021-01-08 14:16] LABS: Basophils # (auto) 0.01 K/uL (0-0.2); Basophils % (auto) 0.1 %; Eosinophils # (auto) 0.12 K/uL (0-0.5); Hematocrit (blood only) 37.3 % (42-52); Hemoglobin 11.8 g/dL (14.0-18.0); Immature Granulocytes # (auto) 0.03 K/uL (0.00-0.02); Immature Granulocytes % (auto) 0.2 %; Lymphocytes # (auto) 1.16 K/uL (1.2-3.4); Lymphocytes % (auto) 9.5 %; Mean Corpuscular Hemoglobin 27.1 pg (25-34); Mean Corpuscular Hgb Conc 31.6 g/dL (32-36); Mean Corpuscular Volume 85.6 fL (80-100); Mean Platelet Volume 9.6 fL (7.4-10.4); Monocytes # (auto) 1.23 K/uL (0.11-0.59); Monocytes % (auto) 10.1 %; Neutrophils % (auto) 79.1 %; Platelet Count 275 K/uL (130-400); RDW Coefficient of Variation 16.3 % (11.5-14.5); RDW Standard Deviation 51.9 fL (36.4-46.3); Red Blood Count 4.36 M/uL (4.7-6.1); White Blood Count 12.15 K/uL (4.8-10.8)
[2021-01-08] MEDS ORDERED: ACETAMINOPHEN 1000 MG/100 ML IV IV STA (14:25)
[2021-01-08] MEDS ORDERED: PIPERACILL/TAZOBAC CONSULT ACTIVE PRN ×2 (14:25→20:19)
[2021-01-08] MEDS ORDERED: PIPERACILLIN/TAZOBACTAM 4.5 GM in DEXTROSE 5% 100 ML IV ONE (14:25)
[2021-01-08 14:31] LABS: Alanine Aminotransferase 307 U/L (12-78); Albumin Level 3.1 gm/dl (3.4-5.0); Aspartate Aminotransferase 252 U/L (15-37); BUN Creatinine Ratio 20.6 (10-20); Bilirubin,Total 1.8 mg/dl (0.2-1); Blood Urea Nitrogen 26 mg/dl (7-18); Carbon Dioxide 27 mmol/L (21-32); Chloride 100 mmol/L (98-107); Est GFR (African American) 61.9 ml/min; Est GFR (Non-African American) 53.4 ml/min; Glucose 113 mg/dl (70-99); Potassium 4.1 mmol/L (3.5-5.1); Sodium 135 mmol/L (136-145)
[2021-01-08 14:44] LABS: Albumin Globulin Ratio 0.7 (0.9-2); Alkaline Phosphatase 1079 U/L (45-117); Globulin 4.5 gm/dl (2.5-4.0); Total Protein 7.6 gm/dl (6.4-8.2); Troponin I < 0.015 ng/ml (0-0.045)
[2021-01-08] MEDS: ACETAMINOPHEN 500 MG TAB PO STA ×2 (15:16→17:22)
[2021-01-08 15:23] LABS: Lyme Ab IgG w/WB Rflx Negative (Negative); Lyme Ab IgM w/WB Rflx Negative (Negative)
[2021-01-08 17:00] LABS: Appearance Urine Clear (Clear); Bacteria Urine Automated Negative (Negative); Blood Urine Negative (Negative); Color Urine Dark Yellow; Epithelial Cell Urine Auto >30 /lpf (0-5); Glucose Urine UA Negative (Negative); Ketones Urine Trace (Negative); Leukocyte Esterase Urine 1+ (Negative); Nitrite Urine Negative (Negative); Protein Urine 1+ (Negative); RBC Urine Automated 0-4 /hpf (0-4); Specific Gravity Urine 1.036 (1.000-1.030); Urobilinogen Urine Negative (Negative); pH Urine 5.5 (4.5-7.5)
[2021-01-08 17:01] LABS: Bilirubin Urine 1+ (Negative)
[2021-01-08] MEDS ORDERED: SODIUM CHLORIDE 0.9% 1000ML 500 ML IV ONE (17:05)
[2021-01-08] MEDS ORDERED: VANCOMYCIN HCL 1,750 MG in SODIUM CHLORIDE 0.9% 500 ML IV ONE (17:12)
[2021-01-08] MEDS ORDERED: VANCOMYCIN CONSULT ACTIVE PRN (17:12)
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
[2021-01-08] MEDS ORDERED: OPTIRAY 320 100ml IV ONE (17:33)
--- NOTE | 2021-01-08 17:40 | Emergency Department Note ---
History of Present Illness General Chief complaint: Fever Stated complaint: PAIN,FEVER,SHAKES Time Seen by Provider: 01/08/21 13:29 Source: patient, family ( at the bedside), RN notes reviewed and old records reviewed (Oncology records) Mode of arrival: ambulatory Limitations: no limitations History of Present Illness Provider complaint: Shaking, change in mental status, question low oxygen Maximum Pain Intensity: 3 This patient is a 80-year-old male who presents to the emergency department from his oncologist office, Dr. Valdes with his , stating that he had low oxygen levels and has been slightly more confused than usual. 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 Patient had a CT scan of the abdomen pelvis yesterday and was sent in for evaluation for possible stent. He is noted to have a low-grade temperature at triage. His states he was "shaking" and she was worried that he has "too much medication in his system." Patient normally is not able to state the date or year but is generally more responsive than he has been to his lately. Patient has not been vomiting and has been eating fairly well. He denies any significant diarrhea or blood in his stools. Patient denies any abdominal pain a nd states otherwise he has been doing well. Apparently in the office today his oxygen saturation was in the 80s, but he has no respiratory distress at this time. Home Medications Medication Instructions Recorded Confirmed Type finasteride 5 mg tablet 5 mg PO QAM 03/17/18 01/08/21 History nitroglycerin 0.4 mg sublingual 0.4 mg SUBLINGUAL DIRECTED PRN 03/17/18 01/08/21 History tablet (Nitrostat) omega 7-wif-tgj-fish oil 1,000 mg 1 cap PO BID 03/17/18 01/08/21 History (120 mg-180 mg) capsule (Fish Oil) rosuvastatin 20 mg tablet 20 mg PO QAM 03/17/18 01/08/21 History tamsulosin 0.4 mg capsule 0.4 mg PO QAM 03/17/18 01/08/21 History carvedilol 12.5 mg tablet 12.5 mg PO BID 04/17/20 01/08/21 History omeprazole 20 mg capsule,delayed 20 mg PO BID 04/17/20 01/08/21 History release clobetasol 0.05 % topical cream 1 applic TOPICAL DIRECTED PRN 08/20/20 01/08/21 History gabapentin 300 mg capsule 300 mg PO TID 08/20/20 01/08/21 History multivitamin 1 tab PO QAM 08/20/20 01/08/21 History ondansetron HCl 8 mg tablet 8 mg PO Q8H PRN 08/20/20 01/08/21 History prochlorperazine maleate 10 mg 10 mg PO Q8 PRN 08/20/20 01/08/21 History tablet vitamins A,C,N-curg-zqycrl 7,160 1 tab PO BID 08/20/20 01/08/21 History unit-113 mg-100 unit tablet (PreserVision AREDS) acetaminophen 325 mg capsule 650 mg PO Q6H PRN cap 09/16/20 01/08/21 History cholestyramine-aspartame 4 gram 1 ea PO BID g 09/16/20 01/08/21 History oral powder (Cholestyramine Light) hydromorphone 4 mg tablet 4 mg PO Q6H PRN 09/16/20 01/08/21 History (Dilaudid) levothyroxine 50 mcg tablet 150 mcg PO DAILY tab 09/16/20 01/08/21 History (Levoxyl) loratadine 10 mg tablet 10 mg PO DAILY 09/16/20 01/08/21 History olopatadine 0.2 % eye drops 1 drp OPB BID ml 09/16/20 01/08/21 History polyethylene glycol 3350 17 17 g PO Q OTHER DAY g 09/16/20 01/08/21 History gram/dose oral powder (Miralax) sennosides 8.6 mg tablet (Senokot) 8.6 mg PO Q OTHER DAY tab 09/16/20 01/08/21 History sucralfate 1 gram tablet 1 g PO .QIDM tab 09/16/20 01/08/21 History triamcinolone acetonide 0.1 % 1 applic TOPICAL BID 09/16/20 01/08/21 History topical cream urea 20 % topical cream 1 applic TOPICAL BID 09/16/20 01/08/21 History fentanyl 12 mcg/hr transdermal 1 patch TRANSDERMAL Q72H 10/13/20 01/08/21 History patch losartan 25 mg tablet 25 mg PO QAM 10/13/20 01/08/21 History Allergies Allergy/AdvReac Type Severity Reaction Status Date / Time No Known Allergies Allergy Verified 01/08/21 17:35 Past Med/Surg History Medical History BPH (benign prostatic hyperplasia) Bradycardia CAD (coronary artery disease) "S/p stents 2004, 2006. 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 propofol/lido no issues. History of tonsillectomy and adenoidectomy Hx of right hemicolectomy S/P CABG (coronary artery bypass graft) (2016) Family History Father , Passed in 80's secondary to Accolo accident, rolled on top of him Prostate cancer, Onset Age: 70 Radiation Treatment Accident caused by powered anesthesiology technologist Mother , Passed mid 90's of Alzheimer's complications T2DM (type 2 diabetes mellitus) Brother Prostate cancer, Onset Age: 60 Radioactive Seed Implant Sister Cancer of abdomen, Onset Age: 80 unsure of exact type - getting treatment currently Son Colon cancer, Onset Age: 53 Resection - Currently doing well Son No problems noted. Son , due to Suicide No problems noted. 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 and A total of 10 systems reviewed and were otherwise negative Physical Exam Vital Signs Vital Signs - 24 hr 01/08/21 13:04 01/08/21 16:30 Temperature 37.8 C H 37.4 C Temperature Source Oral Oral Pulse Rate 51 L Pulse Rate [Finger] 60 Respiratory Rate 20 17 Respiratory Effort / Characteristics Non-Labored Spontaneous Respiratory Depth Normal Blood Pressure 146/86 H Blood Pressure [Right Arm] 107/50 L Blood Pressure Mean 106 Blood Pressure Mean [Right Arm] 69 Blood Pressure Position Sitting Pulse Oximetry 98 94 Oxygen Delivery Method Room Air Room Air Sepsis Recent Fever Within 48 Hours Yes Sepsis New/Unexplained Change in Mental Status N/A Sepsis Action Taken by Nursing No Action Required Vital signs reviewed. Noted to have a low-grade temperature General: Chronically ill-appearing 80-year-old male, in no significant distress. HEENT: mild scleral icterus, PERRLA, neck supple. Dry mucous membranes Cardiovascular: Regular rate and rhythm, no extra sounds. Pulmonary: Clear to auscultation bilaterally, normal work of breathing. Abdomen: Soft, nontender, nondistended, positive bowel sounds. Musculoskeletal: Atraumatic, no peripheral edema. Neurologic: Patient awake alert and answers most questions, unable to state the year but states it is January. He is aware that he is at the hospital. Skin: Warm, dry, no rash Course Administered Medications Sodium Chloride (Nss 1000ml) 1,000 mls @ 125 mls/hr IV .Q8H STA Stop: 01/08/21 21:30 Last Admin: 01/08/21 14:20 Dose: 125 mls/hr Documented by: [id number] Discontinued Medications Acetaminophen (Acetaminophen 500 Mg Tab) 1,000 mg PO ONE STA Stop: 01/08/21 13:32 Last Admin: 01/08/21 17:22 Dose: Not Given Documented by: [id number] Acetaminophen (Acetaminophen 1000 Mg/100 Ml Iv) 1,000 mg IV NOW STA Stop: 01/08/21 14:26 Last Admin: 01/08/21 14:49 Dose: 1,000 mg Documented by: [id number] Sodium Chloride (Nss) 500 mls @ 999 mls/hr IV .Q31M STA Stop: 01/08/21 14:01 Last Infusion: 01/08/21 14:56 Dose: 0 mls/hr Documented by: [id number] Admin: 01/08/21 14:20 Dose: 999 mls/hr Documented by: [id number] Piperacillin Sod/Tazobactam (Sod 4.5 gm/ Dextrose) 120 mls @ 200 mls/hr IV NOW ONE; Protocol Stop: 01/08/21 15:00 Last Infusion: 01/08/21 15:31 Dose: 0 mls/hr Documented by: [id number] Admin: 01/08/21 14:50 Dose: 200 mls/hr Documented by: [id number] Sodium Chloride (Nss 1000ml) 500 mls @ 999 mls/hr IV .Q31M ONE Stop: 01/08/21 17:35 Last Admin: 01/08/21 17:21 Dose: 999 mls/hr Documented by: [id number] Ioversol (Optiray 320 100ml) 94 ml IV ONCE ONE Stop: 01/08/21 17:34 Last Admin: 01/08/21 17:33 Dose: 94 ml Documented by: [id number] Medical Decision Making Differential Diagnosis Covid, obstructive colonic mass, cholangitis, pneumonia, influenza, meningitis, urinary tract infection, sepsis, bacteremia, as well as other pathologies. Medical Records Attestation: I reviewed the patient's medical records. ([facility] outpatient records) Home Medications Current Medication List: was personally reviewed by me Laboratory Data Attestation: I reviewed the patient's lab results. Result diagrams: 01/08/21 13:55 01/08/21 13:55 Lab Results 01/08/21 01/08/21 01/08/21 Range/Units 13:35 13:35 13:55 WBC 12.15 H (4.8-10.8) K/uL RBC 4.36 L (4.7-6.1) M/uL Hgb 11.8 L (14.0-18.0) g/dL Hct 37.3 L (42-52) % MCV 85.6 (80-100) fL MCH 27.1 (25-34) pg MCHC 31.6 L (32-36) g/dL RDW Std Deviation 51.9 H (36.4-46.3) fL RDW Coeff of Gabriela 16.3 H (11.5-14.5) % Plt Count 275 (130-400) K/uL MPV 9.6 (7.4-10.4) fL Immature Gran % (Auto) 0.2 % Neut % (Auto) 79.1 % Lymph % (Auto) 9.5 % Hayes % (Auto) 10.1 % Eos % (Auto) 1.0 % Baso % (Auto) 0.1 % Neut # (Auto) 9.60 H (1.4-6.5) K/uL Lymph # (Auto) 1.16 L (1.2-3.4) K/uL Hayes # (Auto) 1.23 H (0.11-0.59) K/uL Eos # (Auto) 0.12 (0-0.5) K/uL Baso # (Auto) 0.01 (0-0.2) K/uL Immature Gran # (Auto) 0.03 H (0.00-0.02) K/uL Sodium (136-145) mmol/L Potassium (3.5-5.1) mmol/L Chloride (98-107) mmol/L Carbon Dioxide (21-32) mmol/L Anion Gap (3-11) BUN (7-18) mg/dl Creatinine (0.6-1.4) mg/dl Est Cr Clr Drug Dosing Est GFR ( Amer) ml/min Est GFR (Non-Af Amer) ml/min BUN/Creatinine Ratio (10-20) Glucose (70-99) mg/dl Lactate (0.4-2.0) mmol/L Calcium (8.5-10.1) mg/dl Total Bilirubin (0.2-1) mg/dl AST (15-37) U/L ALT (12-78) U/L Alkaline Phosphatase (45-117) U/L Ammonia (11-32) umol/L Troponin I (0-0.045) ng/ml Total Protein (6.4-8.2) gm/dl Albumin (3.4-5.0) gm/dl Globulin (2.5-4.0) gm/dl Albumin/Globulin Ratio (0.9-2) Urine Color Urine Appearance (Clear) Urine pH (4.5-7.5) Ur Specific Choudrant (1.000-1.030) Urine Protein (Negative) Urine Glucose (UA) (Negative) Urine Ketones (Negative) Urine Blood (Negative) Urine Nitrite (Negative) Urine Bilirubin (Negative) Urine Urobilinogen (Negative) Ur Leukocyte Esterase (Negative) Urine WBC (Auto) (0-5) /hpf Urine RBC (Auto) (0-4) /hpf U Hyaline Cast (Auto) (0-5) /lpf U Epithel Cells (Auto) (0-5) /lpf Urine Bacteria (Auto) (Negative) Urine Yeast Lyme Disease IgG Ab (Negative) Lyme Disease IgM Ab (Negative) COVID-19 Eval Order Covid19 at [facility] SARS-CoV-2 (PCR) NEGATIVE (Negative) 01/08/21 01/08/21 01/08/21 Range/Units 13:55 13:55 13:55 WBC (4.8-10.8) K/uL RBC (4.7-6.1) M/uL Hgb (14.0-18.0) g/dL Hct (42-52) % MCV (80-100) fL MCH (25-34) pg MCHC (32-36) g/dL RDW Std Deviation (36.4-46.3) fL RDW Coeff of Gabriela (11.5-14.5) % Plt Count (130-400) K/uL MPV (7.4-10.4) fL Immature Gran % (Auto) % Neut % (Auto) % Lymph % (Auto) % Hayes % (Auto) % Eos % (Auto) % Baso % (Auto) % Neut # (Auto) (1.4-6.5) K/uL Lymph # (Auto) (1.2-3.4) K/uL Hayes # (Auto) (0.11-0.59) K/uL Eos # (Auto) (0-0.5) K/uL Baso # (Auto) (0-0.2) K/uL Immature Gran # (Auto) (0.00-0.02) K/uL Sodium 135 L (136-145) mmol/L Potassium 4.1 (3.5-5.1) mmol/L Chloride 100 (98-107) mmol/L Carbon Dioxide 27 (21-32) mmol/L Anion Gap 8.0 (3-11) BUN 26 H (7-18) mg/dl Creatinine 1.27 (0.6-1.4) mg/dl Est Cr Clr Drug Dosing Not Reportable Est GFR ( Amer) 61.9 ml/min Est GFR (Non-Af Amer) 53.4 ml/min BUN/Creatinine Ratio 20.6 H (10-20) Glucose 113 H (70-99) mg/dl Lactate 2.0 (0.4-2.0) mmol/L Calcium 9.0 (8.5-10.1) mg/dl Total Bilirubin 1.8 H (0.2-1) mg/dl AST 252 H (15-37) U/L ALT 307 H (12-78) U/L Alkaline Phosphatase 1079 H (45-117) U/L Ammonia (11-32) umol/L Troponin I < 0.015 (0-0.045) ng/ml Total Protein 7.6 (6.4-8.2) gm/dl Albumin 3.1 L (3.4-5.0) gm/dl Globulin 4.5 H (2.5-4.0) gm/dl Albumin/Globulin Ratio 0.7 L (0.9-2) Urine Color Urine Appearance (Clear) Urine pH (4.5-7.5) Ur Specific [place] (1.000-1.030) Urine Protein (Negative) Urine Glucose (UA) (Negative) Urine Ketones (Negative) Urine Blood (Negative) Urine Nitrite (Negative) Urine Bilirubin (Negative) Urine Urobilinogen (Negative) Ur Leukocyte Esterase (Negative) Urine WBC (Auto) (0-5) /hpf Urine RBC (Auto) (0-4) /hpf U Hyaline Cast (Auto) (0-5) /lpf U Epithel Cells (Auto) (0-5) /lpf Urine Bacteria (Auto) (Negative) Urine Yeast Lyme Disease IgG Ab Negative (Negative) Lyme Disease IgM Ab Negative (Negative) COVID-19 Eval Order SARS-CoV-2 (PCR) (Negative) 01/08/21 01/08/21 Range/Units 13:55 16:40 WBC (4.8-10.8) K/uL RBC (4.7-6.1) M/uL Hgb (14.0-18.0) g/dL Hct (42-52) % MCV (80-100) fL MCH (25-34) pg MCHC (32-36) g/dL RDW Std Deviation (36.4-46.3) fL RDW Coeff of Gabriela (11.5-14.5) % Plt Count (130-400) K/uL MPV (7.4-10.4) fL Immature Gran % (Auto) % Neut % (Auto) % Lymph % (Auto) % Hayes % (Auto) % Eos % (Auto) % Baso % (Auto) % Neut # (Auto) (1.4-6.5) K/uL Lymph # (Auto) (1.2-3.4) K/uL Hayes # (Auto) (0.11-0.59) K/uL Eos # (Auto) (0-0.5) K/uL Baso # (Auto) (0-0.2) K/uL Immature Gran # (Auto) (0.00-0.02) K/uL Sodium (136-145) mmol/L Potassium (3.5-5.1) mmol/L Chloride (98-107) mmol/L Carbon Dioxide (21-32) mmol/L Anion Gap (3-11) BUN (7-18) mg/dl Creatinine (0.6-1.4) mg/dl Est Cr Clr Drug Dosing Est GFR ( Amer) ml/min Est GFR (Non-Af Amer) ml/min BUN/Creatinine Ratio (10-20) Glucose (70-99) mg/dl Lactate (0.4-2.0) mmol/L Calcium (8.5-10.1) mg/dl Total Bilirubin (0.2-1) mg/dl AST (15-37) U/L ALT (12-78) U/L Alkaline Phosphatase (45-117) U/L Ammonia 26.0 (11-32) umol/L Troponin I (0-0.045) ng/ml Total Protein (6.4-8.2) gm/dl Albumin (3.4-5.0) gm/dl Globulin (2.5-4.0) gm/dl Albumin/Globulin Ratio (0.9-2) Urine Color Dark Yellow Urine Appearance Clear (Clear) Urine pH 5.5 (4.5-7.5) Ur Specific [place] 1.036 H (1.000-1.030) Urine Protein 1+ H (Negative) Urine Glucose (UA) Negative (Negative) Urine Ketones Trace H (Negative) Urine Blood Negative (Negative) Urine Nitrite Negative (Negative) Urine Bilirubin 1+ H (Negative) Urine Urobilinogen Negative (Negative) Ur Leukocyte Esterase 1+ H (Negative) Urine WBC (Auto) 10-30 H (0-5) /hpf Urine RBC (Auto) 0-4 (0-4) /hpf U Hyaline Cast (Auto) 5-10 H (0-5) /lpf U Epithel Cells (Auto) >30 H (0-5) /lpf Urine Bacteria (Auto) Negative (Negative) Urine Yeast Not Reportable Lyme Disease IgG Ab (Negative) Lyme Disease IgM Ab (Negative) COVID-19 Eval Order SARS-CoV-2 (PCR) (Negative) Imaging Data Radiologist's Impression: Chest X-Ray 01/08/21 13:31 XR chest 1V portable HISTORY: Fever COMPARISON: Chest 09/04/2020. FINDINGS: There is a new 2.9 cm round focal airspace opacity within the right midlung zone. No pneumothorax. No pleural effusions. A few bibasilar linear densities consistent with subsegmental atelectasis. No evidence for pulmonary edema. The heart remains mildly enlarged. There are poststernotomy changes and left-sided dual-chamber pacemaker. IMPRESSION: There is a new 2.9 cm focal airspace opacity within the right midlung zone. This likely represents a pneumonia. 1-2 month chest x-ray follow-up recommended to ensure resolution. ACT 112: Positive. There are findings on this exam that require communication between the performing entity and the patient following Patient Test Result Information Act ([place] Act 112) guidelines. Electronically signed by: Oumar Nicolas M.D. 01/08/2021 1:[address] abdomen and pelvis from [facility] outpatient Impression 1. Developing intra and extrahepatic biliary ductal dilatation. Finding may be obstructive due to poorly defined duodenal mass. Correlation with liver function panel suggested. 2. Poorly defined malignancy involving the duodenum is visually more bulky in appearance in comparison to PET/CT from 2020-12-17 with definitive measurement difficult due to poorly defined mass. There is central necrosis within this mass. There is definite increase in soft tissue masslike density surrounding the duodenum in comparison to CT from 2020-08-18. Although the central necrosis may be treatment response (correlation with current treatment regimen is requested), there has been a definite progression in disease in comparison to CT from 2020-08-18. 3. surrounding lymph nodes also demonstrate central necrosis. Enlarged necrotic lymph node in the region of the pancreatic head is similar to PET CT from 2020-12-17, not present on prior examinations, consistent with neoplastic disease. Blood Pressure Blood Pressure Findings: Normal blood pressure Blood Pressure Disposition: did not require urgent referral MDM Narrative This patient was evaluated and appeared to be in no significant distress. IV access was obtained and laboratory work was drawn. An order for cardiac monitoring was placed and the patient is noted to be in a normal sinus rhythm at 60 bpm. Blood cultures and lactate were drawn. Patient was medicated with IV Z osyn and hydrated with normal saline solution. Patient was given 1 g of IV Tylenol for fever. He did seem to have significant improvement in his symptoms with the above interventions. Covid swab was obtained and is negative. Chest x- ray was performed and reveals a right upper pulmonary infiltrate concerning for pneumonia. IV vancomycin has been ordered as well as a chest CT. I did reevaluate the patient and again discussed the change in his mental status. Head CT was ordered as well. Case was discussed with Norma Mike PA-C of the hospitalist service who has agreed to evaluate the patient for admission and further management. Dr. Ruffin of gastroenterology was consulted by phone. I do not feel the patient requires urgent duodenal stenting as he is not vomiting and able to tolerate food at this time. I suspect the patient's febrile source is pulmonary although he has received broad coverage. Patient's has expressed her desire not to be transferred back to [facility] if possible. Impression & Plan Pulmonary infiltrate in right lung on CXR, Mass of duodenum, Fever Discharge Plan Visit Data Chief Complaint: Fever Stated Complaint: PAIN,FEVER,SHAKES ED Provider: Camila Mccallum Discharge Problem: Pulmonary infiltrate in right lung on CXR, Mass of duodenum, Fever Forms Stand Alone Forms: [facility] Prescriptions Prescriptions: No Action hydromorphone [Dilaudid] 4 mg tablet 4 mg PO Q6H PRN (Reason: Pain) RF: 0 urea 20 % cream 1 applic topical BID RF: 0 sucralfate 1 gram tablet 1 g PO .QIDM RF: 0 levothyroxine [Levoxyl] 50 mcg tablet 150 mcg PO DAILY RF: 0 sennosides [Senokot] 8.6 mg tablet 8.6 mg PO Q OTHER DAY RF: 0 acetaminophen 325 mg capsule 650 mg PO Q6H PRN (Reason: Pain) RF: 0 polyethylene glycol 3350 [Miralax] 17 gram/dose powder 17 g PO Q OTHER DAY RF: 0 loratadine 10 mg tablet 10 mg PO DAILY RF: 0 triamcinolone acetonide 0.1 % cream 1 applic topical BID RF: 0 fentanyl 12 mcg/hr patch 72 hour 1 patch transdermal Q72H RF: 0 tamsulosin 0.4 mg capsule 0.4 mg PO QAM RF: 0 nitroglycerin [Nitrostat] 0.4 mg Tablet, Sublingual 0.4 mg Sublingual DIRECTED PRN (Reason: Chest Pain) RF: 0 finasteride 5 mg tablet 5 mg PO QAM RF: 0 rosuvastatin 20 mg tablet 20 mg PO QAM RF: 0 omega 1-uel-fqs-fish oil [Fish Oil] 1,000 mg (120 mg-180 mg) Capsule 1 cap PO BID RF: 0 carvedilol 12.5 mg tablet 12.5 mg PO BID RF: 0 omeprazole 20 mg capsule,delayed release(DR/EC) 20 mg PO BID RF: 0 losartan 25 mg tablet 25 mg PO QAM RF: 0 olopatadine 0.2 % drops 1 drp OPB BID RF: 0 multivitamin Tablet 1 tab PO QAM RF: 0 ondansetron HCl 8 mg Tablet 8 mg PO Q8H PRN (Reason: Nausea) RF: 0 clobetasol 0.05 % Cream 1 applic TOPICAL DIRECTED PRN (Reason: Skin Irritation) RF: 0 prochlorperazine maleate 10 mg tablet 10 mg PO Q8 PRN (Reason: Nausea) RF: 0 gabapentin 300 mg Capsule 300 mg PO TID RF: 0 PreserVision AREDS 7,160 unit- 113 mg-100 unit Tablet 1 tab PO BID RF: 0 Cholestyramine Light 4 gram powder 1 ea PO BID RF: 0 Referrals Referrals: Jeremie Diallo MD [Primary Care Provider] - Discharge Problem: Fever Qualifiers: Fever type: due to other condition Qualified Code(s): R50.81 - Fever presenting with conditions classified elsewhere
--- NOTE | 2021-01-08 18:25 | CT Scan Report ---
CT head/brain wo con CLINICAL HISTORY: AMS, colon CA COMPARISON STUDY: November 26, 2015 TECHNIQUE: Axial CT of the brain is performed from the vertex to the skull base. IV contrast was not administered for this examination. A dose lowering technique was utilized adhering to the principles of ALARA. CT DOSE: FINDINGS: No intra or extra-axial mass lesions are visualized. There is no CT evidence of acute cortical infarc tion. There is no evidence of midline shift. There is no acute hemorrhage. No acute depressed calvar ial fractures are visualized. There are patchy white matter hypodensities likely on a small vessel basis. Calcifications of bilateral basal ganglia are seen. Mild diffuse atrophic changes of brain parenchyma are seen and associated with ex vacuo dilatation of ventricles. There is no evidence of acute sinusitis IMPRESSION: No acute intracranial hemorrhage, no midline shift or space occupying lesions. Atrophic changes of brain parenchyma and chronic small vessel ischemia. ACT 112: Negative or not required by law. The above report was generated using voice recognition software. It may contain grammatical, syntax o r spelling errors. Electronically signed by: Kacy Lucero DO 01/08/2021 6:24 PM
--- NOTE | 2021-01-08 18:44 | CT Scan Report ---
CT OF THE CHEST WITH IV CONTRAST CLINICAL HISTORY: PNA vs mass, known colon CA w mets COMPARISON STUDY: January 30, 2017 TECHNIQUE: Following the IV administration of 94 mL of Optiray, CT of the thorax was performed from the thoracic inlet to the lung bases. Images are reviewed in the axial, sagittal, and coronal planes. IV contrast was administered without complication. A dose lowering technique was utilized adhering to the principles of ALARA. CT DOSE: 1256.65 mGy.cm FINDINGS: There is no axillary, supra clavicle or internal mammary lymphadenopathy seen. Multiple mediastinal l ymph nodes measuring up to 1.1 cm in subcarinal region, partial calcified and unchanged since prior. Thyroid: Visualized portion of thyroid gland shows no evidence of focal lesions. Proximal esophagus i s patulous. Focal dilatation of fluid-filled esophagus is seen at its midportion (6/127) and better v isualized on sagittal reconstruction. Distal aspect of esophagus is not dilated. Small hiatal hernia is seen. Thoracic aorta: Thoracic aorta is normal in caliber and with scattered calcifications of its wall. Pulmonary vasculature: Normal in caliber. HEART: Four-chamber cardiomegaly. No pericardial effusion. Distal aspect of the pacemaker are seen. H eavy calcifications of the [place] coronary arteries and possible stents. Status post CABG. Lungs and pleural spaces: Tracheobronchial tree is patent. Patchy consolidative opacities with surrounding groundglass attenuation are seen within right upper l obe. Few linear densities are seen within bilateral lower lobes which could represent atelectasis or scarring. No pleural effusion is seen. Upper abdomen: Limited evaluation of upper abdominal viscera shows dilatation of intrahepatic and vi sualized portion of extrahepatic biliary duct, splenic calcifications and fat stranding within epigas tric region. Skeletal structures: Osseous structures are slightly demineralized. Degenerative changes of the spine and sternotomy changes are seen with mild nonunion within its inferior aspect. IMPRESSION: 1. Patchy airspace opacities with surrounding groundglass and attenuation within right upper lobe, l ikely represent infectious/inflammatory etiology. Short-term follow-up in 4-6 weeks is recommended (o r per clinical protocol) to document resolution. 2. Questionable focal dilatation of the esophagus. Please correlate above-mentioned findings with cl inical presentation and gastroenterology evaluation. 3. Linear densities within bilateral lower lobes likely represent atelectasis or scarring. 4. Four-chamber cardiomegaly. 5. Dilatation of the common bile duct and intrahepatic biliary ducts. Above-mentioned findings were better evaluated on CT of the abdomen and pelvis performed on January 07, 2021. 6. The rest of findings as above. ACT 112: Negative or not required by law. The above report was generated using voice recognition software. It may contain grammatical, syntax o r spelling errors. Electronically signed by: Kacy Lucero DO 01/08/2021 6:43 PM
[2021-01-08 18:53] LABS: Lipase 104 U/L (73-393)
[2021-01-08] MEDS ORDERED: CARBOHYDRATES FOR HYPOGLYCEMIA PO PRN (20:19)
[2021-01-08] MEDS ORDERED: DOCUSATE SODIUM 100 MG CAP PO PRN (20:19)
[2021-01-08] MEDS ORDERED: GLUCOSE 10 TABS/TUBE PO PRN (20:19)
[2021-01-08] MEDS ORDERED: DEXTROSE 50% 50 ML SYRINGE IV PRN (20:19)
[2021-01-08] MEDS ORDERED: POLYETHYLENE (MIRALAX) 17 GM PACK PO PRN (20:19)
[2021-01-08] MEDS ORDERED: ONDANSETRON INJ 2 MG/ML 2 ML VIAL IV PRN (20:19)
[2021-01-08] MEDS ORDERED: MAGNESIUM HYDROXIDE SUSP 30 ML UDC PO PRN (20:19)
[2021-01-08] MEDS ORDERED: GLUCAGON FOR INJ 1 MG VIAL SQ PRN (20:19)
[2021-01-08] MEDS ORDERED: ALUMINUM/MAGNESIUM SUSP 30 ML UDC PO PRN (20:19)
[2021-01-08] MEDS ORDERED: GLUCOSE 40% GEL 15 GM TUBE PO PRN (20:19)
[2021-01-08] MEDS: SODIUM CHLORIDE 0.9% 1000ML 1,000 ML IV SCH (20:24)
[2021-01-08] MEDS ORDERED: fentaNYL 12 MCG/HR TDSY TD SCH (20:30)
[2021-01-08] MEDS ORDERED: SENNA 8.6 MG TAB PO SCH (20:30)
[2021-01-08] MEDS ORDERED: INSULIN ASPART 100 UNITS/ML 3 ML PEN SC SCH (21:00)
[2021-01-08] MEDS ORDERED: POLYETHYLENE (MIRALAX) 17 GM PACK PO SCH (21:00)
[2021-01-08] MEDS: OMEGA-3 (PURIFIED FISH OIL) 1 GM CAP PO SCH (21:39)
[2021-01-08] MEDS: CHOLESTYRAMINE LIGHT 4 GM PKT PO SCH (21:39)
[2021-01-08] MEDS: DOXYCYCLINE HYCLATE 100 MG CAP PO SCH (21:40)
[2021-01-08] MEDS: GABAPENTIN 300 MG CAP PO SCH (21:40)
[2021-01-08] MEDS: PANTOprazole 40 MG TAB PO SCH (21:41)
[2021-01-08] MEDS: CEROVITE ADV FORMULA TAB PO SCH (21:42)
[2021-01-08] MEDS: SUCRALFATE 1 GM TAB PO SCH (21:42)
[2021-01-08] MEDS: PIPERACILLIN/TAZOBACTAM 3.375 GM in DEXTROSE 5% 100 ML IV SCH (21:43)
[2021-01-08] MEDS ORDERED: ENOXAPARIN INJ 40 MG/0.4 ML SYR SQ SCH (22:00)
[2021-01-09] MEDS: CHECK fentaNYL PATCH PLACEMENT SCH ×3 (00:01→16:44)
[2021-01-09] MEDS: HYDROmorphone HCL 2 MG TAB PO PRN ×2 (00:55→07:56)
[2021-01-09] MEDS ORDERED: HYDROmorphone INJ 0.5 MG/0.5 ML SYR IV STA ×2 (02:28→04:42)
[2021-01-09] MEDS ORDERED: HYDROmorphone INJ 0.5 MG/0.5 ML SYR ONE (04:51)
[2021-01-09] MEDS: PIPERACILLIN/TAZOBACTAM 3.375 GM in DEXTROSE 5% 100 ML IV SCH ×2 (05:28→13:10)
[2021-01-09] MEDS: INSULIN ASPART 100 UNITS/ML 3 ML PEN SC SCH ×3 (06:08→18:39)
[2021-01-09] MEDS ORDERED: LEVOTHYROXINE SODIUM 150 MCG TABLET PO SCH (06:30)
[2021-01-09] MEDS: SUCRALFATE 1 GM TAB PO SCH ×2 (06:30→18:39)
[2021-01-09] MEDS: SODIUM CHLORIDE 0.9% 1000ML 1,000 ML IV SCH (06:32)
[2021-01-09 07:51] LABS: Basophils # (auto) 0.01 K/uL (0-0.2); Basophils % (auto) 0.1 %; Eosinophils # (auto) 0.12 K/uL (0-0.5); Eosinophils % (auto) 1.4 %; Hemoglobin 10.3 g/dL (14.0-18.0); Immature Granulocytes # (auto) 0.01 K/uL (0.00-0.02); Immature Granulocytes % (auto) 0.1 %; Lymphocytes # (auto) 1.02 K/uL (1.2-3.4); Lymphocytes % (auto) 12.1 %; Mean Corpuscular Hemoglobin 27.5 pg (25-34); Mean Corpuscular Hgb Conc 32.2 g/dL (32-36); Mean Corpuscular Volume 85.6 fL (80-100); Mean Platelet Volume 9.4 fL (7.4-10.4); Monocytes # (auto) 1.25 K/uL (0.11-0.59); Monocytes % (auto) 14.8 %; Neutrophils # (auto) 6.01 K/uL (1.4-6.5); Neutrophils % (auto) 71.5 %; Platelet Count 236 K/uL (130-400); RDW Coefficient of Variation 16.3 % (11.5-14.5); Red Blood Count 3.74 M/uL (4.7-6.1); White Blood Count 8.42 K/uL (4.8-10.8)
[2021-01-09] MEDS: CHOLESTYRAMINE LIGHT 4 GM PKT PO SCH ×2 (07:56→07:58)
[2021-01-09] MEDS: DOXYCYCLINE HYCLATE 100 MG CAP PO SCH (07:59)
[2021-01-09] MEDS: PANTOprazole 40 MG TAB PO SCH (08:00)
[2021-01-09] MEDS: CEROVITE ADV FORMULA TAB PO SCH (08:00)
[2021-01-09] MEDS: GABAPENTIN 300 MG CAP PO SCH ×2 (08:00→13:11)
[2021-01-09] MEDS: OMEGA-3 (PURIFIED FISH OIL) 1 GM CAP PO SCH (08:00)
[2021-01-09 08:04] LABS: INR 1.1 (0.9-1.1)
[2021-01-09 08:25] LABS: Albumin Level 2.4 gm/dl (3.4-5.0); BUN Creatinine Ratio 18.2 (10-20); Calcium 8.5 mg/dl (8.5-10.1); Creatinine Clr Calc Pharmacy 60.5 ml/min; Est GFR (African American) 83.6 ml/min; Est GFR (Non-African American) 72.1 ml/min; Potassium 3.5 mmol/L (3.5-5.1)
[2021-01-09 08:30] LABS: Albumin Globulin Ratio 0.7 (0.9-2); Bilirubin,Total 2.7 mg/dl (0.2-1); Globulin 3.7 gm/dl (2.5-4.0); Total Protein 6.1 gm/dl (6.4-8.2)
[2021-01-09 08:42] LABS: Estimated Average Glucose 143 mg/dl; Hemoglobin A1C 6.6 % (4.5-5.6)
[2021-01-09] MEDS ORDERED: LORATADINE 10 MG TAB PO SCH (09:00)
[2021-01-09] MEDS ORDERED: METOPROLOL SUCC 50MG EXT REL TAB PO SCH (09:00)
[2021-01-09] MEDS ORDERED: TAMSULOSIN HCL 0.4 MG CAP PO SCH (09:00)
[2021-01-09] MEDS ORDERED: ASPIRIN 81 MG ECTAB PO SCH (09:00)
[2021-01-09] MEDS ORDERED: MULTIVITAMIN TAB PO SCH (09:00)
[2021-01-09] MEDS ORDERED: FINASTERIDE 5 MG TAB PO SCH (09:00)
--- NOTE | 2021-01-09 09:22 | Gastrointestinal Consultation ---
Date of Consultation January 09, 2021 Assessment & Plan (1) Transaminitis: 80 year old male with history of metastatic colon cancer (hepatic flexure origin)w/ invasion of the duodenum s/p hemicolectomy with partial duodenal resection, history of Lisandro-en-Y duodenojejunostomy and biliary reconstruction in 2019 admitted with fevers, jaundice, abdominal pain and nausea/vomiting. CTAP yesterday as an outpatient shows development of intra and extrahepatic biliary ductal dilation concerning for obstructive duodenal mass and lesion is visually more bulky in appearance in comparison to prior imaging tests. Discussed with attending and biliary coverage, Dr. Marin. Given the patient post-surgical anatomy and history of hepaticojejunostomy we [place] [facility] [place] [place]. Would continue with IV ABX as doing to cover for cholangitis. No repeat ABD imaging warranted at this time after review of OP CTAP yesterday. Continue conservative management to include NPO, IV analgesia, antiemetics. Thank you for allowing us to participate in the care of this patient. Please call with any acute changes, questions or concerns. Please see addendum below with additional recommendation from my supervising physician. History of Present Illness Reason for Consultation: fevers, jaundice, abdominal pain Requesting Physician: Taurus Attending Physician: Tk Condon MD History of Present Illness 80 year old male with history of metastatic colon cancer (hepatic flexure origin)w/ invasion of the duodenum s/p hemicolectomy with partial duodenal resection, history of Lisandro-en-Y duodenojejunostomy, who completed chemo in December and radiation in October admitted through the ED w/ fever, jaundice and elevated LFTs. Pt was seen and evaluated, chart reviewed. Notes he has had abd pain and decreased appetite for about 2/3 weeks. this has progessively worsened. Attempted PO intake would result in worsening pain, nausea and vomiting. He is a poor historian but suggests he has had progressively worsening constiation as well. Last BM was on Tuesday,small volume and formed. Yesterday developed fevers, chills and was admitted through the ED. 12/10/2020 07:37 Albumin: 3.8 AST: 17 ALT: <5 (L) Alkaline Phosphatase: 69 Bilirubin, Total: 0.2 01/01/2021 07:50 Albumin: 3.8 AST: 264 (H) ALT: 178 (H) Alkaline Phosphatase: 876 (H) Bilirubin, Total: 0.5 01/08/2021 12:33 Albumin: 3.9 AST: 269 (H) ALT: 284 (H) Alkaline Phosphatase: >1,200 (H) Bilirubin, Total: 1.9 (H) CTAP 01/07/2021: Developing intra and extrahepatic biliary ductal dilation. Finding may be obstructive due to poorly defined duodenal mass. Correlation wi liver function panel suggested. Poorly defined malignancy involving the duodenum is visually more bulky in appearance in comparison to PET-CT from December 17, 2020 with definitive measurement difficult due to poorly defined mass. There is central necrosis within this mass. There is definite increase in soft tissue masslike density surrounding the duodenum in comparison to CT from August 18, 2020. Although the central necrosis may represent treatment response (correlation with current treatment regimen is requested), there has been a definite progression in disease in comparison to CT from August 18, 2020. Surrounding lymph nodes also demonstrate central necrosis. Enlarged necrotic lymph node in the region of the pancreatic head is similar to PET-CT from December 17, 2020, not present on prior examinations, consistent with neoplastic disease. EGD 2020: Normal esophagus.Normal stomach.Patent previous surgical anastomosis was found in the duodenum.Mucosal abnormality vs lesion in the duodenum. Biopsied.No obvious obstruction seen. Allergies Allergy/AdvReac Type Severity Reaction Status Date / Time No Known Allergies Allergy Verified 01/08/21 17:35 Home Medications Medication Instructions Recorded Confirmed Type finasteride 5 mg tablet 5 mg PO QAM 03/17/18 01/08/21 History nitroglycerin 0.4 mg sublingual 0.4 mg SUBLINGUAL DIRECTED PRN 03/17/18 01/08/21 History tablet (Nitrostat) omega 4-yqa-hji-fish oil 1,000 mg 1 cap PO BID 03/17/18 01/08/21 History (120 mg-180 mg) capsule (Fish Oil) rosuvastatin 20 mg tablet 20 mg PO QAM 03/17/18 01/08/21 History tamsulosin 0.4 mg capsule 0.4 mg PO QAM 03/17/18 01/08/21 History omeprazole 20 mg capsule,delayed 20 mg PO BID 04/17/20 01/08/21 History release clobetasol 0.05 % topical cream 1 applic TOPICAL DIRECTED PRN 08/20/20 01/08/21 History gabapentin 300 mg capsule 300 mg PO TID 08/20/20 01/08/21 History multivitamin 1 tab PO QAM 08/20/20 01/08/21 History ondansetron HCl 8 mg tablet 8 mg PO Q8H PRN 08/20/20 01/08/21 History prochlorperazine maleate 10 mg 10 mg PO Q8 PRN 08/20/20 01/08/21 History tablet vitamins A,C,R-phhc-ymaleu 7,160 1 tab PO BID 08/20/20 01/08/21 History unit-113 mg-100 unit tablet (PreserVision AREDS) acetaminophen 325 mg capsule 650 mg PO Q6H PRN cap 09/16/20 01/08/21 History cholestyramine-aspartame 4 gram 1 ea PO BID g 09/16/20 01/08/21 History oral powder (Cholestyramine Light) hydromorphone 4 mg tablet 4 mg PO Q6H PRN 09/16/20 01/08/21 History (Dilaudid) levothyroxine 50 mcg tablet 150 mcg PO DAILY tab 09/16/20 01/08/21 History (Levoxyl) loratadine 10 mg tablet 10 mg PO DAILY 09/16/20 01/08/21 History olopatadine 0.2 % eye drops 1 drp OPB BID ml 09/16/20 01/08/21 History polyethylene glycol 3350 17 17 g PO Q OTHER DAY g 09/16/20 01/08/21 History gram/dose oral powder (Miralax) sennosides 8.6 mg tablet (Senokot) 8.6 mg PO Q OTHER DAY tab 09/16/20 01/08/21 History sucralfate 1 gram tablet 1 g PO BID tab 09/16/20 01/08/21 History triamcinolone acetonide 0.1 % 1 applic TOPICAL BID 09/16/20 01/08/21 History topical cream urea 20 % topical cream 1 applic TOPICAL BID 09/16/20 01/08/21 History fentanyl 12 mcg/hr transdermal 2 patch TRANSDERMAL Q72H 10/13/20 01/08/21 History patch losartan 25 mg tablet 25 mg PO QAM 10/13/20 01/08/21 History aspirin 81 mg tablet,delayed 81 mg PO DAILY 01/08/21 01/08/21 History release metoprolol succinate 50 mg 50 mg PO DAILY 01/08/21 01/08/21 History tablet,extended release 24 hr Patient History Medical History (Updated 01/08/21 @ 18:36 by Norma Mike PA-C) BPH (benign prostatic hyperplasia) Bradycardia CAD (coronary artery disease) "S/p stents 2004, 2006. 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 propofol/lido no issues. History of tonsillectomy and adenoidectomy Hx of right hemicolectomy S/P CABG (coronary artery bypass graft) (2016) Family History Father , Passed in 80's secondary to SimpleSite accident, rolled on top of him Prostate cancer, Onset Age: 70 Radiation Treatment Accident caused by powered SimpleSite Mother , Passed mid 90's of Alzheimer's complications T2DM (type 2 diabetes mellitus) Brother Prostate cancer, Onset Age: 60 Radioactive Seed Implant Sister Cancer of abdomen, Onset Age: 80 unsure of exact type - getting treatment currently Son Colon cancer, Onset Age: 53 Resection - Currently doing well Son No problems noted. Son , due to Suicide No problems noted. 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 Other Information That Helps Us Care for You: No Feels Safe at Home: Yes Safety Concerns: Feels Safe At This Time Childhood Exposure to Second-Hand Smoke: No caffeine: Yes (1 cup of coffee/day) during the past year weight has: decreased > 10 lbs Dental Care, Regularly: No Assistive Devices: None Review of Systems Review of Systems: All systems reviewed & are unremarkable except as noted in HPI & below Physical Exam Constitutional: WD/WN, vitals as above Neck: trachea midline, no thyromegaly Respiratory: normal respiratory effort, lungs clear to auscultation Cardiovascular: Rate/Rhythm: regular rate and regular rhythm Gastrointestinal (Abdomen): Inspection/Auscultation: abdomen normal to inspection, + abdomen distended and normal bowel sounds Percussion/Palpation: + abdomen tender and abdomen soft; no guarding and abdomen not rigid Skin: no rashes, warm and dry Results & Data ([facility]) Vital Signs (Past 12 Hours) Vital Signs Temp Pulse Pulse Resp BP Pulse Ox 01/09/21 06:50 36.4 C L 67 18 177/74 H 95 01/09/21 02:29 36.9 C 62 18 188/83 H 94 01/08/21 22:42 36.7 C 60 18 160/71 H 96 01/08/21 22:21 67 Laboratory Results 01/09/21 01/09/21 01/09/21 Range/Units 07:07 07:07 07:07 WBC (4.8-10.8) K/uL RBC (4.7-6.1) M/uL Hgb (14.0-18.0) g/dL Hct (42-52) % MCV (80-100) fL MCH (25-34) pg MCHC (32-36) g/dL RDW Std Deviation (36.4-46.3) fL RDW Coeff of Gabriela (11.5-14.5) % Plt Count (130-400) K/uL MPV (7.4-10.4) fL Immature Gran % (Auto) % Neut % (Auto) % Lymph % (Auto) % [place] % (Auto) % Eos % (Auto) % Baso % (Auto) % Neut # (Auto) (1.4-6.5) K/uL Lymph # (Auto) (1.2-3.4) K/uL [place] # (Auto) (0.11-0.59) K/uL Eos # (Auto) (0-0.5) K/uL Baso # (Auto) (0-0.2) K/uL Immature Gran # (Auto) (0.00-0.02) K/uL PT 11.0 (9.0-12.0) Seconds INR 1.1 (0.9-1.1) Sodium 138 (136-145) mmol/L Potassium 3.5 (3.5-5.1) mmol/L Chloride 106 (98-107) mmol/L Carbon Dioxide 25 (21-32) mmol/L Anion Gap 7.0 (3-11) BUN 18 (7-18) mg/dl Creatinine 0.99 (0.6-1.4) mg/dl Est Cr Clr Drug Dosing 60.5 Est GFR ( Amer) 83.6 ml/min Est GFR (Non-Af Amer) 72.1 ml/min BUN/Creatinine Ratio 18.2 (10-20) Glucose 117 H (70-99) mg/dl POC Glucose (70-99) mg/dl Estimat Average Glucose 143 mg/dl Hemoglobin A1c 6.6 H (4.5-5.6) % Lactate (0.4-2.0) mmol/L Calcium 8.5 (8.5-10.1) mg/dl Total Bilirubin 2.7 H (0.2-1) mg/dl AST 168 H (15-37) U/L ALT 216 H (12-78) U/L Alkaline Phosphatase 934 H (45-117) U/L Ammonia (11-32) umol/L Troponin I (0-0.045) ng/ml Total Protein 6.1 L (6.4-8.2) gm/dl Albumin 2.4 L (3.4-5.0) gm/dl Globulin 3.7 (2.5-4.0) gm/dl Albumin/Globulin Ratio 0.7 L (0.9-2) Lipase (73-393) U/L Procalcitonin (0-0.5) ng/ml Urine Color Urine Appearance (Clear) Urine pH (4.5-7.5) Ur Specific [place] (1.000-1.030) Urine Protein (Negative) Urine Glucose (UA) (Negative) Urine Ketones (Negative) Urine Blood (Negative) Urine Nitrite (Negative) Urine Bilirubin (Negative) Urine Urobilinogen (Negative) Ur Leukocyte Esterase (Negative) Urine WBC (Auto) (0-5) /hpf Urine RBC (Auto) (0-4) /hpf U Hyaline Cast (Auto) (0-5) /lpf U Epithel Cells (Auto) (0-5) /lpf Urine Bacteria (Auto) (Negative) Urine Yeast Nasal Screen MRSA (PCR) (Negative) A. phagocytophilum DNA Lyme Disease IgG Ab (Negative) Lyme Disease IgM Ab (Negative) COVID-19 Eval Order SARS-CoV-2 (PCR) (Negative) 01/09/21 01/09/21 01/08/21 Range/Units 07:07 06:05 20:14 WBC 8.42 (4.8-10.8) K/uL RBC 3.74 L (4.7-6.1) M/uL Hgb 10.3 L (14.0-18.0) g/dL Hct 32.0 L (42-52) % MCV 85.6 (80-100) fL MCH 27.5 (25-34) pg MCHC 32.2 (32-36) g/dL RDW Std Deviation 52.0 H (36.4-46.3) fL RDW Coeff of Gabriela 16.3 H (11.5-14.5) % Plt Count 236 (130-400) K/uL MPV 9.4 (7.4-10.4) fL Immature Gran % (Auto) 0.1 % Neut % (Auto) 71.5 % Lymph % (Auto) 12.1 % [place] % (Auto) 14.8 % Eos % (Auto) 1.4 % Baso % (Auto) 0.1 % Neut # (Auto) 6.01 (1.4-6.5) K/uL Lymph # (Auto) 1.02 L (1.2-3.4) K/uL [place] # (Auto) 1.25 H (0.11-0.59) K/uL Eos # (Auto) 0.12 (0-0.5) K/uL Baso # (Auto) 0.01 (0-0.2) K/uL Immature Gran # (Auto) 0.01 (0.00-0.02) K/uL PT (9.0-12.0) Seconds INR (0.9-1.1) Sodium (136-145) mmol/L Potassium (3.5-5.1) mmol/L Chloride (98-107) mmol/L Carbon Dioxide (21-32) mmol/L Anion Gap (3-11) BUN (7-18) mg/dl Creatinine (0.6-1.4) mg/dl Est Cr Clr Drug Dosing Est GFR ( Amer) ml/min Est GFR (Non-Af Amer) ml/min BUN/Creatinine Ratio (10-20) Glucose (70-99) mg/dl POC Glucose 125 H 121 H (70-99) mg/dl Estimat Average Glucose mg/dl Hemoglobin A1c (4.5-5.6) % Lactate (0.4-2.0) mmol/L Calcium (8.5-10.1) mg/dl Total Bilirubin (0.2-1) mg/dl AST (15-37) U/L ALT (12-78) U/L Alkaline Phosphatase (45-117) U/L Ammonia (11-32) umol/L Troponin I (0-0.045) ng/ml Total Protein (6.4-8.2) gm/dl Albumin (3.4-5.0) gm/dl Globulin (2.5-4.0) gm/dl Albumin/Globulin Ratio (0.9-2) Lipase (73-393) U/L Procalcitonin (0-0.5) ng/ml Urine Color Urine Appearance (Clear) Urine pH (4.5-7.5) Ur Specific [place] (1.000-1.030) Urine Protein (Negative) Urine Glucose (UA) (Negative) Urine Ketones (Negative) Urine Blood (Negative) Urine Nitrite (Negative) Urine Bilirubin (Negative) Urine Urobilinogen (Negative) Ur Leukocyte Esterase (Negative) Urine WBC (Auto) (0-5) /hpf Urine RBC (Auto) (0-4) /hpf U Hyaline Cast (Auto) (0-5) /lpf U Epithel Cells (Auto) (0-5) /lpf Urine Bacteria (Auto) (Negative) Urine Yeast Nasal Screen MRSA (PCR) (Negative) A. phagocytophilum DNA Lyme Disease IgG Ab (Negative) Lyme Disease IgM Ab (Negative) COVID-19 Eval Order SARS-CoV-2 (PCR) (Negative) 01/08/21 01/08/21 01/08/21 Range/Units 17:16 16:40 13:55 WBC (4.8-10.8) K/uL RBC (4.7-6.1) M/uL Hgb (14.0-18.0) g/dL Hct (42-52) % MCV (80-100) fL MCH (25-34) pg MCHC (32-36) g/dL RDW Std Deviation (36.4-46.3) fL RDW Coeff of Gabriela (11.5-14.5) % Plt Count (130-400) K/uL MPV (7.4-10.4) fL Immature Gran % (Auto) % Neut % (Auto) % Lymph % (Auto) % [place] % (Auto) % Eos % (Auto) % Baso % (Auto) % Neut # (Auto) (1.4-6.5) K/uL Lymph # (Auto) (1.2-3.4) K/uL [place] # (Auto) (0.11-0.59) K/uL Eos # (Auto) (0-0.5) K/uL Baso # (Auto) (0-0.2) K/uL Immature Gran # (Auto) (0.00-0.02) K/uL PT (9.0-12.0) Seconds INR (0.9-1.1) Sodium (136-145) mmol/L Potassium (3.5-5.1) mmol/L Chloride (98-107) mmol/L Carbon Dioxide (21-32) mmol/L Anion Gap (3-11) BUN (7-18) mg/dl Creatinine (0.6-1.4) mg/dl Est Cr Clr Drug Dosing Est GFR ( Amer) ml/min Est GFR (Non-Af Amer) ml/min BUN/Creatinine Ratio (10-20) Glucose (70-99) mg/dl POC Glucose (70-99) mg/dl Estimat Average Glucose mg/dl Hemoglobin A1c (4.5-5.6) % Lactate (0.4-2.0) mmol/L Calcium (8.5-10.1) mg/dl Total Bilirubin (0.2-1) mg/dl AST (15-37) U/L ALT (12-78) U/L Alkaline Phosphatase (45-117) U/L Ammonia (11-32) umol/L Troponin I (0-0.045) ng/ml Total Protein (6.4-8.2) gm/dl Albumin (3.4-5.0) gm/dl Globulin (2.5-4.0) gm/dl Albumin/Globulin Ratio (0.9-2) Lipase (73-393) U/L Procalcitonin 1.96 H (0-0.5) ng/ml Urine Color Dark Yellow Urine Appearance Clear (Clear) Urine pH 5.5 (4.5-7.5) Ur Specific [place] 1.036 H (1.000-1.030) Urine Protein 1+ H (Negative) Urine Glucose (UA) Negative (Negative) Urine Ketones Trace H (Negative) Urine Blood Negative (Negative) Urine Nitrite Negative (Negative) Urine Bilirubin 1+ H (Negative) Urine Urobilinogen Negative (Negative) Ur Leukocyte Esterase 1+ H (Negative) Urine WBC (Auto) 10-30 H (0-5) /hpf Urine RBC (Auto) 0-4 (0-4) /hpf U Hyaline Cast (Auto) 5-10 H (0-5) /lpf U Epithel Cells (Auto) >30 H (0-5) /lpf Urine Bacteria (Auto) Negative (Negative) Urine Yeast Not Reportable Nasal Screen MRSA (PCR) Negative (Negative) A. phagocytophilum DNA Lyme Disease IgG Ab (Negative) Lyme Disease IgM Ab (Negative) COVID-19 Eval Order SARS-CoV-2 (PCR) (Negative) 01/08/21 01/08/21 01/08/21 Range/Units 13:55 13:55 13:55 WBC (4.8-10.8) K/uL RBC (4.7-6.1) M/uL Hgb (14.0-18.0) g/dL Hct (42-52) % MCV (80-100) fL MCH (25-34) pg MCHC (32-36) g/dL RDW Std Deviation (36.4-46.3) fL RDW Coeff of Gabriela (11.5-14.5) % Plt Count (130-400) K/uL MPV (7.4-10.4) fL Immature Gran % (Auto) % Neut % (Auto) % Lymph % (Auto) % [place] % (Auto) % Eos % (Auto) % Baso % (Auto) % Neut # (Auto) (1.4-6.5) K/uL Lymph # (Auto) (1.2-3.4) K/uL [place] # (Auto) (0.11-0.59) K/uL Eos # (Auto) (0-0.5) K/uL Baso # (Auto) (0-0.2) K/uL Immature Gran # (Auto) (0.00-0.02) K/uL PT (9.0-12.0) Seconds INR (0.9-1.1) Sodium (136-145) mmol/L Potassium (3.5-5.1) mmol/L Chloride (98-107) mmol/L Carbon Dioxide (21-32) mmol/L Anion Gap (3-11) BUN (7-18) mg/dl Creatinine (0.6-1.4) mg/dl Est Cr Clr Drug Dosing Est GFR ( Amer) ml/min Est GFR (Non-Af Amer) ml/min BUN/Creatinine Ratio (10-20) Glucose (70-99) mg/dl POC Glucose (70-99) mg/dl Estimat Average Glucose mg/dl Hemoglobin A1c (4.5-5.6) % Lactate (0.4-2.0) mmol/L Calcium (8.5-10.1) mg/dl Total Bilirubin (0.2-1) mg/dl AST (15-37) U/L ALT (12-78) U/L Alkaline Phosphatase (45-117) U/L Ammonia 26.0 (11-32) umol/L Troponin I (0-0.045) ng/ml Total Protein (6.4-8.2) gm/dl Albumin (3.4-5.0) gm/dl Globulin (2.5-4.0) gm/dl Albumin/Globulin Ratio (0.9-2) Lipase (73-393) U/L Procalcitonin (0-0.5) ng/ml Urine Color Urine Appearance (Clear) Urine pH (4.5-7.5) Ur Specific [place] (1.000-1.030) Urine Protein (Negative) Urine Glucose (UA) (Negative) Urine Ketones (Negative) Urine Blood (Negative) Urine Nitrite (Negative) Urine Bilirubin (Negative) Urine Urobilinogen (Negative) Ur Leukocyte Esterase (Negative) Urine WBC (Auto) (0-5) /hpf Urine RBC (Auto) (0-4) /hpf U Hyaline Cast (Auto) (0-5) /lpf U Epithel Cells (Auto) (0-5) /lpf Urine Bacteria (Auto) (Negative) Urine Yeast Nasal Screen MRSA (PCR) (Negative) A. phagocytophilum DNA Pending Lyme Disease IgG Ab Negative (Negative) Lyme Disease IgM Ab Negative (Negative) COVID-19 Eval Order SARS-CoV-2 (PCR) (Negative) 01/08/21 01/08/21 01/08/21 Range/Units 13:55 13:55 13:55 WBC 12.15 H (4.8-10.8) K/uL RBC 4.36 L (4.7-6.1) M/uL Hgb 11.8 L (14.0-18.0) g/dL Hct 37.3 L (42-52) % MCV 85.6 (80-100) fL MCH 27.1 (25-34) pg MCHC 31.6 L (32-36) g/dL RDW Std Deviation 51.9 H (36.4-46.3) fL RDW Coeff of Gabriela 16.3 H (11.5-14.5) % Plt Count 275 (130-400) K/uL MPV 9.6 (7.4-10.4) fL Immature Gran % (Auto) 0.2 % Neut % (Auto) 79.1 % Lymph % (Auto) 9.5 % [place] % (Auto) 10.1 % Eos % (Auto) 1.0 % Baso % (Auto) 0.1 % Neut # (Auto) 9.60 H (1.4-6.5) K/uL Lymph # (Auto) 1.16 L (1.2-3.4) K/uL [place] # (Auto) 1.23 H (0.11-0.59) K/uL Eos # (Auto) 0.12 (0-0.5) K/uL Baso # (Auto) 0.01 (0-0.2) K/uL Immature Gran # (Auto) 0.03 H (0.00-0.02) K/uL PT (9.0-12.0) Seconds INR (0.9-1.1) Sodium 135 L (136-145) mmol/L Potassium 4.1 (3.5-5.1) mmol/L Chloride 100 (98-107) mmol/L Carbon Dioxide 27 (21-32) mmol/L Anion Gap 8.0 (3-11) BUN 26 H (7-18) mg/dl Creatinine 1.27 (0.6-1.4) mg/dl Est Cr Clr Drug Dosing Not Reportable Est GFR ( Amer) 61.9 ml/min Est GFR (Non-Af Amer) 53.4 ml/min BUN/Creatinine Ratio 20.6 H (10-20) Glucose 113 H (70-99) mg/dl POC Glucose (70-99) mg/dl Estimat Average Glucose mg/dl Hemoglobin A1c (4.5-5.6) % Lactate 2.0 (0.4-2.0) mmol/L Calcium 9.0 (8.5-10.1) mg/dl Total Bilirubin 1.8 H (0.2-1) mg/dl AST 252 H (15-37) U/L ALT 307 H (12-78) U/L Alkaline Phosphatase 1079 H (45-117) U/L Ammonia (11-32) umol/L Troponin I < 0.015 (0-0.045) ng/ml Total Protein 7.6 (6.4-8.2) gm/dl Albumin 3.1 L (3.4-5.0) gm/dl Globulin 4.5 H (2.5-4.0) gm/dl Albumin/Globulin Ratio 0.7 L (0.9-2) Lipase 104 (73-393) U/L Procalcitonin (0-0.5) ng/ml Urine Color Urine Appearance (Clear) Urine pH (4.5-7.5) Ur Specific [place] (1.000-1.030) Urine Protein (Negative) Urine Glucose (UA) (Negative) Urine Ketones (Negative) Urine Blood (Negative) Urine Nitrite (Negative) Urine Bilirubin (Negative) Urine Urobilinogen (Negative) Ur Leukocyte Esterase (Negative) Urine WBC (Auto) (0-5) /hpf Urine RBC (Auto) (0-4) /hpf U Hyaline Cast (Auto) (0-5) /lpf U Epithel Cells (Auto) (0-5) /lpf Urine Bacteria (Auto) (Negative) Urine Yeast Nasal Screen MRSA (PCR) (Negative) A. phagocytophilum DNA Lyme Disease IgG Ab (Negative) Lyme Disease IgM Ab (Negative) COVID-19 Eval Order SARS-CoV-2 (PCR) (Negative) 01/08/21 01/08/21 Range/Units 13:35 13:35 WBC (4.8-10.8) K/uL RBC (4.7-6.1) M/uL Hgb (14.0-18.0) g/dL Hct (42-52) % MCV (80-100) fL MCH (25-34) pg MCHC (32-36) g/dL RDW Std Deviation (36.4-46.3) fL RDW Coeff of Gabriela (11.5-14.5) % Plt Count (130-400) K/uL MPV (7.4-10.4) fL Immature Gran % (Auto) % Neut % (Auto) % Lymph % (Auto) % [place] % (Auto) % Eos % (Auto) % Baso % (Auto) % Neut # (Auto) (1.4-6.5) K/uL Lymph # (Auto) (1.2-3.4) K/uL [place] # (Auto) (0.11-0.59) K/uL Eos # (Auto) (0-0.5) K/uL Baso # (Auto) (0-0.2) K/uL Immature Gran # (Auto) (0.00-0.02) K/uL PT (9.0-12.0) Seconds INR (0.9-1.1) Sodium (136-145) mmol/L Potassium (3.5-5.1) mmol/L Chloride (98-107) mmol/L Carbon Dioxide (21-32) mmol/L Anion Gap (3-11) BUN (7-18) mg/dl Creatinine (0.6-1.4) mg/dl Est Cr Clr Drug Dosing Est GFR ( Amer) ml/min Est GFR (Non-Af Amer) ml/min BUN/Creatinine Ratio (10-20) Glucose (70-99) mg/dl POC Glucose (70-99) mg/dl Estimat Average Glucose mg/dl Hemoglobin A1c (4.5-5.6) % Lactate (0.4-2.0) mmol/L Calcium (8.5-10.1) mg/dl Total Bilirubin (0.2-1) mg/dl AST (15-37) U/L ALT (12-78) U/L Alkaline Phosphatase (45-117) U/L Ammonia (11-32) umol/L Troponin I (0-0.045) ng/ml Total Protein (6.4-8.2) gm/dl Albumin (3.4-5.0) gm/dl Globulin (2.5-4.0) gm/dl Albumin/Globulin Ratio (0.9-2) Lipase (73-393) U/L Procalcitonin (0-0.5) ng/ml Urine Color Urine Appearance (Clear) Urine pH (4.5-7.5) Ur Specific [place] (1.000-1.030) Urine Protein (Negative) Urine Glucose (UA) (Negative) Urine Ketones (Negative) Urine Blood (Negative) Urine Nitrite (Negative) Urine Bilirubin (Negative) Urine Urobilinogen (Negative) Ur Leukocyte Esterase (Negative) Urine WBC (Auto) (0-5) /hpf Urine RBC (Auto) (0-4) /hpf U Hyaline Cast (Auto) (0-5) /lpf U Epithel Cells (Auto) (0-5) /lpf Urine Bacteria (Auto) (Negative) Urine Yeast Nasal Screen MRSA (PCR) (Negative) A. phagocytophilum DNA Lyme Disease IgG Ab (Negative) Lyme Disease IgM Ab (Negative) COVID-19 Eval Order Covid19 at [facility] SARS-CoV-2 (PCR) NEGATIVE (Negative)
--- NOTE | 2021-01-09 09:28 | Hospitalist Progress Note ---
Date of Service January 09, 2021 Assessment & Plan (1) Sepsis: (2) Metastatic colorectal cancer: (3) Mass of duodenum: (4) Transaminitis: (5) CAD (coronary artery disease): (6) PAF (paroxysmal atrial fibrillation): (7) DVT prophylaxis: Plan: per admitting SVC notes: This is a 80-year-old male who has significant past medical history of metastatic colon cancer(hepatic flexure origin) with mets to duodenum status post right hemicolectomy with partial duodenal resection, history of Lisandro-en-Y duodenojejunostomy, status post chemo and palliative radiation who presents to ED at the referral of oncology secondary to fever, jaundice and hypoxia when arrived for lab work. Patient with suspected sepsis secondary to fever ([facility] 102.7) and leukocytosis. Blood and urine cultures were obtained. Source: Chest x-ray concerning for right middle lobe infiltrate He received IV Zosyn and vancomycin. He also received IV fluids, lactic acid 2.0. Hemodynamically stable. Suspected sepsis secondary to right middle lobe pneumonia , Cholangitis, in the setting of Biliary Obstruction, Duodenal Mass CT chest confirms consolidative process RUL - recommend short term follow up 4-6 weeks afebrile WBC improved from 12 to 8 blood cultures: pending Continue IV Zosyn + doxycycline IVF 75 cc/h x 2 L discussed with GI will need possible EDGE ERCP procedure to address the Acute Cholangitis, Biliary Obstruction- recommend transfer to [facility] called [facility]- they kindly accepted the patient discussed with patient and his over the phone they are all agreeable and comfortable with the plan of care Metastatic colon cancer of hepatic flexure status post right hemicolectomy with partial duodenal resection revealing invasive adenocarcinoma now with recurrence of duodenal mass Transaminitis Questionable focal dilatation of the esophagus - per Chest CT He is status post chemotherapy and palliative radiation, recently on Keytruda, but discontinued in favor of vectibix and and encarafinib but has not yet started. Plan for chemo is palliative not curative Had CT a/p on 01/07 : "IMPRESSION 1. Developing intra and extrahepatic biliary ductal dilation. Finding may be obstructive due to poorly defined duodenal mass. Correlation with liver function panel suggested. 2. Poorly defined malignancy involving the duodenum is visually more bulky in appearance in comparison to PET-CT from December 17, 2020 with definitive measurement difficult due to poorly defined mass. There is central necrosis within this mass. There is definite increase in soft tissue masslike density surrounding the duodenum in comparison to CT from August 18, 2020. Although the central necrosis may represent treatment response (correlation with current treatment regimen is requested), there has been a definite progression in disease in comparison to CT from August 18, 2020. 3. Surrounding lymph nodes also demonstrate central necrosis. Enlarged necrotic lymph node in the region of the pancreatic head is similar to PET-CT from December 17, 2020, not present on prior examinations, consistent with neoplastic disease." LFTs 01/01 AST 264, ALT 178, ALP 876, total bili 0.5 LFTs today AST 252, ALT 305, alkaline phosphatase 1079 and total bilirubin 1.8, concerning for obstructing process given poor defined duodenal mass -- management per mary T2DM diet controlled novolog per protocol a1c in a.m. , last a1c 6.1 06/2020 CAD hx of CABG x 2 no cardiac symptoms continue asa, metoprolol - hold statin given LFTS; Hold losartan 2/2 to suspected sepsis and bp on lower side follows [employer] cards PAF SSS s/p PPM continue metoprolol, pt remains in NSR Cancer related pain reports nocturnal confusion associated with recent increase in fentanyl from 12mcg to 25mcg (adding additional patch) reduced fentanyl back to 12mcg , continue prn hydromorphone ordered IV Dilaudid CDK -3 bun/cr 26 and 1.27 baseline cr 1.2 monitor , avoid nephrotoxic agents HLD hold statin 2/2 to elevated LFTS BPH continue finasteride and flomax Dipso:transfer to [place] FULL CODE PCP: Yoel Admission and Anticipated Discharge Date Admission Date: January 08, 2021 Subjective ff up for sepsis, pneumonia, cholangitis in the setting of biliary obstruction secondary to duodenal mass seen resting in bed, not in distress reports persistent epigastric abdominal pain- moderate to severe no nausea no chest pain, dyspnea, palpitations, dizziness no flatus or BM yet oriented x 3, answers questions appropriately no other symptoms Review of Systems Review of Systems: all noted and negative except for above Physical Exam Physical Exam: General- oriented x 3, not in distress, speaks in sentences with no effort or accessory muscle use Head- atraumatic Eyes- PERRL, EOMI, anicteric ENT- oropharynx clear Neck- supple, no JVD, no adenopathy, no thyromegaly; carotids +2/2, no bruits appreciated Lungs-mild crackles on the right, clear on the L Heart- normal rate, regular rhythm; no murmur, no gallop, no rub appreciated Abdomen- normal bowel sounds, nondistended, soft, (+) moderate tenderness on the central abdomen, no masses or hepatosplenomegaly Extremities- no pretibial edema, no calf tenderness; peripheral pulses intact Neuro- alert, oriented x 3; CN 2-12 grossly intact; motor 5/5 bilaterally;sensation 100% on all extremities; no other gross focal neurologic deficits Skin- warm & dry Results & Data Results & Data ([facility]) Vital Signs (Past 12 Hours) Vital Signs Temp Pulse Pulse Resp BP Pulse Ox 01/09/21 06:50 36.4 C L 67 18 177/74 H 95 01/09/21 02:29 36.9 C 62 18 188/83 H 94 01/08/21 22:42 36.7 C 60 18 160/71 H 96 01/08/21 22:21 67 all noted and reviewed including below
[2021-01-09] MEDS: HYDROmorphone INJ 0.5 MG/0.5 ML SYR IV PRN ×3 (09:37→17:37)
[2021-01-09 12:08] VITALS: O2SAT 96
--- NOTE | 2021-01-09 17:21 | Discharge Summary ---
Date of Service January 09, 2021 Admission HPI Per Admitting Provider This is a 80-year-old male who has significant past medical history of metastatic colon cancer(hepatic flexure origin) with mets to duodenum status post right hemicolectomy with partial duodenal resection, history of Lisandro-en-Y duodenojejunostomy, status post chemo and palliative radiation who presents to ED at the referral of oncology secondary to fever, jaundice and hypoxia when arrived for lab work. Of significance he recently finished palliative radiation in October 24, 2020 and recently was taken off Keytruda early December secondary to elevated LFTs. He is to start on vectibix and encorafenib. He was last seen and evaluated by hematology on 01/01. Lab work revealed elevated AST at 264, ALT 178, alk phos 876 and a normal total bilirubin. Repeat lab work today revealed total bilirubin 1.9, alk phos greater than 1200, AST 269 and ALT 284. He did under go CT a/p yesterday which was concerning for biliary obstruction and Dr. Valdes referred to ED. is at bedside. Pt complains of epigastric pain descr ibed as sharp and dull. It waxes and wanes and radiates to back. Every time he eats he gets pain. Overall decreased appetite. Pain has been off and on since beginning of December. Pain gets worse at night which causes lack of sleep. Currently he has no pain. concerned due to increased confusion at night. He does occasionally get N/V. He denies diarrhea. Today he had a fever in office at 102.7 per epic. He denies MULLEN, dizziness, change in vision, cough, sob, chest pain, bar, dysuria, increased urinary freq, increased urg or hematuria. +Nocturia but that is chronic. He denies dysphagia or odynophagia. In ED patient remained hemodynamically stable and did not require oxygen. He did not meet sepsis criteria. Lab work notable for WBC 12.15, H&H 11.8 and 37.3, platelet 275, sodium 135, BUN 26, creatinine 1.27, lactate 2.0, total bili 1.8, AST 252, ALT 307, alk phos 1079. Urinalysis negative for infection. He tested negative for Lyme's, Anaplasma as well as SARS-CoV-2.Chest x-ray concerning for new 2.9 cm focal airspace opacity in the right midlung likely representing pneumonia. He was started on IV vancomycin and Zosyn for pneumonia coverage as well as received IV fluid and IV APAP. Patient other past medical history includes T2DM, PAF, CAD with history of CABG x2, HLD, CKD stage III, BPH, and bradycardia status post PPM. Admission Exam (Per Admitting) Constitutional Constitutional: WD/WN, vitals as above, NAD, sitting up in bed, pleasant, conversing easily Head: Normocephalic, Atraumatic Eyes: PERRL, conjunctivae normal, anicteric sclerae ENMT: external ear and nose normal, oropharynx normal Neck: trachea midline, no thyromegaly normal visual inspection Respiratory: normal respiratory effort, lungs clear to auscultation, no wheeze, rales, rhonchi. Normal insp/exp effort, no accessory muscle use Cardiovascular: RRR, no murmur, no edema Vessels: no JVD or carotid bruit Chest: normal inspection of chest Abdomen: normal bowel sounds, soft, nontender, no hepatosplenomegaly Musculoskeletal: no cyanosis or clubbing, extremities motor strength 5/5 Skin: no rashes, warm and dry normal turgor Neurologic: PERRL, EOMI, accommodation nl, no face palsy, no dysarthria CN's II-XI intact bilaterally and moves all extremities Psychiatric: A+Ox3, euthymic affect Lymphatic: no cervical or axillary lymphadenopathy : deferred Discharge Data Consultations 01/08/21 17:14 ED Decision to Admit Stat 01/08/21 17:44 Consult Gastroenterology Routine Procedures Performed CT OF THE CHEST WITH IV CONTRAST CLINICAL HISTORY: PNA vs mass, known colon CA w mets COMPARISON STUDY: January 30, 2017 TECHNIQUE: Following the IV administration of 94 mL of Optiray, CT of the thorax was performed from the thoracic inlet to the lung bases. Images are reviewed in the axial, sagittal, and coronal planes. IV contrast was administered without complication. A dose lowering technique was utilized adhering to the principles of ALARA. CT DOSE: 1256.65 mGy.cm FINDINGS: There is no axillary, supra clavicle or internal mammary lymphadenopathy seen. Multiple mediastinal lymph nodes measuring up to 1.1 cm in subcarinal region, partial calcified and unchanged since prior. Thyroid: Visualized portion of thyroid gland shows no evidence of focal lesions. Proximal esophagus is patulous. Focal dilatation of fluid-filled esophagus is seen at its midportion (6/127) and better visualized on sagittal reconstruction. Distal aspect of esophagus is not dilated. Small hiatal hernia is seen. Thoracic aorta: Thoracic aorta is normal in caliber and with scattered calcifications of its wall. Pulmonary vasculature: Normal in caliber. HEART: Four-chamber cardiomegaly. No pericardial effusion. Distal aspect of the pacemaker are seen. Heavy calcifications of the [place] coronary arteries and possible stents. Status post CABG. Lungs and pleural spaces: Tracheobronchial tree is patent. Patchy consolidative opacities with surrounding groundglass attenuation are seen within right upper lobe. Few linear densities are seen within bilateral lower lobes which could represent atelectasis or scarring. No pleural effusion is seen. Upper abdomen: Limited evaluation of upper abdominal viscera shows dilatation of intrahepatic and visualized portion of extrahepatic biliary duct, splenic calcifications and fat stranding within epigastric region. Skeletal structures: Osseous structures are slightly demineralized. Degenerative changes of the spine and sternotomy changes are seen with mild nonunion within its inferior aspect. IMPRESSION: 1. Patchy airspace opacities with surrounding groundglass and attenuation within right upper lobe, likely represent infectious/inflammatory etiology. Short-term follow-up in 4-6 weeks is recommended (or per clinical protocol) to document resolution. 2. Questionable focal dilatation of the esophagus. Please correlate above- mentioned findings with clinical presentation and gastroenterology evaluation. 3. Linear densities within bilateral lower lobes likely represent atelectasis or scarring. 4. Four-chamber cardiomegaly. 5. Dilatation of the common bile duct and intrahepatic biliary ducts. Above-mentioned findings were better evaluated on CT of the abdomen and pelvis performed on January 07, 2021. 6. The rest of findings as above. ACT 112: Negative or not required by law. COMPARISON STUDY: November 26, 2015 TECHNIQUE: Axial CT of the brain is performed from the vertex to the skull base. IV contrast was not administered for this examination. A dose lowering technique was utilized adhering to the principles of ALARA. CT DOSE: FINDINGS: No intra or extra-axial mass lesions are visualized. There is no CT evidence of acute cortical infarction. There is no evidence of midline shift. There is no acute hemorrhage. No acute depressed calvarial fractures are visualized. There are patchy white matter hypodensities likely on a small vessel basis. Calcifications of bilateral basal ganglia are seen. Mild diffuse atrophic changes of brain parenchyma are seen and associated with ex vacuo dilatation of ventricles. There is no evidence of acute sinusitis IMPRESSION: No acute intracranial hemorrhage, no midline shift or space occupying lesions. Atrophic changes of brain parenchyma and chronic small vessel ischemia. ACT 112: Negative or not required by law. Hospital Course (1) Sepsis: (2) Metastatic colorectal cancer: (3) Mass of duodenum: (4) Transaminitis: (5) CAD (coronary artery disease): (6) PAF (paroxysmal atrial fibrillation): (7) DVT prophylaxis: per admitting SVC notes: This is a 80-year-old male who has significant past medical history of metastatic colon cancer(hepatic flexure origin) with mets to duodenum status post right hemicolectomy with partial duodenal resection, history of Lisandro-en-Y duodenojejunostomy, status post chemo and palliative radiation who presents to ED at the referral of oncology secondary to fever, jaundice and hypoxia when arrived for lab work. Patient with suspected sepsis secondary to [facility] ([facility] and leukocytosis. Blood and urine cultures were obtained. Source: Chest x-ray concerning for right middle lobe infiltrate He received IV Zosyn and vancomycin. He also received IV fluids, lactic acid 2.0. Hemodynamically stable. Suspected sepsis secondary to right middle lobe pneumonia , Cholangitis, in the setting of Biliary Obstruction, Duodenal Mass CT chest confirms consolidative process RUL - recommend short term follow up 4-6 weeks afebrile WBC improved from 12 to 8 blood cultures: pending Continue IV Zosyn + doxycycline IVF 75 cc/h x 2 L discussed with GI will need possible EDGE ERCP procedure to address the Acute Cholangitis, Biliary Obstruction- recommend transfer to [facility]- they kindly accepted the patient discussed with patient and his over the phone they are all agreeable and comfortable with the plan of care Metastatic colon cancer of hepatic flexure status post right hemicolectomy with partial duodenal resection revealing invasive adenocarcinoma now with recurrence of duodenal mass Transaminitis Questionable focal dilatation of the esophagus - per Chest CT He is status post chemotherapy and palliative radiation, recently on Keytruda, but discontinued in favor of vectibix and and encarafinib but has not yet started. Plan for chemo is palliative not curative Had CT a/p on 01/07 : "IMPRESSION 1. Developing intra and extrahepatic biliary ductal dilation. Finding may be obstructive due to poorly defined duodenal mass. Correlation with liver function panel suggested. 2. Poorly defined malignancy involving the duodenum is visually more bulky in appearance in comparison to PET-CT from December 17, 2020 with definitive measurement difficult due to poorly defined mass. There is central necrosis within this mass. There is definite increase in soft tissue masslike density surrounding the duodenum in comparison to CT from August 18, 2020. Although the central necrosis may represent treatment response (correlation with current treatment regimen is requested), there has been a definite progression in disease in comparison to CT from August 18, 2020. 3. Surrounding lymph nodes also demonstrate central necrosis. Enlarged necrotic lymph node in the region of the pancreatic head is similar to PET-CT from December 17, 2020, not present on prior examinations, consistent with neoplastic disease." LFTs 01/01 AST 264, ALT 178, ALP 876, total bili 0.5 LFTs today AST 252, ALT 305, alkaline phosphatase 1079 and total bilirubin 1.8, concerning for obstructing process given poor defined duodenal mass -- management per mary T2DM diet controlled novolog per protocol a1c in a.m. , last a1c 6.1 06/2020 CAD hx of CABG x 2 no cardiac symptoms continue asa, metoprolol - hold statin given LFTS; Hold losartan 2/2 to suspected sepsis and bp on lower side follows [employer] cards PAF SSS s/p PPM continue metoprolol, pt remains in NSR Cancer related pain reports nocturnal confusion associated with recent increase in fentanyl from 12mcg to 25mcg (adding additional patch) reduced fentanyl back to 12mcg , continue prn hydromorphone ordered IV Dilaudid CDK -3 bun/cr 26 and 1.27 baseline cr 1.2 monitor , avoid nephrotoxic agents HLD hold statin 2/2 to elevated LFTS BPH continue finasteride and flomax Dipso:transfer to [place] FULL CODE PCP: Yoel
--- NOTE | 2021-01-09 17:39 | Hospitalist Progress Note ---
Date of Service January 09, 2021 Assessment & Plan (1) Sepsis: (2) Metastatic colorectal cancer: (3) Mass of duodenum: (4) Transaminitis: (5) CAD (coronary artery disease): (6) PAF (paroxysmal atrial fibrillation): (7) DVT prophylaxis: Plan: per admitting SVC notes: This is a 80-year-old male who has significant past medical history of metastatic colon cancer(hepatic flexure origin) with mets to duodenum status post right hemicolectomy with partial duodenal resection, history of Lisandro-en-Y duodenojejunostomy, status post chemo and palliative radiation who presents to ED at the referral of oncology secondary to fever, jaundice and hypoxia when arrived for lab work. Patient with suspected sepsis secondary [facility] and leukocytosis. Blood and urine cultures were obtained. Source: Chest x-ray concerning for right middle lobe infiltrate He received IV Zosyn and vancomycin. He also received IV fluids, lactic acid 2.0. Hemodynamically stable. Suspected sepsis secondary to right middle lobe pneumonia , Cholangitis, in the setting of Biliary Obstruction, Duodenal Mass CT chest confirms consolidative process RUL - recommend short term follow up 4-6 weeks afebrile WBC improved from 12 to 8 blood cultures: pending Continue IV Zosyn + doxycycline IVF 75 cc/h x 2 L discussed with GI will need possible EDGE ERCP procedure to address the Acute Cholangitis, Biliary Obstruction- recommend transfer to [facility]- they kindly accepted the patient discussed with patient and his over the phone they are all agreeable and comfortable with the plan of care Metastatic colon cancer of hepatic flexure status post right hemicolectomy with partial duodenal resection revealing invasive adenocarcinoma now with recurrence of duodenal mass Transaminitis Questionable focal dilatation of the esophagus - per Chest CT He is status post chemotherapy and palliative radiation, recently on Keytruda, but discontinued in favor of vectibix and and encarafinib but has not yet started. Plan for chemo is palliative not curative Had CT a/p on 01/07 : "IMPRESSION 1. Developing intra and extrahepatic biliary ductal dilation. Finding may be obstructive due to poorly defined duodenal mass. Correlation with liver function panel suggested. 2. Poorly defined malignancy involving the duodenum is visually more bulky in appearance in comparison to PET-CT from December 17, 2020 with definitive measurement difficult due to poorly defined mass. There is central necrosis within this mass. There is definite increase in soft tissue masslike density surrounding the duodenum in comparison to CT from August 18, 2020. Although the central necrosis may represent treatment response (correlation with current treatment regimen is requested), there has been a definite progression in disease in comparison to CT from August 18, 2020. 3. Surrounding lymph nodes also demonstrate central necrosis. Enlarged necrotic lymph node in the region of the pancreatic head is similar to PET-CT from December 17, 2020, not present on prior examinations, consistent with neoplastic disease." LFTs 01/01 AST 264, ALT 178, ALP 876, total bili 0.5 LFTs today AST 252, ALT 305, alkaline phosphatase 1079 and total bilirubin 1.8, concerning for obstructing process given poor defined duodenal mass -- management per mary T2DM diet controlled novolog per protocol a1c in a.m. , last a1c 6.1 06/2020 CAD hx of CABG x 2 no cardiac symptoms continue asa, metoprolol - hold statin given LFTS; Hold losartan 2/2 to suspected sepsis and bp on lower side follows [employer] cards PAF SSS s/p PPM continue metoprolol, pt remains in NSR Cancer related pain reports nocturnal confusion associated with recent increase in fentanyl from 12mcg to 25mcg (adding additional patch) reduced fentanyl back to 12mcg , continue prn hydromorphone ordered IV Dilaudid CDK -3 bun/cr 26 and 1.27 baseline cr 1.2 monitor , avoid nephrotoxic agents HLD hold statin 2/2 to elevated LFTS BPH continue finasteride and flomax Dipso:transfer to [place] FULL CODE PCP: Yoel Admission and Anticipated Discharge Date Admission Date: January 08, 2021 Results & Data Results & Data ([facility]) Vital Signs (Past 12 Hours) Vital Signs Temp Pulse Pulse Resp BP Pulse Ox 01/09/21 16:42 60 01/09/21 15:06 36.9 C 56 L 18 157/70 H 96 01/09/21 12:08 36.9 C 59 L 18 145/74 H 96 01/09/21 10:49 65 01/09/21 06:50 36.4 C L 67 18 177/74 H 95
[2021-01-09] MEDS ORDERED: D5NSS + 20MEQ KCL 20 MEQ/1,000 ML BAG IV SCH (17:45)
[2021-01-09 18:40] VITALS: BP 175/77; PULSE 63; TEMP 98.2
== END 2021-01-09 19:40 | disposition short-term general hospital (02) | DRG 871 ==
LOC: ED 13:02 → 2W 17:44 → SUATTDRO 17:44 → 2W 19:51
DX: K31.9 Disease of stomach and duodenum, unspecified; Z79.890 Hormone replacement therapy; E11.22 Type 2 diabetes mellitus with diabetic chronic kidney disease; Z95.5 Presence of coronary angioplasty implant and graft; K22.8 Other specified diseases of esophagus; J18.9 Pneumonia, unspecified organism; K83.09 Other cholangitis; E03.9 Hypothyroidism, unspecified; Z95.0 Presence of cardiac pacemaker; Z79.899 Other long term (current) drug therapy; Z95.1 Presence of aortocoronary bypass graft; R74.01 Elevation of levels of liver transaminase levels; C18.3 Malignant neoplasm of hepatic flexure; K83.1 Obstruction of bile duct; N18.30 Chronic kidney disease, stage 3 unspecified; K21.9 Gastro-esophageal reflux disease without esophagitis; Z86.711 Personal history of pulmonary embolism; Z80.42 Family history of malignant neoplasm of prostate; G89.3 Neoplasm related pain (acute) (chronic); I12.9 Hypertensive chronic kidney disease with stage 1 through stage 4 chronic kidney disease, or unspecified chronic kidney disease; A41.9 Sepsis, unspecified organism; Z98.890 Other specified postprocedural states; N40.0 Benign prostatic hyperplasia without lower urinary tract symptoms; Z90.49 Acquired absence of other specified parts of digestive tract; Z80.0 Family history of malignant neoplasm of digestive organs; E78.5 Hyperlipidemia, unspecified; I25.2 Old myocardial infarction; I25.10 Atherosclerotic heart disease of native coronary artery without angina pectoris; Z80.8 Family history of malignant neoplasm of other organs or systems